=== PATIENT | male | born 1930 | race Caucasian/White ===

== ENCOUNTER 2016-08-26 11:25 | Inpatient (IN) ==
[2016-08-26] MEDS ORDERED: methylPREDNISolone SOD SUC 125 MG/2 ML VIAL IV STA (11:45)
[2016-08-26] MEDS ORDERED: LEVOFLOXACIN INJ 500 MG in PREMIX 1 EACH IV STA (11:45)
[2016-08-26] MEDS ORDERED: ALBUTEROL/IPRATROPIUM 3 ML NEB RESP TX STA ×2 (11:45→13:36)
--- NOTE | 2016-08-26 11:50 | EKG Report ---
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
[2016-08-26 12:05] LABS: Basophils # 0.1 10*3/uL (0.0-0.2); Basophils % 0.3 % (0.0-0.8); Eosinophils # 0.2 10*3/uL (0.0-0.87); Hematocrit 45.9 VOL% (42.0-52.0); Hemoglobin 14.9 GM/DL (14.0-18.0); Immature Granulocytes % 1.1 %; Immature Granulocytes Absolute 0.17 #; Lymphocytes # 1.2 10*3/uL (1.4-4.0); Lymphocytes % 8.2 % (21.2-54.2); Mean Corpuscular HGB Conc 32.5 GM/DL (32-36); Mean Corpuscular Hemoglobin 31 PG (27-34); Mean Corpuscular Volume 94.6 FL (87-102); Mean Platelet Volume 10.2 FL (9.6-12.0); Monocytes # 1.1 10*3/uL (0.11-0.8); Monocytes % 7.3 % (1.7-12.7); Neutrophils # 12.3 10*3/uL (1.4-7.4); Neutrophils % 82.1 % (38.7-73.9); Platelet Count 186 T/CUMM (130-400); Red Blood Count 4.85 MC/CUMM (3.8-5.5); Red Cell Distribution Width 13.4 % (9.3-17.3)
[2016-08-26] MEDS ORDERED: methylPREDNISolone SOD SUC 125 MG/2 ML VIAL ONE (12:07)
[2016-08-26] MEDS ORDERED: LEVOFLOXACIN INJ 100 ML IV ONE (12:07)
--- NOTE | 2016-08-26 12:26 | XRay Report ---
Referring Physician: Jaskaran Holm Exam: XR chest 1V portable Date: August 26, 2016 at 11:50 AM Reason: Shortness of breath Comparison: Chest one view portable October 01, 2015 Findings: The cardiac silhouette is normal in size, but the thoracic aorta is slightly tortuous. The lungs are hyperexpanded, which can be seen in COPD, and emphysema is suspected. The interstitial markings are prominent bilaterally. This likely represents scarring and possible mild pulmonary edema. A subtle infectious process is not excluded. No pneumothorax or pleural fluid is identified. No acute osseous process is seen. Impression: The lungs are hyperexpanded, which can be seen in COPD, and there is likely emphysema. The interstitial markings are also prominent bilaterally. This likely represents scarring and possibly mild pulmonary edema. An infectious process is also not excluded. PROCEDURE INTERPRETED AT [facility] DEPARTMENT OF RADIOLOGY Final Report Signed by: Dr. Shadi Shaffer
[2016-08-26 12:28] LABS: Band Neutrophils 2 % (0-10); Hypochromasia 1+; Lymphocytes 10 % (20-55); Ovalocytes Slight; Platelet Estimate Normal; Segmented Neutrophils 85 % (50-85); Total Cells Counted 100
[2016-08-26 12:35] LABS: Albumin 3.8 G/DL (3.4-5.0); Bilirubin,Total 0.7 MG/DL (0.2-1.0); Calcium 8.5 MG/DL (8.5-10.1); Osmolality,Calculated 292.7 MOS/KG (273-304); Potassium 3.5 MMOL/L (3.5-5.1); Total Protein 6.7 G/DL (6.4-8.3)
[2016-08-26 12:36] LABS: Troponin I Only 0.366 NG/ML (0.00-0.045)
--- NOTE | 2016-08-26 13:13 | Emergency Department Note ---
Hiwot Burrell Brittany, am scribing for, and in the presence of, Jaskaran Holm MD 11:52. Alta Burrell Phillip K, MD, personally performed the services described in this documentation, ascribed by Alyssa Mi in my presence, and it is both accurate and complete [id number] . Arrival - Arrival Chief Complaint: Shortness of Breath Stated Complaint: shortness of breath; fever Mode of Arrival: Stretcher Limitations: No Limitations Source: Patient Time Seen by Provider: 08/26/16 11:38 - History of Present Illness HPI Narrative: This isn 86 y/o white male, who presents to the ED with c/o SOB which started to get worse this morning. His states he has COPD and is always SOB but this morning he started to get worse. His states pt using Breathing Tx and home Ox at home. He reports a cough which was productive of white sputum. He reports he has not felt like he has had a fever, but upon examination he has a fever of 105. He denies any CP. He reports the dyspnea is worse with exertion. He denies any vomiting or diarrhea. Pt states his PCP is Dr. Bishop and anesthesia attending is Dr. Prather. Pt states he was last hospilazed was in September of last year. Pt has no other complaints/pain in the ED at this time. Pt has a PMHx of CAD, MS, HTN, dyslipidemia, asthma, and GERD. PT has had a cardiac cath with stent, colonoscopy, and right hip replacement. PT has has a family medical Hx of diabetes, heart disease, and HTN. Pt is a former smoker. Allergies/Adverse Reactions: Allergies Allergy/AdvReac Type Severity Reaction Status Date / Time Penicillins AdvReac Difficulty Verified 01/08/16 06:19 Breathing Home Medications: Home Medications Medication Instructions Recorded Confirmed Type Albuterol Sulfate [Albuterol 2 puff INH Q4H PRN 02/13/15 01/08/16 History Inhaler] Aspirin [Ecotrin] 81 mg PO DAILY 02/13/15 01/08/16 History Atorvastatin [Lipitor] 20 mg PO DAILY 02/13/15 01/08/16 History Carvedilol [Coreg] 6.25 mg PO BID 02/13/15 01/08/16 History Clopidogrel [Plavix] 75 mg PO DAILY 02/13/15 01/08/16 History Ipratropium Neb [Atrovent Neb] 500 mcg RESP TX Q4HR PRN 02/13/15 01/07/16 History Losartan [Cozaar] 25 mg PO DAILY 02/13/15 01/08/16 History Nitroglycerin Sl Tab [Nitrostat] 0.4 mg SL Q5M PRN 02/13/15 01/07/16 History Ranitidine Tab [Zantac Tab] 150 mg PO BID 02/13/15 01/08/16 History Budesonide/Formoterol 160-4.5 2 puff INH BID #1 inhaler 05/16/15 01/07/16 Rx [Symbicort 160-4.5] Ipratropium/Albuterol Inhaler 1 puff INH QID #1 inhaler 05/16/15 01/07/16 Rx [Combivent Respimat Inhaler] predniSONE TAB [PredniSONE] 5 mg PO QOTHER DAY 09/18/15 01/07/16 History Dutasteride [Avodart] 0.5 mg PO DAILY capsule 09/27/15 01/08/16 Rx Tamsulosin [Flomax] 0.4 mg PO BID capsule 09/27/15 01/08/16 Rx Lactulose Liquid [Chronulac] 20 gm PO BID udcup 10/02/15 01/08/16 Rx diphenhydrAMINE CAP [Benadryl Cap] 25 mg PO Q6H PRN #0 capsule 10/02/15 Rx Theophylline ER Tab 200 mg PO TID 12/12/15 01/08/16 History diphenhydrAMINE 2% CREAM [Benadryl 1 applic TOP TID PRN 12/12/15 01/07/16 History Cream] Review of System - Review of System ROS unobtainable: due to dementia - Review of System Constitutional: Present: fever Respiratory: Present: cough Cardiovascular: Present: dyspnea on exertion. 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 Yogesh Bishop) No history of: Pneumonia (Due this year for Pneum Vac), Respiratory Problems (No Flu Vac [id number] Season) Genitourinary: History of: Prostate Problems (BPH) Gastrointestinal: History of: GERD No history of: Polyps Musculoskeletal: No history of: Amputation Other: No history of: Anesthesia Reactions, Cancer - Surgical History Cardiac Surgeries: Sugical HX of: Cardiac Catheterization (STENT) Thoracic Surgeries: Patient denies;: Organ Transplant HEENT Surgeries: Patient denies: Eye Surgery (12/13/15 Cataract Lt;01/08/[address] Gonzalez), Tonsilectomy & Adenoidectomy Abdominal Surgeries: Surgical HX of: Colonoscopy Orthopedic Surgeries: Surgical HX of;: Total Hip Replacement (Rt Hip Replacement (Hip Fx 2015)) Patient denies;: Implanted Devices, Orthopedic Surgery, Spinal Surgery, Total Knee Replacement - Family History Family History: Reports;: Family Diabetes, Family Heart Disease, Family Hypertension - Social History Smoking Status: Former smoker Exam Vital Signs: Vital Signs Temperature 100.5 F H 08/26/16 11:45 Pulse Rate 120 H 08/26/16 12:15 Respiratory Rate 20 08/26/16 12:15 Blood Pressure 146/69 08/26/16 12:15 O2 Sat by Pulse Oximetry 99 08/26/16 12:15 - General General appearance: alert, in no apparent distress - Head Head exam: Present: atraumatic, normocephalic, normal inspection - Eye Eye exam: Present: normal appearance, PERRL, EOMI. Absent: nystagmus, miosis, mydriasis - ENT ENT exam: Present: normal exam, normal oropharynx, mucous membranes moist - Neck Neck exam: Present: normal inspection, full ROM, trachea midline. Absent: tenderness, lymphadenopathy, thyromegaly - Chest Chest inspection: Present: normal inspection, symmetric chest wall rise. Absent : tenderness, rash, abscess - Respiratory Respiratory exam: Present: prolonged expiratory phase, wheezes. Absent: rales, respiratory distress, rhonchi, stridor - Cardiovascular Cardiovascular exam: Present: normal rhythm, tachycardia, normal heart sounds. Absent: murmur, rubs, gallop - Abdominal Exam Abdominal exam: Present: soft, normal bowel sounds. Absent: distention, tenderness, guarding, rebound, rigidity - Rectal Exam Rectal exam: Present: deferred - Extremities Exam Extremities exam: Present: normal inspection, full ROM, normal capillary refill. Absent: tenderness, pedal edema, joint swelling, calf tenderness - Back Exam Back exam: Present: normal inspection, full ROM. Absent: tenderness, muscle spasm, rashes - Neurological Exam Neurological exam: Present: alert, oriented X3, CN II-XII intact. Absent: motor sensory deficit - Psychiatric Psychiatric exam: Present: normal affect, normal mood. Absent: depressed, agitated, anxious, manic - Skin Skin exam: Present: warm, dry, intact, normal color. Absent: rash, cyanosis, diaphoresis, erythema, pallor, mottled Course Course Narrative: Admit to the hospitalist. Results - Labs CBC & BMP: 08/26/16 11:44 08/26/16 11:44 Lab Results: I have reviewed the patients labs - EKG EKG results: interpreted by CHRISS, sinus rhythm (sinus tachycardia with some ST depression) - Diagnostic Findings Procedure: Chest x-ray: report reviewed by me (The lungs are hyperexpanded, which can be seen in COPD and there is likely emphysema. The intersitital markings are also prominent bilaterally. This likely reprsents scarring and possibly mild pulmonary edema. An infectious process is also not excluded. ) Disposition Clinical Impression: COPD exacerbation, Acute exacerbation of chronic obstructive airways disease, probable pneumonia Case discussed with: patient, patient's family Disposition: Still a Patient Condition: Guarded Additional Instructions: Admitted to the hospitalist
[2016-08-26] MEDS ORDERED: ACETAMINOPHEN 325 MG TABLET PO PRN (14:47)
[2016-08-26] MEDS ORDERED: ZALEPLON 5 MG CAPSULE PO PRN (14:47)
[2016-08-26] MEDS ORDERED: ONDANSETRON 4 MG/2 ML VIAL IV PRN (14:47)
[2016-08-26] MEDS ORDERED: BISACODYL 5 MG TABLET PO PRN (14:47)
--- NOTE | 2016-08-26 15:12 | Hospitalist History & Physical ---
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 Current Visit: No Qualifiers: COPD type: emphysema (2) Coronary artery disease Status: Chronic Assessment and plan: History given of prior IA with PCI. Echocardiogram 11 months ago with normal global and segmental LV systolic performance. Random cTnI elevated at admission. Current Visit: No Qualifiers: Coronary Disease-Associated Artery/Lesion type: wrangell artery History of Present Illness History of present illness: Mr. 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 Yesterday went to [place] to see about hearing aids. Travels by wheelchair largely but noticed nothing new. He awoke this morning at 04:00 initially with transient non-productive cough, then increase in dyspnea from chronic baseline. He received cough preparation from his and returned to bed for approximately four hours. He called to his due to continuing shortness of breath and EMS was called. He states he nearly "when out" while being wheeled to the ambulance. He denies fever, chills, pain, or symptoms consistent with nocturnal aspiration. He has history of remote "IA" with coronary stents done he believes about 3 years ago. An echocardiogram performed September of 2015 demonstrated normal global LV systolic performance without segmental wall motion abnormalities. His initial cTnI done in the emergency room earlier today is reported at 0.366. His ECG shows sinus tachycardia with isolated VPC and J point depression with upsloping ST segments. Home Medications Medication Instructions Recorded Confirmed Type Clopidogrel [Plavix] 75 mg PO DAILY 02/13/15 08/26/16 History Losartan [Cozaar] 25 mg PO DAILY 02/13/15 08/26/16 History Nitroglycerin Sl Tab [Nitrostat] 0.4 mg SL Q5M PRN 02/13/15 08/26/16 History Ranitidine Tab [Zantac Tab] 150 mg PO BID 02/13/15 08/26/16 History Budesonide/Formoterol 160-4.5 2 puff INH BID #1 inhaler 05/16/15 08/26/16 Rx [Symbicort 160-4.5] Dutasteride [Avodart] 0.5 mg PO DAILY capsule 09/27/15 08/26/16 Rx Tamsulosin [Flomax] 0.4 mg PO BID capsule 09/27/15 08/26/16 Rx Theophylline ER Tab 200 mg PO TID 12/12/15 08/26/16 History Albuterol Inhaler [Proventil 2 puff INH Q6HR PRN 08/26/16 08/26/16 History Inhaler] Alendronate Sodium 35 mg PO MO 08/26/16 08/26/16 History Aspirin [Aspirin EC] 81 mg PO QAM 08/26/16 08/26/16 History Atorvastatin Calcium 20 mg PO 1700 08/26/16 08/26/16 History Carvedilol [Coreg] 6.25 mg PO BID 08/26/16 08/26/16 History Ipratropium/Albuterol Sulfate 3 ml IH Q4H 08/26/16 08/26/16 History [Iprat-Albut 0.5-3(2.5) mg/3 ml] Multivit-Min/FA/Lycopen/Lutein 1 each PO DAILY 08/26/16 08/26/16 History [Centrum Silver Tablet] predniSONE TAB [PredniSONE] 10 mg PO QOTHER DAY 08/26/16 08/26/16 History Allergies Allergy/AdvReac Type Severity Reaction Status Date / Time Penicillins AdvReac Difficulty Verified 01/08/16 06:19 Breathing Medical,Surgical,& Family Hx - Medical History Cardio: History of: CAD (PCI X 2 in the past), Hypertension, IA Neurology: No history of: Seizures HEENT: History of: Ear Problem (Rt Ear Hearing Aide; 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 Yogesh Bishop) No history of: Pneumonia (Due this year for Pneum Vac), Respiratory Problems (No Flu Vac [id number] Season) Genitourinary: History of: Prostate Problems (BPH) Gastrointestinal: History of: GERD No history of: Polyps Musculoskeletal: No history of: Amputation Other: No history of: Anesthesia Reactions, Cancer - Surgical History Cardiac Surgeries: Sugical HX of: Cardiac Catheterization (STENT) Thoracic Surgeries: Patient denies;: Organ Transplant HEENT Surgeries: Patient denies: Eye Surgery (12/13/15 Cataract Lt;01/08/[address] Gonzalez), Tonsilectomy & Adenoidectomy Abdominal Surgeries: Surgical HX of: Appendectomy, Colonoscopy Orthopedic Surgeries: Surgical HX of;: Total Hip Replacement (Rt Hip Replacement (Hip Fx 2016)) Patient denies;: Implanted Devices, Orthopedic Surgery, Spinal Surgery, Total Knee Replacement Additional Surgical History: Bilateral ear surgery - Family History Family History: Reports;: Family Diabetes, Family Heart Disease, Family Hypertension - Social History Smoking Status: Former smoker (1 ppd, abstinent for one year) Frequency of Alcohol Use: None Type of Drug Use: None - Constitutional Constitutional: Present: weakness. Absent: weight loss - EENT Ears: Present: decreased hearing - Cardiovascular Cardiovascular: Absent: chest pain at rest, chest pain with activity, edema, orthopnea, palpitations - Respiratory Respiratory: Present: cough, dyspnea on exertion - Gastrointestinal Gastrointestinal: Absent: abdominal pain, change in bowel habits, dysphagia, hematemesis, hematochezia, melena - Neurological Neurological: Absent: convulsions, focal weakness, syncope Exam - Constitutional Vitals: Period Temp Pulse Resp BP Sys/Carrion Pulse Ox Last 24 Hr 110-117 17-20 97-98 General appearance: normal weight, no acute distress - Eye Eye exam: Absent: scleral icterus - Neck Neck exam: Absent: lymphadenopathy, thyromegaly - Respiratory Respiratory exam: Present: accessory muscle use, other (pursed lip breathing with extremely distant breath sounds) - Cardiovascular Cardiovascular exam: Present: regular rate and rhythm - GI/Abdominal GI/Abdominal exam: Present: normal bowel sounds. Absent: distended, organomegaly, tenderness - Extremities Exam Extremities exam: Absent: edema - Neurological Exam Neurological exam: Present: alert, oriented X3 Results - Labs CBC & BMP: 08/26/16 11:44 08/26/16 11:44 Labs: cTnI 0.366 - Impressions Sinus rhythm with sinus tachycardia, J point depression with upsloping ST segments. - Diagnostic Findings Procedure: Chest x-ray: image reviewed by me (hyperexpansion with mildly coarse interstial markings and normal heart size)
--- NOTE | 2016-08-26 16:04 | Cardiology Consult Note ---
<Sonam Gilbert E - Last Filed: 08/26/16 17:26> Assessment and Plan - Time spent with patient Time spent with patient: Greater than 30 minutes (Due to assessment, plan, and documentation.) (1) Leukocytosis Status: Acute Assessment and plan: White blood cell count noted to be 15.0 on admission. Patient has been given 500 mg IV Levaquin in the emergency department. Nasal swabs for flu were negative. Blood cultures are pending. Urinalysis was unremarkable. Hospital medicine is following. Current Visit: Yes (2) Fever Status: Acute Assessment and plan: Received IV Levaquin in the emergency room. Tylenol as needed. Current Visit: Yes (3) Dyspnea Status: Acute Assessment and plan: O2 via NBP. Breathing treatments have been ordered. Current Visit: No (4) Elevated troponin I level Status: Acute Assessment and plan: Mildly elevated troponin on admission. We will continue to cycle cardiac isoenzymes and follow trend. Current elevation could be related to his tachycardia or shortness of breath. EKG showed sinus tachycardia with occasional PVC. He denies chest pain. His shortness of breath seems to be more related to his chronic lung issues. Current Visit: No (5) COPD (chronic obstructive pulmonary disease) Status: Chronic Assessment and plan: Hospital medicine is following. He is currently breathing comfortably on O2 via NBP. Breathing treatments, theophylline ordered. Current Visit: No Qualifiers: COPD type: emphysema (6) Dyslipidemia Status: Chronic Assessment and plan: Continue atorvastatin. Current Visit: Yes (7) Essential hypertension Status: Chronic Assessment and plan: Currently well controlled. Continue home medications and monitor and adjust as needed. He was started on Cardizem p.o. This may help with his tachycardic episodes. Current Visit: No (8) Coronary artery disease Status: Chronic Assessment and plan: Last heart catheterization performed was April 03, 2013 and the patient received overlapping drug-eluting stents to the first obtuse marginal branch along with aspiration thrombectomy. He currently shows no acute signs of ACS. We will continue to monitor. Current Visit: No Qualifiers: Coronary Disease-Associated Artery/Lesion type: [place] artery (9) Physical debility Status: Chronic Assessment and plan: Patient's tells me that he has refused multiple recommendations for physical therapy and is very sedentary at home. Patient tells me he has a stationary bike and hand weights that he uses occasionally but his tells me he does not use these. Current Visit: No (10) Advanced age Status: Chronic Current Visit: Yes History of Present Illness - Data of Consult Patient: known to practice within the last 3 years (followed by Dr. Rios) Consult date: 08/26/16 Requesting Physician: Uche Vanessa - Consult Narrative Reason for consult: SOB, elevated troponin History of present illness: MANAGER BOOK: DR. RIOS PCP: DR. RYAN CRUZ Mr. Contreras is a 86 year old male who is routinely followed by Dr. Rios. He has a history of coronary artery disease, chronic obstructive pulmonary disease, dyslipidemia, hypertension, benign prostatic hyperplasia, prior [place]. Last echocardiogram in September 2015 revealed normal LV systolic function with EF 60%, grade 1 4 diastolic dysfunction and mild tricuspid regurgitation. Last heart catheterization performed was April 03, 2013 and the patient received overlapping drug-eluting stents to the first obtuse marginal branch along with aspiration thrombectomy. He is hard of hearing and wears hearing aids. He previously underwent surgery to repair a right hip fracture in September 2015. His reports he has been very sedentary ever since then and has refused multiple attempts to rehab him with physical therapy. He presented to the emergency department via ambulance today with complaints of progressive shortness of breath. Mr. Contreras reports he has chronic dyspnea and wears home O2 continuously. This morning around 0400 AM, Mr. Contreras awoke in a coughing fit. He reports he checked his SpO2 which was 95% and he noted his heart rate was elevated at 140. He tells me his brought him some cough medication and he tried to rest. Around 0800, he noted he was not improving and had markedly increased SOB so he had his call the ambulance. He reports coughing up white phlegm on one occasion, but otherwise his cough has been non-productive. He had an episode of near syncope when being transported to the ambulance, but has felt better since being admitted. Prior to arrival, his reports he had a temperature of 100.5. He denies any chest pain, arm pain, jaw pain. He also denies any dizziness, palpitations, diaphoresis, nausea, vomiting. He denies any recent hematuria or dysuria. On admission he was noted to have an elevated white count of 15.0. A random troponin was checked and found to be 0.366. He is also noted to have a creatinine of 1.4. BNP 94. EKG shows sinus tachycardia with occasional PVC. Urinalysis was unremarkable. We will continue to follow him with serial isoenzymes and will repeat his echocardiogram. I suspect his troponin elevation may be related to his tachycardia or shortness of breath. Dr. Mccracken to follow with further plan and addendum. Assessment/plan: 1. Leukocytosis - White blood cell count noted to be 15.0 on admission. Patient has been given 500 mg IV Levaquin in the emergency department. Nasal swabs for flu were negative. Blood cultures are pending. Urinalysis was unremarkable. Hospital medicine is following. 2. Fever - Received IV Levaquin in the emergency room. Tylenol as needed. 3. Dyspnea - O2 via NBP. Breathing treatments have been ordered. 4. Elevated troponin I level - Mildly elevated troponin on admission. We will continue to cycle cardiac isoenzymes and follow trend. Current elevation could be related to his tachycardia or shortness of breath. EKG showed sinus tachycardia with occasional PVC. He denies chest pain. His shortness of breath seems to be more related to his chronic lung issues. 5. COPD - Hospital medicine is following. He is currently breathing comfortably on O2 via NBP. Breathing treatments, theophylline ordered. 6. Dyslipidemia -continue atorvastatin. 7. Essential hypertension - Currently well controlled. Continue home medications and monitor and adjust as needed. He was started on Cardizem p.o. This may help with his tachycardic episodes. 8. Coronary artery disease - Last heart catheterization performed was April 03, 2013 and the patient received overlapping drug-eluting stents to the first obtuse marginal branch along with aspiration thrombectomy. He currently shows no acute signs of ACS. We will continue to monitor. 9. Physical debility - Patient's tells me that he has refused multiple recommendations for physical therapy and is very sedentary at home. Patient tells me he has a stationary bike and hand weights that he uses occasionally but his tells me he does not use these. 10. Advanced age CC: Uche Vanessa MD - Home Medications and Allergies Home Medications: Home Medications Medication Instructions Recorded Confirmed Type Nitroglycerin Sl Tab [Nitrostat] 0.4 mg SL Q5M PRN 02/13/15 08/26/16 History Ranitidine Tab [Zantac Tab] 150 mg PO BID 02/13/15 08/26/16 History Budesonide/Formoterol 160-4.5 2 puff INH BID #1 inhaler 05/16/15 08/26/16 Rx [Symbicort 160-4.5] Theophylline ER Tab 200 mg PO TID 12/12/15 08/26/16 History Albuterol Inhaler [Proventil 2 puff INH Q6HR PRN 08/26/16 08/26/16 History Inhaler] Alendronate Sodium 35 mg PO Q7DAY 08/26/16 08/26/16 History Aspirin [Aspirin EC] 81 mg PO QAM 08/26/16 08/26/16 History Atorvastatin Calcium 20 mg PO 1700 08/26/16 08/26/16 History Carvedilol [Coreg] 6.25 mg PO BID 08/26/16 08/26/16 History Ipratropium/Albuterol Sulfate 3 ml IH Q4H 08/26/16 08/26/16 History [Iprat-Albut 0.5-3(2.5) mg/3 ml] Multivit-Min/FA/Lycopen/Lutein 1 each PO DAILY 08/26/16 08/26/16 History [Centrum Silver Tablet] Tamsulosin [Flomax] 0.4 mg PO DAILY PRN 08/26/16 08/26/16 History predniSONE TAB [PredniSONE] 10 mg PO QOTHER DAY 08/26/16 08/26/16 History Allergies/Adverse Reactions: Allergies Allergy/AdvReac Type Severity Reaction Status Date / Time Penicillins AdvReac Difficulty Verified 01/08/16 06:19 Breathing Review of systems: - Constitutional: Present: weakness, fatigue, low-grade fever(s), As per HPI. Absent: anorexia, chills, daytime sleepiness, excessive sweating, frequent falls , headache(s), increased appetite, lethargy, malaise, night sweats, stops breathing during sleep, weight gain, weight loss, - EENT Eyes: Present: As per HPI. Absent: blurry vision, diplopia, loss of vision Ears: Present: decreased hearing, As per HPI. Absent: ear discharge, ear pain Nose, mouth and throat: Present: As per HPI. Absent: dysphagia, epistaxis, headache(s), hoarseness, lip swelling, nasal congestion, neck mass, neck pain, sinus pressure, sore throat, throat swelling, tongue swelling, vertigo - Cardiovascular: Present: dyspnea, dyspnea on exertion, as per HPI. Absent: chest pain at rest, chest pain with activity, edema, claudication, diaphoresis, radiating jaw, neck or arm pain, lightheadedness, orthopnea, palpitations, PND - Respiratory: Present: dyspnea, dyspnea on exertion, cough, as per HPI. Absent: hemoptysis, wheezing, snoring, pain on inspiration - Gastrointestinal: Present: As per HPI. Absent: abdominal pain, bloating, change in bowel habits, constipation, diarrhea, heartburn, hematemesis, hematochezia, loose stools, melena, nausea, vomiting - Genitourinary: Present: As per HPI. Absent: difficulty urinating, dysuria, flank pain, hematuria, nocturia, urinary frequency, urinary incontinence - Musculoskeletal: Present: As per HPI. Absent: arthralgias, back pain, joint swelling, limited range of motion, muscle cramps, muscle weakness, myalgias - Neurological: Present: Near syncope, As per HPI. Absent: abnormal gait, abnormal speech, behavioral changes, confusion, convulsions, disequilibrium, dizziness, focal weakness, frequent falls, headache(s), memory loss, numbness, paresthesias, radicular pain, tremor(s) - Psychiatric: Present: As per HPI. Absent: anxiety, confusion, depression, panic attacks - Endocrine: Present: fatigue, As per HPI. Absent: cold intolerance, heat intolerance, polydipsia, polyphagia - Hematologic/Lymphatic: Present: As per HPI. 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 Yogesh Cruz) No history of: Pneumonia (Due this year for Pneum Vac), Respiratory Problems (No Flu Vac [id number] Season) Genitourinary: History of: Prostate Problems (BPH) Gastrointestinal: History of: GERD No history of: Polyps Musculoskeletal: No history of: Amputation Other: No history of: Anesthesia Reactions, Cancer - Surgical History Cardiac Surgeries: Sugical HX of: Cardiac Catheterization (STENT) Thoracic Surgeries: Patient denies;: Organ Transplant HEENT Surgeries: Patient denies: Eye Surgery (12/13/15 Cataract Lt;01/08/[address] Gonzalez), Tonsilectomy & Adenoidectomy Abdominal Surgeries: Surgical HX of: Appendectomy, Colonoscopy Orthopedic Surgeries: Surgical HX of;: Total Hip Replacement (Rt Hip Replacement (Hip Fx 2016)) Patient denies;: Implanted Devices, Orthopedic Surgery, Spinal Surgery, Total Knee Replacement - Family History Family History: Reports;: Family Diabetes, Family Heart Disease, Family Hypertension - Social History Smoking Status: Former smoker (1 ppd, abstinent for one year) Frequency of Alcohol Use: None Type of Drug Use: None Marital Status: Lives With:: Spouse Functional capacity: independent ambulation Physical Examination Vital Signs Temp Pulse Resp BP Pulse Ox 100.5 F H 142 H 26 H 171/83 98 08/26/16 11:38 08/26/16 11:38 08/26/16 11:38 08/26/16 11:38 08/26/16 11:38 Other: General appearance: Pleasant and cooperative. Normal weight, no acute distress. Hard of hearing - Head Head exam: Present: normal inspection, normocephalic, atraumatic. Absent: hematoma, laceration - Eye Eye exam: Present: EOMI. Absent: conjunctival injection, nystagmus, periorbital swelling, scleral icterus, laceration to eyelids Pupils: Present: PERRL. Absent: constricted, dilated, fixed, irregular, unequal - ENT ENT exam: Present: normal exam, normal external ear exam, right hearing aid present. - Neck Neck exam: Present: normal inspection. Absent: lymphadenopathy, meningismus, tenderness, thyromegaly - Respiratory Respiratory exam: Present: Scattered expiratory wheezes. Absent: chest wall tenderness, stridor. - Cardiovascular Cardiovascular exam: Present: regular rate and rhythm, tachycardia. Absent: carotid bruit, gallop, JVD, rubs, murmur - GI/Abdominal GI/Abdominal exam: Present: normal bowel sounds, soft. Absent: distended, firm , guarding, hernia, mass, tenderness, rebound. - Extremities Exam Extremities exam: Present: normal inspection, normal capillary refill. Upper extremity pulses 2+. Lower extremity pulses 2+, 2+ pitting edema to RLE, 1+ pitting edema to LLE. Absent: calf tenderness - Back Exam Back exam: Present: normal inspection. Absent: muscle spasm, vertebral tenderness - Neurological Exam Neurological exam: Present: alert, oriented X3, grossly intact without resting or essential tremor - Psychiatric Psychiatric exam: Present: normal affect, normal mood - Skin Skin exam: Present: normal color, warm, dry, intact. Absent: cyanosis, diaphoretic, rash, urticaria Result/EKG - Labs CBC & BMP: 08/26/16 11:44 08/26/16 11:44 Lab Results: I have reviewed the past 24 hour labs - EKG EKG results: interpreted by me, sinus rhythm EKG shows: tachycardia (With occasional PVC.) <Devon Mccracken - Last Filed: 08/26/16 23:06> Assessment and Plan (1) Elevated troponin I level Status: Acute Assessment and plan: This does not appear to be an acute coronary syndrome. The patient has no chest pain/angina or acute EKG changes. He had a coughing fit, with fever and leukocytosis. I suspect the primary etiology of his symptoms is related to pulmonary infection/COPD exacerbation. I think the trivial change in cardiac troponin is related to supply/demand mismatch, secondary to tachycardia/fever/ hypoxia. From a cardiac standpoint, I would be conservative in management at this time. I will check/review an echo. Of note, I reviewed his old labs and his troponin seems to be mildly elevated on every admission (and this is the lowest it's been). Current Visit: No History of Present Illness - Consult Narrative History of present illness: I saw, examined and reviewed the chart and discussed the case with Sonam Gilbert NP today and agree. CC: Uche Vanessa MD Physical Examination Vital Signs Temp Pulse Resp BP Pulse Ox 100.5 F H 142 H 26 H 171/83 98 08/26/16 11:38 08/26/16 11:38 08/26/16 11:38 08/26/16 11:38 08/26/16 11:38 Result/EKG - Labs CBC & BMP: 08/26/16 11:44 08/26/16 11:44 Labs: Laboratory Results - last 24 hr 08/26/16 08/26/16 18:52 Unknown Total Creatine Kinase 119 115 CK-MB (CK-2) 2.8 2.9 Troponin I 0.326 H 0.344 H
[2016-08-26] MEDS: ALBUTEROL/IPRATROPIUM 3 ML NEB RESP TX SCH ×3 (16:16→23:10)
[2016-08-26] MEDS: THEOPHYLLINE ER (24 HR) 300 MG CAPSULE PO SCH ×2 (17:12→20:27)
[2016-08-26] MEDS: DILTIAZEM CD 120 MG CAPSULE PO SCH (17:12)
[2016-08-26] MEDS: ENOXAPARIN 40 MG/0.4 ML SYRINGE SUBCUT SCH (17:12)
[2016-08-26] MEDS: ATORVASTATIN 40 MG TABLET PO SCH (17:12)
[2016-08-26 17:45] LABS: Troponin I Only 0.344 NG/ML (0.00-0.045)
[2016-08-26] MEDS: BUDESONIDE/FORMOTEROL 160-4.5 INHALER 6 GM INH SCH (20:27)
[2016-08-26] MEDS: ASCORBIC ACID 500 MG TABLET PO SCH (20:27)
[2016-08-26] MEDS: FAMOTIDINE 20 MG TABLET PO SCH (20:27)
[2016-08-26] MEDS: CARVEDILOL 6.25 MG TABLET PO SCH (20:27)
[2016-08-26] MEDS ORDERED: TAMSULOSIN 0.4 MG CAPSULE PO SCH (21:00)
[2016-08-26 21:23] LABS: Troponin I Only 0.326 NG/ML (0.00-0.045)
[2016-08-26 23:03] LABS: Troponin I Only 0.283 NG/ML (0.00-0.045)
[2016-08-27] MEDS: ALBUTEROL/IPRATROPIUM 3 ML NEB RESP TX SCH ×5 (03:10→19:04)
[2016-08-27 06:57] LABS: Calcium 8.6 MG/DL (8.5-10.1); Magnesium 2.3 MG/DL (1.8-2.4); Osmolality,Calculated 290.1 MOS/KG (273-304); Potassium 4.1 MMOL/L (3.5-5.1)
--- NOTE | 2016-08-27 07:12 | Hospitalist Progress Note ---
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 Transient worsening of symptoms with mildly elevated temperature. Will follow-up IV flouroquinolone orally Current Visit: No Qualifiers: COPD type: emphysema (2) Coronary artery disease Status: Chronic Assessment and plan: History given of prior [place] with PCI to obtuse marginal 2012. Echocardiogram 11 months ago with normal global and segmental LV systolic performance. Random cTnI elevated at admission, no evolution. Current Visit: No Qualifiers: Coronary Disease-Associated Artery/Lesion type: [place] artery Hospitalist: Subjective Interval history: 86 yo male with advanced pulmonary disease admitted for increased dyspnea. Radiographically stable with low grade fever in ER with single dose of IV Levaquin without subsequent temperature elevation. Has normal echocardiographic LV systolic performance with history of percutaneous intervention to OM1 2012. His troponin level was initially indeterminate without evolution overnight. He states he feels well this morning apparent baseline. Exam - Constitutional Vitals: Period Temp Pulse Resp BP Sys/Carrion Pulse Ox Last 24 Hr 97.6 F-99.6 F 73-117 16-22 97-140/61-75 91-99 General appearance: normal weight, no acute distress - Respiratory Respiratory exam: Present: clear to auscultation bilaterally, other (very remote breath sounds) - Cardiovascular Cardiovascular exam: Present: regular rate and rhythm - GI/Abdominal GI/Abdominal exam: Present: normal bowel sounds. Absent: tenderness - Extremities Exam Extremities exam: Absent: edema - Neurological Exam Neurological exam: Present: alert, oriented X3 Results - Labs CBC & BMP: 08/26/16 11:44 08/27/16 05:35 Labs: cTnI 0.283 Quality Measures - Stroke Symptom Onset Unknown: No
[2016-08-27] MEDS: DUTASTERIDE 0.5 MG CAPSULE PO SCH (10:14)
[2016-08-27] MEDS: CLOPIDOGREL 75 MG TABLET PO SCH (10:14)
[2016-08-27] MEDS: FAMOTIDINE 20 MG TABLET PO SCH ×2 (10:14→20:48)
[2016-08-27] MEDS: LOSARTAN 25 MG TABLET PO SCH (10:14)
[2016-08-27] MEDS: TAMSULOSIN 0.4 MG CAPSULE PO PRN (10:14)
[2016-08-27] MEDS: ASCORBIC ACID 500 MG TABLET PO SCH ×2 (10:14→20:48)
[2016-08-27] MEDS: THEOPHYLLINE ER (24 HR) 300 MG CAPSULE PO SCH ×2 (10:14→20:47)
[2016-08-27] MEDS: LEVOFLOXACIN 500 MG TABLET PO SCH (10:16)
[2016-08-27] MEDS: CARVEDILOL 6.25 MG TABLET PO SCH ×2 (10:17→20:48)
[2016-08-27] MEDS: POTASSIUM CHLORIDE 20 MEQ TABLET PO SCH (10:17)
[2016-08-27] MEDS: DILTIAZEM CD 120 MG CAPSULE PO SCH (10:18)
[2016-08-27] MEDS: BUDESONIDE/FORMOTEROL 160-4.5 INHALER 6 GM INH SCH ×2 (10:22→20:47)
[2016-08-27] MEDS: ASPIRIN EC 81 MG TABLET PO SCH (10:22)
--- NOTE | 2016-08-27 15:03 | ECHO Report ---
Jacky Contreras Exam Date: 08/27/2016 13:29 Referring Physician: Technologist: Natalie Fermin Age: 86 Ht (in): 67 Wt (lb): 150 Gender: M Exam Location: [facility] Echo Indications: dyslipidemia, CAD, leukocytosis, fever, dyspnea, elevated troponin, Copd, HTN BP: 119 / 70 HR: 70 Rhythm: Sinus Technical Quality: Very technically difficult study IMPRESSIONS Technically difficult study. EF 60 %, Grade I/IV diastolic dysfunction (abnormal relaxation filling pattern), normal to mildly elevated filling pressures. Normal right ventricular size. Moderately increased right atrial size. Moderately increased left atrial size. Thickened mitral valve. Trace mitral valve regurgitation. Aortic valve sclerosis. Trace aortic valve regurgitation. [id number] tricuspid valve regurgitation. [id number] mmHG. Pulmonic valve not well visualized. No pericardial effusion. Normal size aortic root and proximal ascending aorta. MEASUREMENTS (Male / Female) Normal Values 2D ECHO LV Diastolic Diameter PLAX 3.0 cm 4.2 - 5.9 / 3.9 - 5.3 cm LV Systolic Diameter PLAX 2.1 cm LV Fractional Shortening PLAX 30.1 % IVS Diastolic Thickness 1.6 cm 0.6 - 1.0 / 0.6 - 0.9 cm LVPW Diastolic Thickness 1.2 cm 0.6 - 1.0 / 0.6 - 0.9 cm Aortic Root Diameter 2.2 cm LA Systolic Diameter LX 2.7 cm 3.0 - 4.0 / 2.7 - 3.8 cm DOPPLER TR Peak Velocity 201.0 cm/s TR Peak Gradient 16.2 mmHg FINDINGS Left Ventricle EF 60 %, Grade I/IV diastolic dysfunction (abnormal relaxation filling pattern), normal to mildly elevated filling pressures. Right Ventricle Normal right ventricular size. Right Atrium Moderately increased right atrial size. Left Atrium Moderately increased left atrial size. Mitral Valve Thickened mitral valve. Trace mitral valve regurgitation. Aortic Valve Aortic valve sclerosis. Trace aortic valve regurgitation. Tricuspid Valve Morphologically normal tricuspid valve. [id number] tricuspid valve regurgitation. [id number] mmHG. Pulmonic Valve Pulmonic valve not well visualized. Pericardium No pericardial effusion. Aorta Normal size aortic root and proximal ascending aorta. Jean Pierre Morfin (Electronically Signed) Final Date: 27 August 2016 15:03
--- NOTE | 2016-08-27 16:02 | Cardiology Progress Note ---
Indra, Marily Marino RN, am scribing for, and in the presence of, Devon Mccracken MD 16:00. Assessment and Plan - Time spent with patient Time spent with patient: Greater than 30 minutes (1) Elevated troponin I level Status: Acute Assessment and plan: Serial cardiac biomarkers were trivially elevated. Mild elevation in troponins could be attributed to supply demand mismatch secondary to fixed coronary artery disease on top of hypoxia/COPD exacerbation, fever, leukocytosis, tachycardia. EKG has revealed no acute changes. Given his lack of cardiac symptoms at this time, extreme frailty, and other medical conditions, I would manage him conservatively. His heart rate is much better controlled with the addition of diltiazem. Current Visit: No (2) COPD exacerbation Status: Chronic Assessment and plan: Defer primary management of this to hospital medicine. He is routinely followed by Dr. Cruz for his COPD and other primary care. Current Visit: Yes (3) Leukocytosis Status: Acute Assessment and plan: Blood cultures are pending. Patient is afebrile this morning with temp max overnight 100.5F. Defer primary management of this to hospital medicine. Current Visit: Yes (4) Dyspnea Status: Chronic Assessment and plan: Patient has chronic dyspnea. He requires home O2. Since admission, oxygen has been continued and nebulizer treatments have been added. Current Visit: Yes (5) Dyslipidemia Status: Chronic Assessment and plan: Continue statin. Current Visit: Yes (6) Coronary artery disease Problem details: 04/03/13: 2.25 x 20 mm Promus BERRY with overlapping 2.5 x 16 mm Promus BERRY to 1st OM Status: Chronic Assessment and plan: Patient currently has no anginal complaint or clinical findings for ACS. I would manage him conservatively as noted above. Current Visit: No Qualifiers: Coronary Disease-Associated Artery/Lesion type: three affiliated artery (7) Essential hypertension Status: Chronic Assessment and plan: BP is well controlled at this time. Continue current medication regimen. Current Visit: No (8) Physical debility Status: Chronic Assessment and plan: Patient is generally very sedentary at home. He has refused multiple recommendations for physical therapy and further rehabilitation in the past. Current Visit: No (9) Advanced age Status: Chronic Current Visit: Yes (10) Tachycardia Status: Acute Assessment and plan: This has resolved with addition of diltiazem. Current Visit: Yes Cardiology - PN: Subj Interval history: PRIMARY DUCT LAYER: DR. SEDRICK RIOS PCP: DR. CRUZ Mr. Contreras is seen today in follow-up after consultation yesterday for mildly elevated troponin. He has rested well overnight, and is awake and alert this morning eating breakfast without acute distress or needs noted. Reports improvement in his severity of shortness of breath today. No chest pain, palpitation, dizziness, presyncope, or other anginal complaint. Tachycardia yesterday with pulse rate in the 140s is improved today, and pulse rate is in the 70s per telemetry monitoring without overt ectopy or arrhythmia seen. Systolic BP 110-100 30 mmHg. the patient's cardiac enzymes demonstrated a trivial elevation which today is 0.283. I think this is probably secondary to supply demand mismatch with fixed coronary artery disease on top of severe COPD and some tachycardia. The patient is not having any anginal type symptoms. Given his lack of symptoms, and frailty, and other medical problems, I certainly would manage this conservatively at this time. Normal CPK at 113. Electrolytes are within normal limits. Creatinine is 1.5 with a GFR of 44, but review of his old records shows a baseline creatinine around 1.3. Current Medications Acetaminophen (Tylenol Tab) 325 mg PO Q4H PRN PRN Reason: fever, headache/body aches Albuterol/Ipratropium (Duoneb) 3 ml RESP TX RT Q4H [facility] Last Admin: 08/27/16 07:10 Dose: 3 ml Ascorbic Acid (Vitamin C Tab) 1,000 mg PO BID [facility] Last Admin: 08/26/16 20:27 Dose: 1,000 mg Aspirin () 81 mg PO QAM [facility] Atorvastatin Calcium (Lipitor) 20 mg PO 1700 [facility] Last Admin: 08/26/16 17:12 Dose: 20 mg Bisacodyl (Dulcolax Tab) 10 mg PO DAILY PRN PRN Reason: Constipation Budesonide/Formoterol Fumarate (Symbicort 160-4.5) 2 puff INH BID [facility] Last Admin: 08/26/16 20:27 Dose: 2 puff Carvedilol (Coreg) 6.25 mg PO BID [facility] Last Admin: 08/26/16 20:27 Dose: 6.25 mg Clopidogrel Bisulfate (Plavix) 75 mg PO DAILY [facility] Diltiazem HCl (Cardizem Cd) 120 mg PO DAILY [facility] Last Admin: 08/26/16 17:12 Dose: 120 mg Dutasteride (Avodart) 0.5 mg PO DAILY [facility] Enoxaparin Sodium (Lovenox) 40 mg SUBCUT Q24H [facility] Last Admin: 08/26/16 17:12 Dose: 40 mg Famotidine (Pepcid Tab) 20 mg PO BID [facility] Last Admin: 08/26/16 20:27 Dose: 20 mg Levofloxacin (Levaquin Tab) 500 mg PO DAILY [facility] Losartan Potassium (Cozaar) 25 mg PO DAILY [facility] Ondansetron HCl (Zofran Inj) 4 mg IV Q4H PRN PRN Reason: Nausea Potassium Chloride (K Dur) 20 meq PO DAILY [facility] Prednisone () 10 mg PO QOTHER DAY [facility] Tamsulosin HCl (Flomax) 0.4 mg PO DAILY PRN PRN Reason: URINARY SYMPTOMS Theophylline (Darron 24) 300 mg PO BID [facility] Last Admin: 08/26/16 20:27 Dose: 300 mg Zaleplon (Sonata) 5 mg PO BEDTIME PRN PRN Reason: Insomnia Exam (Progress Note) - Constitutional Vitals: Period Temp Pulse Resp BP Sys/Carrion Pulse Ox Last 24 Hr 97.6 F-99.6 F 73-117 16-22 97-140/61-75 91-99 Exam: General appearance: Pleasant and cooperative. Normal weight, no acute distress. Hard of hearing - Head Head exam: Present: normal inspection, normocephalic, atraumatic. Absent: hematoma, laceration, contusion - Eye Eye exam: Present: EOMI. Absent: conjunctival injection, nystagmus, periorbital swelling, scleral icterus, laceration to eyelids Pupils: Present: PERRL. Absent: constricted, dilated, fixed, irregular, unequal - ENT ENT exam: Present: normal exam, normal external ear exam, right hearing aid present. - Neck Neck exam: Present: normal inspection. Absent: lymphadenopathy, meningismus, tenderness, thyromegaly - Respiratory Respiratory exam: Present: Scattered expiratory wheezes throughout. Absent: chest wall tenderness, stridor, rhonchi, rales - Cardiovascular Cardiovascular exam: Present: regular rate and rhythm. Absent: carotid bruit, gallop, JVD, rubs, murmur, bradycardia, tachycardia, irregular rhythm - GI/Abdominal GI/Abdominal exam: Present: normal bowel sounds, soft. Absent: distended, firm , guarding, hernia, mass, tenderness, rebound. - Extremities Exam Extremities exam: Present: normal inspection, normal capillary refill. Upper extremity pulses 2+. Lower extremity pulses 2+, Absent: calf tenderness, edema - Back Exam Back exam: Present: normal inspection. Absent: muscle spasm, vertebral tenderness - Neurological Exam Neurological exam: Present: alert, oriented X3, grossly intact without resting or essential tremor - Psychiatric Psychiatric exam: Present: normal affect, normal mood - Skin Skin exam: Present: normal color, warm, dry, intact. Absent: cyanosis, diaphoretic, rash, urticaria Result/EKG - Labs CBC & BMP: 08/26/16 11:44 08/27/16 05:35 Lab Results: I have reviewed the past 24 hour labs Labs: Laboratory Results - last 24 hr 08/26/16 08/26/16 08/26/16 18:52 22:28 Unknown Sodium Potassium Chloride Carbon Dioxide Anion Gap BUN Creatinine GFR Calculation BUN/Creatinine Ratio Glucose Calculated Osmolality Calcium Magnesium Total Creatine Kinase 119 113 115 CK-MB (CK-2) 2.8 2.6 2.9 Troponin I 0.326 H 0.283 H 0.344 H 08/27/16 05:35 Sodium 142 Potassium 4.1 Chloride 104 Carbon Dioxide 30 Anion Gap 12.1 BUN 28 H Creatinine 1.50 H GFR Calculation 44 BUN/Creatinine Ratio 18.00 Glucose 126 H Calculated Osmolality 290.1 Calcium 8.6 Magnesium 2.3 Total Creatine Kinase CK-MB (CK-2) Troponin I - Diagnostic Findings Procedure: Chest x-ray: image reviewed by me, report reviewed by me (08/26/16: hyperexpansion of lungs r/t COPD with probably emphysema. Possible mild pulmonary edema. Infiltrate not excluded.) - EKG EKG results: interpreted by me EKG shows: sinus rhythm (Pulse rate 70s; no overt ectopy or arrhythmia) Quality Measures - Stroke Symptom Onset Unknown: No I, Devon Mccracken MD, personally performed the services described in this documentation, ascribed by Marily Marino RN in my presence, and it is both accurate and complete 602 .
[2016-08-27] MEDS: ATORVASTATIN 40 MG TABLET PO SCH (16:45)
[2016-08-27] MEDS: ENOXAPARIN 40 MG/0.4 ML SYRINGE SUBCUT SCH (20:47)
[2016-08-28] MEDS: ALBUTEROL/IPRATROPIUM 3 ML NEB RESP TX SCH ×3 (00:50→07:23)
--- NOTE | 2016-08-28 07:25 | Discharge Summary ---
Hospital Course - Hospital Course Hospital Course: 86-year-old male with advanced pulmonary disease admitted with increased dyspnea following a period of coughing early in that morning. Radiographically his chest was stable. He had a low-grade fever without significant bronchospasm. Blood pressure and heart rate were both elevated at initial presentation however oxygen saturations were preserved on oxygen supplementation (patient is on chronic home oxygen therapy). The patient's cardiac troponin level was initially indeterminate and did not evolve during the hospital stay he had a previous history of coronary disease with a percutaneous intervention to the obtuse marginal branch of the circumflex coronary artery in 2012 with preserved left ventricular systolic performance on echocardiogram performed during this hospitalization. He has no evidence on echo of elevated pulmonary artery pressures. Subsequent to admission the patient was afebrile. Heart rate and blood pressure of resolved with us conservative management. 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 He is being discharged at this time to resume his prehospitalization medications with a short course of oral antibiotic therapy. Diagnosis - Discharge Diagnosis (1) COPD (chronic obstructive pulmonary disease) Status: Chronic (2) Coronary artery disease Status: Chronic Discharge Plan - Discharge Data Disposition: Disch To Home/Self Care Condition at Discharge: Stable Discharge Diet: advance to your usual diet Activity: resume usual activities as tolerated - Discharge Medications New Clopidogrel [Plavix] 75 mg PO DAILY tablet Dutasteride [Avodart] 0.5 mg PO DAILY capsule Levofloxacin Tab [Levaquin Tab] 500 mg PO DAILY #5 tablet Tamsulosin [Flomax] 0.4 mg PO DAILY PRN #0 capsule PRN Reason: URINARY SYMPTOMS Diltiazem Cd Cap [Cardizem CD] 120 mg PO DAILY capsule Losartan [Cozaar] 25 mg PO DAILY tablet Continue Nitroglycerin Sl Tab [Nitrostat] 0.4 mg SL Q5M PRN PRN Reason: Chest Pain Ranitidine Tab [Zantac Tab] 150 mg PO BID Budesonide/Formoterol 160-4.5 [Symbicort 160-4.5] 2 puff INH BID #1 inhaler Theophylline ER Tab 200 mg PO TID Atorvastatin Calcium 20 mg PO 1700 Aspirin [Aspirin EC] 81 mg PO QAM predniSONE TAB [PredniSONE] 10 mg PO QOTHER DAY Albuterol Inhaler [Proventil Inhaler] 2 puff INH Q6HR PRN PRN Reason: Shortness Of Breath Ipratropium/Albuterol Sulfate [Iprat-Albut 0.5-3(2.5) mg/3 ml] 3 ml IH Q4H Alendronate Sodium 35 mg PO Q7DAY Carvedilol [Coreg] 6.25 mg PO BID Multivit-Min/FA/Lycopen/Lutein [Centrum Silver Tablet] 1 each PO DAILY Tamsulosin [Flomax] 0.4 mg PO DAILY PRN PRN Reason: URINARY SYMPTOMS - Follow Up or Referral - Forms/Instructions Exam - Constitutional Vitals: Period Temp Pulse Resp BP Sys/Carrion Pulse Ox Last 24 Hr 97.6 F-99.1 F 69-97 17-20 107-151/64-86 94-99 DS: Provider Date of admission: 08/26/16 13:42 Primary care physician: . No PCP Attending physician on admission: Uche Vanessa MD Consults: 08/26/16 14:47 Consult to Physician [CONS] Routine Comment: Known to you elevated cTnI Consulting Provider: Karin Prather When should Consulting Provider be notified: Now Person Notified: terrence Date Notified: 08/26/16 Time Notified: 15:25 08/26/16 15:00 Consult to Pharmacy [CONS] Routine Reason for Pharmacy Consult: Adjust Meds Renal Funct Discharging clinician: Uche Vanessa MD Expected date of discharge: 08/28/16
[2016-08-28] MEDS: ASCORBIC ACID 500 MG TABLET PO SCH (08:53)
[2016-08-28] MEDS: THEOPHYLLINE ER (24 HR) 300 MG CAPSULE PO SCH (08:54)
[2016-08-28] MEDS: LEVOFLOXACIN 500 MG TABLET PO SCH (08:54)
[2016-08-28] MEDS: POTASSIUM CHLORIDE 20 MEQ TABLET PO SCH (08:54)
[2016-08-28] MEDS: CLOPIDOGREL 75 MG TABLET PO SCH (08:54)
[2016-08-28] MEDS: LOSARTAN 25 MG TABLET PO SCH (08:54)
[2016-08-28] MEDS: DUTASTERIDE 0.5 MG CAPSULE PO SCH (08:54)
[2016-08-28] MEDS: ASPIRIN EC 81 MG TABLET PO SCH (08:54)
[2016-08-28] MEDS: CARVEDILOL 6.25 MG TABLET PO SCH (08:55)
[2016-08-28] MEDS: DILTIAZEM CD 120 MG CAPSULE PO SCH (08:55)
[2016-08-28] MEDS: TAMSULOSIN 0.4 MG CAPSULE PO PRN (08:55)
[2016-08-28] MEDS: FAMOTIDINE 20 MG TABLET PO SCH (08:56)
[2016-08-28] MEDS ORDERED: predniSONE 10 MG TABLET PO SCH (09:00)
[2016-08-28] MEDS: BUDESONIDE/FORMOTEROL 160-4.5 INHALER 6 GM INH SCH (09:02)
[2016-08-28 10:56] VITALS: BP 132/87
--- NOTE | 2016-09-03 14:33 | Physician Query Form ---
CLICK EDIT DOCUMENT TO SELECT QUERY ANSWER --> OK --> SIGN Fartun Vale RN Clinical [employer] W) [phone] (f) [phone] [email or web address] PROVIDERS: Make your selection(s) from the choices in EACH section by typing an "x" and enter comments in the comment section. Please use your independent medical judgment in providing your response. This request does not imply that any particular answer is desired or expected. CLINICAL INDICATORS: (Providers should not edit this section) The below diagnosis was documented in the record, but is not consistently noted in subsequent documentation. Diagnosis: COPD exacerbation Based on documentation of "COPD exacerbation" in ER record. Pt. treated with IV Solumedrol. Please clarify the following: ( ) The above diagnosis was monitored, evaluated, and/or treated and is a confirmed diagnosis ( ) The above diagnosis was ruled out ( X) The above diagnosis is still a likely, suspected, probable diagnosis ( ) Other, please specify: ( ) Clinically unable to determine COMMENTS: Use of terms such as suspected, likely, or probable (associated with a specific diagnosis that is being evaluated, monitored, or treated as if it exists) are acceptable and can be restated in the discharge summary if not ruled out. MTDD
== END 2016-08-28 10:10 | disposition home or self-care (01) | DRG 191 ==
LOC: EDBD → EDUNIT# → N.ED 11:25 → N.EDINP 13:42 → N.2E 14:54
PROVIDERS: ADMIT Internal Medicine Cardiovascular Disease; ATTEND Internal Medicine Cardiovascular Disease

== ENCOUNTER 2016-10-05 15:07 | Inpatient (IN) ==
[2016-10-05] MEDS ORDERED: methylPREDNISolone SOD SUC 125 MG/2 ML VIAL IV STA (15:40)
[2016-10-05] MEDS ORDERED: ALBUTEROL/IPRATROPIUM 3 ML NEB RESP TX STA (15:40)
--- NOTE | 2016-10-05 15:40 | Emergency Department Note ---
Arrival - Arrival Chief Complaint: Shortness of Breath ED Nursing Triage Note: c/o sob and abd swelling. sob started about 0430 this am. pt has abd swelling onset 4 months ago Mode of Arrival: Stretcher Time Seen by Provider: 10/05/16 15:38 - History of Present Illness HPI Narrative: 86 yo M presents with 4 day hx of worsening SOB and BERMAN. denies chest pain Onset (ago): day(s) (few) Consistency: intermittent Severity: moderate Allergies/Adverse Reactions: Allergies Allergy/AdvReac Type Severity Reaction Status Date / Time ciprofloxacin Allergy Unknown/Unable Verified 10/05/16 16:19 to obtain ezetimibe [From Zetia] Allergy Unknown/Unable Verified 10/05/16 16:19 to obtain simvastatin [From Zocor] Allergy Unknown/Unable Verified 10/05/16 16:19 to obtain Penicillins AdvReac Difficulty Verified 01/08/16 06:19 Breathing Home Medications: Home Medications Medication Instructions Recorded Confirmed Type Nitroglycerin Sl Tab [Nitrostat] 0.4 mg SL Q5M PRN 02/13/15 10/05/16 History Ranitidine Tab [Zantac Tab] 150 mg PO BID 02/13/15 10/05/16 History Budesonide/Formoterol 160-4.5 2 puff INH BID #1 inhaler 05/16/15 10/05/16 Rx [Symbicort 160-4.5] Albuterol Inhaler [Proventil 2 puff INH Q6HR PRN 08/26/16 10/05/16 History Inhaler] Alendronate Sodium 35 mg PO MO 08/26/16 10/05/16 History Aspirin [Aspirin EC] 81 mg PO QAM 08/26/16 10/05/16 History Atorvastatin Calcium 20 mg PO 1700 08/26/16 10/05/16 History Carvedilol [Coreg] 6.25 mg PO BID 08/26/16 10/05/16 History Ipratropium/Albuterol Sulfate 3 ml IH Q4H 08/26/16 10/05/16 History [Iprat-Albut 0.5-3(2.5) mg/3 ml] Multivit-Min/FA/Lycopen/Lutein 1 each PO DAILY 08/26/16 10/05/16 History [Centrum Silver Tablet] Tamsulosin [Flomax] 0.8 mg PO DAILY PRN 08/26/16 10/05/16 History predniSONE TAB [PredniSONE] 10 mg PO QOTHER DAY 08/26/16 10/05/16 History Diltiazem Cd Cap [Cardizem CD] 120 mg PO DAILY capsule 08/28/16 10/05/16 Rx Potassium Chloride 10 meq PO DAILY PRN 10/05/16 10/05/16 History Sulfameth/Trimeth 800-160 Tab 1 tablet PO BID 10/05/16 10/05/16 History [Bactrim DS Tab] acetaZOLAMIDE TAB [Diamox Tab] 250 mg PO QAM PRN 10/05/16 10/05/16 History Review of System - Review of System 12 point system: reviewed and no additional remarkable complaints except as stated Medical,Surgical,& Family Hx - Medical History Cardio: History of: CAD (PCI X 2 in the past), Hypertension, NM, Cardiovascular Problems (Cardiomyopathy; Sustainability Consultant Dr. 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 Yogesh Bishop) No history of: Pneumonia (Due this year for Pneum Vac), Respiratory Problems (No Flu Vac [id number] Season) Genitourinary: History of: Prostate Problems (BPH) Gastrointestinal: History of: GERD No history of: Polyps Musculoskeletal: No history of: Amputation Other: No history of: Anesthesia Reactions, Cancer - Surgical History Cardiac Surgeries: Sugical HX of: Cardiac Catheterization (STENT) Thoracic Surgeries: Patient denies;: Organ Transplant HEENT Surgeries: Patient denies: Eye Surgery (12/13/15 Cataract Lt;01/08/[address] Gonzalez), Tonsilectomy & Adenoidectomy Abdominal Surgeries: Surgical HX of: Appendectomy, Colonoscopy Orthopedic Surgeries: Surgical HX of;: Total Hip Replacement (Rt Hip Replacement (Hip Fx 2015)) Patient denies;: Implanted Devices, Orthopedic Surgery, Spinal Surgery, Total Knee Replacement - Family History Family History: Reports;: Family Diabetes, Family Heart Disease, Family Hypertension - Social History Smoking Status: Former smoker Frequency of Alcohol Use: None Type of Drug Use: None Exam Vital Signs: Vital Signs Temperature 97.8 F 10/05/16 15:15 Pulse Rate 79 10/05/16 16:34 Respiratory Rate 20 10/05/16 16:34 Blood Pressure 166/97 10/05/16 15:15 O2 Sat by Pulse Oximetry 100 10/05/16 16:34 - General General appearance: alert, in no apparent distress - Head Head exam: Present: atraumatic - Eye Eye exam: Present: normal appearance, PERRL - ENT ENT exam: Present: normal exam - Neck Neck exam: Present: normal inspection - Chest Chest inspection: Present: normal inspection - Respiratory Respiratory exam: Present: normal lung sounds bilaterally - Cardiovascular Cardiovascular exam: Present: regular rate - Abdominal Exam Abdominal exam: Present: soft. Absent: tenderness - Extremities Exam Extremities exam: Present: normal inspection. Absent: pedal edema - Neurological Exam Neurological exam: Present: alert, oriented X3. Absent: motor sensory deficit - Psychiatric Psychiatric exam: Present: normal affect - Skin Skin exam: Present: warm, dry Results - Labs CBC & BMP: 10/05/16 16:09 10/05/16 16:09 - Diagnostic Findings Procedure: Chest x-ray: image reviewed by me (no acute), CT Abdomen and Pelvis: image reviewed by me (no acute) Disposition Clinical Impression: BERMAN (dyspnea on exertion), COPD exacerbation Case discussed with: patient Disposition: Still a Patient Condition: Stable
[2016-10-05] MEDS ORDERED: methylPREDNISolone SOD SUC 125 MG/2 ML VIAL ONE (15:48)
[2016-10-05] MEDS: ALBUTEROL 2.5 MG/3 ML NEB RESP TX SCH (16:10)
--- NOTE | 2016-10-05 16:16 | EKG Report ---
Stationary ECG Study 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
[2016-10-05 16:40] LABS: Basophils # 0.1 10*3/uL (0.0-0.2); Basophils % 0.7 % (0.0-0.8); Hematocrit 43.5 VOL% (42.0-52.0); Hemoglobin 14.3 GM/DL (14.0-18.0); Immature Granulocytes % 4.9 %; Immature Granulocytes Absolute 0.49 #; Lymphocytes # 1.1 10*3/uL (1.4-4.0); Lymphocytes % 11.4 % (21.2-54.2); Mean Corpuscular HGB Conc 32.9 GM/DL (32-36); Mean Corpuscular Hemoglobin 30 PG (27-34); Mean Corpuscular Volume 92.4 FL (87-102); Mean Platelet Volume 10.7 FL (9.6-12.0); Monocytes # 0.5 10*3/uL (0.11-0.8); Monocytes % 5.1 % (1.7-12.7); Neutrophils # 7.7 10*3/uL (1.4-7.4); Neutrophils % 77.9 % (38.7-73.9); Platelet Count 171 T/CUMM (130-400); Red Blood Count 4.71 MC/CUMM (3.8-5.5); Red Cell Distribution Width 13.3 % (9.3-17.3); White Blood Count 9.9 T/CUMM (4-12)
--- NOTE | 2016-10-05 17:06 | XRay Report ---
XR chest 1V portable Indication: Shortness of breath Comparison: Chest x-ray 08/26/2016 Technique: Portable AP chest was performed. Findings: The appearance of the chest suggests little interval change. Coarsened interstitial markings are noted bilaterally. Emphysematous changes are not excluded. The cardiomediastinal silhouette demonstrates no significant abnormality. Bones and soft tissues appear stable. Impression: 1. Emphysematous changes are suggested. No superimposed acute process is demonstrated. 10/05/2016 5:02 PM PROCEDURE INTERPRETED AT [facility] DEPARTMENT OF RADIOLOGY Final Report Signed by: Dr. Bright Gonzalez
[2016-10-05 17:08] LABS: Albumin 3.4 G/DL (3.4-5.0); Bilirubin,Total 0.5 MG/DL (0.2-1.0); Calcium 8.4 MG/DL (8.5-10.1); Magnesium 2.3 MG/DL (1.8-2.4); Osmolality,Calculated 291.8 MOS/KG (273-304); Potassium 4.5 MMOL/L (3.5-5.1); Total Protein 6.4 G/DL (6.4-8.3)
[2016-10-05 17:09] LABS: Troponin I Only 0.114 NG/ML (0.00-0.045)
--- NOTE | 2016-10-05 17:58 | CT Report ---
CT abdomen pelvis w con Indication: Abdominal distention Comparison: None. Technique: CT of the abdomen and pelvis was performed following administration of intravenous contrast. The CT examination was performed using one or more of the following dose reduction techniques: Automatic exposure control, adjustment of the mA and kV according to patient size, or iterative reconstruction techniques. Findings: Lower chest: No acute findings are noted within the lower chest. Liver: No mass lesions or acute findings are demonstrated. Gallbladder: The gallbladder demonstrates no significant abnormality. Spleen: Spleen is normal in size and appearance. Pancreas: Pancreas demonstrates no significant abnormality. Adrenal glands: The adrenal glands demonstrate no significant abnormalities. Kidneys: The kidneys demonstrate no significant abnormalities. Aorta: Diffuse intimal calcification and areas of mural thrombus are present within the aorta. 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 This measures approximately 7 mm in transverse dimension. Inferior vena cava: The inferior vena cava demonstrates no significant abnormality. Lymph nodes: No adenopathy is noted within the abdomen or pelvis. Stomach and bowel: A small hiatal hernia is present. Otherwise the stomach, duodenum, and small bowel demonstrate no significant abnormalities. Appendix is not identified and may be surgically absent. Calcification or possibly pill fragment is present at the level of the ileocecal valve. Ileocecal valve is otherwise unremarkable. Multiple diverticula are demonstrated involving the lower descending and sigmoid colon. No inflammatory changes are present to suggest acute diverticulitis. Intrapelvic contents: Prostatic calcifications are present. Prostate is upper limits of normal in size. Skeletal structures: Prior right hip arthroplasty is demonstrated. No acute osseous pathology is suggested. Compression deformity is present involving L1 vertebral body. Soft tissues and muscular structure of the body wall: Demonstrate no significant abnormalities. Impression: 1. No findings are present to suggest etiology of abdominal distention. Nonacute findings are present as detailed. 10/05/2016 5:52 PM PROCEDURE INTERPRETED AT [facility] DEPARTMENT OF RADIOLOGY Final Report Signed by: Dr. Bright Gonzalez
[2016-10-05] MEDS ORDERED: ONDANSETRON 4 MG/2 ML VIAL IV PRN (18:59)
[2016-10-05] MEDS ORDERED: ALBUTEROL 2.5 MG/3 ML NEB RESP TX PRN (18:59)
[2016-10-05] MEDS ORDERED: ACETAMINOPHEN 325 MG TABLET PO PRN (18:59)
[2016-10-05] MEDS ORDERED: TAMSULOSIN 0.4 MG CAPSULE PO PRN (19:09)
--- NOTE | 2016-10-05 19:16 | Hospitalist History & Physical ---
Assessment and Plan (1) Dyspnea Status: Chronic Current Visit: No (2) COPD (chronic obstructive pulmonary disease) Status: Chronic Current Visit: No Qualifiers: COPD type: emphysema (3) Essential hypertension Status: Chronic Current Visit: No (4) Coronary artery disease Problem details: 04/03/13: 2.25 x 20 mm Promus BERRY with overlapping 2.5 x 16 mm Promus BERRY to 1st OM Status: Chronic Current Visit: No Qualifiers: Coronary Disease-Associated Artery/Lesion type: tribe artery (5) Physical debility Status: Chronic Current Visit: No (6) Acute exacerbation of chronic obstructive airways disease Status: Acute Assessment and plan: Patient's seems quite distressed with the patient. She says that he gets short winded with the least bit of exertion. I want to have his lactation specialist which is Dr. 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 I will schedule him on some breathing treatments. Will use low- dose steroids on him. Hopefully we can symptomatically improve some of his symptoms. I suspect he is generally getting debilitated from chronic illnesses. There is been no fever no chest pain. I will recheck cardiac enzymes since he did have a mild bump in them. And patient will be reevaluated in the morning. Current Visit: No History of Present Illness Chief complaint: Dyspnea on exertion History of present illness: Mr. Contreras is a 86 year old male past medical history significant for coronary artery disease COPD who was in his normal state of health to his previous week. Patient reports that he went to go see Dr. Eddy Thursday he was given a steroid shot. He did not get any better. Patient's reports that he wheezes all the time but denies any fever. He has had a cough but nonproductive. He tried schedule breathing treatments at home today. He did not have good results. He came up to our hospital for further evaluation. I was consulted to admit him through the ER. Home Medications Medication Instructions Recorded Confirmed Type Nitroglycerin Sl Tab [Nitrostat] 0.4 mg SL Q5M PRN 02/13/15 10/05/16 History Ranitidine Tab [Zantac Tab] 150 mg PO BID 02/13/15 10/05/16 History Budesonide/Formoterol 160-4.5 2 puff INH BID #1 inhaler 05/16/15 10/05/16 Rx [Symbicort 160-4.5] Albuterol Inhaler [Proventil 2 puff INH Q6HR PRN 08/26/16 10/05/16 History Inhaler] Alendronate Sodium 35 mg PO MO 08/26/16 10/05/16 History Aspirin [Aspirin EC] 81 mg PO QAM 08/26/16 10/05/16 History Atorvastatin Calcium 20 mg PO 1700 08/26/16 10/05/16 History Carvedilol [Coreg] 6.25 mg PO BID 08/26/16 10/05/16 History Ipratropium/Albuterol Sulfate 3 ml IH Q4H 08/26/16 10/05/16 History [Iprat-Albut 0.5-3(2.5) mg/3 ml] Multivit-Min/FA/Lycopen/Lutein 1 each PO DAILY 08/26/16 10/05/16 History [Centrum Silver Tablet] Tamsulosin [Flomax] 0.8 mg PO DAILY PRN 08/26/16 10/05/16 History predniSONE TAB [PredniSONE] 10 mg PO QOTHER DAY 08/26/16 10/05/16 History Diltiazem Cd Cap [Cardizem CD] 120 mg PO DAILY capsule 08/28/16 10/05/16 Rx Potassium Chloride 10 meq PO DAILY PRN 10/05/16 10/05/16 History Sulfameth/Trimeth 800-160 Tab 1 tablet PO BID 10/05/16 10/05/16 History [Bactrim DS Tab] acetaZOLAMIDE TAB [Diamox Tab] 250 mg PO QAM PRN 10/05/16 10/05/16 History Allergies Allergy/AdvReac Type Severity Reaction Status Date / Time ciprofloxacin Allergy Unknown/Unable Verified 10/05/16 16:19 to obtain ezetimibe [From Zetia] Allergy Unknown/Unable Verified 10/05/16 16:19 to obtain simvastatin [From Zocor] Allergy Unknown/Unable Verified 10/05/16 16:19 to obtain Penicillins AdvReac Difficulty Verified 01/08/16 06:19 Breathing Medical,Surgical,& Family Hx - Medical History Cardio: History of: CAD (PCI X 2 in the past), Hypertension, [place], Cardiovascular Problems (Cardiomyopathy; 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 Yogesh Bishop) No history of: Pneumonia (Due this year for Pneum Vac), Respiratory Problems (No Flu Vac 2005-7150 Season) Genitourinary: History of: Prostate Problems (BPH) Gastrointestinal: History of: GERD No history of: Polyps Musculoskeletal: No history of: Amputation Other: No history of: Anesthesia Reactions, Cancer - Surgical History Cardiac Surgeries: Sugical HX of: Cardiac Catheterization (STENT) Thoracic Surgeries: Patient denies;: Organ Transplant HEENT Surgeries: Patient denies: Eye Surgery (12/13/15 Cataract Lt;01/08/[address] Gonzalez), Tonsilectomy & Adenoidectomy Abdominal Surgeries: Surgical HX of: Appendectomy, Colonoscopy Orthopedic Surgeries: Surgical HX of;: Total Hip Replacement (Rt Hip Replacement (Hip Fx 2015)) Patient denies;: Implanted Devices, Orthopedic Surgery, Spinal Surgery, Total Knee Replacement - Family History Family History: Reports;: Family Diabetes, Family Heart Disease, Family Hypertension - Social History Smoking Status: Former smoker Frequency of Alcohol Use: None Type of Drug Use: None 12 point system: reviewed and no additional remarkable complaints except as stated Exam - Constitutional Vitals: Period Temp Pulse Resp BP Sys/Carrion Pulse Ox Last 24 Hr 62 17 114/69 100 General appearance: normal weight - Head Head exam: Present: normal inspection - Eye Eye exam: Present: EOMI Pupils: Present: ALICE - ENT ENT exam: Present: normal exam - Neck Neck exam: Present: normal inspection - Respiratory Respiratory exam: Present: clear to auscultation bilaterally - Cardiovascular Cardiovascular exam: Present: regular rate and rhythm - GI/Abdominal GI/Abdominal exam: Present: normal bowel sounds, distended - Extremities Exam Extremities exam: Present: normal inspection - Back Exam Back exam: Present: normal inspection - Neurological Exam Neurological exam: Present: alert - Psychiatric Psychiatric exam: Present: normal affect, normal mood - Skin Skin exam: Present: normal color, warm Results - Labs CBC & BMP: 10/05/16 16:09 10/05/16 16:09
[2016-10-05] MEDS: ALBUTEROL/IPRATROPIUM 3 ML NEB RESP TX SCH (20:40)
[2016-10-05 21:44] LABS: Troponin I Only 0.104 NG/ML (0.00-0.045)
[2016-10-05] MEDS: SULFAMETHOX/TRIMETHOPRIM 800-160 MG TABLET PO SCH (22:36)
[2016-10-05] MEDS: LACTULOSE 20 GM/30 ML UDCUP PO PRN (22:37)
[2016-10-05] MEDS: BUDESONIDE/FORMOTEROL 160-4.5 INHALER 6 GM INH SCH (22:37)
[2016-10-05] MEDS: CARVEDILOL 6.25 MG TABLET PO SCH (22:37)
[2016-10-05] MEDS: ENOXAPARIN 40 MG/0.4 ML SYRINGE SUBCUT SCH ×2 (22:37→22:41)
[2016-10-06] MEDS: ALBUTEROL/IPRATROPIUM 3 ML NEB RESP TX SCH ×4 (00:44→19:33)
[2016-10-06] MEDS: methylPREDNISolone SOD SUC 40 MG/1 ML VIAL IV SCH ×2 (01:45→16:13)
[2016-10-06 03:26] LABS: Basophils # 0.1 10*3/uL (0.0-0.2); Basophils % 0.8 % (0.0-0.8); Hematocrit 40.7 VOL% (42.0-52.0); Hemoglobin 13.2 GM/DL (14.0-18.0); Immature Granulocytes Absolute 0.44 #; Lymphocytes # 0.4 10*3/uL (1.4-4.0); Mean Corpuscular HGB Conc 32.4 GM/DL (32-36); Mean Corpuscular Hemoglobin 30 PG (27-34); Mean Corpuscular Volume 93.1 FL (87-102); Mean Platelet Volume 11.2 FL (9.6-12.0); Monocytes # 0.1 10*3/uL (0.11-0.8); Monocytes % 1.2 % (1.7-12.7); NRBC # 0.02 10*3/uL; Neutrophils # 6.3 10*3/uL (1.4-7.4); Platelet Count 171 T/CUMM (130-400); Red Blood Count 4.37 MC/CUMM (3.8-5.5); Red Cell Distribution Width 13.2 % (9.3-17.3); White Blood Count 7.3 T/CUMM (4-12)
[2016-10-06 03:55] LABS: Calcium 8.1 MG/DL (8.5-10.1); Osmolality,Calculated 300.8 MOS/KG (273-304); Potassium 4.1 MMOL/L (3.5-5.1)
[2016-10-06 04:10] LABS: Troponin I Only 0.106 NG/ML (0.00-0.045)
[2016-10-06 04:39] LABS: Eosinophils 1 % (0-10); Lymphocytes 15 % (20-55); Metamyelocytes 1 %; Myelocytes 2 %; Platelet Estimate Normal; Segmented Neutrophils 80 % (50-85); Total Cells Counted 100
[2016-10-06] MEDS: MULTIVITAMIN (CENTRUM) TABLET PO SCH (09:20)
[2016-10-06] MEDS: ASPIRIN EC 81 MG TABLET PO SCH (09:20)
[2016-10-06] MEDS: SULFAMETHOX/TRIMETHOPRIM 800-160 MG TABLET PO SCH ×2 (09:20→20:30)
[2016-10-06] MEDS: CARVEDILOL 6.25 MG TABLET PO SCH ×2 (09:21→20:30)
[2016-10-06] MEDS: DILTIAZEM CD 120 MG CAPSULE PO SCH (09:21)
[2016-10-06] MEDS: BUDESONIDE/FORMOTEROL 160-4.5 INHALER 6 GM INH SCH ×2 (09:21→20:31)
--- NOTE | 2016-10-06 09:58 | Pulmonology Consult Note ---
History of Present Illness Chief complaint: Acute exacerbation of COPD. Refractory O P treatment History of present illness: Mr. Contreras is a 86 year old white male whom I been asked to see in pulmonary consultation for evaluation and treatment. I saw this patient in my office within the past week or so. He had an acute exacerbation of COPD. He had already been seen in the emergency room. He was given IM and p.o. steroids and antibiotics. He was treated with Bactrim DS which was his request. His condition became worse with increased wheezing increased coughing. Says his sputum was discolored. He says he is improved and he says "my breathing is just fine as long as I am still". He says if he moves any he becomes short of breath he has dyspnea on exertion. He denies any cardiac angina. He denies solid dysphasia. He said reflux in the past he says this is under good control. The patient also complains of abdominal distention. He says he has increased gas. He does not have any abdominal pain but the abdominal distention interferes with his breathing. The remainder the review of systems is negative. Allergies. Penicillin. Zocor made his muscles hurt. Cipro caused him to have short of breath. Lisinopril caused him to have a cough. Zetia. Past history. Hospitalization 2014 with acute renal failure and acute severe bronchitis and bronchospasm. 04/03/[address] Karin Cordoba for non-ST elevation acute CT. Patient had stents placed at that time. COPD with a very long history of tobacco abuse. Bronchospastic disease. Hyperlipidemia. Allergic sinusitis. Colon polyps. History of BPH with elevated PSA. Followed by Dr. Gaetano Castro. History of partial salivary gland duct obstruction. Angiodysplasia of the colon. 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 [facility] offered a cochlear [facility] with a 50% chance it would work in a 50% chance he would lose all of his hearing according to the patient. Patient wears a hearing aid. Social history. Patient has been a smoker for a number of years. He may have quit along about 2014. Up until that time he continued to smoke 2 packs of cigarettes per day while telling me he was not smoking. In the very distant past he was an alcoholic. He quit drinking in October 2084. Family history. Positive for high blood pressure, heart disease, asthma. Echocardiogram. 08/26/2016. Technically difficult. Ejection fraction 60%. Grade 1/4 diastolic dysfunction. Moderately increased left atrial and right atrial sizes. Trace of aortic valve regurgitation. Trace of mitral regurgitation. Pulmonary artery pressures are 40-45 mmHg. Normal right ventricular size Chest x-ray. 10/05/2016. Hyperinflation. Pulmonary arteries are top normal in size. No hilar adenopathy. Mediastinum normal. Lung blackwell are hyperinflated. No masses, no infiltrates and no congestive heart Admit white count was 9900 with 77.9 segs 11.4 lymphocytes and 5.1 monocytes. H &H is 13.2/40.7. Electrolytes normal. Creatinine and admission was 1.6. Now 1.8. On 08/27/2016 patient's creatinine was 1.5 and the day before that it was 1.4. Cardiac enzymes are negative. EKG. Sinus rhythm. Possible inferior ischemia. CT of the abdomen and pelvis done 10/05/2016 shows no acute findings. Physical exam. Vital signs. See below Psychiatric oriented 3 Neurologic exam. Cranial nerves are intact with no hearing in the left ear and decreased hearing in the right ear long track motor function is intact. Sensory exam and gait were not tested. Face. Symmetrical. Eyes are normal. No rash. Lips and tongue appear to be normal Neck. Symmetrical. No mass. No meningismus. Lymphatics. No submandibular cervical supraclavicular or epitrochlear adenopathy. Arterial. Carotids are decreased without bruits. Upper extremity pulses are palpable. Lower extremity pulses are nonpalpable. Venous. Upper lower extremities and neck are normal. Jugular venous pressure is top normal. Negative hepatojugular reflux. Chest. Hyperinflated with prolonged expiration. Mild large airway congestion. Expiration is incomplete but I do not hear any wheezes. Patient may not be moving enough air to produce wheezing. No chest wall tenderness. Heart. Heart sounds are distant. I do not hear a gallop Abdomen. No organomegaly. Bowel sounds are present. Extremities. Nothing to suggest deep venous thrombophlebitis Skin of the face and hands show no infectious or cancerous repeat lesions. Appropriate are present on the dorsum of both upper extremities. No other areas of skin were examined. The remainder the exam was noncontributory Impression. 1. Acute exacerbation of COPD and asthma refractory to outpatient treatment 2. History of heart disease. Note that today's EKG shows possible inferior ischemia 3. Azotemia. Watch for exacerbation by Bactrim. 4. Long history of tobacco abuse 5. See past history Plan. 1. Agree with your choice of medicines. 2. Sputum for Gram stain culture and sensitivity 3. Repeat EKG Home Medications Medication Instructions Recorded Confirmed Type Nitroglycerin Sl Tab [Nitrostat] 0.4 mg SL Q5M PRN 02/13/15 10/05/16 History Ranitidine Tab [Zantac Tab] 150 mg PO BID 02/13/15 10/05/16 History Budesonide/Formoterol 160-4.5 2 puff INH BID #1 inhaler 05/16/15 10/05/16 Rx [Symbicort 160-4.5] Albuterol Inhaler [Proventil 2 puff INH Q6HR PRN 08/26/16 10/05/16 History Inhaler] Alendronate Sodium 35 mg PO MO 08/26/16 10/05/16 History Aspirin [Aspirin EC] 81 mg PO QAM 08/26/16 10/05/16 History Atorvastatin Calcium 20 mg PO BEDTIME 08/26/16 10/05/16 History Carvedilol [Coreg] 6.25 mg PO BID 08/26/16 10/05/16 History Ipratropium/Albuterol Sulfate 3 ml IH Q4H 08/26/16 10/05/16 History [Iprat-Albut 0.5-3(2.5) mg/3 ml] Multivit-Min/FA/Lycopen/Lutein 1 each PO DAILY 08/26/16 10/05/16 History [Centrum Silver Tablet] Tamsulosin [Flomax] 0.8 mg PO DAILY PRN 08/26/16 10/05/16 History predniSONE TAB [PredniSONE] 10 mg PO QOTHER DAY 08/26/16 10/05/16 History Diltiazem Cd Cap [Cardizem CD] 120 mg PO DAILY capsule 08/28/16 10/05/16 Rx Lactulose 10 gm PO DAILY PRN 10/05/16 10/05/16 History Potassium Chloride 10 meq PO DAILY PRN 10/05/16 10/05/16 History Sulfameth/Trimeth 800-160 Tab 1 tablet PO BID 10/05/16 10/05/16 History [Bactrim DS Tab] acetaZOLAMIDE TAB [Diamox Tab] 250 mg PO QAM PRN 10/05/16 10/05/16 History Allergies Allergy/AdvReac Type Severity Reaction Status Date / Time ciprofloxacin Allergy Unknown/Unable Verified 10/05/16 20:36 to obtain ezetimibe [From Zetia] Allergy Unknown/Unable Verified 10/05/16 20:36 to obtain simvastatin [From Zocor] Allergy Unknown/Unable Verified 10/05/16 20:36 to obtain Penicillins AdvReac Difficulty Verified 10/05/16 20:36 Breathing Exam (Pulmonay) H&P - Constitutional Vitals: Period Temp Pulse Resp BP Sys/Carrion Pulse Ox Last 24 Hr 97.9 F-97.9 F 62-79 16-20 107-114/54-69 96-100 Medical,Surgical,& Family Hx - Medical History Cardio: History of: CAD (PCI X 2 in the past), Hypertension, CT, Cardiovascular Problems (Cardiomyopathy; 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 Yogesh Bishop) No history of: Pneumonia (Due this year for Pneum Vac), Respiratory Problems (No Flu Vac 5645-9289 Season) Genitourinary: History of: Prostate Problems (BPH sees Dr. 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 Johnson) No history of: Anesthesia Reactions, Cancer - Surgical History Cardiac Surgeries: Sugical HX of: Cardiac Catheterization (STENT) Thoracic Surgeries: Patient denies;: Organ Transplant HEENT Surgeries: Patient denies: Eye Surgery (12/13/15 Cataract Lt;01/08/[address] Gonzalez), Tonsilectomy & Adenoidectomy Abdominal Surgeries: Surgical HX of: Appendectomy, Colonoscopy Orthopedic Surgeries: Surgical HX of;: Total Hip Replacement (Rt Hip Replacement (Hip Fx 2016)) Patient denies;: Implanted Devices, Orthopedic Surgery, Spinal Surgery, Total Knee Replacement - Family History Family History: Reports;: Family Diabetes, Family Heart Disease, Family Hypertension - Social History Smoking Status: Former smoker Frequency of Alcohol Use: None Type of Drug Use: None Results - Labs CBC & BMP: 10/06/16 01:40 10/06/16 01:40
--- NOTE | 2016-10-06 10:24 | EKG Report ---
Stationary ECG Study [facility] Test Date: 10/06/2016 10:22:43 AM Pat Name: XI BROWN Department: Room: 241 Gender: M Director Sports: NOHEMY : 1930 Requested by: Levon Bishop Order Number: [id number] Reading MD: BLANK HERNÁNDEZ Intervals [place] Rate: 63 P: 79 AK: 148 QRS: 55 QRSD: 90 T: 73 QT: 382 QTc: 389 Interpretive Statements SINUS RHYTHM POSSIBLE RIGHT VENTRICULAR CONDUCTION DELAY Electronically Signed On 10-06-16 11:55:02 CDT by BLANK HERNÁNDEZ [email or web address]
[2016-10-06 10:27] LABS: Allen Test Positive
[2016-10-06 10:29] LABS: ABG HCO3 18.8 MMOL/L (20-26); ABG Oxygen Saturation 98.6 % (95-100); ABG PCO2 33.7 MM HG (35-48); ABG PH 7.336 (7.35-7.45); ABG TCO2 15.8 MMOL/L (23-27)
--- NOTE | 2016-10-06 11:52 | Cardiology Consult Note ---
Ned Burrell Vanessa, RN, am scribing for, and in the presence of, Avani Oropeza MD 11:49. Assessment and Plan - Time spent with patient Time spent with patient: Greater than 30 minutes (Due to assessment, planning, documentation, medication review) (1) Coronary artery disease Problem details: 04/03/13: 2.25 x 20 mm Promus BERRY with overlapping 2.5 x 16 mm Promus BERRY to 1st OM Status: Chronic Current Visit: No Qualifiers: Coronary Disease-Associated Artery/Lesion type: [place] artery (2) BERMAN (dyspnea on exertion) Status: Chronic Current Visit: Yes (3) COPD exacerbation Status: Chronic Current Visit: Yes (4) Anemia Status: Chronic Current Visit: No (5) Advanced age Status: Chronic Current Visit: No (6) Dyslipidemia Status: Chronic Current Visit: No (7) Essential hypertension Status: Chronic Current Visit: No (8) Physical debility Status: Chronic Current Visit: No History of Present Illness - Data of Consult Patient: known to practice within the last 3 years Consult date: 10/06/16 Requesting Physician: Estevan Reilly - Consult Narrative Reason for consult: shortness of breath, COPD exacerbation History of present illness: 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 SEDRICK RIOS PCP: DR. CRUZ CARDIOLOGY CONSULT NOTE: DYSPNEA, COPD EXACERBATION Mr. Contreras is a 86 year old white male routinely followed by cardiology. Risk factors significant for: advanced age, hypertension, dyslipidemia, former tobacco abuse, known CAD, sedentary lifestyle. He has had previous PCI, March 2013, of first obtuse marginal branch with overlapping, drug eluting stents x 2. Patient also has severe COPD and most recent hospitalization for COPD exacerbation was August 2016. Echocardiogram during admission in August showed LV ejection fraction of 60%, grade I/IV diastolic dysfunction, mild to moderate TR with PA pressure 40-45 mmHg. Patient presented to the emergency room on 10/05 with complaints of increasing shortness of breath x 4 days. He was evaluated in clinic by his PCP last Thursday, reportedly received a steroid shot, continued to feel poorly and presented to the ED for further evaluation. Patient also reported he had experienced abdominal distention for the past [address] abdomen and pelvis negative for acute process. EKG without acute ischemic finding. CXR with emphysematous findings but no acute infiltrate, pneumothorax, or other process. Patient was admitted to the [facility] per hospital medicine for further treatment of COPD exacerbation. Cardiology has been consulted for evaluation during hospital admission. Serial cardiac biomarkers have revealed trivial troponin elevation (0.114, 0.104 , 0.106) with normal CPK and MB. This is lower than his normal levels. Review of lab results from previous hospital admissions reviewed chronic abnormal troponin levels, and this admission they are noted to be lower than previously. Upon exam, he denies recent or current chest pain at rest or with exertion, orthopnea, PND, palpitations, presyncope, or other anginal complaint. This morning, he reports he feels better today than yesterday. Labs reviewed. Electrolytes within normal range. Creatinine slightly elevated and is 1.8 with GFR of 35. Afebrile, BP is 107/54. Oxygen saturation level is upper 90s with supplemental O2 2 L via nasal cannula. Nonproductive cough. No recent hematuria , melena, N/V. Impression and plan: 1. Coronary artery disease-overall this appears to be stable. Certainly can be difficult to tease out shortness of breath as an anginal symptom in the setting of both pulmonary disease and known coronary artery disease. There is a question raised about ischemia on his ECG, however there is baseline artifact with this and repeat ECG does not show any clear evidence of ischemia. Cardiac biomarkers are lower than his usual chronically elevated troponin. He is not having any chest discomfort. His shortness of breath seems to be associated with wheezing, increasing cough and congestion suggesting that this is likely secondary to his pulmonary condition. 2. COPD-Dr. Eddy is managing this. 3. Hypertension-chronic, controlled. 4. Hyperlipidemia-chronic. From a cardiac standpoint, There is nothing further to add. CC: Cha Patel MD - Home Medications and Allergies Home Medications: Home Medications Medication Instructions Recorded Confirmed Type Nitroglycerin Sl Tab [Nitrostat] 0.4 mg SL Q5M PRN 02/13/15 10/05/16 History Ranitidine Tab [Zantac Tab] 150 mg PO BID 02/13/15 10/05/16 History Budesonide/Formoterol 160-4.5 2 puff INH BID #1 inhaler 05/16/15 10/05/16 Rx [Symbicort 160-4.5] Albuterol Inhaler [Proventil 2 puff INH Q6HR PRN 04/11/17 05/21/17 History Inhaler] Alendronate Sodium 35 mg PO MO 08/26/16 10/05/16 History Aspirin [Aspirin EC] 81 mg PO QAM 08/26/16 10/05/16 History Atorvastatin Calcium 20 mg PO BEDTIME 08/26/16 10/05/16 History Carvedilol [Coreg] 6.25 mg PO BID 08/26/16 10/05/16 History Ipratropium/Albuterol Sulfate 3 ml IH Q4H 08/26/16 10/05/16 History [Iprat-Albut 0.5-3(2.5) mg/3 ml] Multivit-Min/FA/Lycopen/Lutein 1 each PO DAILY 08/26/16 10/05/16 History [Centrum Silver Tablet] Tamsulosin [Flomax] 0.8 mg PO DAILY PRN 08/26/16 10/05/16 History predniSONE TAB [PredniSONE] 10 mg PO QOTHER DAY 08/26/16 10/05/16 History Diltiazem Cd Cap [Cardizem CD] 120 mg PO DAILY capsule 08/28/16 10/05/16 Rx Lactulose 10 gm PO DAILY PRN 10/05/16 10/05/16 History Potassium Chloride 10 meq PO DAILY PRN 10/05/16 10/05/16 History Sulfameth/Trimeth 800-160 Tab 1 tablet PO BID 10/05/16 10/05/16 History [Bactrim DS Tab] acetaZOLAMIDE TAB [Diamox Tab] 250 mg PO QAM PRN 10/05/16 10/05/16 History Allergies/Adverse Reactions: Allergies Allergy/AdvReac Type Severity Reaction Status Date / Time ciprofloxacin Allergy Unknown/Unable Verified 10/05/16 20:36 to obtain ezetimibe [From Zetia] Allergy Unknown/Unable Verified 10/05/16 20:36 to obtain simvastatin [From Zocor] Allergy Unknown/Unable Verified 10/05/16 20:36 to obtain Penicillins AdvReac Difficulty Verified 10/05/16 20:36 Breathing - Constitutional Constitutional: Present: as per HPI - EENT Eyes: Present: as per HPI Ears: Present: as per HPI Nose, mouth and throat: Present: as per HPI - Cardiovascular Cardiovascular: Present: as per HPI - Respiratory Respiratory: Present: as per HPI - Gastrointestinal Gastrointestinal: Present: as per HPI - Genitourinary Genitourinary: Present: as per HPI - Musculoskeletal Musculoskeletal: Present: as per HPI - Neurological Neurological: Present: as per HPI - Psychiatric Psychiatric: Present: as per HPI - Endocrine Endocrine: Present: as per HPI - Hematologic/Lymphatic Hematologic/Lymphatic: Present: as per HPI Medical,Surgical,& Family Hx - Medical History Cardio: History of: CAD (PCI X 2 in the past), Hypertension, [place], Cardiovascular Problems (Cardiomyopathy; [employer] Dr. 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 Yogesh Cruz) No history of: Pneumonia (Due this year for Pneum Vac), Respiratory Problems (No Flu Vac [id number] Season) Genitourinary: History of: Prostate Problems (BPH sees Dr. 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 Johnson) No history of: Anesthesia Reactions, Cancer - Surgical History Cardiac Surgeries: Sugical HX of: Cardiac Catheterization (STENT) Thoracic Surgeries: Patient denies;: Organ Transplant HEENT Surgeries: Patient denies: Eye Surgery (12/13/15 Cataract Lt;01/08/[address] Gonzalez), Tonsilectomy & Adenoidectomy Abdominal Surgeries: Surgical HX of: Appendectomy, Colonoscopy Orthopedic Surgeries: Surgical HX of;: Total Hip Replacement (Rt Hip Replacement (Hip Fx 2015)) Patient denies;: Implanted Devices, Orthopedic Surgery, Spinal Surgery, Total Knee Replacement - Family History Family History: Reports;: Family Diabetes, Family Heart Disease, Family Hypertension - Social History Smoking Status: Former smoker Frequency of Alcohol Use: None Type of Drug Use: None Physical Examination Vital Signs Temp Pulse Resp BP Pulse Ox 97.8 F 72 20 166/97 99 10/05/16 15:15 10/05/16 15:15 10/05/16 15:15 10/05/16 15:15 10/05/16 15:15 Other: General appearance: normal weight, mild tachypnea but overall no acute distress - Head Head exam: Present: normal inspection, normocephalic, atraumatic. Absent: hematoma, laceration - Eye Eye exam: Present: EOMI. Absent: conjunctival injection, nystagmus, periorbital swelling, scleral icterus, laceration to eyelids Pupils: Present: PERRL. Absent: constricted, dilated, fixed, irregular, unequal - ENT ENT exam: Present: normal exam, normal external ear exam - Neck Neck exam: Present: normal inspection. Absent: lymphadenopathy, meningismus, tenderness, thyromegaly - Respiratory Respiratory exam: Present: clear to auscultation bilaterally with prolonged expiration. Absent: accessory muscle use, chest wall tenderness - Cardiovascular Cardiovascular exam: Present: regular rate and rhythm. Absent: carotid bruit, gallop, JVD, rubs - GI/Abdominal GI/Abdominal exam: Present: normal bowel sounds, soft. Absent: distended, firm , guarding, hernia, mass, tenderness, rebound. - Extremities Exam Extremities exam: Present: normal inspection, normal capillary refill. Absent: calf tenderness, edema - Back Exam Back exam: Present: normal inspection. Absent: muscle spasm, vertebral tenderness - Neurological Exam Neurological exam: Present: alert, oriented X3, grossly intact without resting or intention tremor - Psychiatric Psychiatric exam: Present: normal affect, normal mood - Skin Skin exam: Present: normal color, warm, dry, intact. Absent: cyanosis, diaphoretic, rash, urticaria Result/EKG - Labs CBC & BMP: 10/06/16 01:40 10/06/16 01:40 Lab Results: I have reviewed the past 24 hour labs Labs: Laboratory Results - last 24 hr 10/05/16 10/06/16 10/06/16 20:47 01:40 01:40 WBC 7.3 RBC 4.37 Hgb 13.2 L Hct 40.7 L MCV 93.1 MCH 30 MCHC 32.4 RDW 13.2 Plt Count 171 MPV 11.2 Neut % (Auto) 86.0 H Lymph % (Auto) 6.0 L [place] % (Auto) 1.2 L Eos % (Auto) 0.0 Baso % (Auto) 0.8 Neut # (Auto) 6.3 Lymph # (Auto) 0.4 L [place] # (Auto) 0.1 L Eos # (Auto) 0.0 Baso # (Auto) 0.1 Total Counted 100 Immature Gran % 6.0 Nucleated RBC % 0.3 Immature Gran # 0.44 Segmented Neutrophils 80 Lymphocytes 15 L Monocytes 1 L Eosinophils 1 Metamyelocytes 1 Myelocytes 2 Nucleated RBCs # 0.02 Platelet Estimate Normal Pappenheimer Bodies Quality Control Head Sodium Potassium Chloride Carbon Dioxide Anion Gap BUN Creatinine GFR Calculation BUN/Creatinine Ratio Glucose Calculated Osmolality Calcium Total Creatine Kinase 34 L 31 L CK-MB (CK-2) 2.3 2.3 Troponin I 0.104 H 0.106 H 10/06/16 01:40 WBC RBC Hgb Hct MCV MCH MCHC RDW Plt Count MPV Neut % (Auto) Lymph % (Auto) [place] % (Auto) Eos % (Auto) Baso % (Auto) Neut # (Auto) Lymph # (Auto) [place] # (Auto) Eos # (Auto) Baso # (Auto) Total Counted Immature Gran % Nucleated RBC % Immature Gran # Segmented Neutrophils Lymphocytes Monocytes Eosinophils Metamyelocytes Myelocytes Nucleated RBCs # Platelet Estimate Pappenheimer Bodies Sodium 144 Potassium 4.1 Chloride 113 H Carbon Dioxide 20 L Anion Gap 15.1 H BUN 40 H D Creatinine 1.80 H GFR Calculation 35 BUN/Creatinine Ratio 22.00 H Glucose 192 H Calculated Osmolality 300.8 Calcium 8.1 L Total Creatine Kinase CK-MB (CK-2) Troponin I - Diagnostic Findings Procedure: Chest x-ray: image reviewed by me, report reviewed by me - EKG EKG results: interpreted by me, no acute changes EKG shows: sinus rhythm I, Avani Oropeza MD, personally performed the services described in this documentation, ascribed by Marily Marino RN in my presence, and it is both accurate and complete 152 .
--- NOTE | 2016-10-06 12:01 | Hospitalist Progress Note ---
Assessment and Plan - Time spent with patient Time spent with patient: Greater than 30 minutes (1) COPD exacerbation Status: Chronic Assessment and plan: Severe shortness of breath. Pulmonary consulted and appreciate their recommendations. Continue current management. Current Visit: Yes (2) Elevated troponin I level Status: Acute Assessment and plan: Chronically elevated. No ACS suspected. Cardiology involved. Current Visit: No (3) Weakness Status: Acute Assessment and plan: PT/OT/SW Current Visit: Yes (4) CHF (congestive heart failure) Status: Acute Assessment and plan: Grade 1/4 diastolic. No exacerbation. Current Visit: Yes (5) Coronary artery disease Problem details: 04/03/13: 2.25 x 20 mm Promus BERRY with overlapping 2.5 x 16 mm Promus BERRY to 1st OM Status: Chronic Assessment and plan: No complaints of chest pain. Current Visit: No Qualifiers: Coronary Disease-Associated Artery/Lesion type: [place] artery (6) Essential hypertension Status: Chronic Assessment and plan: Continue home medications. Current Visit: No Hospitalist: Subjective Interval history: No complaints or overnight events. Exam - Constitutional Vitals: Period Temp Pulse Resp BP Sys/Carrion Pulse Ox Last 24 Hr 97.9 F-98.4 F 62-79 16-20 107-140/54-71 95-100 General appearance: no acute distress - Head Head exam: Present: normocephalic, atraumatic - Eye Eye exam: Present: EOMI Pupils: Present: ALICE - ENT ENT exam: Present: normal exam - Neck Neck exam: Present: normal inspection - Respiratory Respiratory exam: Present: clear to auscultation bilaterally, wheezes. Absent: rhonchi - Cardiovascular Cardiovascular exam: Present: regular rate and rhythm. Absent: gallop, rubs, systolic murmur - GI/Abdominal GI/Abdominal exam: Present: normal bowel sounds, soft. Absent: distended, firm , guarding, tenderness, rebound - Extremities Exam Extremities exam: Present: normal inspection. Absent: calf tenderness, edema Results - Labs CBC & BMP: 10/06/16 01:40 10/06/16 01:40 Lab Results: I have reviewed the past 24 hour labs
[2016-10-06] MEDS: SIMETHICONE CHEW 125 MG TABLET PO SCH ×3 (13:40→20:31)
[2016-10-06] MEDS: ATORVASTATIN 20 MG TABLET PO SCH (16:13)
[2016-10-06] MEDS ORDERED: NON-FORMULARY MEDICATION (Alendronate Sodium [Alendronate Sodium] 35 MG) PO SCH (19:09)
[2016-10-06] MEDS: ENOXAPARIN 40 MG/0.4 ML SYRINGE SUBCUT SCH (20:30)
[2016-10-07] MEDS: ALBUTEROL/IPRATROPIUM 3 ML NEB RESP TX SCH ×4 (01:40→20:16)
[2016-10-07 06:12] LABS: Basophils % 0.3 % (0.0-0.8); Hematocrit 42.2 VOL% (42.0-52.0); Hemoglobin 13.7 GM/DL (14.0-18.0); Immature Granulocytes % 2.4 %; Immature Granulocytes Absolute 0.31 #; Lymphocytes # 0.7 10*3/uL (1.4-4.0); Lymphocytes % 5.2 % (21.2-54.2); Mean Corpuscular HGB Conc 32.5 GM/DL (32-36); Mean Corpuscular Hemoglobin 31 PG (27-34); Monocytes # 0.5 10*3/uL (0.11-0.8); Monocytes % 3.6 % (1.7-12.7); NRBC # 0.02 10*3/uL; Neutrophils # 11.2 10*3/uL (1.4-7.4); Neutrophils % 88.5 % (38.7-73.9); Platelet Count 184 T/CUMM (130-400); Red Blood Count 4.49 MC/CUMM (3.8-5.5); Red Cell Distribution Width 13.3 % (9.3-17.3); White Blood Count 12.7 T/CUMM (4-12)
[2016-10-07 06:33] LABS: Platelet Estimate Adequate
[2016-10-07 06:54] LABS: Calcium 8.7 MG/DL (8.5-10.1); Calcium 8.8 MG/DL (8.5-10.1); Magnesium 2.5 MG/DL (1.8-2.4); Osmolality,Calculated 304.7 MOS/KG (273-304); Osmolality,Calculated 305.7 MOS/KG (273-304); Potassium 3.9 MMOL/L (3.5-5.1); Risk Ratio 3.08; VLDL CHOLESTEROL 37.2 MG/DL
[2016-10-07] MEDS: SULFAMETHOX/TRIMETHOPRIM 800-160 MG TABLET PO SCH ×2 (09:09→20:37)
[2016-10-07] MEDS: MULTIVITAMIN (CENTRUM) TABLET PO SCH (09:09)
[2016-10-07] MEDS: methylPREDNISolone SOD SUC 40 MG/1 ML VIAL IV SCH ×2 (09:09→20:38)
[2016-10-07] MEDS: DILTIAZEM CD 120 MG CAPSULE PO SCH (09:09)
[2016-10-07] MEDS: SIMETHICONE CHEW 125 MG TABLET PO SCH ×4 (09:09→20:38)
[2016-10-07] MEDS: BUDESONIDE/FORMOTEROL 160-4.5 INHALER 6 GM INH SCH ×2 (09:10→20:42)
[2016-10-07] MEDS: CARVEDILOL 6.25 MG TABLET PO SCH ×2 (09:10→20:37)
[2016-10-07] MEDS: ASPIRIN EC 81 MG TABLET PO SCH (09:10)
--- NOTE | 2016-10-07 10:23 | Pulmonology Progress Note ---
Pulmonary - PN: Subj Interval history: This is a 86-year-old white male. He is a longtime patient of mine. I saw him in pulmonary consultation on 10/06/2016. My impressions were. 1. Acute exacerbation of COPD and asthma refractory to outpatient treatment 2. History of heart disease. Note that today's EKG shows possible inferior ischemia 3. Azotemia. Watch for exacerbation by Bactrim. 4. Long history of tobacco abuse 5. See past history 10/07/2016. I appreciate Dr. Avani Oropeza's cardiology consultation. Patient continues to have significant shortness of breath. He says he is comfortable in bed but any activity brings on the shortness of breath. All his chest exam he is moving air better. I am going to add IV Aminophyllin and will follow daily levels and will see if this helps. I will also add Singulair 10 mg daily. Patient is on steroids and inhaled bronchodilators. Creatinine is elevated but stable at 1.8. BUNs 48. Electrolytes are normal. White count is 12,700. H&H is 13.7/42.2. ABGs on FiO2 28% showed a pH of 7.336, PCO2 33.7, PO2 of 123 and a bicarb of 18.8. I have asked physical therapy to help this patient began to move around a little bit. Calcium is initially low. I have ordered a vitamin D. Also I will check a TSH and a free T4. Physical exam. Vital signs. See below Neurologic exam. Cranial nerves are intact with poor vision out of both eyes. 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 Face is symmetrical. Lips and tongue are normal. Neck. Symmetrical. No mass. No meningismus. Thyroid was not palpated Lymphatics. No submandibular cervical supraclavicular or epitrochlear adenopathy Chest is hyperinflated with prolonged incomplete expiration expiration is more complete on 10/07/2016 than noted on 10/06/2016 Heart. Regular sinus rhythm. No gallop Abdomen. Slightly distended and rare bowel sounds. Lower extremities. No edema. Both calves are tender at the posterior pressure. The remainder the exam is noncontributory. Plan. 1. Agree with your choice of medicines. 2. Sputum for Gram stain culture and sensitivity 3. 10/07/2016. See my note above. Doppler venograms. Add Singulair. Add IV Aminophyllin. Daily theophylline level. Check vitamin D level. Check TSH and free T4. Watch abdomen. Consult physical Exam (Progress Note) - Constitutional Vitals: Period Temp Pulse Resp BP Sys/Carrion Pulse Ox Last 24 Hr 97.1 F-98.7 F 62-99 16-20 123-154/63-74 94-100 Results - Labs CBC & BMP: 10/07/16 05:23 10/07/16 05:22
--- NOTE | 2016-10-07 10:47 | Hospitalist Progress Note ---
Assessment and Plan - Time spent with patient Time spent with patient: Greater than 30 minutes (1) COPD exacerbation Status: Chronic Assessment and plan: Severe shortness of breath. Pulmonary consulted and appreciate their recommendations. Continue current management. Current Visit: Yes (2) Elevated troponin I level Status: Acute Assessment and plan: Chronically elevated. No ACS suspected. Cardiology involved. Likely due to severe pulmonary disease. Current Visit: No (3) Weakness Status: Acute Assessment and plan: PT/OT/SW Current Visit: Yes (4) CHF (congestive heart failure) Status: Acute Assessment and plan: Grade 1/4 diastolic. No exacerbation. Current Visit: Yes (5) Coronary artery disease Problem details: 04/03/13: 2.25 x 20 mm Promus BERRY with overlapping 2.5 x 16 mm Promus BERRY to 1st OM Status: Chronic Assessment and plan: No complaints of chest pain. Current Visit: No Qualifiers: Coronary Disease-Associated Artery/Lesion type: [place] artery (6) Essential hypertension Status: Chronic Assessment and plan: Continue home medications. Current Visit: No Hospitalist: Subjective Interval history: No complaints, no overnight events. Exam - Constitutional Vitals: Period Temp Pulse Resp BP Sys/Carrion Pulse Ox Last 24 Hr 97.1 F-98.7 F 62-99 16-20 123-154/63-74 94-100 General appearance: no acute distress - Head Head exam: Present: normocephalic, atraumatic - Eye Eye exam: Present: EOMI Pupils: Present: ALICE - ENT ENT exam: Present: normal exam - Neck Neck exam: Present: normal inspection - Respiratory Respiratory exam: Present: clear to auscultation bilaterally, prolonged expiratory phase. Absent: rhonchi, wheezes - Cardiovascular Cardiovascular exam: Present: regular rate and rhythm. Absent: gallop, rubs, systolic murmur - GI/Abdominal GI/Abdominal exam: Present: normal bowel sounds, soft. Absent: distended, firm , guarding, tenderness, rebound - Extremities Exam Extremities exam: Present: normal inspection. Absent: calf tenderness, edema Results - Labs CBC & BMP: 10/07/16 05:23 10/07/16 05:22 Lab Results: I have reviewed the past 24 hour labs
[2016-10-07 10:57] LABS: Free T4 (Free Thyroxine) 0.82 NG/DL (0.76-1.46); Thyroid Stimulating Hormone 0.159 uIU/ml (0.358-3.74)
[2016-10-07] MEDS ORDERED: AMINOPHYLLINE 250 MG in SODIUM CHLORIDE 0.9% 100 ML IV ONE (11:30)
[2016-10-07] MEDS: MONTELUKAST 10 MG TABLET PO SCH (12:17)
--- NOTE | 2016-10-07 14:10 | Ultrasound Report ---
US venous doppler LE BI Indication: Bilateral calf pain, rule out DVT. Comparison: No relevant comparison. Technique: Grayscale, spectral, and color Doppler interrogation of the bilateral lower extremity veins was performed. Augmentation and compression was performed. Findings: Grayscale, color Doppler, and pulsed Doppler evaluation of the veins of the bilateral lower extremity demonstrates no evidence of deep venous thrombosis. IMPRESSION: No evidence of deep venous thrombosis in either lower extremity. PROCEDURE INTERPRETED AT [facility] DEPARTMENT OF RADIOLOGY Final Report Signed by: Dr Elvis Zamudio
[2016-10-07] MEDS: ATORVASTATIN 20 MG TABLET PO SCH (17:13)
[2016-10-07] MEDS: AMINOPHYLLINE 250 MG in SODIUM CHLORIDE 0.9% 240 ML IV SCH (17:13)
[2016-10-07] MEDS: LACTULOSE 20 GM/30 ML UDCUP PO PRN (17:19)
--- NOTE | 2016-10-07 20:32 | Cardiology Progress Note ---
Ned Burrell Vanessa, RN, am scribing for, and in the presence of, Avani Oropeza MD 20:32. Assessment and Plan - Time spent with patient Time spent with patient: Greater than 30 minutes (1) BERMAN (dyspnea on exertion) Status: Chronic Assessment and plan: SEE PLAN OF CARE LISTED BELOW. Current Visit: Yes (2) COPD exacerbation Status: Chronic Assessment and plan: SEE PLAN OF CARE LISTED BELOW. Current Visit: Yes (3) Anemia Status: Chronic Assessment and plan: SEE PLAN OF CARE LISTED BELOW. Current Visit: No (4) Advanced age Status: Chronic Assessment and plan: SEE PLAN OF CARE LISTED BELOW. Current Visit: No (5) Coronary artery disease Problem details: 04/03/13: 2.25 x 20 mm Promus BERRY with overlapping 2.5 x 16 mm Promus BERRY to 1st OM Status: Chronic Assessment and plan: SEE PLAN OF CARE LISTED BELOW. Current Visit: No Qualifiers: Coronary Disease-Associated Artery/Lesion type: [place] artery (6) Dyslipidemia Status: Chronic Assessment and plan: SEE PLAN OF CARE LISTED BELOW. Current Visit: No (7) Essential hypertension Status: Chronic Assessment and plan: SEE PLAN OF CARE LISTED BELOW. Current Visit: No (8) Physical debility Status: Chronic Assessment and plan: SEE PLAN OF CARE LISTED BELOW. Current Visit: No Cardiology - PN: Subj Interval history: PRIMARY HUMAN RELATIONS TEACHER: DR. SEDRICK RIOS PCP: DR. CRUZ CARDIOLOGY CONSULT NOTE: DYSPNEA, COPD EXACERBATION Mr. Contreras is a 86 year old white male routinely followed by cardiology. Risk factors significant for: advanced age, hypertension, dyslipidemia, former tobacco abuse, known CAD, sedentary lifestyle. He has had previous PCI, March 2013, of first obtuse marginal branch with overlapping, drug eluting stents x 2. Patient also has severe COPD and most recent hospitalization for COPD exacerbation was August 2016. Echocardiogram during admission in August showed LV ejection fraction of 60%, grade I/IV diastolic dysfunction, mild to moderate TR with PA pressure 40-45 mmHg. Patient presented to the emergency room on 10/05 with complaints of increasing shortness of breath x 4 days. He was evaluated in clinic by his PCP last Thursday, reportedly received a steroid shot, continued to feel poorly and presented to the ED for further evaluation. Patient also reported he had experienced abdominal distention for the past [address] abdomen and pelvis negative for acute process. EKG without acute ischemic finding. CXR with emphysematous findings but no acute infiltrate, pneumothorax, or other process. Serial cardiac biomarkers have revealed trivial troponin elevation (0.114, 0.104, 0.106) with normal CPK and MB. This is lower than his normal levels. Patient was admitted to the [facility] per hospital medicine for further treatment of COPD exacerbation. Cardiology has been consulted for evaluation during hospital admission. OCTOBER 07, 2016: Mr. Contreras is awake and alert, resting quietly without distress noted this morning. He is pleasant. No chest pain. Reports he "feels about the same" when asked if he remained short of breath. Nonproductive cough noted. No dizziness, palpitation, presyncope, or other anginal equivalent. WBC is elevated today from 7,300 to 12,700. Potassium 3.9, magnesium 2.5. Systolic BP 140-150 with pulse rate 70s-80s. Reports he was able to eat eggs, toast, and baca yesterday evening which his brought from [facility], and states his appetite was great. ASSESSMENT/PLAN: 1. CORONARY ARTERY DISEASE - overall this appears to be stable. Certainly can be difficult to tease out shortness of breath as an anginal symptom in the setting of both pulmonary disease and known coronary artery disease. Cardiac biomarkers are lower than his usual chronically elevated troponin. He is not having any chest discomfort. His shortness of breath seems to be associated with wheezing, increasing cough and congestion suggesting that this is likely secondary to his pulmonary condition. 2. COPD-Dr. Cruz is managing this. 3. HYPERTENSION -chronic, controlled. 4. HYPERLIPIDEMIA -chronic. Exam (Progress Note) - Constitutional Vitals: Period Temp Pulse Resp BP Sys/Carrion Pulse Ox Last 24 Hr 97.1 F-98.7 F 62-99 16-20 123-154/63-74 94-100 Exam: General appearance: normal weight, mild tachypnea but overall no acute distress - Head Head exam: Present: normal inspection, normocephalic, atraumatic. Absent: hematoma, laceration - Eye Eye exam: Present: EOMI. Absent: conjunctival injection, nystagmus, periorbital swelling, scleral icterus, laceration to eyelids Pupils: Present: PERRL. Absent: constricted, dilated, fixed, irregular, unequal - ENT ENT exam: Present: normal exam, normal external ear exam - Neck Neck exam: Present: normal inspection. Absent: lymphadenopathy, meningismus, tenderness, thyromegaly - Respiratory Respiratory exam: Present: clear to auscultation bilaterally with prolonged expiration. Absent: accessory muscle use, chest wall tenderness - Cardiovascular Cardiovascular exam: Present: regular rate and rhythm. Absent: carotid bruit, gallop, JVD, rubs - GI/Abdominal GI/Abdominal exam: Present: normal bowel sounds, soft. Absent: distended, firm , guarding, hernia, mass, tenderness, rebound. - Extremities Exam Extremities exam: Present: normal inspection, normal capillary refill. Absent: calf tenderness, edema - Back Exam Back exam: Present: normal inspection. Absent: muscle spasm, vertebral tenderness - Neurological Exam Neurological exam: Present: alert, oriented X3, grossly intact without resting or intention tremor - Psychiatric Psychiatric exam: Present: normal affect, normal mood - Skin Skin exam: Present: normal color, warm, dry, intact. Absent: cyanosis, diaphoretic, rash, urticaria Result/EKG - Labs CBC & BMP: 10/07/16 05:23 10/07/16 05:22 Lab Results: I have reviewed the past 24 hour labs Labs: Laboratory Results - last 24 hr 10/06/16 10/07/16 10/07/16 10:18 05:22 05:22 WBC RBC Hgb Hct MCV MCH MCHC RDW Plt Count MPV Neut % (Auto) Lymph % (Auto) Gage % (Auto) Eos % (Auto) Baso % (Auto) Neut # (Auto) Lymph # (Auto) Gage # (Auto) Eos # (Auto) Baso # (Auto) Immature Gran % Nucleated RBC % Immature Gran # Nucleated RBCs # Platelet Estimate Morphology Comment ABG pH 7.336 L ABG pCO2 33.7 L ABG pO2 123.0 H ABG HCO3 18.8 L ABG Total CO2 15.8 L ABG O2 Saturation 98.6 ABG Base Excess -7.0 L FiO2 28.00 Sodium 145 145 Potassium 3.9 3.9 Chloride 112 H 112 H Carbon Dioxide 21 21 Anion Gap 15.9 H 15.9 H BUN 47 H 48 H Creatinine 1.80 H 1.80 H GFR Calculation 35 35 BUN/Creatinine Ratio 26.00 H 26.00 H Glucose 182 H 181 H Calculated Osmolality 304.7 H 305.7 H Calcium 8.8 8.7 Magnesium 2.5 H Triglycerides 186 H Cholesterol 163 LDL Cholesterol 94.0 VLDL Cholesterol 37.2 HDL Cholesterol 53 Heart Disease Risk Ratio 3.08 10/07/16 05:23 WBC 12.7 H D RBC 4.49 Hgb 13.7 L Hct 42.2 MCV 94.0 MCH 31 MCHC 32.5 RDW 13.3 Plt Count 184 MPV 11.0 Neut % (Auto) 88.5 H Lymph % (Auto) 5.2 L Gage % (Auto) 3.6 Eos % (Auto) 0.0 Baso % (Auto) 0.3 Neut # (Auto) 11.2 H Lymph # (Auto) 0.7 L Gage # (Auto) 0.5 Eos # (Auto) 0.0 Baso # (Auto) 0.0 Immature Gran % 2.4 Nucleated RBC % 0.2 Immature Gran # 0.31 Nucleated RBCs # 0.02 Platelet Estimate Adequate Morphology Comment ABG pH ABG pCO2 ABG pO2 ABG HCO3 ABG Total CO2 ABG O2 Saturation ABG Base Excess FiO2 Sodium Potassium Chloride Carbon Dioxide Anion Gap BUN Creatinine GFR Calculation BUN/Creatinine Ratio Glucose Calculated Osmolality Calcium Magnesium Triglycerides Cholesterol LDL Cholesterol VLDL Cholesterol HDL Cholesterol Heart Disease Risk Ratio - EKG EKG results: interpreted by me, no acute changes EKG shows: sinus rhythm Sandip Burrell Jennifer, MD, personally performed the services described in this documentation, ascribed by Marily Marino RN in my presence, and it is both accurate and complete .
[2016-10-07] MEDS: ENOXAPARIN 40 MG/0.4 ML SYRINGE SUBCUT SCH (20:38)
[2016-10-07] MEDS: guaiFENesin/DM ER 600-30 MG TABLET PO PRN (20:38)
[2016-10-08] MEDS: ALBUTEROL/IPRATROPIUM 3 ML NEB RESP TX SCH ×4 (00:54→19:37)
[2016-10-08 06:28] LABS: Basophils % 0.4 % (0.0-0.8); Hematocrit 40.6 VOL% (42.0-52.0); Hemoglobin 13.6 GM/DL (14.0-18.0); Immature Granulocytes % 2.9 %; Immature Granulocytes Absolute 0.33 #; Lymphocytes # 0.4 10*3/uL (1.4-4.0); Lymphocytes % 3.5 % (21.2-54.2); Mean Corpuscular HGB Conc 33.5 GM/DL (32-36); Mean Corpuscular Hemoglobin 31 PG (27-34); Mean Corpuscular Volume 91.2 FL (87-102); Mean Platelet Volume 10.7 FL (9.6-12.0); Monocytes # 0.3 10*3/uL (0.11-0.8); NRBC # 0.03 10*3/uL; Neutrophils # 10.2 10*3/uL (1.4-7.4); Neutrophils % 90.2 % (38.7-73.9); Platelet Count 180 T/CUMM (130-400); Red Blood Count 4.45 MC/CUMM (3.8-5.5); Red Cell Distribution Width 13.3 % (9.3-17.3); White Blood Count 11.4 T/CUMM (4-12)
[2016-10-08 06:56] LABS: Magnesium 2.6 MG/DL (1.8-2.4); Osmolality,Calculated 300.8 MOS/KG (273-304); Potassium 4.1 MMOL/L (3.5-5.1)
[2016-10-08 07:07] LABS: Lymphocytes 3 % (20-55); Platelet Estimate Normal; Segmented Neutrophils 95 % (50-85); Total Cells Counted 100
[2016-10-08 07:08] LABS: Hypochromasia 1+
--- NOTE | 2016-10-08 09:16 | Hospitalist Progress Note ---
Assessment and Plan - Time spent with patient Time spent with patient: Greater than 30 minutes (1) COPD exacerbation Status: Chronic Assessment and plan: Improving. Pulmonary consulted and appreciate their recommendations. Continue current management. Current Visit: Yes (2) Elevated troponin I level Status: Acute Assessment and plan: Chronically elevated. No ACS suspected. Cardiology involved. Likely due to severe pulmonary disease. Current Visit: No (3) Weakness Status: Acute Assessment and plan: PT/OT/SW Current Visit: Yes (4) CHF (congestive heart failure) Status: Acute Assessment and plan: Grade 1/4 diastolic. No exacerbation. Current Visit: Yes (5) Coronary artery disease Problem details: 04/03/13: 2.25 x 20 mm Promus BERRY with overlapping 2.5 x 16 mm Promus BERRY to 1st OM Status: Chronic Assessment and plan: No complaints of chest pain. Current Visit: No Qualifiers: Coronary Disease-Associated Artery/Lesion type: [place] artery (6) Essential hypertension Status: Chronic Assessment and plan: Continue home medications. Current Visit: No Hospitalist: Subjective Interval history: No complaints or overnight events. Exam - Constitutional Vitals: Period Temp Pulse Resp BP Sys/Carrion Pulse Ox Last 24 Hr 97.2 F-98.0 F 61-93 18-20 107-140/55-93 94-99 General appearance: no acute distress - Head Head exam: Present: normocephalic, atraumatic - Eye Eye exam: Present: EOMI Pupils: Present: ALICE - ENT ENT exam: Present: normal exam - Neck Neck exam: Present: normal inspection - Respiratory Respiratory exam: Present: clear to auscultation bilaterally, prolonged expiratory phase. Absent: rhonchi, wheezes - Cardiovascular Cardiovascular exam: Present: regular rate and rhythm. Absent: gallop, rubs, systolic murmur - GI/Abdominal GI/Abdominal exam: Present: normal bowel sounds, soft. Absent: distended, firm , guarding, tenderness, rebound - Extremities Exam Extremities exam: Present: normal inspection. Absent: calf tenderness, edema Results - Labs CBC & BMP: 10/08/16 05:57 10/08/16 05:57 Lab Results: I have reviewed the past 24 hour labs
[2016-10-08] MEDS: CARVEDILOL 6.25 MG TABLET PO SCH ×2 (10:01→20:51)
[2016-10-08] MEDS: ASPIRIN EC 81 MG TABLET PO SCH (10:01)
[2016-10-08] MEDS: methylPREDNISolone SOD SUC 40 MG/1 ML VIAL IV SCH ×2 (10:01→20:51)
[2016-10-08] MEDS: SIMETHICONE CHEW 125 MG TABLET PO SCH ×4 (10:01→20:51)
[2016-10-08] MEDS: MONTELUKAST 10 MG TABLET PO SCH (10:01)
[2016-10-08] MEDS: MULTIVITAMIN (CENTRUM) TABLET PO SCH (10:01)
[2016-10-08] MEDS: SULFAMETHOX/TRIMETHOPRIM 800-160 MG TABLET PO SCH ×2 (10:01→20:51)
[2016-10-08] MEDS: DILTIAZEM CD 120 MG CAPSULE PO SCH (10:01)
[2016-10-08] MEDS: BUDESONIDE/FORMOTEROL 160-4.5 INHALER 6 GM INH SCH ×2 (10:03→20:53)
[2016-10-08] MEDS: LACTULOSE 20 GM/30 ML UDCUP PO PRN (10:03)
--- NOTE | 2016-10-08 10:07 | Pulmonology Progress Note ---
Pulmonary - PN: Subj Interval history: This is a 86-year-old white male. He is a longtime patient of mine. I saw him in pulmonary consultation on 10/06/2016. My impressions were. 1. Acute exacerbation of COPD and asthma refractory to outpatient treatment 2. History of heart disease. Note that today's EKG shows possible inferior ischemia 3. Azotemia. Watch for exacerbation by Bactrim. 4. Long history of tobacco abuse 5. See past history 10/07/2016. I appreciate Dr. Avani Oropeza's cardiology consultation. Patient continues to have significant shortness of breath. He says he is comfortable in bed but any activity brings on the shortness of breath. All his chest exam he is moving air better. I am going to add IV Aminophyllin and will follow daily levels and will see if this helps. I will also add Singulair 10 mg daily. Patient is on steroids and inhaled bronchodilators. Creatinine is elevated but stable at 1.8. BUNs 48. Electrolytes are normal. White count is 12,700. H&H is 13.7/42.2. ABGs on FiO2 28% showed a pH of 7.336, PCO2 33.7, PO2 of 123 and a bicarb of 18.8. I have asked physical therapy to help this patient began to move around a little bit. Calcium is initially low. I have ordered a vitamin D. Also I will check a TSH and a free T4. 10/08/2016. Patient was started on IV theophylline yesterday. He had a loading dose and is been on 10 mg/h and today's theophylline level is 6. He says he is breathing much better. I will converting to theophylline 100 mg p.o. twice daily. Singulair was also added yesterday. The patient's on Solu-Medrol 40 mg IV piggyback every 12 hours. When he goes home he can be treated with prednisone 10 mg twice daily. Will continue his Bactrim DS for another 7 days. Singulair 10 mg daily and theophylline 100 mg twice daily should be added to his home regimen. He will need a follow-up with 1 of my nurse practitioners in 3 or 4 weeks. Thyroid function tests were normal. Physical exam. Vital signs. See below Neurologic exam. Cranial nerves are intact with poor vision out of both eyes. 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 Face is symmetrical. Lips and tongue are normal. Neck. Symmetrical. No mass. No meningismus. Thyroid was not palpated Lymphatics. No submandibular cervical supraclavicular or epitrochlear adenopathy Chest is hyperinflated with prolonged incomplete expiration expiration is more complete on 10/07/2016 than noted on 10/06/2016. 10/08/2016 exam shows much better expiration. Theophylline Singulair was added 10/08/2069 Heart. Regular sinus rhythm. No gallop Abdomen. Slightly distended and rare bowel sounds. Lower extremities. No edema. Both calves are tender at the posterior pressure. The remainder the exam is noncontributory. Plan. 1. Agree with your choice of medicines. 2. Sputum for Gram stain culture and sensitivity 3. 10/07/2016. See my note above. Doppler venograms. Add Singulair. Add IV Aminophyllin. Daily theophylline level. Check vitamin D level. Check TSH and free T4. Watch abdomen. Consult physical 4. 10/08/2016. See today's note above included suggestive medicines for when the patient is discharged home in suggestive follow-up. Exam (Progress Note) - Constitutional Vitals: Period Temp Pulse Resp BP Sys/Carrion Pulse Ox Last 24 Hr 97.2 F-98.0 F 61-93 18-20 107-149/55-93 94-99 Results - Labs CBC & BMP: 10/08/16 05:57 10/08/16 05:57 Specialty Discharge - Follow Up or Referrals Follow up with: Karin Prather DO [Physician] - 2 Weeks (Follow up appointment with Dr. Prather in 2-4 weeks after discharge with BMP, EKG.)
[2016-10-08] MEDS: AMINOPHYLLINE 250 MG in SODIUM CHLORIDE 0.9% 240 ML IV SCH (15:13)
[2016-10-08] MEDS ORDERED: THEOPHYLLINE ER 100 MG TABLET PO SCH (17:00)
[2016-10-08] MEDS: ATORVASTATIN 20 MG TABLET PO SCH (18:31)
[2016-10-08] MEDS: THEOPHYLLINE ER (24 HR) 200 MG CAPSULE PO SCH (18:32)
[2016-10-08] MEDS: guaiFENesin/DM ER 600-30 MG TABLET PO PRN (20:51)
[2016-10-08] MEDS: ENOXAPARIN 40 MG/0.4 ML SYRINGE SUBCUT SCH (20:53)
--- NOTE | 2016-10-08 21:32 | Cardiology Progress Note ---
Ned Burrell Vanessa, RN, am scribing for, and in the presence of, Avani Oropeza MD 21:32. Assessment and Plan - Time spent with patient Time spent with patient: Greater than 30 minutes (1) BERMAN (dyspnea on exertion) Status: Chronic Assessment and plan: SEE PLAN OF CARE LISTED BELOW. Current Visit: Yes (2) COPD exacerbation Status: Chronic Assessment and plan: SEE PLAN OF CARE LISTED BELOW. Current Visit: Yes (3) Anemia Status: Chronic Assessment and plan: SEE PLAN OF CARE LISTED BELOW. Current Visit: No (4) Advanced age Status: Chronic Assessment and plan: SEE PLAN OF CARE LISTED BELOW. Current Visit: No (5) Coronary artery disease Problem details: 04/03/13: 2.25 x 20 mm Promus BERRY with overlapping 2.5 x 16 mm Promus BERRY to 1st OM Status: Chronic Assessment and plan: SEE PLAN OF CARE LISTED BELOW. Current Visit: No Qualifiers: Coronary Disease-Associated Artery/Lesion type: [place] artery (6) Dyslipidemia Status: Chronic Assessment and plan: SEE PLAN OF CARE LISTED BELOW. Current Visit: No (7) Essential hypertension Status: Chronic Assessment and plan: SEE PLAN OF CARE LISTED BELOW. Current Visit: No (8) Physical debility Status: Chronic Assessment and plan: SEE PLAN OF CARE LISTED BELOW. Current Visit: No Cardiology - PN: Subj Interval history: PRIMARY LEAD APPLICATION ARCHITECT: DR. KARIN RIOS PCP: DR. CRUZ CARDIOLOGY CONSULT NOTE: DYSPNEA, COPD EXACERBATION Mr. Contreras is a 86 year old white male routinely followed by cardiology. Risk factors significant for: advanced age, hypertension, dyslipidemia, former tobacco abuse, known CAD, sedentary lifestyle. He has had previous PCI, March 2013, of first obtuse marginal branch with overlapping, drug eluting stents x 2. Patient also has severe COPD and most recent hospitalization for COPD exacerbation was August 2016. Echocardiogram during admission in August showed LV ejection fraction of 60%, grade I/IV diastolic dysfunction, mild to moderate TR with PA pressure 40-45 mmHg. Patient presented to the emergency room on 10/05 with complaints of increasing shortness of breath x 4 days. He was evaluated in clinic by his PCP last Thursday, reportedly received a steroid shot, continued to feel poorly and presented to the ED for further evaluation. Patient also reported he had experienced abdominal distention for the past [address] abdomen and pelvis negative for acute process. EKG without acute ischemic finding. CXR with emphysematous findings but no acute infiltrate, pneumothorax, or other process. Serial cardiac biomarkers have revealed trivial troponin elevation (0.114, 0.104, 0.106) with normal CPK and MB. This is lower than his normal levels. Patient was admitted to the [facility] per hospital medicine for further treatment of COPD exacerbation. Cardiology has been consulted for evaluation during hospital admission. OCTOBER 08, 2016: Mr. Contreras awake and alert, resting quietly this morning. No acute distress noted. Reports he rested well overnight, and he states that his breathing is continuing to improve. He reports that he has started to feel better since initiation of IV theophylline infusion. Nonproductive cough noted. There have been no new findings or acute changes in hemodynamic status overnight. Afebrile , SBP 110-140 mmHg. Creatinine improved from 1.8 yesterday to 1.4 today with current GFR 48. Potassium 4.1, and magnesium is 2.6. ASSESSMENT/PLAN: 1. CORONARY ARTERY DISEASE - Overall this continues to appear stable. Certainly can be difficult to rule out shortness of breath as an anginal symptom in the setting of both pulmonary disease and known coronary artery disease. Cardiac biomarkers are lower than his usual chronically elevated troponin. He is not having any chest discomfort. His shortness of breath seems to be associated with wheezing, increasing cough and congestion suggesting that this is likely secondary to his pulmonary condition. 2. COPD-Dr. Cruz is managing this. 3. HYPERTENSION -chronic, controlled. 4. HYPERLIPIDEMIA -chronic. At this time, we have nothing further to add. We will sign off. Please reconsult if needed during course of admission. He should follow up with Dr. Rios in 2-4 weeks after discharge and should have EKG, BMP at follow up visit. Exam (Progress Note) - Constitutional Vitals: Period Temp Pulse Resp BP Sys/Carrion Pulse Ox Last 24 Hr 97.2 F-98.0 F 61-93 18-20 107-140/55-93 94-99 Exam: General appearance: normal weight, no acute distress - Head Head exam: Present: normal inspection, normocephalic, atraumatic. Absent: hematoma, laceration - Eye Eye exam: Present: EOMI. Absent: conjunctival injection, nystagmus, periorbital swelling, scleral icterus, laceration to eyelids Pupils: Present: PERRL. Absent: constricted, dilated, fixed, irregular, unequal - ENT ENT exam: Present: normal exam, normal external ear exam - Neck Neck exam: Present: normal inspection. Absent: lymphadenopathy, meningismus, tenderness, thyromegaly - Respiratory Respiratory exam: Present: clear to auscultation bilaterally with prolonged expiration. Absent: accessory muscle use, chest wall tenderness - Cardiovascular Cardiovascular exam: Present: regular rate and rhythm. Absent: carotid bruit, gallop, JVD, rubs - GI/Abdominal GI/Abdominal exam: Present: normal bowel sounds, soft. Absent: distended, firm , guarding, hernia, mass, tenderness, rebound. - Extremities Exam Extremities exam: Present: normal inspection, normal capillary refill. Absent: calf tenderness, edema - Back Exam Back exam: Present: normal inspection. Absent: muscle spasm, vertebral tenderness - Neurological Exam Neurological exam: Present: alert, oriented X3, grossly intact without resting or intention tremor - Psychiatric Psychiatric exam: Present: normal affect, normal mood. Absent: anxiety, depression - Skin Skin exam: Present: normal color, warm, dry, intact. Ecchymotic bruising left upper extremity r/t venipuncture. Absent: cyanosis, diaphoretic, rash, urticaria Result/EKG - Labs CBC & BMP: 10/08/16 05:57 10/08/16 05:57 Lab Results: I have reviewed the past 24 hour labs Labs: Laboratory Results - last 24 hr 10/07/16 10/07/16 10/08/16 05:20 05:20 05:57 WBC RBC Hgb Hct MCV MCH MCHC RDW Plt Count MPV Neut % (Auto) Lymph % (Auto) Andrew % (Auto) Eos % (Auto) Baso % (Auto) Neut # (Auto) Lymph # (Auto) Andrew # (Auto) Eos # (Auto) Baso # (Auto) Total Counted Immature Gran % Nucleated RBC % Immature Gran # Segmented Neutrophils Lymphocytes Monocytes Nucleated RBCs # Platelet Estimate Hypochromasia Morphology Comment Sodium Potassium Chloride Carbon Dioxide Anion Gap BUN Creatinine GFR Calculation BUN/Creatinine Ratio Glucose Calculated Osmolality Calcium Magnesium 25-OH Vitamin D Total 32.8 Free T4 0.82 TSH 3rd Generation 0.159 L Theophylline 6.1 L 10/08/16 10/08/16 05:57 05:57 WBC 11.4 RBC 4.45 Hgb 13.6 L Hct 40.6 L MCV 91.2 MCH 31 MCHC 33.5 RDW 13.3 Plt Count 180 MPV 10.7 Neut % (Auto) 90.2 H Lymph % (Auto) 3.5 L Andrew % (Auto) 3.0 Eos % (Auto) 0.0 Baso % (Auto) 0.4 Neut # (Auto) 10.2 H Lymph # (Auto) 0.4 L Andrew # (Auto) 0.3 Eos # (Auto) 0.0 Baso # (Auto) 0.0 Total Counted 100 Immature Gran % 2.9 Nucleated RBC % 0.3 Immature Gran # 0.33 Segmented Neutrophils 95 H Lymphocytes 3 L Monocytes 2 Nucleated RBCs # 0.03 Platelet Estimate Normal Hypochromasia 1+ Morphology Comment Sodium 144 Potassium 4.1 Chloride 112 H Carbon Dioxide 22 Anion Gap 14.1 BUN 48 H Creatinine 1.40 H GFR Calculation 48 BUN/Creatinine Ratio 34.00 H Glucose 142 H Calculated Osmolality 300.8 Calcium 8.0 L Magnesium 2.6 H 25-OH Vitamin D Total Free T4 TSH 3rd Generation Theophylline - EKG EKG results: interpreted by me EKG shows: sinus rhythm (pulse 70s) Specialty Discharge - Follow Up or Referrals Follow up with: Karin Rios DO [Physician] - 2 Weeks (Follow up appointment with Dr. Rios in 2-4 weeks after discharge with BMP, EKG.) Sandip Burrell Jennifer, MD, personally performed the services described in this documentation, ascribed by Marily Marino RN in my presence, and it is both accurate and complete .
[2016-10-09] MEDS: ALBUTEROL/IPRATROPIUM 3 ML NEB RESP TX SCH ×4 (00:06→19:48)
[2016-10-09 06:35] LABS: Calcium 8.5 MG/DL (8.5-10.1); Magnesium 2.5 MG/DL (1.8-2.4); Osmolality,Calculated 297.1 MOS/KG (273-304); Potassium 4.8 MMOL/L (3.5-5.1)
[2016-10-09 06:48] LABS: Basophils % 0.4 % (0.0-0.8); Hematocrit 41.1 VOL% (42.0-52.0); Hemoglobin 13.9 GM/DL (14.0-18.0); Immature Granulocytes % 3.2 %; Immature Granulocytes Absolute 0.35 #; Lymphocytes # 0.4 10*3/uL (1.4-4.0); Lymphocytes % 3.7 % (21.2-54.2); Mean Corpuscular HGB Conc 33.8 GM/DL (32-36); Mean Corpuscular Hemoglobin 31 PG (27-34); Mean Corpuscular Volume 90.9 FL (87-102); Mean Platelet Volume 10.6 FL (9.6-12.0); Monocytes # 0.4 10*3/uL (0.11-0.8); Monocytes % 3.4 % (1.7-12.7); NRBC # 0.03 10*3/uL; Neutrophils # 9.8 10*3/uL (1.4-7.4); Neutrophils % 89.3 % (38.7-73.9); Platelet Count 182 T/CUMM (130-400); Red Blood Count 4.52 MC/CUMM (3.8-5.5); Red Cell Distribution Width 13.2 % (9.3-17.3)
[2016-10-09 07:16] LABS: Total Cells Counted 100
[2016-10-09 07:17] LABS: Band Neutrophils 1 % (0-10); Hypochromasia Slight; Lymphocytes 5 % (20-55); Platelet Estimate Adequate; Segmented Neutrophils 94 % (50-85)
[2016-10-09] MEDS: DILTIAZEM CD 120 MG CAPSULE PO SCH (09:59)
[2016-10-09] MEDS: CARVEDILOL 6.25 MG TABLET PO SCH ×2 (09:59→21:37)
[2016-10-09] MEDS: SIMETHICONE CHEW 125 MG TABLET PO SCH ×4 (09:59→21:37)
[2016-10-09] MEDS: MONTELUKAST 10 MG TABLET PO SCH (09:59)
[2016-10-09] MEDS: SULFAMETHOX/TRIMETHOPRIM 800-160 MG TABLET PO SCH ×2 (09:59→21:37)
[2016-10-09] MEDS: ASPIRIN EC 81 MG TABLET PO SCH (09:59)
[2016-10-09] MEDS: MULTIVITAMIN (CENTRUM) TABLET PO SCH (10:00)
[2016-10-09] MEDS: BUDESONIDE/FORMOTEROL 160-4.5 INHALER 6 GM INH SCH ×2 (10:00→21:37)
[2016-10-09] MEDS: methylPREDNISolone SOD SUC 40 MG/1 ML VIAL IV SCH ×2 (10:00→21:35)
--- NOTE | 2016-10-09 12:19 | Pulmonology Progress Note ---
Pulmonary - PN: Subj Interval history: This is a 86-year-old white male. He is a longtime patient of mine. I saw him in pulmonary consultation on 10/06/2016. My impressions were. 1. Acute exacerbation of COPD and asthma refractory to outpatient treatment 2. History of heart disease. Note that today's EKG shows possible inferior ischemia 3. Azotemia. Watch for exacerbation by Bactrim. 4. Long history of tobacco abuse 5. See past history 10/07/2016. I appreciate Dr. Avani Oropeza's cardiology consultation. Patient continues to have significant shortness of breath. He says he is comfortable in bed but any activity brings on the shortness of breath. All his chest exam he is moving air better. I am going to add IV Aminophyllin and will follow daily levels and will see if this helps. I will also add Singulair 10 mg daily. Patient is on steroids and inhaled bronchodilators. Creatinine is elevated but stable at 1.8. BUNs 48. Electrolytes are normal. White count is 12,700. H&H is 13.7/42.2. ABGs on FiO2 28% showed a pH of 7.336, PCO2 33.7, PO2 of 123 and a bicarb of 18.8. I have asked physical therapy to help this patient began to move around a little bit. Calcium is initially low. I have ordered a vitamin D. Also I will check a TSH and a free T4. 10/08/2016. Patient was started on IV theophylline yesterday. He had a loading dose and is been on 10 mg/h and today's theophylline level is 6. He says he is breathing much better. I will converting to theophylline 100 mg p.o. twice daily. Singulair was also added yesterday. The patient's on Solu-Medrol 40 mg IV piggyback every 12 hours. When he goes home he can be treated with prednisone 10 mg twice daily. Will continue his Bactrim DS for another 7 days. Singulair 10 mg daily and theophylline 100 mg twice daily should be added to his home regimen. He will need a follow-up with 1 of my nurse practitioners in 3 or 4 weeks. Thyroid function tests were normal. 10/09/2016. Patient has is a home O2 sat monitor which also measures a heart rate. He said that after pushing himself up in the bed yesterday he felt like he would pass out. He said his heart rate was about 140 and this lasted about 5 minutes. He said his O2 sats were 92%. 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 There are no recorded episodes of fast heartbeat. All recording shows sinus rhythm. He was able to get out of bed twice yesterday and go to the bathroom but otherwise continues to complain of exertional shortness of breath. He is been treated with Phazyme for abdominal gas and this is worked well he says. There are no positive cultures. Creatinine is 1.4 with a BUN of 46. Electrolytes are stable. CBC is stable. Theophylline level is dropped to 3.8 with conversion to p.o. theophylline. We will continue to follow theophylline level. Patient has underlying COPD and bronchospastic disease. I think he is moving air better. Continuous dyspnea on exertion is worrisome. I am going to order an echocardiogram cardiogram and will look at his cardiac output and also look at his some pulmonary artery pressures. He has known underlying heart disease. Doppler venograms. 10/07/2016. Negative for deep venous thrombophlebitis Physical exam. Vital signs. See below Neurologic exam. Cranial nerves are intact with poor vision out of both eyes. 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 Face is symmetrical. Lips and tongue are normal. Neck. Symmetrical. No mass. No meningismus. Thyroid was not palpated Lymphatics. No submandibular cervical supraclavicular or epitrochlear adenopathy Chest is hyperinflated with prolonged incomplete expiration expiration is more complete on 10/07/2016 than noted on 10/06/2016. 10/08/2016 exam shows much better expiration. Theophylline Singulair was added 10/08/2069 Heart. Regular sinus rhythm. No gallop Abdomen. Slightly distended and rare bowel sounds. Lower extremities. No edema. Both calves are tender at the posterior pressure. The remainder the exam is noncontributory. Plan. 1. Agree with your choice of medicines. 2. Sputum for Gram stain culture and sensitivity 3. 10/07/2016. See my note above. Doppler venograms. Add Singulair. Add IV Aminophyllin. Daily theophylline level. Check vitamin D level. Check TSH and free T4. Watch abdomen. Consult physical 4. 10/08/2016. See today's note above included suggestive medicines for when the patient is discharged home in suggestive follow-up. 5. 10/09/2016. See today's note above. Patient continues to have significant dyspnea on exertion. Echocardiogram has been ordered. Complained of tachycardia. 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 Prather in 2-4 weeks after discharge with BMP, EKG.)
--- NOTE | 2016-10-09 14:10 | Hospitalist Progress Note ---
Assessment and Plan - Time spent with patient Time spent with patient: Greater than 30 minutes (1) COPD exacerbation Status: Chronic Assessment and plan: Improving. Pulmonary consulted and appreciate their recommendations. Continue current management. Current Visit: Yes (2) Elevated troponin I level Status: Acute Assessment and plan: Chronically elevated. No ACS suspected. Cardiology involved. Likely due to severe pulmonary disease. Echo pending. Current Visit: No (3) Weakness Status: Acute Assessment and plan: PT/OT/SW Current Visit: Yes (4) CHF (congestive heart failure) Status: Acute Assessment and plan: Grade 1/4 diastolic. No exacerbation. Current Visit: Yes (5) Coronary artery disease Problem details: 04/03/13: 2.25 x 20 mm Promus BERRY with overlapping 2.5 x 16 mm Promus BERRY to 1st OM Status: Chronic Assessment and plan: No complaints of chest pain. Current Visit: No Qualifiers: Coronary Disease-Associated Artery/Lesion type: [place] artery (6) Essential hypertension Status: Chronic Assessment and plan: Continue home medications. Current Visit: No Hospitalist: Subjective Interval history: States he had elevated heart rate yesterday. No new complaints. Exam - Constitutional Vitals: Period Temp Pulse Resp BP Sys/Carrion Pulse Ox Last 24 Hr 96.7 F-98.2 F 60-81 16-21 104-155/58-82 92-100 General appearance: normal weight, no acute distress - Head Head exam: Present: normocephalic, atraumatic - Eye Eye exam: Present: EOMI Pupils: Present: ALICE - ENT ENT exam: Present: normal exam - Neck Neck exam: Present: normal inspection - Respiratory Respiratory exam: Present: clear to auscultation bilaterally, prolonged expiratory phase. Absent: rhonchi, wheezes - Cardiovascular Cardiovascular exam: Present: regular rate and rhythm. Absent: gallop, rubs, systolic murmur - GI/Abdominal GI/Abdominal exam: Present: normal bowel sounds, soft. Absent: distended, firm , guarding, tenderness, rebound - Extremities Exam Extremities exam: Present: normal inspection. Absent: calf tenderness, edema Results - Labs CBC & BMP: 10/09/16 04:00 10/09/16 04:00 Lab Results: I have reviewed the past 24 hour labs Specialty Discharge - Follow Up or Referrals Follow up with: Karin Prather DO [Physician] - 2 Weeks (Follow up appointment with Dr. Prather in 2-4 weeks after discharge with BMP, EKG.)
[2016-10-09] MEDS: THEOPHYLLINE ER (24 HR) 200 MG CAPSULE PO SCH (18:01)
[2016-10-09] MEDS: ATORVASTATIN 20 MG TABLET PO SCH (18:01)
[2016-10-09] MEDS: ENOXAPARIN 40 MG/0.4 ML SYRINGE SUBCUT SCH (21:36)
[2016-10-10] MEDS: ALBUTEROL/IPRATROPIUM 3 ML NEB RESP TX SCH ×4 (01:37→19:00)
[2016-10-10 06:56] LABS: Basophils % 0.4 % (0.0-0.8); Hematocrit 41.9 VOL% (42.0-52.0); Hemoglobin 14.3 GM/DL (14.0-18.0); Immature Granulocytes % 4.6 %; Immature Granulocytes Absolute 0.44 #; Lymphocytes # 0.4 10*3/uL (1.4-4.0); Lymphocytes % 3.6 % (21.2-54.2); Mean Corpuscular HGB Conc 34.1 GM/DL (32-36); Mean Corpuscular Hemoglobin 31 PG (27-34); Mean Corpuscular Volume 89.9 FL (87-102); Mean Platelet Volume 10.6 FL (9.6-12.0); Monocytes # 0.3 10*3/uL (0.11-0.8); Monocytes % 3.2 % (1.7-12.7); NRBC # 0.03 10*3/uL; Neutrophils # 8.5 10*3/uL (1.4-7.4); Neutrophils % 88.2 % (38.7-73.9); Platelet Count 170 T/CUMM (130-400); Red Blood Count 4.66 MC/CUMM (3.8-5.5); Red Cell Distribution Width 13.2 % (9.3-17.3); White Blood Count 9.6 T/CUMM (4-12)
[2016-10-10 07:32] LABS: Band Neutrophils 4 % (0-10); Hypochromasia 1+; Lymphocytes 5 % (20-55); Platelet Estimate Adequate; Segmented Neutrophils 88 % (50-85); Total Cells Counted 100
[2016-10-10 07:36] LABS: Calcium 8.4 MG/DL (8.5-10.1); Magnesium 2.6 MG/DL (1.8-2.4); Osmolality,Calculated 290.4 MOS/KG (273-304); Potassium 4.4 MMOL/L (3.5-5.1)
[2016-10-10] MEDS: guaiFENesin/DM ER 600-30 MG TABLET PO PRN (08:44)
[2016-10-10] MEDS: acetaZOLAMIDE 250 MG TABLET PO PRN (08:44)
[2016-10-10] MEDS: ASPIRIN EC 81 MG TABLET PO SCH (08:45)
[2016-10-10] MEDS: MONTELUKAST 10 MG TABLET PO SCH (08:45)
[2016-10-10] MEDS: CARVEDILOL 6.25 MG TABLET PO SCH ×2 (08:45→20:48)
[2016-10-10] MEDS: SULFAMETHOX/TRIMETHOPRIM 800-160 MG TABLET PO SCH ×2 (08:45→20:48)
[2016-10-10] MEDS: SIMETHICONE CHEW 125 MG TABLET PO SCH ×4 (08:45→20:48)
[2016-10-10] MEDS: DILTIAZEM CD 120 MG CAPSULE PO SCH (08:46)
[2016-10-10] MEDS: MULTIVITAMIN (CENTRUM) TABLET PO SCH (08:46)
[2016-10-10] MEDS: methylPREDNISolone SOD SUC 40 MG/1 ML VIAL IV SCH ×2 (08:52→20:51)
[2016-10-10] MEDS: BUDESONIDE/FORMOTEROL 160-4.5 INHALER 6 GM INH SCH ×2 (09:05→20:50)
--- NOTE | 2016-10-10 09:34 | Pulmonology Progress Note ---
Pulmonary - PN: Subj Interval history: This is a 86-year-old white male. He is a longtime patient of mine. I saw him in pulmonary consultation on 10/06/2016. My impressions were. 1. Acute exacerbation of COPD and asthma refractory to outpatient treatment 2. History of heart disease. Note that today's EKG shows possible inferior ischemia 3. Azotemia. Watch for exacerbation by Bactrim. 4. Long history of tobacco abuse 5. See past history 10/07/2016. I appreciate Dr. Avani Oropeza's cardiology consultation. Patient continues to have significant shortness of breath. He says he is comfortable in bed but any activity brings on the shortness of breath. All his chest exam he is moving air better. I am going to add IV Aminophyllin and will follow daily levels and will see if this helps. I will also add Singulair 10 mg daily. Patient is on steroids and inhaled bronchodilators. Creatinine is elevated but stable at 1.8. BUNs 48. Electrolytes are normal. White count is 12,700. H&H is 13.7/42.2. ABGs on FiO2 28% showed a pH of 7.336, PCO2 33.7, PO2 of 123 and a bicarb of 18.8. I have asked physical therapy to help this patient began to move around a little bit. Calcium is initially low. I have ordered a vitamin D. Also I will check a TSH and a free T4. 10/08/2016. Patient was started on IV theophylline yesterday. He had a loading dose and is been on 10 mg/h and today's theophylline level is 6. He says he is breathing much better. I will converting to theophylline 100 mg p.o. twice daily. Singulair was also added yesterday. The patient's on Solu-Medrol 40 mg IV piggyback every 12 hours. When he goes home he can be treated with prednisone 10 mg twice daily. Will continue his Bactrim DS for another 7 days. Singulair 10 mg daily and theophylline 100 mg twice daily should be added to his home regimen. He will need a follow-up with 1 of my nurse practitioners in 3 or 4 weeks. Thyroid function tests were normal. 10/09/2016. Patient has is a home O2 sat monitor which also measures a heart rate. He said that after pushing himself up in the bed yesterday he felt like he would pass out. He said his heart rate was about 140 and this lasted about 5 minutes. He said his O2 sats were 92%. 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 There are no recorded episodes of fast heartbeat. All recording shows sinus rhythm. He was able to get out of bed twice yesterday and go to the bathroom but otherwise continues to complain of exertional shortness of breath. He is been treated with Phazyme for abdominal gas and this is worked well he says. There are no positive cultures. Creatinine is 1.4 with a BUN of 46. Electrolytes are stable. CBC is stable. Theophylline level is dropped to 3.8 with conversion to p.o. theophylline. We will continue to follow theophylline level. Patient has underlying COPD and bronchospastic disease. I think he is moving air better. Continuous dyspnea on exertion is worrisome. I am going to order an echocardiogram cardiogram and will look at his cardiac output and also look at his some pulmonary artery pressures. He has known underlying heart disease. 10/10/2016. Patient says his breathing is better. He has severe underlying obstructive and bronchospastic disease as well as emphysematous disease. He has chronic hypoxemia. He was in outpatient treatment failure. He is moving more air on my exam. He is not been up walking any but he says is been up in a chair. He said no more palpitations overnight. All posted rhythm strips on the last 24 hours show a regular sinus rhythm with a normal rate. Creatinine is dropped from 1.80-1.10. Electrolytes normal. Theophylline level is 6.5. He tolerates this level well and it is help with his peripheral wheezing. There is no need to go to a higher dose. CBC is stable. From my standpoint this patient could be ready for discharge in the next day or 2. Please see my note 10/08/2016 concerning medicine suggestions. Doppler venograms. 10/07/2016. Negative for deep venous thrombophlebitis Physical exam. Vital signs. See below Neurologic exam. Cranial nerves are intact with poor vision out of both eyes. 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 Face is symmetrical. Lips and tongue are normal. Neck. Symmetrical. No mass. No meningismus. Thyroid was not palpated Lymphatics. No submandibular cervical supraclavicular or epitrochlear adenopathy Chest is hyperinflated with prolonged incomplete expiration expiration is more complete on 10/07/2016 than noted on 10/06/2016. 10/08/2016 exam shows much better expiration. Theophylline Singulair was added 10/08/2069. 10/10/2016. Prolonged incomplete expiration. Very little congestion. No wheezes. Heart. Regular sinus rhythm. No gallop Abdomen. Slightly distended and rare bowel sounds. Lower extremities. No edema. Both calves are tender at the posterior pressure. The remainder the exam is noncontributory. Plan. 1. Agree with your choice of medicines. 2. Sputum for Gram stain culture and sensitivity 3. 10/07/2016. See my note above. Doppler venograms. Add Singulair. Add IV Aminophyllin. Daily theophylline level. Check vitamin D level. Check TSH and free T4. Watch abdomen. Consult physical 4. 10/08/2016. See today's note above included suggestive medicines for when the patient is discharged home in suggestive follow-up. 5. 10/09/2016. See today's note above. Patient continues to have significant dyspnea on exertion. Echocardiogram has been ordered. Complained of tachycardia. 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 10/10/2016. I will be back on 10/14/2016. Dr. Janine Carolina will be on-call this weekend if needed. My suggested discharge medicines and follow- up plan were listed in my note 10/08/2016. Exam (Progress Note) - Constitutional Vitals: Period Temp Pulse Resp BP Sys/Carrion Pulse Ox Last 24 Hr 97.2 F-98.2 F 64-87 14-20 115-148/54-99 92-99 Results - Labs CBC & BMP: 10/10/16 06:12 10/10/16 06:12 Specialty Discharge - Follow Up or Referrals Follow up with: Karin Prather DO [Physician] - 2 Weeks (Follow up appointment with Dr. Prather in 2-4 weeks after discharge with BMP, EKG.)
--- NOTE | 2016-10-10 10:36 | Hospitalist Progress Note ---
Assessment and Plan - Time spent with patient Time spent with patient: Greater than 30 minutes (1) COPD exacerbation Status: Chronic Assessment and plan: Improving. Pulmonary consulted and appreciate their recommendations. Continue current management. Discharge likely in the next 24 hours. Current Visit: Yes (2) Elevated troponin I level Status: Acute Assessment and plan: Chronically elevated. No ACS suspected. Cardiology involved. Likely due to severe pulmonary disease. Echo pending. Current Visit: No (3) Weakness Status: Acute Assessment and plan: PT/OT/SW Current Visit: Yes (4) CHF (congestive heart failure) Status: Acute Assessment and plan: Grade 1/4 diastolic. No exacerbation. Current Visit: Yes (5) Coronary artery disease Problem details: 04/03/13: 2.25 x 20 mm Promus BERRY with overlapping 2.5 x 16 mm Promus BERRY to 1st OM Status: Chronic Assessment and plan: No complaints of chest pain. Current Visit: No Qualifiers: Coronary Disease-Associated Artery/Lesion type: [place] artery (6) Essential hypertension Status: Chronic Assessment and plan: Continue home medications. Current Visit: No Hospitalist: Subjective Interval history: No complaints. He states he is feeling much better. No overnight events. Exam - Constitutional Vitals: Period Temp Pulse Resp BP Sys/Carrion Pulse Ox Last 24 Hr 97.2 F-98.2 F 64-87 14-20 115-148/54-99 92-99 General appearance: no acute distress - Head Head exam: Present: normocephalic, atraumatic - Eye Eye exam: Present: EOMI Pupils: Present: ALICE - ENT ENT exam: Present: normal exam - Neck Neck exam: Present: normal inspection - Respiratory Respiratory exam: Present: clear to auscultation bilaterally, prolonged expiratory phase. Absent: rhonchi, wheezes - Cardiovascular Cardiovascular exam: Present: regular rate and rhythm. Absent: gallop, rubs, systolic murmur - GI/Abdominal GI/Abdominal exam: Present: normal bowel sounds, soft. Absent: distended, firm , guarding, tenderness, rebound - Extremities Exam Extremities exam: Present: normal inspection. Absent: calf tenderness, edema Results - Labs CBC & BMP: 10/10/16 06:12 10/10/16 06:12 Lab Results: I have reviewed the past 24 hour labs Specialty Discharge - Follow Up or Referrals Follow up with: Karin Prather DO [Physician] - 2 Weeks (Follow up appointment with Dr. Prather in 2-4 weeks after discharge with BMP, EKG.)
[2016-10-10] MEDS: ATORVASTATIN 20 MG TABLET PO SCH (17:09)
[2016-10-10] MEDS: THEOPHYLLINE ER (24 HR) 200 MG CAPSULE PO SCH (18:29)
[2016-10-10] MEDS: ENOXAPARIN 40 MG/0.4 ML SYRINGE SUBCUT SCH (20:48)
[2016-10-11] MEDS: ALBUTEROL/IPRATROPIUM 3 ML NEB RESP TX SCH ×4 (00:58→19:30)
[2016-10-11] MEDS: SIMETHICONE CHEW 125 MG TABLET PO SCH ×4 (11:55→20:21)
[2016-10-11] MEDS: acetaZOLAMIDE 250 MG TABLET PO PRN (11:55)
[2016-10-11] MEDS: MULTIVITAMIN (CENTRUM) TABLET PO SCH (11:55)
[2016-10-11] MEDS: ASPIRIN EC 81 MG TABLET PO SCH (11:55)
[2016-10-11] MEDS: guaiFENesin/DM ER 600-30 MG TABLET PO PRN (11:55)
[2016-10-11] MEDS: DILTIAZEM CD 120 MG CAPSULE PO SCH (11:56)
[2016-10-11] MEDS: SULFAMETHOX/TRIMETHOPRIM 800-160 MG TABLET PO SCH ×2 (11:59→20:21)
[2016-10-11] MEDS: MONTELUKAST 10 MG TABLET PO SCH (12:00)
[2016-10-11] MEDS: CARVEDILOL 6.25 MG TABLET PO SCH ×2 (12:00→20:21)
[2016-10-11] MEDS: BUDESONIDE/FORMOTEROL 160-4.5 INHALER 6 GM INH SCH ×2 (12:00→20:22)
[2016-10-11] MEDS: methylPREDNISolone SOD SUC 40 MG/1 ML VIAL IV SCH ×2 (12:08→20:21)
--- NOTE | 2016-10-11 16:45 | Hospitalist Progress Note ---
Assessment and Plan - Time spent with patient Time spent with patient: Greater than 30 minutes (1) COPD exacerbation Status: Chronic Assessment and plan: Improving. Pulmonary consulted and appreciate their recommendations. Continue current management. Discharge likely in the next 24 hours. Current Visit: Yes (2) Elevated troponin I level Status: Acute Assessment and plan: Chronically elevated. No ACS suspected. Cardiology involved. Likely due to severe pulmonary disease. Echo pending. Current Visit: No (3) Weakness Status: Acute Assessment and plan: PT/OT/SW Current Visit: Yes (4) CHF (congestive heart failure) Status: Acute Assessment and plan: Grade 1/4 diastolic. No exacerbation. Current Visit: Yes (5) Coronary artery disease Problem details: 04/03/13: 2.25 x 20 mm Promus BERRY with overlapping 2.5 x 16 mm Promus BERRY to 1st OM Status: Chronic Assessment and plan: No complaints of chest pain. Current Visit: No Qualifiers: Coronary Disease-Associated Artery/Lesion type: [place] artery (6) Essential hypertension Status: Chronic Assessment and plan: Continue home medications. Current Visit: No Hospitalist: Subjective Interval history: Patient states last night he had the shakes. He would like to stay 1 more day. Exam - Constitutional Vitals: Period Temp Pulse Resp BP Sys/Carrion Pulse Ox Last 24 Hr 97.5 F-98.3 F 64-111 15-20 110-139/60-76 92-99 General appearance: no acute distress - Head Head exam: Present: normocephalic, atraumatic - Eye Eye exam: Present: EOMI Pupils: Present: ALICE - ENT ENT exam: Present: normal exam - Neck Neck exam: Present: normal inspection - Respiratory Respiratory exam: Present: clear to auscultation bilaterally, prolonged expiratory phase. Absent: rhonchi, wheezes - Cardiovascular Cardiovascular exam: Present: regular rate and rhythm. Absent: gallop, rubs, systolic murmur - GI/Abdominal GI/Abdominal exam: Present: normal bowel sounds, soft. Absent: distended, firm , guarding, tenderness, rebound - Extremities Exam Extremities exam: Present: normal inspection. Absent: calf tenderness, edema Results - Labs CBC & BMP: 10/10/16 06:12 10/10/16 06:12 Lab Results: I have reviewed the past 24 hour labs Specialty Discharge - Follow Up or Referrals Follow up with: Karin Prather DO [Physician] - 2 Weeks (Follow up appointment with Dr. Prather in 2-4 weeks after discharge with BMP, EKG.)
[2016-10-11] MEDS: ATORVASTATIN 20 MG TABLET PO SCH (17:23)
[2016-10-11] MEDS: THEOPHYLLINE ER (24 HR) 200 MG CAPSULE PO SCH (19:30)
[2016-10-11] MEDS: ENOXAPARIN 40 MG/0.4 ML SYRINGE SUBCUT SCH (20:21)
[2016-10-12] MEDS: ALBUTEROL/IPRATROPIUM 3 ML NEB RESP TX SCH ×4 (00:49→19:09)
[2016-10-12] MEDS: acetaZOLAMIDE 250 MG TABLET PO PRN (08:35)
[2016-10-12] MEDS: ASPIRIN EC 81 MG TABLET PO SCH (08:35)
[2016-10-12] MEDS: MULTIVITAMIN (CENTRUM) TABLET PO SCH (08:35)
[2016-10-12] MEDS: guaiFENesin/DM ER 600-30 MG TABLET PO PRN (08:36)
[2016-10-12] MEDS: DILTIAZEM CD 120 MG CAPSULE PO SCH (08:36)
[2016-10-12] MEDS: SULFAMETHOX/TRIMETHOPRIM 800-160 MG TABLET PO SCH (09:26)
[2016-10-12] MEDS: BUDESONIDE/FORMOTEROL 160-4.5 INHALER 6 GM INH SCH (09:27)
[2016-10-12] MEDS: SIMETHICONE CHEW 125 MG TABLET PO SCH ×2 (09:27→17:33)
[2016-10-12] MEDS: MONTELUKAST 10 MG TABLET PO SCH (09:27)
[2016-10-12] MEDS: CARVEDILOL 6.25 MG TABLET PO SCH (09:28)
[2016-10-12] MEDS: methylPREDNISolone SOD SUC 40 MG/1 ML VIAL IV SCH (09:28)
--- NOTE | 2016-10-12 15:25 | Discharge Summary ---
Hospital Course - Time spent with patient Time with patient DS: Greater than 30 minutes Diagnosis - Discharge Diagnosis (1) COPD exacerbation Status: Chronic (2) Elevated troponin I level Status: Acute (3) Weakness Status: Acute (4) CHF (congestive heart failure) Status: Acute (5) Coronary artery disease Status: Chronic (6) Essential hypertension Status: Chronic Specialty Discharge - Follow Up or Referrals Follow up with: Karin Prather DO [Physician] - 2 Weeks (Follow up appointment with Dr. Prather in 2-4 weeks after discharge with BMP, EKG.) Discharge Plan - Discharge Data Disposition: Disch To Home/Self Care Condition at Discharge: Stable Discharge Diet: advance to your usual diet Activity: resume usual activities as tolerated - Discharge Medications New Montelukast Tab [Singulair Tab] 10 mg PO DAILY #30 tablet Theophylline ER Cap (24 Hr) [Darron-24] 200 mg PO Q24H #30 capsule Clindamycin HCl [Clindamycin Cap] 600 mg PO Q8HR #24 capsule Continue Nitroglycerin Sl Tab [Nitrostat] 0.4 mg SL Q5M PRN PRN Reason: Chest Pain Ranitidine Tab [Zantac Tab] 150 mg PO BID Budesonide/Formoterol 160-4.5 [Symbicort 160-4.5] 2 puff INH BID #1 inhaler Atorvastatin Calcium 20 mg PO BEDTIME Aspirin [Aspirin EC] 81 mg PO QAM Albuterol Inhaler [Proventil Inhaler] 2 puff INH Q6HR PRN PRN Reason: Shortness Of Breath Ipratropium/Albuterol Sulfate [Iprat-Albut 0.5-3(2.5) mg/3 ml] 3 ml IH Q4H Alendronate Sodium 35 mg PO MO acetaZOLAMIDE TAB [Diamox Tab] 250 mg PO QAM PRN PRN Reason: EDEMA IN FEET Potassium Chloride 10 meq PO DAILY PRN PRN Reason: REPLACES K FROM ACETAZOLAMIDE Lactulose 10 gm PO DAILY PRN PRN Reason: Constipation Carvedilol [Coreg] 6.25 mg PO BID Multivit-Min/FA/Lycopen/Lutein [Centrum Silver Tablet] 1 each PO DAILY Tamsulosin [Flomax] 0.8 mg PO DAILY PRN PRN Reason: URINARY SYMPTOMS Diltiazem Cd Cap [Cardizem CD] 120 mg PO DAILY capsule Discontinued predniSONE TAB [PredniSONE] 10 mg PO QOTHER DAY Sulfameth/Trimeth 800-160 Tab [Bactrim DS Tab] 1 tablet PO BID - Follow Up or Referral Follow Up: Karin Prather DO [Physician] - 2 Weeks (Follow up appointment with Dr. Prather in 2-4 weeks after discharge with BMP, EKG.) Levon Bishop MD [Physician] - 2 Weeks - Forms/Instructions Exam - Constitutional Vitals: Period Temp Pulse Resp BP Sys/Carrion Pulse Ox Last 24 Hr 97.1 F-99.5 F 63-89 18-20 117-160/65-83 93-99 Discharge Results Procedures and tests throughout hospitalization: Pending Orders 10/07/16 09:44 Sputum Culture and Gram Stain Routine DS: Provider Date of admission: 10/05/16 18:29 Primary care physician: . No PCP Attending physician on admission: Estevan Reilly MD Consults: 10/05/16 18:59 Consult to Physician [CONS] Routine Comment: Consulting Provider: Levon Bishop When should Consulting Provider be notified: In am Person Notified: DEV Date Notified: 10/06/16 Time Notified: 07:52 Consult to Physician [CONS] Routine Comment: Patient of Dr. Cordoba'benedicto Consulting Provider: Cardiology - [facility] When should Consulting Provider be notified: In am Person Notified: SAIRA Date Notified: 10/06/16 Time Notified: 08:10 10/06/16 10:31 Consult to Case Mgmt/Social Srvs [CONS] Routine Reason for Case Mgmt/Social Srvs: Swingbed/SNF/Retirement Consult to Occupational Therapy [CONS] Routine Reason for Occupational Therapy: Evaluate and Treat Consult to Physical Therapy [CONS] Routine Reason for Physical Therapy: Evaluate and Treat 10/07/16 10:03 Consult to Physical Therapy [CONS] Routine Reason for Physical Therapy: Evaluate and Treat Discharging clinician: Cha Patel MD Expected date of discharge: 10/12/16
[2016-10-12] MEDS: ATORVASTATIN 20 MG TABLET PO SCH (17:33)
[2016-10-12] MEDS: THEOPHYLLINE ER (24 HR) 200 MG CAPSULE PO SCH (17:33)
[2016-10-12 22:12] VITALS: BP 149/79
== END 2016-10-12 17:45 | disposition home health service (06) | DRG 190 ==
LOC: N.ED 15:07 → SUATTDRO 18:29 → N.EDINP 18:29 → N.2E 18:46
PROVIDERS: ADMIT Internal Medicine; ATTEND Internal Medicine

== ENCOUNTER 2016-11-18 11:42 | Inpatient (IN) ==
[2016-11-18] MEDS ORDERED: SODIUM CHLORIDE 0.9% 500 ML IV STA (12:27)
[2016-11-18 12:38] LABS: Basophils % 0.3 % (0.0-0.8); Eosinophils % 0.1 % (0.00-10.9); Hematocrit 42.4 VOL% (42.0-52.0); Hemoglobin 14.2 GM/DL (14.0-18.0); Immature Granulocytes % 5.5 %; Immature Granulocytes Absolute 0.38 #; Lymphocytes # 0.8 10*3/uL (1.4-4.0); Mean Corpuscular HGB Conc 33.5 GM/DL (32-36); Mean Corpuscular Hemoglobin 32 PG (27-34); Mean Corpuscular Volume 94.2 FL (87-102); Mean Platelet Volume 10.6 FL (9.6-12.0); Monocytes # 0.7 10*3/uL (0.11-0.8); Monocytes % 9.9 % (1.7-12.7); NRBC # 0.07 10*3/uL; Neutrophils # 5.1 10*3/uL (1.4-7.4); Neutrophils % 73.2 % (38.7-73.9); Red Cell Distribution Width 15.6 % (9.3-17.3); White Blood Count 6.9 T/CUMM (4-12)
[2016-11-18 12:43] LABS: Platelet Count 102 T/CUMM (130-400)
[2016-11-18 12:46] LABS: PT Patient Result 10.4 SECS
--- NOTE | 2016-11-18 12:47 | Emergency Department Note ---
Danny Burrell Brittany, am scribing for, and in the presence of, Santiago Armenta MD 12:22. Kathi Burrell Charles R, MD, personally performed the services described in this documentation, ascribed by Alyssa Delgado in my presence, and it is both accurate and complete . Arrival - Arrival Chief Complaint: Altered Mental Status Stated Complaint: Altered Mental Status ED Nursing Triage Note: Family states that she was not able to get him to wake up this am and that he is having some confusion -family states that the pt is bedbound at home Mode of Arrival: Stretcher Limitations: Altered Mental Status Source: Significant other, RN Notes Reviewed Time Seen by Provider: 11/18/16 11:56 - History of Present Illness HPI Narrative: Patient is a 86 y/o white male presenting to the ED by EMS for further evaluation of AMS which onset this morning. History is limited due to patient's current mental status, his at the bedside will be providing the history. She reports that she was having difficulties arousing patient this morning to take his daily medications. She also has not been able to get him to eat or drink anything, noting that he only drank about 8 oz. of fluids yesterday. Patient has also been sleeping more than his usual. She reports that patient was hospitalized here at [facility] about two weeks ago for further evaluation of weakness with which he was on steroid therapy. Upon his DC he was taken off these steroids and began to have weakness. He was then placed on Prednisone per Dr. Bishop for this with which he began to progressively return to his baseline. notes that today he has been displayed more weakness than his baseline along with difficulty arousing patient. She states that for the past 3 days he has been hallucinating, worse in the night. She discussed this with his physician and was instructed to utilize bright lights, which she has and these alleviate the hallucinations somewhat, but patient still has them. She goes on to state that patient has become more belligerent, combative, and this is not like him. No other complaint/pain. Onset (ago): hour(s) Consistency: constant Allergies/Adverse Reactions: Allergies Allergy/AdvReac Type Severity Reaction Status Date / Time ciprofloxacin Allergy Unknown/Unable Verified 10/05/16 20:36 to obtain ezetimibe [From Zetia] Allergy Unknown/Unable Verified 10/05/16 20:36 to obtain simvastatin [From Zocor] Allergy Unknown/Unable Verified 10/05/16 20:36 to obtain Penicillins AdvReac Difficulty Verified 10/05/16 20:36 Breathing Home Medications: Home Medications Medication Instructions Recorded Confirmed Type Nitroglycerin Sl Tab [Nitrostat] 0.4 mg SL Q5M PRN 02/13/15 11/18/16 History Ranitidine Tab [Zantac Tab] 150 mg PO BID 02/13/15 11/18/16 History Budesonide/Formoterol 160-4.5 2 puff INH BID #1 inhaler 05/16/15 11/18/16 Rx [Symbicort 160-4.5] Albuterol Inhaler [Proventil 2 puff INH Q6HR PRN 08/26/16 11/18/16 History Inhaler] Aspirin [Aspirin EC] 81 mg PO QAM 08/26/16 11/18/16 History Atorvastatin Calcium 20 mg PO BEDTIME 08/26/16 11/18/16 History Carvedilol [Coreg] 6.25 mg PO BID 08/26/16 11/18/16 History Multivit-Min/FA/Lycopen/Lutein 1 each PO DAILY 08/26/16 11/18/16 History [Centrum Silver Tablet] Tamsulosin [Flomax] 0.8 mg PO BEDTIME 08/26/16 11/18/16 History Diltiazem Cd Cap [Cardizem CD] 120 mg PO DAILY capsule 08/28/16 11/18/16 Rx Lactulose 10 gm PO DAILY PRN 10/05/16 11/18/16 History Potassium Chloride 10 meq PO DAILY 10/05/16 11/18/16 History acetaZOLAMIDE TAB [Diamox Tab] 250 mg PO QAM PRN 10/05/16 11/18/16 History Theophylline ER Cap (24 Hr) 200 mg PO Q24H #30 capsule 10/12/16 11/18/16 Rx [Darron-24] Albuterol/Ipratropium Neb [Duoneb] 3 ml RESP TX Q4-6H PRN 11/18/16 11/18/16 History Montelukast Tab [Singulair Tab] 10 mg PO QPM 11/18/16 11/18/16 History Sertraline HCl 25 mg PO DAILY 11/18/16 11/18/16 History predniSONE TAB [PredniSONE] 20 mg PO DAILY 11/18/16 11/18/16 History Review of System - Review of System ROS unobtainable: due to mental status - Review of System Neurological: Present: confusion Psychiatric: Present: visual hallucinations Medical,Surgical,& Family Hx - Medical History Cardio: History of: CAD (PCI X 2 in the past), Hypertension, [place], Cardiovascular Problems (Cardiomyopathy; [employer]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 Yogesh Bishpo) No history of: Pneumonia (Due this year for Pneum Vac), Respiratory Problems (No Flu Vac 4138-2707 Season) Genitourinary: History of: Prostate Problems (BPH sees Dr. 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 Johnson) No history of: Anesthesia Reactions, Cancer - Surgical History Cardiac Surgeries: Sugical HX of: Cardiac Catheterization (STENT) Thoracic Surgeries: Patient denies;: Organ Transplant HEENT Surgeries: Patient denies: Eye Surgery (12/13/15 Cataract Lt;01/08/[address] Gonzalez), Tonsilectomy & Adenoidectomy Abdominal Surgeries: Surgical HX of: Appendectomy, Colonoscopy Orthopedic Surgeries: Surgical HX of;: Total Hip Replacement (Rt Hip Replacement (Hip Fx 2015)) Patient denies;: Implanted Devices, Orthopedic Surgery, Spinal Surgery, Total Knee Replacement - Family History Family History: Reports;: Family Diabetes, Family Heart Disease, Family Hypertension - Social History Smoking Status: Former smoker Frequency of Alcohol Use: None Type of Drug Use: None Exam Vital Signs: Vital Signs Temperature 97.5 F L 11/18/16 11:53 Pulse Rate 85 11/18/16 11:53 Respiratory Rate 18 11/18/16 12:00 Blood Pressure 131/94 11/18/16 11:53 O2 Sat by Pulse Oximetry 99 11/18/16 11:49 - General General appearance: alert, in no apparent distress, other (patient is altered, belligerent) - Head Head exam: Present: atraumatic, normocephalic. Absent: normal inspection ( temporal wasting) - Eye Eye exam: Present: PERRL, EOMI. Absent: normal appearance (sunken orbits bilaterally) - ENT ENT exam: Present: normal exam, normal oropharynx - Neck Neck exam: Present: normal inspection, full ROM, trachea midline - Chest Chest inspection: Present: symmetric chest wall rise. Absent: normal inspection (barrel chest) - Respiratory Respiratory exam: Present: rhonchi (bilateral rhonchi). Absent: normal lung sounds bilaterally - Cardiovascular Cardiovascular exam: Present: regular rate, normal rhythm, normal heart sounds - Abdominal Exam Abdominal exam: Present: soft, hypoactive bowel sounds, other (scaphoid abdomen) . Absent: normal bowel sounds - Extremities Exam Extremities exam: Present: pedal edema (+1 edema to the lower extremities) - Back Exam Back exam: Present: normal inspection - Neurological Exam Neurological exam: Present: alert, CN II-XII intact. Absent: oriented X3 (due to AMS), motor sensory deficit - Psychiatric Psychiatric exam: Present: normal affect - Skin Skin exam: Present: warm, dry Course - Consultations Consultation #1: Hospitalist will admit patient Time: 13:34 Results - Labs CBC & BMP: 11/18/16 12:17 11/18/16 12:17 Lab Results: I have reviewed the patients labs Labs: Laboratory Tests 11/18/16 11/18/16 11/18/16 12:17 12:17 12:17 WBC 6.9 RBC 4.50 Hgb 14.2 Hct 42.4 MCV 94.2 MCH 32 MCHC 33.5 RDW 15.6 Plt Count 102 L MPV 10.6 Neut % (Auto) 73.2 Lymph % (Auto) 11.0 L [place] % (Auto) 9.9 Eos % (Auto) 0.1 Baso % (Auto) 0.3 Neut # (Auto) 5.1 Lymph # (Auto) 0.8 L [place] # (Auto) 0.7 Eos # (Auto) 0.0 Baso # (Auto) 0.0 Total Counted 100 Immature Gran % 5.5 Nucleated RBC % 1.0 Immature Gran # 0.38 Segmented Neutrophils 77 Band Neutrophils 3 Lymphocytes 11 L Monocytes 9 Nucleated RBCs # 0.07 Platelet Estimate Decreased Hypochromasia 1+ INR 1.0 PT Patient/Control Mix 10.4 Lactic Acid Ammonia Urine Color Yellow Urine Appearance Clear Urine pH 6.0 Ur Specific [place] 1.019 Urine Protein Negative Urine Glucose (UA) Negative Urine Ketones Negative Urine Blood Negative Urine Nitrate Negative Urine Bilirubin Negative Urine Urobilinogen < 2.0 H Urine Leukocytes Trace Urine RBC 1 Urine WBC 2 Hyaline Casts 1 Urine Mucus Occasional 11/18/16 11/18/16 12:17 12:17 WBC RBC Hgb Hct MCV MCH MCHC RDW Plt Count MPV Neut % (Auto) Lymph % (Auto) [place] % (Auto) Eos % (Auto) Baso % (Auto) Neut # (Auto) Lymph # (Auto) [place] # (Auto) Eos # (Auto) Baso # (Auto) Total Counted Immature Gran % Nucleated RBC % Immature Gran # Segmented Neutrophils Band Neutrophils Lymphocytes Monocytes Nucleated RBCs # Platelet Estimate Hypochromasia INR PT Patient/Control Mix Lactic Acid 1.1 Ammonia 19 Urine Color Urine Appearance Urine pH Ur Specific [place] Urine Protein Urine Glucose (UA) Urine Ketones Urine Blood Urine Nitrate Urine Bilirubin Urine Urobilinogen Urine Leukocytes Urine RBC Urine WBC Hyaline Casts Urine Mucus Laboratory Tests 11/18/16 12:17 Sodium 145 Potassium 3.7 Chloride 110 H Carbon Dioxide 29 Anion Gap 9.7 BUN 32 H Creatinine 1.10 GFR Calculation 62 BUN/Creatinine Ratio 29.00 H Glucose 97 Calculated Osmolality 294.7 Calcium 8.8 Magnesium 2.1 Total Bilirubin 0.70 AST 24 ALT 37 Alkaline Phosphatase 75 Troponin I 0.119 H Total Protein 5.4 L Albumin 3.1 L Globulin 2.3 Albumin/Globulin Ratio 1.3 Laboratory Tests 11/18/16 12:17 Prolactin 6.6 - Diagnostic Findings Procedure: Chest x-ray: report reviewed by me (Stable portable chest.), CT: report reviewed by me (CT Head: Diffuse atrophy.) Disposition Clinical Impression: Altered mental status, Anorexia, Elevated troponin, Confusion, Debility, unspecified, Sundowning, Elevated troponin I level Case discussed with: patient, patient's family Disposition: Still a Patient Condition: Stable Time of Disposition: 13:36
--- NOTE | 2016-11-18 12:52 | CT Report ---
History mental status changes Comparison 09/27/2015 There is mild diffuse atrophy. No acute intracranial hemorrhage, mass effect, or evidence of acute cortical stroke is seen Impression: Diffuse atrophy The CT exam was performed using one or more of the following dose reduction techniques: Automated exposure control, adjustment of the mA and/or kV according to patient size, or use of iterative reconstruction technique. PROCEDURE INTERPRETED AT [facility] DEPARTMENT OF RADIOLOGY Final Report Signed by: Dr. Cielo Mayo
--- NOTE | 2016-11-18 12:53 | XRay Report ---
History is altered mental status Comparison 10/05/2016 The heart is normal in size. Mediastinal and hilar contours are unchanged No congestive failure or confluent infiltrate is seen Impression: Stable portable chest PROCEDURE INTERPRETED AT [facility] DEPARTMENT OF RADIOLOGY Final Report Signed by: Dr. Cielo Mayo
[2016-11-18 13:01] LABS: Band Neutrophils 3 % (0-10); Hypochromasia 1+; Lymphocytes 11 % (20-55); Platelet Estimate Decreased; Segmented Neutrophils 77 % (50-85); Total Cells Counted 100
[2016-11-18 13:15] LABS: Apearance,Urine CLEAR (Clear); Bilirubin,Urine Negative (Negative); Blood, Urine Negative (Negative); Glucose,Urine (UA) Negative (Negative); Hyaline Casts,Urine 1 /LPF (0-3); Ketones,Urine Negative (Negative); Mucus,Urine Occasional /LPF (Occasional); Nitrite,Urine Negative (Negative); Protein,Urine Negative; RBC,Urine 1 /HPF (0-4); Urine Color Yellow (Yellow); Urine Specific Gravity 1.019 (1.001-1.035); Urine Urobilinogen < 2.0 EU/DL (0.2-1.0); WBC,Urine 2 /HPF (0-6)
[2016-11-18 13:16] LABS: Albumin 3.1 G/DL (3.4-5.0); Bilirubin,Total 0.7 MG/DL (0.2-1.0); Calcium 8.8 MG/DL (8.5-10.1); Magnesium 2.1 MG/DL (1.8-2.4); Osmolality,Calculated 294.7 MOS/KG (273-304); Potassium 3.7 MMOL/L (3.5-5.1); Total Protein 5.4 G/DL (6.4-8.3)
[2016-11-18 13:17] LABS: Troponin I Only 0.119 NG/ML (0.00-0.045)
[2016-11-18] MEDS ORDERED: LACTULOSE 20 GM/30 ML UDCUP PO PRN (14:17)
[2016-11-18] MEDS ORDERED: ACETAMINOPHEN 325 MG TABLET PO PRN (14:17)
[2016-11-18] MEDS ORDERED: ONDANSETRON 4 MG/2 ML VIAL IV PRN (14:17)
[2016-11-18] MEDS ORDERED: ALBUTEROL/IPRATROPIUM 3 ML NEB RESP TX PRN (14:22)
--- NOTE | 2016-11-18 14:33 | Hospitalist History & Physical ---
Assessment and Plan (1) COPD (chronic obstructive pulmonary disease) Status: Chronic Assessment and plan: Predominant emphysematous pattern, no prior episodes of CO2 retention document. Chronic long-term use of corticosteroids. Current Visit: No Qualifiers: COPD type: emphysema (2) Coronary artery disease Problem details: 04/03/13: 2.25 x 20 mm Promus BERRY with overlapping 2.5 x 16 mm Promus BERRY to 1st OM Status: Chronic Assessment and plan: History of previous percutaneous intervention to the circumflex obtuse marginal vessel (2012) with preserved left ventricular ejection fraction by echocardiography. Several years of consistent but nonevolving elevation of cardiac troponin I levels. Current Visit: No Qualifiers: Coronary Disease-Associated Artery/Lesion type: [place] artery (3) Altered mental status Status: Acute Assessment and plan: The patient appears to show a pattern of mixed delirium. He has had previous episodes of delirium associated with hospitalization. He has recently developed hallucinosis following introduction of Zoloft for empiric treatment of possible depression. Current Visit: Yes Qualifiers: Altered mental status type: delirium Qualified Code(s): R41.0 - Disorientation, unspecified History of Present Illness History of present illness: Mr. Contreras is a 86 year old male with history of chronic pulmonary disease manifest predominantly as emphysema on chronic corticosteroid therapy who over the last 3 months has been admitted with increasing frequency due to respiratory complaints. He has had over the last year several blood gas determinations. He has had no significant CO2 retention other than on one occasion where this was in response to a metabolic alkalosis. Over this series of hospitalizations he has become weaker and over the last several weeks has had a progressive deterioration beyond his level of impairment present and this May discharge. About 3 days ago due to increase in degree of apathy home health contacted his physician and the patient was placed on Zoloft. He has begun to experience visual hallucinations. He has become uncooperative with care refusing medications and oral intake. He has been combative with his attendant at times but at other times returning to a relatively withdrawn and apathetic state. He has been continent of urine but incontinent of bowel movements during this interval and the has noticed intermittent lower extremity jerking and a prominent startle response. Patient slightly more than a year ago had fallen and broken his hip during that hospitalization he required Haldol due to delirium. He was brought to the emergency room today by his . On arrival his vital signs were stable oxygen saturation was 100% and he was afebrile. The patient up until several years ago was a heavy consumer of alcoholic beverages. The patient's family is unaware of any history of hepatic cirrhosis. He quit smoking approximately 1 year ago while the patient had a [facility]. He has no history of seizure or stroke. Other than Zoloft the patient has been receiving no new medications. Home Medications Medication Instructions Recorded Confirmed Type Nitroglycerin Sl Tab [Nitrostat] 0.4 mg SL Q5M PRN 02/13/15 11/18/16 History Ranitidine Tab [Zantac Tab] 150 mg PO BID 02/13/15 11/18/16 History Budesonide/Formoterol 160-4.5 2 puff INH BID #1 inhaler 05/16/15 11/18/16 Rx [Symbicort 160-4.5] Albuterol Inhaler [Proventil 2 puff INH Q6HR PRN 08/26/16 11/18/16 History Inhaler] Aspirin [Aspirin EC] 81 mg PO QAM 08/26/16 11/18/16 History Atorvastatin Calcium 20 mg PO BEDTIME 08/26/16 11/18/16 History Carvedilol [Coreg] 6.25 mg PO BID 08/26/16 11/18/16 History Multivit-Min/FA/Lycopen/Lutein 1 each PO DAILY 08/26/16 11/18/16 History [Centrum Silver Tablet] Tamsulosin [Flomax] 0.8 mg PO BEDTIME 08/26/16 11/18/16 History Diltiazem Cd Cap [Cardizem CD] 120 mg PO DAILY capsule 08/28/16 11/18/16 Rx Lactulose 10 gm PO DAILY PRN 10/05/16 11/18/16 History Potassium Chloride 10 meq PO DAILY 10/05/16 11/18/16 History acetaZOLAMIDE TAB [Diamox Tab] 250 mg PO QAM PRN 10/05/16 11/18/16 History Theophylline ER Cap (24 Hr) 200 mg PO Q24H #30 capsule 10/12/16 11/18/16 Rx [Darron-24] Albuterol/Ipratropium Neb [Duoneb] 3 ml RESP TX Q4-6H PRN 11/18/16 11/18/16 History Montelukast Tab [Singulair Tab] 10 mg PO QPM 11/18/16 11/18/16 History Sertraline HCl 25 mg PO DAILY 11/18/16 11/18/16 History predniSONE TAB [PredniSONE] 20 mg PO DAILY 11/18/16 11/18/16 History Allergies Allergy/AdvReac Type Severity Reaction Status Date / Time ciprofloxacin Allergy Unknown/Unable Verified 10/05/16 20:36 to obtain ezetimibe [From Zetia] Allergy Unknown/Unable Verified 10/05/16 20:36 to obtain simvastatin [From Zocor] Allergy Unknown/Unable Verified 10/05/16 20:36 to obtain Penicillins AdvReac Difficulty Verified 10/05/16 20:36 Breathing Medical,Surgical,& Family Hx - Medical History Cardio: History of: CAD (Percutaneous intervention to the circumflex obtuse marginal branch 2012), Hypertension, [place] (Echocardiogram 2014 showed preserved global left ventricular systolic perfo) Neurology: No history of: Seizures HEENT: History of: Ear Problem (Rt Ear Hearing Aide; 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 Johnson) No history of: Anesthesia Reactions, Cancer - Surgical History Cardiac Surgeries: Sugical HX of: Cardiac Catheterization HEENT Surgeries: Surgical HX of: Eye Surgery (12/13/15 Cataract Lt;01/08/[address] Gonzalez) Abdominal Surgeries: Surgical HX of: Appendectomy, Colonoscopy Orthopedic Surgeries: Surgical HX of;: Total Hip Replacement (Rt Hip Replacement (Hip Fx 2015)) - Family History Family History: Reports;: Family Diabetes, Family Heart Disease, Family Hypertension - Social History Smoking Status: Former smoker (Non-smoker for approximately 1 year) Frequency of Alcohol Use: None (Formerly heavy alcohol consumption) Type of Drug Use: None ROS unobtainable: due to mental status Review of systems: Review of systems is performed with spouse - Constitutional Constitutional: Present: daytime sleepiness, lethargy, weakness. Absent: frequent falls - Cardiovascular Cardiovascular: Absent: chest pain at rest, edema, PND - Respiratory Respiratory: Absent: cough, hemoptysis, change in phlegm color - Gastrointestinal Gastrointestinal: Present: fecal incontinence. Absent: abdominal pain, coffee ground emesis, hematemesis, hematochezia, vomiting - Genitourinary Genitourinary: Absent: difficulty urinating - Neurological Neurological: Present: behavioral changes, confusion, memory loss - Psychiatric Psychiatric: Present: visual hallucinations Exam - Constitutional Vitals: Period Temp Pulse Resp BP Sys/Carrion Pulse Ox Last 24 Hr 97.5 F-97.5 F 85-85 18-20 131-131/94-94 98-99 General appearance: no acute distress, under weight - Head Head exam: Present: normal inspection - Eye Eye exam: Absent: scleral icterus - Neck Neck exam: Absent: lymphadenopathy, thyromegaly - Respiratory Respiratory exam: Present: decreased breath sounds (Hyperexpanded chest with distant breath sounds). Absent: rales, rhonchi, wheezes - Cardiovascular Cardiovascular exam: Present: regular rate and rhythm, other (Diminished lower extremity pulses bilaterally) - GI/Abdominal GI/Abdominal exam: Present: normal bowel sounds, other (Prominent superficial venous channels not true capit medusa). Absent: distended, organomegaly, tenderness - Extremities Exam Extremities exam: Present: other (Significant sarcopenia, bilateral Duptyene's contracture). Absent: edema - Neurological Exam Neurological exam: Present: other (Prominent startle response no asterixis). Absent: alert, oriented X3, motor sensory deficit Results - Labs CBC & BMP: 11/18/16 12:17 11/18/16 12:17 Labs: Cardiac troponin I 0.119 (consistent elevation of cardiac troponin I dating back to at least 2014) Urinalysis specific gravity 1.019, 2 white blood cells - Impressions Sinus rhythm junctional premature depolarizations movement artifact without acute change. - Diagnostic Findings Procedure: Chest x-ray: image reviewed by me (Aortic ectasia with hyperexpansion no infiltrates), CT: report reviewed by me (CT of head diffuse atrophy)
[2016-11-18 14:58] LABS: ABG Base Excess 0.3 MMOL/L (-2.5-2.5); ABG HCO3 26.1 MMOL/L (20-26); ABG Oxygen Saturation 98.1 % (95-100); ABG PCO2 46.8 MM HG (35-48); ABG PH 7.365 (7.35-7.45); ABG PO2 118.3 MM HG (80-95); ABG TCO2 27.6 MMOL/L (23-27)
[2016-11-18] MEDS: OLANZapine 2.5 MG TABLET PO SCH ×2 (17:09→20:49)
[2016-11-18] MEDS: CARVEDILOL 6.25 MG TABLET PO SCH (17:09)
[2016-11-18] MEDS: TAMSULOSIN 0.4 MG CAPSULE PO SCH (20:49)
[2016-11-18] MEDS: FAMOTIDINE 20 MG TABLET PO SCH (20:49)
[2016-11-18] MEDS: MONTELUKAST 10 MG TABLET PO SCH (20:49)
[2016-11-18] MEDS: ATORVASTATIN 20 MG TABLET PO SCH (20:50)
[2016-11-18] MEDS: ENOXAPARIN 40 MG/0.4 ML SYRINGE SUBCUT SCH (20:51)
[2016-11-18] MEDS: BUDESONIDE/FORMOTEROL 160-4.5 INHALER 6 GM INH SCH (20:54)
[2016-11-18] MEDS: ALBUTEROL/IPRATROPIUM 3 ML NEB RESP TX SCH (23:02)
[2016-11-19] MEDS: ALBUTEROL/IPRATROPIUM 3 ML NEB RESP TX SCH ×6 (02:28→23:46)
--- NOTE | 2016-11-19 02:56 | EKG Report ---
Stationary ECG Study [facility] ER Test Date: 11/18/2016 12:48:23 PM Pat Name: XI BROWN Department: Room: 425 Gender: M Medical Asst: : 1930 Requested by: Santiago House Order Number: [id number] Reading MD: YISSEL AGUILAR Intervals [place] Rate: 73 P: 91 MD: 126 QRS: 32 QRSD: 90 T: 73 QT: 346 QTc: 372 Interpretive Statements SINUS RHYTHM WITH OCCASIONAL ECTOPIC PREMATURE COMPLEXES, aberrancy LOW QRS VOLTAGE IN PRECORDIAL LEADS POSSIBLE RIGHT VENTRICULAR CONDUCTION DELAY Electronically Signed On 11-19-16 06:46:32 CDT by YISSEL AGUILAR [email or web address]
--- NOTE | 2016-11-19 07:04 | Hospitalist Progress Note ---
Assessment and Plan (1) COPD (chronic obstructive pulmonary disease) Status: Chronic Assessment and plan: Predominant emphysematous pattern, no prior episodes of CO2 retention document. Chronic long-term use of corticosteroids. Current Visit: No Qualifiers: COPD type: emphysema (2) Coronary artery disease Problem details: 04/03/13: 2.25 x 20 mm Promus BERRY with overlapping 2.5 x 16 mm Promus BERRY to 1st OM Status: Chronic Assessment and plan: History of previous percutaneous intervention to the circumflex obtuse marginal vessel (2012) with preserved left ventricular ejection fraction by echocardiography. Several years of consistent but nonevolving elevation of cardiac troponin I levels. Current Visit: No Qualifiers: Coronary Disease-Associated Artery/Lesion type: [place] artery (3) Altered mental status Status: Acute Assessment and plan: The patient appears to show a pattern of mixed delirium. He has had previous episodes of delirium associated with hospitalization. He has recently developed hallucinosis following introduction of Zoloft for empiric treatment of possible depression. A request for geriatric psych evaluation has been placed. Current Visit: Yes Qualifiers: Altered mental status type: delirium Qualified Code(s): R41.0 - Disorientation, unspecified Hospitalist: Subjective Interval history: 86-year-old male with emphysema on chronic corticosteroid treatment had been sustaining a downward course in his mental status. He was placed on Zoloft 3 days ago and had become combative and uncooperative at home replacing his previous state of withdrawal and apathy. He has begun over the last 2 days to have visual hallucinosis His metabolic screen yesterday showed acceptable arterial blood gases, normal ammonia level, normal theophylline level and a CT scan of the head showing atrophy. He apparently was more cooperative overnight did take his medication however continues to be extremely confused. His vital signs were stable overnight. Exam - Constitutional Vitals: Period Temp Pulse Resp BP Sys/Carrion Pulse Ox Last 24 Hr 97.2 F-97.7 F 67-85 15-22 103-145/63-94 96-100 General appearance: under weight - Respiratory Respiratory exam: Present: other (Distant breath sounds with hyperexpansion). Absent: rales, rhonchi, wheezes - Cardiovascular Cardiovascular exam: Present: regular rate and rhythm - GI/Abdominal GI/Abdominal exam: Present: normal bowel sounds. Absent: distended, tenderness - Extremities Exam Extremities exam: Absent: edema - Neurological Exam Neurological exam: Absent: alert, oriented X3 Results - Labs CBC & BMP: 11/18/16 12:17 11/18/16 12:17
[2016-11-19] MEDS: CARVEDILOL 6.25 MG TABLET PO SCH ×2 (09:48→17:11)
[2016-11-19] MEDS: predniSONE 20 MG TABLET PO SCH (09:49)
[2016-11-19] MEDS: FAMOTIDINE 20 MG TABLET PO SCH ×2 (09:49→20:36)
[2016-11-19] MEDS: ASPIRIN EC 81 MG TABLET PO SCH (09:49)
[2016-11-19] MEDS: DILTIAZEM CD 120 MG CAPSULE PO SCH (09:49)
[2016-11-19] MEDS: THEOPHYLLINE ER (24 HR) 200 MG CAPSULE PO SCH (09:50)
--- NOTE | 2016-11-19 10:39 | Event Note ---
Vu Kauffman, [facility], acting as scribe for Dr. Levon Bishop Courtesy Visit The patient's called our office asking for us to stop by and see him. The patient's chart has been reviewed. We agree with stopping the Zoloft. Zyprexa has been ordered and we certainly agree with this. Hopefully the patient will respond well.
[2016-11-19] MEDS: BUDESONIDE/FORMOTEROL 160-4.5 INHALER 6 GM INH SCH ×2 (11:25→20:40)
[2016-11-19] MEDS: OLANZapine 2.5 MG TABLET PO SCH ×2 (17:13→20:37)
[2016-11-19] MEDS: ATORVASTATIN 20 MG TABLET PO SCH (20:37)
[2016-11-19] MEDS: TAMSULOSIN 0.4 MG CAPSULE PO SCH (20:37)
[2016-11-19] MEDS: MONTELUKAST 10 MG TABLET PO SCH (20:37)
[2016-11-19] MEDS: ENOXAPARIN 40 MG/0.4 ML SYRINGE SUBCUT SCH (20:37)
[2016-11-20 03:43] LABS: Calcium 8.9 MG/DL (8.5-10.1); Osmolality,Calculated 307.6 MOS/KG (273-304); Potassium 3.8 MMOL/L (3.5-5.1)
[2016-11-20] MEDS: ALBUTEROL/IPRATROPIUM 3 ML NEB RESP TX SCH ×6 (03:51→23:43)
--- NOTE | 2016-11-20 07:05 | Hospitalist Progress Note ---
Assessment and Plan (1) COPD (chronic obstructive pulmonary disease) Status: Chronic Assessment and plan: Predominant emphysematous pattern, no prior episodes of CO2 retention documented. Chronic long-term use of corticosteroids. Current Visit: No Qualifiers: COPD type: emphysema (2) Coronary artery disease Problem details: 04/03/13: 2.25 x 20 mm Promus BERRY with overlapping 2.5 x 16 mm Promus BERRY to 1st OM Status: Chronic Assessment and plan: History of previous percutaneous intervention to the circumflex obtuse marginal vessel (2012) with preserved left ventricular ejection fraction by echocardiography. Several years of consistent but nonevolving elevation of cardiac troponin I levels. Current Visit: No Qualifiers: Coronary Disease-Associated Artery/Lesion type: pokagon artery (3) Altered mental status Status: Acute Assessment and plan: The patient appears to show a pattern of mixed delirium. He has had previous episodes of delirium associated with hospitalization. He has recently developed hallucinosis following introduction of Zoloft for empiric treatment of possible depression. A request for geriatric psych evaluation has been placed however the is reconsidered this approach to management. He appears to be showing some improvement to low-dose Zyprexa. Current Visit: Yes Qualifiers: Altered mental status type: delirium Qualified Code(s): R41.0 - Disorientation, unspecified Hospitalist: Subjective Interval history: 86-year-old male emphysema with chronic corticosteroid use who appears to have a mixed delirium. He had been placed on Zoloft for withdrawal and apathy and developed a visual hallucinations associated with uncooperative and combative behavior. His metabolic evaluation was unremarkable CT scan of the head showed only atrophy on this admission. Initially it was thought that he would require a geriatric psych admission however the spouse is resistant at this time to this approach. Zoloft was held on admission and he was placed on Zyprexa. Behavior is moderated although he is not at baseline. reports that his oral intake is increased he has been more cooperative with medication but continues to show a presumptive hypoactive delirium. Overnight his vital signs were stable. Although he has been consuming with his feels is adequate amount of food and insure his BUN has risen since admission. Exam - Constitutional Vitals: Period Temp Pulse Resp BP Sys/Carrion Pulse Ox Last 24 Hr 98.1 F-99.5 F 66-111 15-22 80-125/45-66 94-100 General appearance: under weight - Respiratory Respiratory exam: Present: clear to auscultation bilaterally, other (Distant breath sounds) - Cardiovascular Cardiovascular exam: Present: regular rate and rhythm - GI/Abdominal GI/Abdominal exam: Present: normal bowel sounds. Absent: distended, tenderness - Extremities Exam Extremities exam: Present: other (Marked Sarco juan). Absent: edema - Neurological Exam Neurological exam: Absent: alert Results - Labs CBC & BMP: 11/18/16 12:17 11/20/16 03:02
[2016-11-20] MEDS: DILTIAZEM CD 120 MG CAPSULE PO SCH (09:15)
[2016-11-20] MEDS: CARVEDILOL 6.25 MG TABLET PO SCH ×2 (09:15→17:04)
[2016-11-20] MEDS: BUDESONIDE/FORMOTEROL 160-4.5 INHALER 6 GM INH SCH ×2 (09:15→21:17)
[2016-11-20] MEDS: ASPIRIN EC 81 MG TABLET PO SCH (09:17)
[2016-11-20] MEDS: THEOPHYLLINE ER (24 HR) 200 MG CAPSULE PO SCH (09:17)
[2016-11-20] MEDS: FAMOTIDINE 20 MG TABLET PO SCH ×2 (09:17→21:19)
[2016-11-20] MEDS: predniSONE 20 MG TABLET PO SCH (09:17)
--- NOTE | 2016-11-20 09:33 | Pulmonology Consult Note ---
History of Present Illness Chief complaint: COPD. Known to us. Altered mental status. History of present illness: Vu Kauffman, [facility], acting as scribe for Dr. Levon Bishop Mr. 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 [facility]18/2016 by EMS for evaluation of altered mental status which started that morning. Patient's reported that she was having difficulty getting the patient take his daily medications. She was unable to get him to eat or drink. Patient was more lethargic and somnolent than usual. Patient also began hallucinating this is worsening at night. Symptoms are progressively worsening and because of these results he was brought to the emergency room for further evaluation and care. Upon workup , it was noted that the patient's could not take care of him in this state. He was admitted to the hospitalist service for further evaluation and care. We have been asked to see the patient because of his long history with Dr. Bishop. The request for consultation was made by Dr. Vanessa. The patient's called our office yesterday to have us come by and we saw him as a courtesy yesterday. His chart was reviewed. The patient recently been started on Zoloft, and although his symptoms started after only taking one Zoloft, we did agree to stopping this medication. He was started on Zyprexa yesterday and the patient's reports that he slept very well last night. He had no hallucinations night and this morning he is awake and seems back to his baseline. Yesterday the patient was unable to provide any history, and therefore, his history was obtained from his and chart. Today, he is better able to answer our questions. He denies any increased shortness of breath. He denies any significant sputum production at this time. There has been no cardiac angina or palpitations. No change in bowel habits. No TIA symptoms or syncope. No bleeding from any site. All other systems were reviewed and were negative. Allergies: N Medications: See list Immunizations: Flu and Pneumovax was given in 2014. Past medical history: [facility] [place] [facility] 10/05/2016 through 10/12/2016 care of the hospitalist for COPD exacerbation. [facility] [place] [facility] 08/26/2016 through 08/28/2016 under the care of hospitalist for COPD exacerbation. [facility] 09/18/15 through 09/24/15 under the care of Dr. Pereira. See above. Hospitalization April 2015 with acute renal failure and acute severe bronchitis with bronchospasm. April 03, [address] Cordoba for non-ST elevation acute WA. The patient had stents placed at that time. COPD. Bronchospastic disease. Hyperlipidemia. Allergic sinusitis. Colon polyps. History of elevated PSA and BPH. Negative prostate biopsies by Dr. Gaetano Castro. PSA later returned to normal. 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 Bilateral decreased hearing acuity. Patient wears hearing aids. Long history of recurrent left sacroiliac pain exacerbated by exercise. Usually relieved with one dose of Toradol. The patient has also been followed by Dr. Hay Baeza in the pulmonary department at [facility]. Social history: The patient has been a smoker for number of years. He may have quit in the last half a year but I'm not sure. He has quit a number times in the past continue to smoke up to 2 packs of cigarettes per per week while denying any smoke. In the distant past the patient was an alcoholic. He quit drinking in October 1984 and as far as I know he has not drunk since then. Past procedures: CT of the head done 11/18/2016 showed diffuse atrophy. Doppler venograms done 10/07/2016 showed no evidence of DVT in either lower extremity. CT the abdomen and pelvis with contrast on 10/05/2016 showed nothing to suggest etiology of abdominal distention. No acute findings. There is diffuse intimal calcification and areas of mural thrombus present within the aorta. 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 There is a small hiatal hernia. Multiple diverticula are demonstrated involving the lower descending and sigmoid colon. Prostatic calcifications were present. The prostate was upper limits of normal in size. Compression deformity was present involving the L1 vertebral body. CT the head done 09/27/2015 showed no evidence of acute intracranial pathology. Bone density done 07/18/2015 showed that T scores fell in the range of osteoporosis. The T score of L1 through L4 was -1.7. The T score of the left femoral neck was -2.8. The T score of the right femoral neck was -3.2. CT of the sinuses without contrast on 05/15/2015 showed no air-fluid levels with only very minimal mucosal thickening in the paranasal sinuses. There is a 4.85 mm polyp or retention cyst in the right sphenoid sinus. Bilateral airfield curtis bullosa deviation of nasal septum to the left anteriorly. There is also prior left mastoidectomy. Echocardiogram done 2011 showed ejection fraction of 60%. Pulmonary function test done 04/14/2012 showed severe obstructive disease with a positive bronchodilator effect. Laboratory: White count 11/18/2016 was 6900 with 73.2% segs, 11.0% lymphs, 9.9% monos; H&H 14.2/42.4 with normal indices and top normal red blood cell distribution with; platelet count 102,000; INR 1.0; creatinine 1.20, BUN 50, sodium 146, potassium 3.8, magnesium 2.1, calcium 8.9, albumin 3.1, total protein 5.4, troponin 0.119, ammonia 19, liver function tests within normal limits, total bilirubin 0.70, prolactin 6.6; lactic acid 1.1; theophylline level 9.3; urinalysis done at admission showed trace leukocytes but only 2 WBCs and no bacteria ABGs at admission on an unlisted FiO2 showed a pH of 7.365, PCO2 46.8, PO2 118.3 , bicarb 26.1, oxygen saturation 98.1% Microbiology: Blood cultures are negative at day 1 Home Medications Medication Instructions Recorded Confirmed Type Nitroglycerin Sl Tab [Nitrostat] 0.4 mg SL Q5M PRN 02/13/15 11/18/16 History Ranitidine Tab [Zantac Tab] 150 mg PO BID 02/13/15 11/18/16 History Budesonide/Formoterol 160-4.5 2 puff INH BID #1 inhaler 05/16/15 11/18/16 Rx [Symbicort 160-4.5] Albuterol Inhaler [Proventil 2 puff INH Q6HR PRN 08/26/16 11/18/16 History Inhaler] Aspirin [Aspirin EC] 81 mg PO QAM 08/26/16 11/18/16 History Atorvastatin Calcium 20 mg PO BEDTIME 08/26/16 11/18/16 History Carvedilol [Coreg] 6.25 mg PO BID 08/26/16 11/18/16 History Multivit-Min/FA/Lycopen/Lutein 1 each PO DAILY 08/26/16 11/18/16 History [Centrum Silver Tablet] Tamsulosin [Flomax] 0.8 mg PO BEDTIME 08/26/16 11/18/16 History Diltiazem Cd Cap [Cardizem CD] 120 mg PO DAILY capsule 08/28/16 11/18/16 Rx Lactulose 10 gm PO DAILY PRN 10/05/16 11/18/16 History Potassium Chloride 10 meq PO DAILY 10/05/16 11/18/16 History acetaZOLAMIDE TAB [Diamox Tab] 250 mg PO QAM PRN 10/05/16 11/18/16 History Theophylline ER Cap (24 Hr) 200 mg PO Q24H #30 capsule 10/12/16 11/18/16 Rx [Darron-24] Albuterol/Ipratropium Neb [Duoneb] 3 ml RESP TX Q4-6H PRN 11/18/16 11/18/16 History Montelukast Tab [Singulair Tab] 10 mg PO QPM 11/18/16 11/18/16 History Sertraline HCl 25 mg PO DAILY 11/18/16 11/18/16 History predniSONE TAB [PredniSONE] 20 mg PO DAILY 11/18/16 11/18/16 History Allergies Allergy/AdvReac Type Severity Reaction Status Date / Time ciprofloxacin Allergy Unknown/Unable Verified 10/05/16 20:36 to obtain ezetimibe [From Zetia] Allergy Unknown/Unable Verified 10/05/16 20:36 to obtain simvastatin [From Zocor] Allergy Unknown/Unable Verified 10/05/16 20:36 to obtain Penicillins AdvReac Difficulty Verified 10/05/16 20:36 Breathing Exam (Pulmonay) H&P - Constitutional Vitals: Period Temp Pulse Resp BP Sys/Carrion Pulse Ox Last 24 Hr 97.2 F-99.5 F 72-111 16-22 80-125/45-66 92-100 Exam: Psych: Presently alert and awake; appears back to his baseline; denies any hallucinations HEENT: Pupils, irises, sclera, conjunctiva, and eyelids are normal. The face is symmetrical without rash or masses. Lips, tongue, buccal mucosa, soft and hard palates, and pharynx are WNL Neck: Symmetrical. Thyroid was not palpated. Lymphatics: No submandibular, cervical, or supraclavicular adenopathy Chest: Symmetrical without appreciable wheeze, rhonchi or rales; chest is hyperinflated with prolonged and incomplete expiration CV: Regular with a short grade 1/6 systolic ejection murmur at the left sternal border that does not radiate Arterial: Carotids are slightly decreased. There is no bruit. Upper extremity pulses are palpable. Lower extremity pulses are non-palpable, but I see no evidence of ischemia Venous: Exam of the neck, upper, and lower extremities is normal Abd: No appreciable organomegaly, masses, tenderness, or bruit; Bowel sounds are positive x 4; The aorta was not palpated /Rectal: Deferred Extremities: No clubbing or cyanosis; no evidence of acute DVT Skin: No cancerous or infectious lesions of the exposed, examined skin; the perineal area was not examined M/S: Age appropriate loss of the normal curvature of the cervical, thoracic, and lumbar spine Neurological: Cranial nerves are intact with decreased hearing acuity bilaterally, Long tract motor function is intact; Sensory exam was not done; gait was not tested. The remainder of the exam was noncontributory. Impression: #1: Acute altered mental status with confusion and hallucinations; etiology presently unknown but possibly secondary to, or exacerbated by, Zoloft--- now apparently resolved with the addition of Zyprexa #2: Remote acute right hip fracture requiring a right hip hemiarthroplasty by Dr. Pereira #3: History of bronchitis secondary to Proteus mirabilis #4: History of acute hematuria; followed by Dr. Delgado; previously started on Flomax and Avodart #5: COPD with bronchospastic disease #6: Arteriosclerotic heart disease with a history of an WA and a history of stents. Followed by Dr. Prather. #7: Colon polyps #8: Hyperlipidemia #9: Allergic sinusitis #10: History of significant tobacco abuse. #11: History of angiodysplasia of the cecum. #12: History of alcohol abuse. Stopped drinking October 1984. #13: Allergy to penicillin. See allergy list. #14: History of recurrent left sacroiliac pain exacerbated by exercise #15: See past history Plan: #1: Agree with Zyprexa #2: We will consult physical therapy to evaluate and treat #3: Continue present therapy #4: Geriatric psych evaluation noted, with the patient's declined at this time. #5: See orders We appreciate this consult and will follow along with you. Medical,Surgical,& Family Hx - Medical History Cardio: History of: CAD (Percutaneous intervention to the circumflex obtuse marginal branch 2012), Hypertension, WA (Echocardiogram 2014 showed preserved global left ventricular systolic perfo), Cardiovascular Problems (Cardiomyopathy ; [employer] Dr. 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 Johnson) No history of: Anesthesia Reactions, Cancer - Surgical History Cardiac Surgeries: Sugical HX of: Cardiac Catheterization Thoracic Surgeries: Patient denies;: Organ Transplant HEENT Surgeries: Surgical HX of: Eye Surgery (12/13/15 Cataract Lt;01/08/[address] Gonzalez) Patient denies: Tonsilectomy & Adenoidectomy Abdominal Surgeries: Surgical HX of: Appendectomy, Colonoscopy Orthopedic Surgeries: Surgical HX of;: Total Hip Replacement (Rt Hip Replacement (Hip Fx 2015)) Patient denies;: Implanted Devices, Orthopedic Surgery, Spinal Surgery, Total Knee Replacement - Family History Family History: Reports;: Family Diabetes, Family Heart Disease, Family Hypertension - Social History Smoking Status: Former smoker Frequency of Alcohol Use: None Type of Drug Use: None Results - Labs CBC & BMP: 11/18/16 12:17 11/20/16 03:02
[2016-11-20] MEDS: OLANZapine 2.5 MG TABLET PO SCH ×2 (17:04→21:13)
[2016-11-20] MEDS: ATORVASTATIN 20 MG TABLET PO SCH (21:12)
[2016-11-20] MEDS: MONTELUKAST 10 MG TABLET PO SCH (21:12)
[2016-11-20] MEDS: TAMSULOSIN 0.4 MG CAPSULE PO SCH (21:13)
[2016-11-20] MEDS: ENOXAPARIN 40 MG/0.4 ML SYRINGE SUBCUT SCH (21:15)
[2016-11-21] MEDS: ALBUTEROL/IPRATROPIUM 3 ML NEB RESP TX SCH ×6 (04:00→23:07)
[2016-11-21 05:19] LABS: Basophils % 0.5 % (0.0-0.8); Hematocrit 39.7 VOL% (42.0-52.0); Hemoglobin 13.2 GM/DL (14.0-18.0); Immature Granulocytes % 6.4 %; Immature Granulocytes Absolute 0.47 #; Lymphocytes # 0.7 10*3/uL (1.4-4.0); Mean Corpuscular HGB Conc 33.2 GM/DL (32-36); Mean Corpuscular Hemoglobin 31 PG (27-34); Mean Corpuscular Volume 94.1 FL (87-102); Monocytes # 0.3 10*3/uL (0.11-0.8); Monocytes % 4.1 % (1.7-12.7); NRBC # 0.03 10*3/uL; Neutrophils # 5.8 10*3/uL (1.4-7.4); Platelet Count 110 T/CUMM (130-400); Red Blood Count 4.22 MC/CUMM (3.8-5.5); Red Cell Distribution Width 15.8 % (9.3-17.3); White Blood Count 7.3 T/CUMM (4-12)
--- NOTE | 2016-11-21 05:45 | Pulmonology Progress Note ---
Pulmonary - PN: Subj Interval history: Vu Kauffman, AGNP-, acting as scribe for Dr. Levon Bishop Mr. Contreras is an 86-year-old white male who we saw in initial pulmonary consultation on 11/20/2016. At that time, our impressions were: #1: Acute altered mental status with confusion and hallucinations; etiology presently unknown but possibly secondary to, or exacerbated by, Zoloft--- now apparently resolved with the addition of Zyprexa #2: Remote acute right hip fracture requiring a right hip hemiarthroplasty by Dr. Pereira #3: History of bronchitis secondary to Proteus mirabilis #4: History of acute hematuria; followed by Dr. Delgado; previously started on Flomax and Avodart #5: COPD with bronchospastic disease #6: Arteriosclerotic heart disease with a history of an PA and a history of stents. Followed by Dr. Prather. #7: Colon polyps #8: Hyperlipidemia #9: Allergic sinusitis #10: History of significant tobacco abuse. #11: History of angiodysplasia of the cecum. #12: History of alcohol abuse. Stopped drinking October 1984. #13: Allergy to penicillin. See allergy list. #14: History of recurrent left sacroiliac pain exacerbated by exercise #15: See past history 11/21/2016. The patient's blood pressure has been low for the past couple of days. On review of his medications, he is on diltiazem 120 mg p.o. daily and Coreg 6.25 mg twice daily. His evening doses of Coreg have been held secondary to hypotension. This hypotension can be exacerbated by the Zyprexa which has been added. In light of all things, we will decrease his Coreg to 3.125 mg p.o. twice daily and follow his response. The patient continues to sleep well. Patient's nurse reports that he has done well through the night. There has been no more reported hallucinations. He has been evaluated by physical therapy. Their note has been reviewed. Medications have been reviewed. Coreg has been decreased as above. Labs been reviewed. White count is 7380.0% segs; H&H 13.2/39.7; platelet count 110,000. Chemistry is pending. Exam (Progress Note) - Constitutional Vitals: Period Temp Pulse Resp BP Sys/Carrion Pulse Ox Last 24 Hr 97.2 F-98.1 F 72-90 16-24 94-134/53-63 90-100 Exam: Chest is wheeze free Heart no gallop Abdomen is nontender nondistended; bowel sounds positive 4 Extremities with nothing to suggest acute deep venous thrombophlebitis Psychiatric... See above Neurologic unchanged Plan: Decrease Coreg to 3.125 mg p.o. twice daily. Continue other present treatment. Continue physical therapy. See orders. Results - Labs CBC & BMP: 11/21/16 04:25 11/20/16 03:02
[2016-11-21 06:00] LABS: Calcium 8.9 MG/DL (8.5-10.1); Osmolality,Calculated 297.8 MOS/KG (273-304)
[2016-11-21 06:01] LABS: Band Neutrophils 2 % (0-10); Lymphocytes 10 % (20-55); Myelocytes 2 %; Segmented Neutrophils 85 % (50-85); Total Cells Counted 100
[2016-11-21 06:02] LABS: Platelet Estimate Adequate
[2016-11-21] MEDS: DILTIAZEM CD 120 MG CAPSULE PO SCH (08:22)
[2016-11-21] MEDS: predniSONE 20 MG TABLET PO SCH (08:22)
[2016-11-21] MEDS: ASPIRIN EC 81 MG TABLET PO SCH (08:22)
[2016-11-21] MEDS: FAMOTIDINE 20 MG TABLET PO SCH ×2 (08:22→20:40)
[2016-11-21] MEDS: THEOPHYLLINE ER (24 HR) 200 MG CAPSULE PO SCH (08:22)
[2016-11-21] MEDS: CARVEDILOL 3.125 MG TABLET PO SCH ×2 (08:22→16:21)
[2016-11-21] MEDS: BUDESONIDE/FORMOTEROL 160-4.5 INHALER 6 GM INH SCH ×2 (08:23→20:40)
--- NOTE | 2016-11-21 11:54 | Hospitalist Progress Note ---
Assessment and Plan (1) Hallucinations Status: Acute Assessment and plan: 1)psych- depression and hallucinations- no more hallucinations on Zyprexa and off Zoloft. I will decrease zyprexa to 2.5 mg at bedtime tonight. She will discuss adding an antidepressant back with Dr Bishop. Does not want geripsych or swing bed. 2)hypotension- better on less coreg. 3)dispo- to arrange help getting him in the house for tomorrow. 30 minutes spent discussing plans and medicines with Mrs Contreras. Current Visit: Yes (2) Depression Status: Acute Current Visit: Yes (3) Hypotension Status: Acute Current Visit: Yes (4) Weakness Status: Acute Current Visit: No (5) Debility, unspecified Status: Acute Current Visit: Yes Hospitalist: Subjective Interval history: Mr Contreras is doing much better than he was on arrival. His hallucinations have stopped. He is on Zyprexa at 4p and 9p. His wants a pill to make him awake and interested in PT in the daytime. She also does not want him to go to geripsych or to swing bed but does not want to take him home now. We told her that she should make arrangements for return home tomorrow and we will make a decision in the morning. He was started on Zoloft for mood, but had hallucinations. That was stopped and Zyprexa started on admission and the hallucinations have stopped. He has been sleeping in the day (23 of 24 hours) at home since discharge a couple of months ago (he has been bedfast and uninterested in PT since then). Dr Bishop is his PCP. Exam - Constitutional Vitals: Period Temp Pulse Resp BP Sys/Carrion Pulse Ox Last 24 Hr 97.8 F-98.6 F 71-97 16-24 94-134/53-63 90-100 General appearance: normal weight, no acute distress (dozing but wakes to voice. ) - Head Head exam: Present: normocephalic, atraumatic - Eye Eye exam: Present: EOMI. Absent: scleral icterus - Respiratory Respiratory exam: Present: clear to auscultation bilaterally - Cardiovascular Cardiovascular exam: Present: regular rate and rhythm - GI/Abdominal GI/Abdominal exam: Present: normal bowel sounds, soft. Absent: tenderness - Extremities Exam Extremities exam: Absent: edema Results - Labs CBC & BMP: 11/21/16 04:25 11/21/16 04:25 Lab Results: I have reviewed the past 24 hour labs
[2016-11-21] MEDS: ATORVASTATIN 20 MG TABLET PO SCH (20:40)
[2016-11-21] MEDS: ENOXAPARIN 40 MG/0.4 ML SYRINGE SUBCUT SCH (20:40)
[2016-11-21] MEDS: TAMSULOSIN 0.4 MG CAPSULE PO SCH (20:40)
[2016-11-21] MEDS: MONTELUKAST 10 MG TABLET PO SCH (20:40)
[2016-11-21] MEDS ORDERED: OLANZapine 2.5 MG TABLET PO SCH (21:00)
[2016-11-22] MEDS: ALBUTEROL/IPRATROPIUM 3 ML NEB RESP TX SCH ×3 (03:05→11:20)
[2016-11-22] MEDS: CARVEDILOL 3.125 MG TABLET PO SCH (09:21)
[2016-11-22] MEDS: predniSONE 20 MG TABLET PO SCH (09:21)
[2016-11-22] MEDS: THEOPHYLLINE ER (24 HR) 200 MG CAPSULE PO SCH (09:21)
[2016-11-22] MEDS: FAMOTIDINE 20 MG TABLET PO SCH (09:21)
[2016-11-22] MEDS: ASPIRIN EC 81 MG TABLET PO SCH (09:21)
[2016-11-22] MEDS: BUDESONIDE/FORMOTEROL 160-4.5 INHALER 6 GM INH SCH (09:22)
[2016-11-22] MEDS: DILTIAZEM CD 120 MG CAPSULE PO SCH (09:22)
--- NOTE | 2016-11-22 09:22 | Discharge Summary ---
Hospital Course - Hospital Course Hospital Course: 86-year-old white male with a history of COPD have become weaker and over several weeks of progressive deterioration. Patient was placed on Zoloft and he began to experience visual hallucinations and become uncooperative with care refusing medications and oral intake. He had been combative with attendance and at other times was worked relatively withdrawn. He was admitted for altered mental status which is felt to be delirium likely secondary to medication. He had neurochecks as well as his routine home medications with the exception of Zoloft. He did improve with taking his medications however had some extreme confusion. Family refused further placement or options such as [facility]. Dr. Eddy was called by the patient's and he reviewed the chart and agreed with stopping the Zoloft. Patient was stable and hallucinations resolved. He was placed on Zyprexa and did fairly well without any other problems. It was felt that he had reached maximal benefit from hospital stay and could be discharged home with continued close outpatient care. - Time spent with patient Time with patient DS: Less than 30 minutes Diagnosis - Discharge Diagnosis (1) COPD (chronic obstructive pulmonary disease) Status: Chronic (2) Essential hypertension Status: Chronic (3) Coronary artery disease Status: Chronic (4) Altered mental status Status: Acute Discharge Plan - Discharge Data Disposition: Disch To Home/Self Care Condition at Discharge: Stable Discharge Diet: advance to your usual diet Activity: resume usual activities as tolerated Contact your physician if you experience:: fever over 101, Nausea/Vomiting, Shortness of breath - Discharge Medications New OLANZapine TAB [ZyPREXA Tab] 5 mg PO BEDTIME #60 tablet Continue Nitroglycerin Sl Tab [Nitrostat] 0.4 mg SL Q5M PRN PRN Reason: Chest Pain Ranitidine Tab [Zantac Tab] 150 mg PO BID Budesonide/Formoterol 160-4.5 [Symbicort 160-4.5] 2 puff INH BID #1 inhaler Atorvastatin Calcium 20 mg PO BEDTIME Aspirin [Aspirin EC] 81 mg PO QAM Albuterol Inhaler [Proventil Inhaler] 2 puff INH Q6HR PRN PRN Reason: Shortness Of Breath acetaZOLAMIDE TAB [Diamox Tab] 250 mg PO QAM PRN PRN Reason: edema in feet Potassium Chloride 10 meq PO DAILY Lactulose 10 gm PO DAILY PRN PRN Reason: Constipation Theophylline ER Cap (24 Hr) [Darron-24] 200 mg PO Q24H #30 capsule Albuterol/Ipratropium Neb [Duoneb] 3 ml RESP TX Q4-6H PRN PRN Reason: Shortness Of Breath predniSONE TAB [PredniSONE] 20 mg PO DAILY Montelukast Tab [Singulair Tab] 10 mg PO QPM Carvedilol [Coreg] 6.25 mg PO BID Multivit-Min/FA/Lycopen/Lutein [Centrum Silver Tablet] 1 each PO DAILY Tamsulosin [Flomax] 0.8 mg PO BEDTIME Diltiazem Cd Cap [Cardizem CD] 120 mg PO DAILY capsule Discontinued Sertraline HCl 25 mg PO DAILY - Follow Up or Referral Follow Up: Levon Preston MD [Physician] - 5 Days - Forms/Instructions Exam - Constitutional Vitals: Period Temp Pulse Resp BP Sys/Carrion Pulse Ox Last 24 Hr 97.9 F-99.2 F 70-98 16-22 110-142/55-89 92-99 General appearance: no acute distress - Head Head exam: Present: normocephalic, atraumatic - Eye Eye exam: Present: EOMI Pupils: Present: ALICE - ENT ENT exam: Present: normal exam - Respiratory Respiratory exam: Present: clear to auscultation bilaterally. Absent: rales, rhonchi, wheezes - Cardiovascular Cardiovascular exam: Present: regular rate and rhythm. Absent: tachycardia - GI/Abdominal GI/Abdominal exam: Present: normal bowel sounds, soft. Absent: mass, tenderness , rebound - Extremities Exam Extremities exam: Absent: calf tenderness, edema - Back Exam Back exam: Present: normal inspection - Neurological Exam Neurological exam: Present: alert - Psychiatric Psychiatric exam: Present: normal affect, normal mood. Absent: agitated, anxious - Skin Skin exam: Present: warm, dry. Absent: erythema Discharge Results Procedures and tests throughout hospitalization: Pending Orders 11/18/16 12:17 Blood Culture Stat Labs on day of discharge: Preliminary micro results at discharge 11/18/16 12:17 Blood Culture - Preliminary Blood No growth at 3 days 11/18/16 12:17 Blood Culture - Preliminary Blood No growth at 3 days DS: Provider Date of admission: 11/18/16 14:17 Primary care physician: . No PCP Attending physician on admission: Uche Vanessa MD Consults: 11/18/16 14:17 Consult to Physician [CONS] Routine Comment: Hallucinations with delirium Consulting Provider: Consult to Specialist Group: Psychiatry When should Consulting Provider be notified: In am 11/18/16 16:34 Consult to Dietitian [CONS] Routine Reason for Dietitian: Other Consult Comment: admission assessment 11/19/16 09:02 Consult to Case Mgmt/Social Srvs [CONS] Routine Reason for Case Mgmt/Social Srvs: Other Consult Comment: NEEDS PSYCH EVAL 11/19/16 16:36 Consult to Physician [CONS] Routine Comment: pt known to you Consulting Provider: Levon Preston When should Consulting Provider be notified: In am Person Notified: lei Date Notified: 11/19/16 Time Notified: 16:41 Consult Notification Comment: has seen today. this is official consult for dr preston 11/20/16 09:57 Consult to Physical Therapy [CONS] Routine Reason for Physical Therapy: Evaluate and Treat Weakness Discharging clinician: Cynthia Porter Expected date of discharge: 11/22/16
[2016-11-22 12:24] VITALS: BP 146/70
== END 2016-11-22 13:59 | disposition home health service (06) | DRG 125 ==
LOC: EDUNIT# → EDBD → N.ED 11:42 → SUATTDRO 14:17 → N.EDINP 14:17 → N.4E 15:44
PROVIDERS: ADMIT Internal Medicine Cardiovascular Disease; ATTEND Hospitalist

== ENCOUNTER 2016-11-24 14:25 | Inpatient (IN) ==
[2016-11-24 18:32] LABS: Basophils # 0.1 10*3/uL (0.0-0.2); Basophils % 0.7 % (0.0-0.8); Eosinophils % 0.2 % (0.00-10.9); Hematocrit 44.9 VOL% (42.0-52.0); Hemoglobin 14.5 GM/DL (14.0-18.0); Immature Granulocytes % 7.3 %; Immature Granulocytes Absolute 0.65 #; Lymphocytes # 0.6 10*3/uL (1.4-4.0); Lymphocytes % 6.6 % (21.2-54.2); Mean Corpuscular HGB Conc 32.3 GM/DL (32-36); Mean Corpuscular Hemoglobin 32 PG (27-34); Mean Corpuscular Volume 97.4 FL (87-102); Monocytes # 0.6 10*3/uL (0.11-0.8); Monocytes % 6.2 % (1.7-12.7); NRBC # 0.05 10*3/uL; Neutrophils # 7.1 10*3/uL (1.4-7.4); Platelet Count 136 T/CUMM (130-400); Red Blood Count 4.61 MC/CUMM (3.8-5.5); Red Cell Distribution Width 15.8 % (9.3-17.3); White Blood Count 8.9 T/CUMM (4-12)
--- NOTE | 2016-11-24 19:03 | XRay Report ---
Portable chest. Indication: Shortness of breath. Confusion. The heart is normal in size. The lung blackwell are hyperexpanded. There is mild atelectasis present within the left midlung field. Nipple shadow projects over the right midlung field. Healed rib fracture on the right. No consolidation, pneumothorax, or pleural effusion. Impression: No acute abnormality. PROCEDURE INTERPRETED AT [facility] DEPARTMENT OF RADIOLOGY Final Report Signed by: Dr. Diane Mayo
[2016-11-24 19:11] LABS: Albumin 3.2 G/DL (3.4-5.0); Bilirubin,Total 0.5 MG/DL (0.2-1.0); Calcium 9.1 MG/DL (8.5-10.1); Osmolality,Calculated 302.4 MOS/KG (273-304); Total Protein 5.4 G/DL (6.4-8.3)
[2016-11-24] MEDS: IPRATROPIUM 500 MCG/2.5 ML NEB RESP TX SCH (20:08)
[2016-11-24] MEDS ORDERED: QUEtiapine 25 MG TABLET PO ONE (20:10)
[2016-11-24] MEDS: methylPREDNISolone SOD SUC 40 MG/1 ML VIAL IV SCH (20:36)
[2016-11-24] MEDS: LORazepam 1 MG TABLET PO PRN (20:37)
[2016-11-24] MEDS: CARVEDILOL 6.25 MG TABLET PO SCH (20:37)
[2016-11-24] MEDS: BUDESONIDE/FORMOTEROL 160-4.5 INHALER 6 GM INH SCH (20:37)
[2016-11-24] MEDS: FAMOTIDINE 20 MG TABLET PO SCH (20:37)
--- NOTE | 2016-11-24 21:12 | Pulmonology History & Physical ---
History of Present Illness Chief complaint: Altered mental status History of present illness: Mr. Contreras is a 86 year old white male longtime patient of mine. Patient was recently in the hospital under the care of hospitalist and I saw him in consultation. At that time he had an altered mental status which improved significantly with Zyprexa. Patient was sent home in good condition. Patient some called and said her "is just lost it". She said he was confused and talked all night. He would not keep his oxygen entire problem. He was combated. He did not go to sleep until 2 AM on Thursday. She said she could not keep him home any longer. She wanted and noted we need [facility]. Referred the patient to [facility]. He was seen by Koko rodríguez. He felt the patient was not medically stable was not eating drinking and looked sick he would not noted he felt warm. He would respond but would not well and was confused. He said they would be happy to admit the patient as soon as he was medically stable and I will see him any time we wanted to. Earlier this morning the patient was given an extra 5 mg of Zyprexa. This did not help him any. Tonight I will try the patient on Seroquel and Ativan. The remainder review of systems is negative. Allergies. See below Medicines see below Immunizations: Flu and Pneumovax was given in 2014. Past medical history: [facility] hospitalization 10/05/2016 through 10/12/2016 care of the hospitalist for COPD exacerbation. [facility] hospitalization 08/26/2016 through 08/28/2016 under the care of hospitalist for COPD exacerbation. [facility] 09/18/15 through 09/24/15 under the care of Dr. Pereira. See above. Hospitalization April 2015 with acute renal failure and acute severe bronchitis with bronchospasm. April 03, [address] Cordoba for non-ST elevation acute GA. The patient had stents placed at that time. COPD. Bronchospastic disease. Hyperlipidemia. Allergic sinusitis. Colon polyps. History of elevated PSA and BPH. Negative prostate biopsies by Dr. Gaetano Castro. PSA later returned to normal. 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 Bilateral decreased hearing acuity. Patient wears hearing aids. Long history of recurrent left sacroiliac pain exacerbated by exercise. Usually relieved with one dose of Toradol. The patient has also been followed by Dr. Hay Baeza in the pulmonary department at [facility]. 11/20/[address] Faustino Haines for acute altered mental status with confusion and hallucinations. Was thought at that time the etiology might possibly be related to Zoloft. Social history: The patient has been a smoker for number of years. He may have quit in the last half a year but I'm not sure. He has quit a number times in the past continue to smoke up to 2 packs of cigarettes per per week while denying any smoke. In the distant past the patient was an alcoholic. He quit drinking in October 1984 and as far as I know he has not drunk since then. Past procedures: CT of the head done 11/18/2016 showed diffuse atrophy. Doppler venograms done 10/07/2016 showed no evidence of DVT in either lower extremity. CT the abdomen and pelvis with contrast on 10/05/2016 showed nothing to suggest etiology of abdominal distention. No acute findings. There is diffuse intimal calcification and areas of mural thrombus present within the aorta. 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 There is a small hiatal hernia. Multiple diverticula are demonstrated involving the lower descending and sigmoid colon. Prostatic calcifications were present. The prostate was upper limits of normal in size. Compression deformity was present involving the L1 vertebral body. CT the head done 09/27/2015 showed no evidence of acute intracranial pathology. Bone density done 07/18/2015 showed that T scores fell in the range of osteoporosis. The T score of L1 through L4 was -1.7. The T score of the left femoral neck was -2.8. The T score of the right femoral neck was -3.2. CT of the sinuses without contrast on 05/15/2015 showed no air-fluid levels with only very minimal mucosal thickening in the paranasal sinuses. There is a 4.85 mm polyp or retention cyst in the right sphenoid sinus. Bilateral airfield curtis bullosa deviation of nasal septum to the left anteriorly. There is also prior left mastoidectomy. Echocardiogram done 2011 showed ejection fraction of 60%. Pulmonary function test done 04/14/2012 showed severe obstructive disease with a positive bronchodilator effect. Lab. Electrolytes are normal. Creatinine is 1.00 BUN is 36. Protein albumin and globulin are low at 5.4, 3.2 and 2.2 respectively. White count is 8900 with 79 segs 7 lymphs and 6 monos. Platelets are 136,000 with me in platelet volume normal H&H is 14.5/44.9 with normal indices and normal red blood cell distribution with Microbiology. Not reported Chest x-ray. Severe COPD CT of the head. 11/18/2016. Diffuse atrophy Physical exam. Vital signs see below Psychiatric. Confused. Cranial nerves. Intact with marked decreased hearing acuity bilaterally. At present time the patient is refusing to wear his hearing aids long track motor functions intact. Sensory exam was not done. Gait was not tested. Face. Eyes are normal. Face is symmetrical. Salivary glands are normal. Nares lips and tongue are normal Neck. Symmetrical. No masses. No meningismus. Thyroid was not palpated. Lymphatics. No submandibular cervical supraclavicular or epitrochlear adenopathy Chest. Symmetrical hyperinflated with prolonged incomplete expiration. No wheezes. No chest wall tenderness. Heart. Heart sounds are distant. No gallop Abdomen. Nontender. No organomegaly. Hypoactive bowel sounds. and rectal deferred Extremities. No clubbing. No edema. Nothing to suggest deep venous thrombophlebitis. Musculoskeletal. Age-appropriate loss normal curvature cervical thoracic and lumbar spine degenerative changes in the hands and knees. Skin of the face and hands show no cancerous infectious lesions they are appropriate on the dorsum of both upper extremities. I saw no skin lesions on the lower legs and feet. No other areas of skin were examined. Arterial. Carotids are decreased. Upper extremity pulses are palpable lower extremity pulses are nonpalpable. No evidence of lower extremity ischemia. Venous exam of the neck upper and lower extremities are normal. The remainder the physical exam is negative. Impression. 1. Altered mental status with confusion and possible hallucinations and with agitation. 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 Note hospitalization earlier this month under the care of Dr. Faustino Haines with altered mental status, confusion and hallucinations which was thought to possibly be related to Zoloft. 2. September 2016 acute right hip fracture requiring a right hip hemiarthroplasty by Dr. Pereira 3. History of hematuria. Followed by Dr. Delgado. Previously started on Flomax and Avodart 4. COPD with bronchospastic disease 5. Arteriosclerotic heart disease. History of GA and history of stents. Followed by Dr. Karin Cordoba. 6. Colon polyps 7. Hyperlipidemia 8. Allergic sinusitis 9. History of significant tobacco abuse. 10. History of angiodysplasia of the cecum 11. History of alcohol abuse. Patient said that in the past on multiple occasions she stopped drinking alcohol in October 1984 12. History of recurrent left sacroiliac pain exacerbated by exercise 13. See past history Plan. 1. Continue home medicines except I will hold Zyprexa. 2. Trial of Seroquel and Ativan 3. IV Solu-Medrol 4. Urinalysis ammonia level TSH theophylline level and additional lab 5. See Home Medications Medication Instructions Recorded Confirmed Type Ranitidine Tab [Zantac Tab] 150 mg PO BID 02/13/15 11/24/16 History Budesonide/Formoterol 160-4.5 2 puff INH BID #1 inhaler 05/16/15 11/24/16 Rx [Symbicort 160-4.5] Albuterol Inhaler [Proventil 2 puff INH Q6HR PRN 08/26/16 11/24/16 History Inhaler] Aspirin [Aspirin EC] 81 mg PO QAM 08/26/16 11/24/16 History Atorvastatin Calcium 20 mg PO BEDTIME 08/26/16 11/24/16 History Carvedilol [Coreg] 6.25 mg PO BID 08/26/16 11/24/16 History Multivit-Min/FA/Lycopen/Lutein 1 each PO DAILY 08/26/16 11/24/16 History [Centrum Silver Tablet] Tamsulosin [Flomax] 0.8 mg PO BEDTIME 08/26/16 11/24/16 History Diltiazem Cd Cap [Cardizem CD] 120 mg PO DAILY capsule 08/28/16 11/24/16 Rx acetaZOLAMIDE TAB [Diamox Tab] 250 mg PO QAM PRN 10/05/16 11/24/16 History Theophylline ER Cap (24 Hr) 200 mg PO Q24H #30 capsule 10/12/16 11/24/16 Rx [Darron-24] Albuterol/Ipratropium Neb [Duoneb] 3 ml RESP TX Q4-6H PRN 11/18/16 11/24/16 History Montelukast Tab [Singulair Tab] 10 mg PO QPM 11/18/16 11/24/16 History predniSONE TAB [PredniSONE] 20 mg PO DAILY 11/18/16 11/24/16 History OLANZapine TAB [ZyPREXA Tab] 5 mg PO BEDTIME #60 tablet 11/22/16 11/24/16 Rx Allergies Allergy/AdvReac Type Severity Reaction Status Date / Time ciprofloxacin Allergy Unknown/Unable Verified 10/05/16 20:36 to obtain ezetimibe [From Zetia] Allergy Unknown/Unable Verified 10/05/16 20:36 to obtain simvastatin [From Zocor] Allergy Unknown/Unable Verified 10/05/16 20:36 to obtain Penicillins AdvReac Difficulty Verified 10/05/16 20:36 Breathing Medical,Surgical,& Family Hx - Medical History Cardio: History of: CAD (Percutaneous intervention to the circumflex obtuse marginal branch 2012), Hypertension, GA (Echocardiogram 2014 showed preserved global left ventricular systolic perfo), Cardiovascular Problems (Cardiomyopathy ; Manager Access Dr. Prather) Neurology: History of: Dementia No history of: Seizures HEENT: History of: Ear Problem (Rt Ear Hearing Aide; No hearing in Lt Ear), Eye Problem (Glasses/Cataracts), Dental Problems (All Caps) Endocrine: History of: Dyslipidemia Respiratory: History of: Asthma, COPD (Predominantly emphysematous without prior CO2 retention) No history of: Pneumonia (Due this year for Pneum Vac), Respiratory Problems (No Flu Vac [id number] Season) Genitourinary: History of: Prostate Problems (History of prostatism) Gastrointestinal: History of: GERD No history of: Polyps Musculoskeletal: History of: Musculoskeletal Problems (weakness, pt does not walk) No history of: Amputation Other: History of: Skin Problems (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 Johnson) No history of: Anesthesia Reactions, Cancer - Surgical History Cardiac Surgeries: Sugical HX of: Cardiac Catheterization Thoracic Surgeries: Patient denies;: Organ Transplant HEENT Surgeries: Surgical HX of: Eye Surgery (12/13/15 Cataract Lt;01/08/[address] Gonzalez) Patient denies: Tonsilectomy & Adenoidectomy Abdominal Surgeries: Surgical HX of: Appendectomy, Colonoscopy Orthopedic Surgeries: Surgical HX of;: Total Hip Replacement (Rt Hip Replacement (Hip Fx 2015)) Patient denies;: Implanted Devices, Orthopedic Surgery, Spinal Surgery, Total Knee Replacement - Family History Family History: Reports;: Family Diabetes, Family Heart Disease, Family Hypertension - Social History Smoking Status: Former smoker Frequency of Alcohol Use: None Type of Drug Use: None Results - Labs CBC & BMP: 11/24/16 18:00 11/24/16 18:00 Quality Measures - Stroke Symptom Onset Unknown: [facility] H&P - Constitutional Vitals: Period Temp Pulse Resp BP Sys/Carrion Pulse Ox Last 24 Hr 96.9 F-98.2 F 92-97 17-23 144-180/76-100 91-97
[2016-11-24] MEDS: ATORVASTATIN 20 MG TABLET PO SCH (23:22)
[2016-11-25] MEDS: IPRATROPIUM 500 MCG/2.5 ML NEB RESP TX SCH ×4 (00:33→19:22)
[2016-11-25 01:25] LABS: Free T4 (Free Thyroxine) 1.11 NG/DL (0.76-1.46)
[2016-11-25] MEDS: ALBUTEROL/IPRATROPIUM 3 ML NEB RESP TX SCH ×5 (02:15→18:47)
[2016-11-25] MEDS: MULTIVITAMIN (CENTRUM) TABLET PO SCH ×2 (08:29→14:08)
[2016-11-25] MEDS: MONTELUKAST 10 MG TABLET PO SCH ×2 (08:29→14:07)
[2016-11-25] MEDS: DILTIAZEM 60 MG TABLET PO SCH ×2 (08:29→14:07)
[2016-11-25] MEDS: methylPREDNISolone SOD SUC 40 MG/1 ML VIAL IV SCH ×2 (08:29→23:00)
[2016-11-25] MEDS: ASPIRIN EC 81 MG TABLET PO SCH ×2 (08:29→14:08)
[2016-11-25] MEDS: BUDESONIDE/FORMOTEROL 160-4.5 INHALER 6 GM INH SCH (08:29)
[2016-11-25] MEDS: CARVEDILOL 6.25 MG TABLET PO SCH ×2 (08:29→14:08)
[2016-11-25] MEDS: acetaZOLAMIDE 250 MG TABLET PO SCH ×2 (08:29→14:05)
[2016-11-25] MEDS: FAMOTIDINE 20 MG TABLET PO SCH (08:29)
[2016-11-25] MEDS: THEOPHYLLINE ER (24 HR) 200 MG CAPSULE PO SCH ×2 (08:30→14:05)
[2016-11-25] MEDS ORDERED: QUEtiapine 25 MG TABLET PO PRN (09:28)
[2016-11-25] MEDS: DEXTROSE 5% NACL 0.9% 1,000 ML IV SCH ×2 (09:34→23:30)
--- NOTE | 2016-11-25 11:00 | Pulmonology Progress Note ---
Pulmonary - PN: Subj Interval history: This 86-year-old white male longtime patient of mine whom I admitted on 2016 with an altered mental status. He had had a recent hospitalization. He was under the care of Dr. Faustino Haines and I saw him during that hospital admission. He had done well in the hospital with subtraction I think he was sent home in good condition. His gave him the medicine the proper way and I think he was also seen by home health. I had asked geriatric psych to see him on the day of admission and they did. They said they would be happy to admit him but felt like that he might be medically unstable at that time. My admit impressions were 1. Altered mental status with confusion and possible hallucinations and with agitation. 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 Note hospitalization earlier this month under the care of Dr. Faustino Haines with altered mental status, confusion and hallucinations which was thought to possibly be related to Zoloft. 2. September 2016 acute right hip fracture requiring a right hip hemiarthroplasty by Dr. Pereira 3. History of hematuria. Followed by Dr. Delgado. Previously started on Flomax and Avodart 4. COPD with bronchospastic disease 5. Arteriosclerotic heart disease. History of NV and history of stents. Followed by Dr. Karin Cordoba. 6. Colon polyps 7. Hyperlipidemia 8. Allergic sinusitis 9. History of significant tobacco abuse. 10. History of angiodysplasia of the cecum 11. History of alcohol abuse. Patient said that in the past on multiple occasions she stopped drinking alcohol in October 1984 12. History of recurrent left sacroiliac pain exacerbated by exercise 13. See past history 11/25/2016. This patient took a while to calm down last night. He is presently sound asleep and he is began to sleep either at 1:00 this morning or at 4:00 this morning depending upon version of various participants. I used Ativan as needed and I started him with Seroquel 50 mg. This afternoon I will decrease the Seroquel to 25 mg and hope to give it around 5:00. We can have the option of an extra 25 is needed. I have asked geriatric psych to follow-up with this patient. I told the that his son likely will be able to adjust his medicines exactly here and he may need more time such as a geriatric psych unit. CBC is normal. There is no evidence of infection. Electrolytes are within the normal range. Renal study showed a mild amount of dehydration which is being corrected. Glucoses were normal. Protein albumin and globulins were low secondary to poor oral intake. Thyroid function tests are normal and theophylline level was safely at 6.6 Physical exam. Vital signs. See below. No fever. Face. Symmetrical. No edema of the lips or tongue. Neck. Symmetrical kyphotic with no masses. No meningismus. Neurologic. Cranial nerves are intact with marked decreased hearing acuity bilaterally. Patient moves all 4 extremities. Gait has not been tested secondary to agitation. Lymphatics. No submandibular cervical supraclavicular or epitrochlear adenopathy. Chest symmetrical kyphotic and hyperinflated with prolonged incomplete expiration. Heart no gallop Abdomen nondistended bowel sounds are present Lower extremities. No edema nothing to suggest deep venous thrombophlebitis. For additional physical findings see my admit note dated 11/24/2016. The remainder the physical exam was negative. Plan. 11/24/2016 1. Continue home medicines except I will hold Zyprexa. 2. Trial of Seroquel and Ativan 3. IV Solu-Medrol 4. Urinalysis ammonia level TSH theophylline level and additional lab 11/25/2016 1. See today's note above 2. Consult geriatric psych. 3. I plan to let the patient sleep as much as possible Exam (Progress Note) - Constitutional Vitals: Period Temp Pulse Resp BP Sys/Carrion Pulse Ox Last 24 Hr 96.9 F-98.2 F 92-104 17-24 144-180/76-100 91-97 Results - Labs CBC & BMP: 11/24/16 18:00 11/24/16 18:00
--- NOTE | 2016-11-25 15:24 | XRay Report ---
Exam: XR chest 1V portable Date: 11/25/2016 4:00 AM Indication: Post extubation Comparison: 11/24/2016 Technical: AP portable Findings: Oxygen tubing superimposes the neck and upper right chest. Mild scarring is present. ASVD is present. Heart is normal in size. No obvious infiltrate or effusion otherwise noted. Mediastinum is intact. No pneumothorax. Multiple old right rib fractures Impression: 1. Mild scarring in the perihilar regions 2. ASVD 3. No obvious infiltrate or effusion. 4. Old right rib fractures PROCEDURE INTERPRETED AT [facility] DEPARTMENT OF RADIOLOGY Final Report Signed by: Dr. Levon Garcia
[2016-11-25] MEDS: TAMSULOSIN 0.4 MG CAPSULE PO SCH (15:46)
[2016-11-26] MEDS: IPRATROPIUM 500 MCG/2.5 ML NEB RESP TX SCH ×3 (00:06→15:08)
[2016-11-26] MEDS: ALBUTEROL/IPRATROPIUM 3 ML NEB RESP TX SCH ×6 (00:11→19:12)
[2016-11-26] MEDS: ATORVASTATIN 20 MG TABLET PO SCH ×2 (02:07→21:25)
[2016-11-26] MEDS: CARVEDILOL 6.25 MG TABLET PO SCH ×3 (02:07→21:25)
[2016-11-26] MEDS: FAMOTIDINE 20 MG TABLET PO SCH ×3 (02:07→21:25)
[2016-11-26] MEDS: BUDESONIDE/FORMOTEROL 160-4.5 INHALER 6 GM INH SCH ×2 (02:08→09:45)
--- NOTE | 2016-11-26 07:40 | XRay Report ---
Exam: XR chest 1V portable Date: 11/26/2016 4:00 AM Indication: Post extubation follow-up Comparison: 11/25/2016 Technical:AP Findings: Cardiomegaly is present. Old right rib fractures are present. Elevation left hemidiaphragm is present. Patchy interstitial density in the left infrahilar region. Mild scarring is noted. No pneumothorax. Oxygen tubing is present. Small nodule present in the right chest measures approximately 7 mm. This superimposes the ribs on the previous study Impression: 1. Cardiomegaly 2. Left basilar retrocardiac infiltrate question. 3. Old right rib fractures with a small nodule in the right base measuring approximately 7 mm PROCEDURE INTERPRETED AT [facility] DEPARTMENT OF RADIOLOGY Final Report Signed by: Dr. Levon Garcia
[2016-11-26] MEDS ORDERED: TUBERCULIN SKIN TEST 0.1 ML SYRINGE INTRADERM ONE (09:12)
[2016-11-26] MEDS: methylPREDNISolone SOD SUC 40 MG/1 ML VIAL IV SCH ×2 (09:42→21:24)
[2016-11-26] MEDS: DILTIAZEM 60 MG TABLET PO SCH (09:45)
[2016-11-26] MEDS: THEOPHYLLINE ER (24 HR) 200 MG CAPSULE PO SCH (09:45)
[2016-11-26] MEDS: MULTIVITAMIN (CENTRUM) TABLET PO SCH (09:45)
[2016-11-26] MEDS: MONTELUKAST 10 MG TABLET PO SCH (09:45)
[2016-11-26] MEDS: ASPIRIN EC 81 MG TABLET PO SCH (09:45)
[2016-11-26] MEDS: TAMSULOSIN 0.4 MG CAPSULE PO SCH (09:45)
[2016-11-26] MEDS: acetaZOLAMIDE 250 MG TABLET PO SCH (09:45)
--- NOTE | 2016-11-26 10:56 | Pulmonology Progress Note ---
Pulmonary - PN: Subj Interval history: Vu Kauffman, AGNP-, acting as scribe for Dr. Levon Bishop This 86-year-old white male longtime patient of Dr. Bishop who he admitted on 11/24 with an altered mental status. The patient had had a recent hospitalization. He was under the care of Dr. Faustino Haines and we saw him during that hospital admission. He had done well in the hospital with the subtraction of Zoloft and addition of Zyprexa. We think he was sent home in good condition. His reported she gave him the medicine the proper way and we think he was also seen by home health. We had asked geriatric psych to see him on the day of admission and they did. They said they would be happy to admit him but felt like that he might be medically unstable at that time. Our admit impressions were: 1. Altered mental status with confusion and possible hallucinations and with agitation. 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 Note hospitalization earlier this month under the care of Dr. Faustino Haines with altered mental status, confusion and hallucinations which was thought to possibly be related to Zoloft. 2. September 2016 acute right hip fracture requiring a right hip hemiarthroplasty by Dr. Pereira 3. History of hematuria. Followed by Dr. Delgado. Previously started on Flomax and Avodart 4. COPD with bronchospastic disease 5. Arteriosclerotic heart disease. History of CT and history of stents. Followed by Dr. Karin Cordoba. 6. Colon polyps 7. Hyperlipidemia 8. Allergic sinusitis 9. History of significant tobacco abuse. 10. History of angiodysplasia of the cecum 11. History of alcohol abuse. Patient said that in the past on multiple occasions she stopped drinking alcohol in October 1984 12. History of recurrent left sacroiliac pain exacerbated by exercise 13. See past history 11/25/2016. This patient took a while to calm down last night. He is presently sound asleep and he is began to sleep either at 1:00 this morning or at 4:00 this morning depending upon version of various participants. I used Ativan as needed and I started him with Seroquel 50 mg. This afternoon I will decrease the Seroquel to 25 mg and hope to give it around 5:00. We can have the option of an extra 25 is needed. I have asked geriatric psych to follow-up with this patient. I told the that his son likely will be able to adjust his medicines exactly here and he may need more time such as a geriatric psych unit. CBC is normal. There is no evidence of infection. Electrolytes are within the normal range. Renal study showed a mild amount of dehydration which is being corrected. Glucoses were normal. Protein albumin and globulins were low secondary to poor oral intake. Thyroid function tests are normal and theophylline level was safely at 6.6 11/26/2016. The patient was seen today along with his . The patient was again sleeping this morning when we walked in the room. Patient's reports that she feels he slept well through the night. We have asked her to wake him up some throughout the day today to see if his improved mental status will hold. Yesterday his Seroquel was decreased and we will continue the current dose of 25 mg to be given at 1700 nightly. This dose can be repeated 2 hours after the 5 PM dose if needed. [facility] [place] [facility]. Nursing staff report to the patient's does not want [facility] at this time as they only have group therapy. She reportedly prefers individual therapy. Medications have been reviewed. We made no changes. Labs been reviewed. No new labs were drawn today. Microbiology has been reviewed. Blood cultures are negative at day 1. Exam (Progress Note) - Constitutional Vitals: Period Temp Pulse Resp BP Sys/Carrion Pulse Ox Last 24 Hr 97.9 F 68-94 18-24 114/66 93-99 Exam: Chest with prolonged and incomplete expiration Heart no gallop Abdomen is nontender nondistended; bowel sounds positive 4 Lower extremities with nothing to suggest acute deep venous femoral phlebitis Psychiatric... See above Neurologic unchanged Plan: Continue present treatment. Again, we have asked the patient's and nursing staff to wake the patient several times through the day today. We did tell the patient's that if he wanted to go back to sleep after being awakened, that would be okay. We have asked nursing staff to let us know later on today whether not they feel this patient needs the 5 PM dose of Seroquel. He would need to wake up significantly from what he is now for been able to swallow this. When he awakens, he should certainly be medically stable enough to transfer to either [facility] or [facility]. We will reevaluate this tomorrow. Results - Labs CBC & BMP: 11/24/16 18:00 11/24/16 18:00
[2016-11-26] MEDS: DEXTROSE 5% NACL 0.9% 1,000 ML IV SCH (14:35)
[2016-11-26] MEDS: QUEtiapine 25 MG TABLET PO SCH (17:27)
[2016-11-27] MEDS: ALBUTEROL/IPRATROPIUM 3 ML NEB RESP TX SCH ×4 (01:00→18:51)
[2016-11-27] MEDS: BUDESONIDE/FORMOTEROL 160-4.5 INHALER 6 GM INH SCH ×3 (01:18→21:22)
[2016-11-27] MEDS: DEXTROSE 5% NACL 0.9% 1,000 ML IV SCH ×4 (04:54→19:46)
[2016-11-27] MEDS: ASPIRIN EC 81 MG TABLET PO SCH (09:52)
[2016-11-27] MEDS: MONTELUKAST 10 MG TABLET PO SCH (09:52)
[2016-11-27] MEDS: TAMSULOSIN 0.4 MG CAPSULE PO SCH (09:52)
[2016-11-27] MEDS: MULTIVITAMIN (CENTRUM) TABLET PO SCH (09:53)
[2016-11-27] MEDS: CARVEDILOL 6.25 MG TABLET PO SCH ×2 (09:53→21:18)
[2016-11-27] MEDS: DILTIAZEM 60 MG TABLET PO SCH (09:53)
[2016-11-27] MEDS: THEOPHYLLINE ER (24 HR) 200 MG CAPSULE PO SCH (09:54)
[2016-11-27] MEDS: methylPREDNISolone SOD SUC 40 MG/1 ML VIAL IV SCH ×2 (09:55→21:17)
[2016-11-27] MEDS: acetaZOLAMIDE 250 MG TABLET PO SCH (09:59)
--- NOTE | 2016-11-27 11:19 | Pulmonology Progress Note ---
Pulmonary - PN: Subj Interval history: Vu Kauffman, AGNP-, acting as scribe for Dr. Levon Bishop This 86-year-old white male longtime patient of Dr. Bishop who he admitted on 11/24 with an altered mental status. The patient had had a recent hospitalization. He was under the care of Dr. Faustino Haines and we saw him during that hospital admission. He had done well in the hospital with the subtraction of Zoloft and addition of Zyprexa. We think he was sent home in good condition. His reported she gave him the medicine the proper way and we think he was also seen by home health. We had asked geriatric psych to see him on the day of admission and they did. They said they would be happy to admit him but felt like that he might be medically unstable at that time. Our admit impressions were: 1. Altered mental status with confusion and possible hallucinations and with agitation. 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 Note hospitalization earlier this month under the care of Dr. Faustino Haines with altered mental status, confusion and hallucinations which was thought to possibly be related to Zoloft. 2. September 2016 acute right hip fracture requiring a right hip hemiarthroplasty by Dr. Pereira 3. History of hematuria. Followed by Dr. Delgado. Previously started on Flomax and Avodart 4. COPD with bronchospastic disease 5. Arteriosclerotic heart disease. History of [place] and history of stents. Followed by Dr. Karin Cordoba. 6. Colon polyps 7. Hyperlipidemia 8. Allergic sinusitis 9. History of significant tobacco abuse. 10. History of angiodysplasia of the cecum 11. History of alcohol abuse. Patient said that in the past on multiple occasions she stopped drinking alcohol in October 1984 12. History of recurrent left sacroiliac pain exacerbated by exercise 13. See past history 11/25/2016. This patient took a while to calm down last night. He is presently sound asleep and he is began to sleep either at 1:00 this morning or at 4:00 this morning depending upon version of various participants. I used Ativan as needed and I started him with Seroquel 50 mg. This afternoon I will decrease the Seroquel to 25 mg and hope to give it around 5:00. We can have the option of an extra 25 is needed. I have asked geriatric psych to follow-up with this patient. I told the that his son likely will be able to adjust his medicines exactly here and he may need more time such as a geriatric psych unit. CBC is normal. There is no evidence of infection. Electrolytes are within the normal range. Renal study showed a mild amount of dehydration which is being corrected. Glucoses were normal. Protein albumin and globulins were low secondary to poor oral intake. Thyroid function tests are normal and theophylline level was safely at 6.6 11/26/2016. The patient was seen today along with his . The patient was again sleeping this morning when we walked in the room. Patient's reports that she feels he slept well through the night. We have asked her to wake him up some throughout the day today to see if his improved mental status will hold. Yesterday his Seroquel was decreased and we will continue the current dose of 25 mg to be given at 1700 nightly. This dose can be repeated 2 hours after the 5 PM dose if needed. [facility] and [place] [facility]. Nursing staff report to the patient's does not want [facility] at this time as they only have group therapy. She reportedly prefers individual therapy. 11/27/2016. The patient was seen today along with his and Bravo Meyer RN. Patient was given Seroquel 25 mg at 1700 last night. He slept through the night reportedly. His states that he has been more like his baseline today. He was sleeping when I entered the room, but when we woke him he was alert and oriented. He was pleased that he was able to eat last night and this morning. He states the first time he has been hungry throughout this hospitalization. imaging services director is working on placement for him at discharge. TB skin test was placed. We have asked physical therapy and occupational therapy to evaluate and treat this patient. Mrs. Contreras reports that he has a routine follow-up appointment with Dr. Gaetano Castro next week. She states it is very difficult for her to get him to outpatient appointments. She asked if we could consult Dr. Castro to see him while he was here. This is been done. Medications have been reviewed. We made no changes today. Labs been reviewed. No new labs were drawn today. Microbiology has been reviewed. Blood cultures are negative at day 1. Exam (Progress Note) - Constitutional Vitals: Period Temp Pulse Resp BP Sys/Carrion Pulse Ox Last 24 Hr 96.8 F 70-91 18-20 109-130/61-66 96-98 Exam: Chest with prolonged and incomplete expiration Heart no gallop Abdomen is nontender nondistended; bowel sounds positive 4 Lower extremities with nothing to suggest acute deep venous femoral phlebitis Psychiatric... See above Neurologic unchanged Plan: Continue present treatment. Continue present medications. Physical therapy and Occupational Therapy to evaluate and treat. Follow-up with social media marketing analyst regarding placement at discharge. See orders. Results - Labs CBC & BMP: 11/24/16 18:00 11/24/16 18:00
[2016-11-27] MEDS: FAMOTIDINE 20 MG TABLET PO SCH ×2 (11:49→21:17)
[2016-11-27] MEDS: QUEtiapine 25 MG TABLET PO SCH (11:53)
[2016-11-27] MEDS ORDERED: QUEtiapine 25 MG TABLET PO SCH (17:00)
--- NOTE | 2016-11-27 19:05 | Urology Consultation ---
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 Contreras is a 86 year old male patient who see and see once a year. He is recently had some mental problems and apparently had a psychotic breakdown after not sleeping and. He has BPH [facility] In the [facility] multiple problems apparently is recently started on Seroquel which is helped his mental state. His voiding habits are about the same. I related the to Seroquel can cause urinary retention. He is on a small dose so I recommend we just see how he does. She wants a prescription for his Flomax I will write and [facility] will [facility]. Flomax 0.4 mg, #180, 1 p.o. twice daily, 3 refills. I will make him appointment see me in 1 year and they will see me sooner as needed. CC: Levon Bishop MD - Home Medications and Allergies Home Medications: Home Medications Medication Instructions Recorded Confirmed Type Ranitidine Tab [Zantac Tab] 150 mg PO BID 02/13/15 11/24/16 History Budesonide/Formoterol 160-4.5 2 puff INH BID #1 inhaler 05/16/15 11/24/16 Rx [Symbicort 160-4.5] Albuterol Inhaler [Proventil 2 puff INH Q6HR PRN 08/26/16 11/24/16 History Inhaler] Aspirin [Aspirin EC] 81 mg PO QAM 08/26/16 11/24/16 History Atorvastatin Calcium 20 mg PO BEDTIME 08/26/16 11/24/16 History Carvedilol [Coreg] 6.25 mg PO BID 08/26/16 11/24/16 History Multivit-Min/FA/Lycopen/Lutein 1 each PO DAILY 08/26/16 11/24/16 History [Centrum Silver Tablet] Tamsulosin [Flomax] 0.8 mg PO BEDTIME 08/26/16 11/24/16 History Diltiazem Cd Cap [Cardizem CD] 120 mg PO DAILY capsule 08/28/16 11/24/16 Rx acetaZOLAMIDE TAB [Diamox Tab] 250 mg PO QAM PRN 10/05/16 11/24/16 History Theophylline ER Cap (24 Hr) 200 mg PO Q24H #30 capsule 10/12/16 11/24/16 Rx [Darron-24] Albuterol/Ipratropium Neb [Duoneb] 3 ml RESP TX Q4-6H PRN 11/18/16 11/24/16 History Montelukast Tab [Singulair Tab] 10 mg PO QPM 11/18/16 11/24/16 History predniSONE TAB [PredniSONE] 20 mg PO DAILY 11/18/16 11/24/16 History OLANZapine TAB [ZyPREXA Tab] 5 mg PO BEDTIME #60 tablet 11/22/16 11/24/16 Rx Allergies/Adverse Reactions: Allergies Allergy/AdvReac Type Severity Reaction Status Date / Time ciprofloxacin Allergy Unknown/Unable Verified 10/05/16 20:36 to obtain ezetimibe [From Zetia] Allergy Unknown/Unable Verified 10/05/16 20:36 to obtain simvastatin [From Zocor] Allergy Unknown/Unable Verified 10/05/16 20:36 to obtain Penicillins AdvReac Difficulty Verified 10/05/16 20:36 Breathing Exam - Constitutional Vitals: Period Temp Pulse Resp BP Sys/Carrion Pulse Ox Last 24 Hr 97.8 F-97.9 F 74-90 18-20 98-130/54-70 92-98 Results - Labs CBC & BMP: 11/24/16 18:00 11/24/16 18:00
[2016-11-27] MEDS: ATORVASTATIN 20 MG TABLET PO SCH (21:21)
[2016-11-28] MEDS: ALBUTEROL/IPRATROPIUM 3 ML NEB RESP TX SCH ×5 (00:27→20:43)
[2016-11-28] MEDS: DEXTROSE 5% NACL 0.9% 1,000 ML IV SCH (04:32)
[2016-11-28] MEDS: ALBUTEROL/IPRATROPIUM 3 ML NEB RESP TX PRN ×2 (04:39→22:20)
--- NOTE | 2016-11-28 08:32 | Case Mgmt Physician Query Form ---
TB Signs and Symptoms Screening ([place]) INSTRUCTIONS: To be completed annually on residents/staff with a significant Tuberculin Skin Test (TST) upon admission/hire or a prior significant TST. To be completed on all staff at hire. Please respond to each listed symptom with an (X) in either the "YES" or "NO" box. Do you currently have any of the following symptoms: YES NO ( ) ( ) A cough If yes, is it: ( ) Productive ( ) Non- productive ( ) ( ) Hemoptysis (spitting up blood) ( ) ( ) Chest pains ( ) ( ) Weight Loss ( ) ( ) Fever ( ) ( ) Night Sweats ( ) ( ) Weakness ( ) ( ) Loss of Appetite ( ) ( ) Difficulty Breathing If you answered YES" to any of the above questions, how long have symptoms been present? Comments: TAMIKO
[2016-11-28] MEDS: methylPREDNISolone SOD SUC 40 MG/1 ML VIAL IV SCH ×2 (08:47→22:40)
[2016-11-28] MEDS: MULTIVITAMIN (CENTRUM) TABLET PO SCH (08:49)
[2016-11-28] MEDS: MONTELUKAST 10 MG TABLET PO SCH (08:49)
[2016-11-28] MEDS: TAMSULOSIN 0.4 MG CAPSULE PO SCH (08:50)
[2016-11-28] MEDS: acetaZOLAMIDE 250 MG TABLET PO SCH (08:51)
[2016-11-28] MEDS: DILTIAZEM 60 MG TABLET PO SCH (08:51)
[2016-11-28] MEDS: ASPIRIN EC 81 MG TABLET PO SCH (08:51)
[2016-11-28] MEDS: FAMOTIDINE 20 MG TABLET PO SCH ×2 (08:51→22:42)
[2016-11-28] MEDS: THEOPHYLLINE ER (24 HR) 200 MG CAPSULE PO SCH (08:51)
[2016-11-28] MEDS: BUDESONIDE/FORMOTEROL 160-4.5 INHALER 6 GM INH SCH ×2 (08:52→22:42)
[2016-11-28] MEDS: CARVEDILOL 6.25 MG TABLET PO SCH ×2 (08:52→22:41)
--- NOTE | 2016-11-28 10:12 | XRay Report ---
Exam: XR chest 1V portable Date: 11/28/2016 8:54 AM Indication: COPD Comparison: 11/26/2016 Technical: AP portable Findings: Patchy interstitial infiltrate in the left upper lateral chest and left perihilar region. Heart is normal in size. Oxygen tubing superimposes exam. ASVD is present. No obvious effusions or pneumothorax present. Mediastinum is otherwise intact. Impression: 1. Interval development of interstitial pneumonic infiltrate in the left lateral chest and perihilar region. Superimposed on component of mild COPD with hyperinflation. This could represent possibly represent asymmetric pulmonary edema 2. Old right rib fractures present PROCEDURE INTERPRETED AT [facility] DEPARTMENT OF RADIOLOGY Final Report Signed by: Dr. Levon Garcia
--- NOTE | 2016-11-28 11:04 | Pulmonology Progress Note ---
Pulmonary - PN: Subj Interval history: Vu Kauffman, AGNP-, acting as scribe for Dr. Levon Bishop This 86-year-old white male longtime patient of Dr. Bishop who he admitted on 11/24 with an altered mental status. The patient had had a recent hospitalization. He was under the care of Dr. Faustino Haines and we saw him during that hospital admission. He had done well in the hospital with the subtraction of Zoloft and addition of Zyprexa. We think he was sent home in good condition. His reported she gave him the medicine the proper way and we think he was also seen by home health. We had asked geriatric psych to see him on the day of admission and they did. They said they would be happy to admit him but felt like that he might be medically unstable at that time. Our admit impressions were: 1. Altered mental status with confusion and possible hallucinations and with agitation. 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 Note hospitalization earlier this month under the care of Dr. Faustino Haines with altered mental status, confusion and hallucinations which was thought to possibly be related to Zoloft. 2. September 2016 acute right hip fracture requiring a right hip hemiarthroplasty by Dr. Pereira 3. History of hematuria. Followed by Dr. Delgado. Previously started on Flomax and Avodart 4. COPD with bronchospastic disease 5. Arteriosclerotic heart disease. History of [place] and history of stents. Followed by Dr. Karin Cordoba. 6. Colon polyps 7. Hyperlipidemia 8. Allergic sinusitis 9. History of significant tobacco abuse. 10. History of angiodysplasia of the cecum 11. History of alcohol abuse. Patient said that in the past on multiple occasions she stopped drinking alcohol in October 1984 12. History of recurrent left sacroiliac pain exacerbated by exercise 13. See past history 11/25/2016. This patient took a while to calm down last night. He is presently sound asleep and he is began to sleep either at 1:00 this morning or at 4:00 this morning depending upon version of various participants. I used Ativan as needed and I started him with Seroquel 50 mg. This afternoon I will decrease the Seroquel to 25 mg and hope to give it around 5:00. We can have the option of an extra 25 is needed. I have asked geriatric psych to follow-up with this patient. I told the that his son likely will be able to adjust his medicines exactly here and he may need more time such as a geriatric psych unit. CBC is normal. There is no evidence of infection. Electrolytes are within the normal range. Renal study showed a mild amount of dehydration which is being corrected. Glucoses were normal. Protein albumin and globulins were low secondary to poor oral intake. Thyroid function tests are normal and theophylline level was safely at 6.6 11/26/2016. The patient was seen today along with his . The patient was again sleeping this morning when we walked in the room. Patient's reports that she feels he slept well through the night. We have asked her to wake him up some throughout the day today to see if his improved mental status will hold. Yesterday his Seroquel was decreased and we will continue the current dose of 25 mg to be given at 1700 nightly. This dose can be repeated 2 hours after the 5 PM dose if needed. He has been evaluated by [facility] and [place] mobile unit. Nursing staff report to the [facility] as they only have group therapy. She reportedly prefers individual therapy. 11/27/2016. The patient was seen today along with his and Bravo Meyer RN. Patient was given Seroquel 25 mg at 1700 last night. He slept through the night reportedly. His states that he has been more like his baseline today. He was sleeping when I entered the room, but when we woke him he was alert and oriented. He was pleased that he was able to eat last night and this morning. He states the first time he has been hungry throughout this hospitalization. member services coordinator is working on placement for him at discharge. TB skin test was placed. We have asked physical therapy and occupational therapy to evaluate and treat this patient. Mrs. Contreras reports that he has a routine follow-up appointment with Dr. Gaetano Castro next week. She states it is very difficult for her to get him to outpatient appointments. She asked if we could consult Dr. Castro to see him while he was here. This is been done. 11/28/2016. The patient was seen today along with his , Bravo Meyer RN, and Klaudia Cheng RN. [place] and [facility] have both declined the patient for acceptance to swing bed. Initially, the patient's stated that someone from [place] came yesterday and told her that it would be no problem to accept the patient. We told her that we would call and check on this because that was not with the social services manager have been told. She initially agreed, but later found Ms. Meyer in the roger and asked for us not to call [place] at all. She would not allow the patient to go to geriatric psych because she wanted him to have individual therapy and not group therapy. She will not allow the social services manager to inquire about any other swing meds because she wanted the patient have a private room. We went back in the room a second time and talked with her. She states the patient rehab stay home home health in the patient and she wished to take him home with continued home health. We have explained to the patient and his that it is imperative that he take his medications exactly as prescribed. They both verbalized understanding. From medical standpoint, the patient is doing reasonably well. Mrs. Contreras had the nursing staff call Dr. Bishop at approximately 4 AM this morning regarding wheezing. Note, she refused to allow respiratory therapy to give him his scheduled breathing treatment at 0037. He was given a breathing treatment and the wheezing subsided. Nonetheless, he is back to his baseline. He is breathing very well. He is eating well. He is awake, alert, and oriented. Medications have been reviewed. We made no changes today. Labs been reviewed. No new labs were drawn today. Microbiology has been reviewed. Blood cultures are negative at day 3. Exam (Progress Note) - Constitutional Vitals: Period Temp Pulse Resp BP Sys/Carrion Pulse Ox Last 24 Hr 97.2 F-97.9 F 55-89 18-20 96-113/42-70 84-98 Exam: Chest with prolonged and incomplete expiration; no wheeze Heart no gallop Abdomen is nontender and nondistended; bowel sounds positive 4 Lower extremities with nothing to suggest acute deep venous femoral phlebitis Psychiatric presently oriented 3 Neurologic unchanged Plan: The patient is now medically stable for discharge. He has met maximum hospital benefit. He has been declined from at least to swing beds. His will not allow him to get a geriatric psych. They prefer to go home with continued home health. This has been arranged. He will be discharged home today. Please see the discharge summary dated 11/28/2016 for more information. Results - Labs CBC & BMP: 11/24/16 18:00 11/24/16 18:00 Specialty Discharge - Follow Up or Referrals Follow up with: Gaetano Castro MD [Physician] - 11/30/17 12:45 pm (1 year )
--- NOTE | 2016-11-28 11:14 | Discharge Summary ---
Hospital Course - Hospital Course Hospital Course: Vu Kauffman, [facility], acting as scribe for Dr. Levon Bishop Mr. Contreras is an 86-year-old white male long-term patient of Dr. Bishop. He was recently in the hospital under the care of the hospitalist secondary to an acute altered mental status. It was felt this might be secondary to Zoloft. The Zoloft was discontinued and he was started on Zyprexa. The day of this admission, the patient's called and said her "has just lost it". He was confused. He was not sleeping. He was up talking all night long. He would not keep his oxygen on. He was combative. She stated she could not keep him at home any longer. She inquired about possibly sending [facility] to [facility]. He was evaluated by Koko Berumen from geriatric psych. Mr. Berumen noted that the patient was a good candidate for geriatric psych, but he was unsure if the patient was medically stable since Mr. Contreras was not eating or drinking at the time of his evaluation. It was felt in the patient's best interest to hospitalize him for further evaluation care and continued medical improvement. At admission, the patient was started on Seroquel and Ativan. Ativan was used as needed only. He only required this 1 night. He eventually slept well, when he would wake he was more back to his baseline mentation. He has tolerated the Seroquel well and this will be continued on discharge. Note, at discharge the patient's stated that he was having a few more hallucinations early this morning. This information, we will increase his Seroquel to 50 mg to be given daily at 1700. Social work was consulted at admission. They were diligently to try to get the patient placed at discharge. Mrs. Contreras, however, refused transfer to geriatric psych. She stated that she wanted the patient have individual therapy and not group therapy. She refused [facility]. The patient was declined for acceptance to swing bed at [facility]. The patient's did not want the director social service to inquire about any other swing beds. Ultimately, the patient's requested to take him back home with home health. He was already being followed by [facility] home health and this will be continued. The patient's asked for consult with Dr. Gaetano Castro while he was inpatient. The patient has been followed by Dr. Castro on a long-term basis for BPH. She stated the patient was scheduled for an outpatient point with Dr. Castro next week, but it was difficult for her to get Mr. Contreras to outpatient appointments. Dr. Castro came and saw Mr. Contreras, but no changes were made in his medications. He will continue Flomax 0.4 mg twice a day[address] Dr. Castro has written the patient prescription to take that the MI. Blood cultures are negative at day 3. At discharge, white count is 8900 with 79.0% segs, 6.6% lymphs, and 6.2% monos; H&H 14.5/44.9 with normal indices and top normal red blood cell distribution with; platelet count 136,000; creatinine 1.00, BUN 36, sodium 147, potassium 4.0 ; liver function tests within normal limits; calcium 9.1, albumin 3.2, total protein 5.4; TSH and free T4 were normal at 1.110 and 1.11 respectively; theophylline level 6.6 For more information regarding Mr. Contreras's past medical history, social history, past procedures, admit labs, admit x-ray and admit exam, please see the admission note dated 11/24/2016. Impression: 1. Altered mental status with confusion, hallucinations and agitation. 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 Note hospitalization earlier this month under the care of Dr. Faustino Haines with altered mental status, confusion and hallucinations which was thought to possibly be related to Zoloft. Better with the addition of Seroquel. 2. September 2016 acute right hip fracture requiring a right hip hemiarthroplasty by Dr. Pereira 3. History of hematuria and BPH. Followed by Dr. Castro. 4. COPD with bronchospastic disease 5. Arteriosclerotic heart disease. History of PA and history of stents. Followed by Dr. Karin Prather. 6. Colon polyps 7. Hyperlipidemia 8. Allergic sinusitis 9. History of significant tobacco abuse. 10. History of angiodysplasia of the cecum 11. History of alcohol abuse. Patient said that in the past on multiple occasions she stopped drinking alcohol in October 1984 12. History of recurrent left sacroiliac pain exacerbated by exercise 13. See past history Plan: Diamox 250 mg daily, duo nebs every 4-6 hours as needed, enteric-coated baby aspirin 81 mg daily, Lipitor 20 mg at bedtime, Symbicort 160/4.52 puffs twice daily, Coreg 6.25 mg twice daily, Cardizem 120 mg daily, Zantac 150 mg twice daily, multivitamin daily, Singulair 10 mg daily, Seroquel 50 mg to be given at 1700 daily, Flomax 0.4 mg twice daily, theophylline 200 mg daily, albuterol inhaler 2 puffs every 6 hours as needed, and prednisone 20 mg daily. He can keep his previously scheduled follow-up appointment with Dr. Bishop. He can be seen sooner if needed. He will continue home care with [facility] home health. Specialty Discharge - Follow Up or Referrals Follow up with: Gaetano Castro MD [Physician] - 11/30/17 12:45 pm (1 year ) Levon Bishop MD [Physician] - (Keep already scheduled appointment) Discharge Plan - Discharge Data Disposition: Home Health Service - Discharge Medications New Quetiapine Fumarate [Quetiapine Fumarate ER] 50 mg PO DAILY@1700 #30 tab.er.24h Continue Ranitidine Tab [Zantac Tab] 150 mg PO BID Budesonide/Formoterol 160-4.5 [Symbicort 160-4.5] 2 puff INH BID #1 inhaler Atorvastatin Calcium 20 mg PO BEDTIME Aspirin [Aspirin EC] 81 mg PO QAM Albuterol Inhaler [Proventil Inhaler] 2 puff INH Q6HR PRN PRN Reason: Shortness Of Breath acetaZOLAMIDE TAB [Diamox Tab] 250 mg PO QAM PRN PRN Reason: edema in feet Theophylline ER Cap (24 Hr) [Darron-24] 200 mg PO Q24H #30 capsule Albuterol/Ipratropium Neb [Duoneb] 3 ml RESP TX Q4-6H PRN PRN Reason: Shortness Of Breath predniSONE TAB [PredniSONE] 20 mg PO DAILY Montelukast Tab [Singulair Tab] 10 mg PO QPM Carvedilol [Coreg] 6.25 mg PO BID Multivit-Min/FA/Lycopen/Lutein [Centrum Silver Tablet] 1 each PO DAILY Tamsulosin [Flomax] 0.8 mg PO BEDTIME Diltiazem Cd Cap [Cardizem CD] 120 mg PO DAILY capsule Discontinued OLANZapine TAB [ZyPREXA Tab] 5 mg PO BEDTIME #60 tablet - Follow Up or Referral Follow Up: Gaetano Castro MD [Physician] - 11/30/17 12:45 pm (1 year ) - Forms/Instructions Instructions: Chronic Kidney Disease (DC), Renal Failure Diet (DC) Exam - Constitutional Vitals: Period Temp Pulse Resp BP Sys/Carrion Pulse Ox Last 24 Hr 97.2 F-97.9 F 55-89 18-20 96-113/42-70 84-98 Discharge Results Procedures and tests throughout hospitalization: Pending Orders 11/24/16 18:00 Blood Culture Routine Labs on day of discharge: Preliminary micro results at discharge 11/24/16 18:00 Blood Culture - Preliminary Blood No growth at 3 days 11/24/16 18:00 Blood Culture - Preliminary Blood No growth at 3 days DS: Provider Date of admission: 11/24/16 17:22 Primary care physician: . No PCP Attending physician on admission: Levon Bishop MD Consults: 11/25/16 09:31 Consult to Case Mgmt/Social Srvs [CONS] Routine Reason for Case Mgmt/Social Srvs: Psychiatric Management Consult Comment: OBEY CHANG CONSULT 11/27/16 11:13 Consult to Occupational Therapy [CONS] Routine Reason for Occupational Therapy: Evaluate and Treat Consult to Physical Therapy [CONS] Routine Reason for Physical Therapy: Evaluate and Treat 11/27/16 11:15 Consult to Physician [CONS] Routine Comment: 's req; has appt with you next week Consulting Provider: Gaetano Castro Person Notified: ori Date Notified: 11/27/16 Time Notified: 12:36 Discharging clinician: REVA Sorenson
--- NOTE | 2016-11-28 11:45 | Event Note ---
Vu Kauffman, [facility], acting as scribe for Dr. Levon Bishop The patient has had more wheezing. Chest x-ray was obtained and shows an acute left upper lung/perihilar infiltrate compatible with pneumonia. Discharge has been discontinued. He has been started on IV antibiotics. Will check sputum for Gram stain, culture and sensitivity. Daily labs. Repeat chest x-ray in the morning and on Thursday. See orders.
[2016-11-28] MEDS: CLINDAMYCIN INJ 300 MG in PREMIX 1 EACH IV SCH ×2 (12:12→22:40)
[2016-11-28 13:15] LABS: Basophils % 0.2 % (0.0-0.8); Hematocrit 47.9 VOL% (42.0-52.0); Hemoglobin 15.6 GM/DL (14.0-18.0); Immature Granulocytes % 1.8 %; Immature Granulocytes Absolute 0.18 #; Lymphocytes # 0.4 10*3/uL (1.4-4.0); Lymphocytes % 4.3 % (21.2-54.2); Mean Corpuscular HGB Conc 32.6 GM/DL (32-36); Mean Corpuscular Hemoglobin 32 PG (27-34); Mean Platelet Volume 10.8 FL (9.6-12.0); Monocytes # 0.8 10*3/uL (0.11-0.8); Monocytes % 7.6 % (1.7-12.7); NRBC # 0.03 10*3/uL; Neutrophils # 8.5 10*3/uL (1.4-7.4); Neutrophils % 86.1 % (38.7-73.9); Platelet Count 132 T/CUMM (130-400); Red Blood Count 4.94 MC/CUMM (3.8-5.5); Red Cell Distribution Width 15.4 % (9.3-17.3); White Blood Count 9.8 T/CUMM (4-12)
[2016-11-28 13:49] LABS: Calcium 8.9 MG/DL (8.5-10.1); Magnesium 2.1 MG/DL (1.8-2.4); Osmolality,Calculated 301.4 MOS/KG (273-304); Potassium 4.9 MMOL/L (3.5-5.1)
[2016-11-28 14:10] LABS: Lymphocytes 9 % (20-55); Nucleated Red Blood Cells 1 (0-5); Segmented Neutrophils 90 % (50-85); Total Cells Counted 100
[2016-11-28 14:11] LABS: Platelet Estimate Adequate
[2016-11-28] MEDS: MEROPENEM 500 MG in SODIUM CHLORIDE 0.9% 100 ML IV SCH ×2 (14:35→22:50)
[2016-11-28 14:45] LABS: ABG Base Excess -1.1 MMOL/L (-2.5-2.5); ABG HCO3 23.4 MMOL/L (20-26); ABG Oxygen Saturation 94.2 % (95-100); ABG PCO2 40.5 MM HG (35-48); ABG PH 7.379 (7.35-7.45); ABG PO2 66.7 MM HG (80-95); ABG TCO2 20.3 MMOL/L (23-27); Allen Test Positive
--- NOTE | 2016-11-28 15:01 | Ultrasound Report ---
Exam: US venous doppler LE BI Indication: Shortness of breath Date: 11/28/2016 1:44 PM Comparison 10/07/2016. Findings: Grayscale color flow duplex/Doppler imaging and spectral analysis waveform imaging was performed with real-time ultrasound with image stored and captured. The right common femoral, superficial femoral, popliteal saphenous veins are patent with normal augmentation and compression. There is no evidence of popliteal or Luo's cyst. Normal wave form analysis present. Normal color flow The left common femoral, superficial femoral, popliteal saphenous veins are patent with normal augmentation and compression. There is no evidence of popliteal or Luo's cyst. Normal wave form analysis present. Normal color flow Impression: 1. No DVT PROCEDURE INTERPRETED AT [facility] DEPARTMENT OF RADIOLOGY Final Report Signed by: Dr. Levon Garcia
--- NOTE | 2016-11-28 15:10 | XRay Report ---
Exam: XR chest 1V portable Date: 11/28/2016 2:37 PM Indication: Shortness of breath Comparison: 11/28/2016 Technical: AP portable Findings: Worsening consolidating infiltrate in the left chest. There is a suggestion of a component of cavitary component or pneumatocele bleb present measuring approximately 4.6 cm in the left chest. Underlying COPD with hyperinflation is present. Heart is normal in size. ASVD is present. External cardiac leads are present. No pneumothorax. Impression: 1. Worsening pneumonic infiltrate in the left upper lateral chest with suggestion of possible cavitary component or pneumatocele or bleb present. 2. Underlying component of COPD. PROCEDURE INTERPRETED AT [facility] DEPARTMENT OF RADIOLOGY Final Report Signed by: Dr. Levon Garcia
[2016-11-28] MEDS ORDERED: BENZOCAINE/BUTAMBEN/TETRACAINE SPRAY 20 GM CAN TOP ONE (15:40)
--- NOTE | 2016-11-28 16:01 | Event Note ---
End in hospital diagnostic and therapeutic fiberoptic bronchoscopy. Bilateral lavages from all 5 segments were sent for bacterial cultures, Gram stain, fungal stains and cultures. This is a 86-year-old white male who developed acute left upper lung pneumonia. Aspiration was suspected as she had an altered mental status. He experienced increased shortness of breath. He was unable to mobilize his sputum. He has severe underlying COPD and chronic hypoxemia and a tendency towards hypercarbia. For these reasons he was evaluated with fiberoptic bronchoscopy. Patient had practically no gag reflexes vocal cords were normal trachea was partially collapsible secondary to COPD. Tanya was sharp. The left mainstem bronchus contained a moderate amount of thick tenacious clear secretions that extended into the left upper lung and the left lower lung. Both of these areas were lavaged. I saw no gastric contents. There were no areas of erosive friable bronchitis. The large and small airways had a moderate to severe amount of collapsibility compatible with the patient's known COPD. I saw no endobronchial lesions to suggest cancer. The left mainstem bronchus contained thick tenacious secretions that were mainly white with attentive yellow. These extended into the right upper lung right middle lung and right lower lung. These areas were lavaged until clear. There were no endobronchial lesions to suggest cancer. I saw no gastric contents and I saw none of the usual erosive friable bronchitis that is seen with that condition. Follow-up chest x-rays pending The patient tolerated procedure well there were no complications. I plan to discuss the findings with his family in a few minutes. Impression. 1. Acute left upper lung pneumonia. 2. Ineffective cough 3. Retained secretions 4. Severe underlying COPD with collapsible airways 5. Suspected acute aspiration not for. Plan. 1. Follow-up chest x-ray 2. Check bronchoscopy result
--- NOTE | 2016-11-28 16:06 | Pulmonology Progress Note ---
Pulmonary - PN: Subj Interval history: This patient was seen earlier today his chest x-ray came back showing acute left upper lung pneumonia. He experienced some increased difficulty breathing and he was subsequently moved to intensive care unit. His evaluation included fiberoptic bronchoscopy. I suspected aspiration but this was not found he has underlying COPD with collapsible large and small airways. He had a good bit of retained secretions these were removed and sent to the lab for bacterial and fungal studies. Patient tolerated procedure well he was better afterwards. Exam (Progress Note) - Constitutional Vitals: Period Temp Pulse Resp BP Sys/Carrion Pulse Ox Last 24 Hr 97.2 F-100.1 F 55-132 18-30 96-158/42-96 84-98 Results - Labs CBC & BMP: 11/28/16 12:39 11/28/16 12:39 Specialty Discharge - Follow Up or Referrals Follow up with: Gaetano Castro MD [Physician] - 11/30/17 12:45 pm (1 year ) Levon Bishop MD [Physician] - (Keep already scheduled appointment)
[2016-11-28] MEDS: QUEtiapine 25 MG TABLET PO SCH (17:50)
[2016-11-28] MEDS: ATORVASTATIN 20 MG TABLET PO SCH (22:41)
[2016-11-29] MEDS: ALBUTEROL/IPRATROPIUM 3 ML NEB RESP TX SCH ×4 (00:32→20:01)
[2016-11-29] MEDS: CLINDAMYCIN INJ 300 MG in PREMIX 1 EACH IV SCH ×4 (02:41→18:15)
[2016-11-29 04:47] LABS: Basophils # 0.1 10*3/uL (0.0-0.2); Basophils % 0.5 % (0.0-0.8); Hematocrit 45.7 VOL% (42.0-52.0); Hemoglobin 14.7 GM/DL (14.0-18.0); Immature Granulocytes % 1.6 %; Lymphocytes # 0.6 10*3/uL (1.4-4.0); Lymphocytes % 4.4 % (21.2-54.2); Mean Corpuscular HGB Conc 32.2 GM/DL (32-36); Mean Corpuscular Hemoglobin 31 PG (27-34); Mean Corpuscular Volume 97.2 FL (87-102); Mean Platelet Volume 11.4 FL (9.6-12.0); Monocytes # 0.5 10*3/uL (0.11-0.8); NRBC # 0.07 10*3/uL; Neutrophils # 11.3 10*3/uL (1.4-7.4); Neutrophils % 89.5 % (38.7-73.9); Platelet Count 128 T/CUMM (130-400); White Blood Count 12.6 T/CUMM (4-12)
[2016-11-29 05:29] LABS: Magnesium 2.3 MG/DL (1.8-2.4); Osmolality,Calculated 307.1 MOS/KG (273-304); Potassium 4.3 MMOL/L (3.5-5.1)
[2016-11-29 05:56] LABS: Band Neutrophils 13 % (0-10); Lymphocytes 9 % (20-55); Metamyelocytes 3 %; Nucleated Red Blood Cells 2 (0-5); Segmented Neutrophils 71 % (50-85); Total Cells Counted 100
[2016-11-29 05:57] LABS: Microcytosis 1+
[2016-11-29 06:10] LABS: Allen Test Positive; Pt O2 Delivery Device Venturi Mask
[2016-11-29 06:11] LABS: ABG Base Excess -0.8 MMOL/L (-2.5-2.5); ABG HCO3 24.3 MMOL/L (20-26); ABG Oxygen Saturation 95.2 % (95-100); ABG PCO2 42.2 MM HG (35-48); ABG PH 7.379 (7.35-7.45); ABG PO2 72.5 MM HG (80-95); ABG TCO2 25.6 MMOL/L (23-27)
--- NOTE | 2016-11-29 06:13 | Pulmonology Progress Note ---
Pulmonary - PN: Subj Interval history: This 86-year-old white male has severe COPD. He has dementia. He has pneumonia in his left midlung field. Started on antibiotics yesterday. He was bronchoscoped by Dr. Eddy yesterday. Cultures are pending. On broad-spectrum antibiotics. O2 sats are around 88-89% on 50% Ventimask. Patient not retaining. Has a poor cough. Exam (Progress Note) - Constitutional Vitals: Period Temp Pulse Resp BP Sys/Carrion Pulse Ox Last 24 Hr 97.5 F-100.1 F 60-132 15-37 83-158/40-96 84-95 Exam: He is responsive but confused. Vital signs normal. Pupils react to light. Throat clear. Neck supple no bruits. Chest reveals some rales in the left lung. Few scattered rhonchi. Heart normal rate rhythm no murmurs. Abdomen soft nontender no masses. Extremities no clubbing cyanosis or edema. Calves nontender Results - Labs CBC & BMP: 11/29/16 03:37 11/29/16 03:37 Lab Results: I have reviewed the past 24 hour labs - Diagnostic Findings Procedure: Chest x-ray: image reviewed by me (Peripheral lobar infiltrate left upper lobe. No change from yesterday's film.) Assessment and Plan (1) Left upper lobe pneumonia Status: Acute Assessment and plan: Continuing empiric antibiotic. Chest x-ray stable. Getting Cleocin and Merrem. Also on Solu-Medrol Current Visit: Yes (2) COPD (chronic obstructive pulmonary disease) Status: Chronic Assessment and plan: Continuing bronchodilators. Patient has poor cough. Consider BiPAP. Current Visit: No Qualifiers: COPD type: emphysema (3) Altered mental status Status: Acute Assessment and plan: Patient apparently has dementia. He is talking but not making a lot of sense. This is about his baseline as I understand it. Current Visit: No Qualifiers: Altered mental status type: delirium Qualified Code(s): R41.0 - Disorientation, unspecified Specialty Discharge - Follow Up or Referrals Follow up with: Gaetano Castro MD [Physician] - 11/30/17 12:45 pm (1 year ) Levon Bishop MD [Physician] - (Keep already scheduled appointment)
[2016-11-29] MEDS: MEROPENEM 500 MG in SODIUM CHLORIDE 0.9% 100 ML IV SCH ×3 (06:21→20:32)
[2016-11-29] MEDS: DILTIAZEM 60 MG TABLET PO SCH (08:27)
[2016-11-29] MEDS: methylPREDNISolone SOD SUC 40 MG/1 ML VIAL IV SCH ×2 (08:27→20:32)
[2016-11-29] MEDS: ASPIRIN EC 81 MG TABLET PO SCH (08:27)
[2016-11-29] MEDS: CARVEDILOL 6.25 MG TABLET PO SCH ×2 (08:28→21:18)
[2016-11-29] MEDS: MULTIVITAMIN (CENTRUM) TABLET PO SCH (08:28)
[2016-11-29] MEDS: THEOPHYLLINE ER (24 HR) 200 MG CAPSULE PO SCH (08:28)
[2016-11-29] MEDS: MONTELUKAST 10 MG TABLET PO SCH (08:28)
[2016-11-29] MEDS: acetaZOLAMIDE 250 MG TABLET PO SCH (08:28)
[2016-11-29] MEDS: TAMSULOSIN 0.4 MG CAPSULE PO SCH (08:28)
[2016-11-29] MEDS: FAMOTIDINE 20 MG TABLET PO SCH ×2 (08:29→21:44)
[2016-11-29] MEDS: BUDESONIDE/FORMOTEROL 160-4.5 INHALER 6 GM INH SCH ×2 (08:30→21:44)
--- NOTE | 2016-11-29 08:52 | XRay Report ---
XR chest 1V portable Indication: COPD. Pneumonia. Chest one view: Since yesterday, infiltrate left lateral midlung has increased in size. Right lung remains generally clear. Heart size remains normal. Impression: Worsening left lateral midlung pneumonia. PROCEDURE INTERPRETED AT [facility] DEPARTMENT OF RADIOLOGY Final Report Signed by: Estevan Fang M.D.
[2016-11-29] MEDS: QUEtiapine 25 MG TABLET PO SCH ×2 (18:57→21:47)
[2016-11-29] MEDS: ATORVASTATIN 20 MG TABLET PO SCH (21:44)
[2016-11-30] MEDS: CLINDAMYCIN INJ 300 MG in PREMIX 1 EACH IV SCH ×5 (00:12→23:15)
[2016-11-30] MEDS: ALBUTEROL/IPRATROPIUM 3 ML NEB RESP TX SCH ×5 (01:10→23:13)
[2016-11-30] MEDS: BUDESONIDE/FORMOTEROL 160-4.5 INHALER 6 GM INH SCH ×3 (02:17→20:50)
[2016-11-30] MEDS: MEROPENEM 500 MG in SODIUM CHLORIDE 0.9% 100 ML IV SCH ×3 (04:17→20:50)
[2016-11-30 05:22] LABS: Basophils # 0.1 10*3/uL (0.0-0.2); Basophils % 0.9 % (0.0-0.8); Immature Granulocytes % 6.6 %; Immature Granulocytes Absolute 0.77 #; Lymphocytes # 0.3 10*3/uL (1.4-4.0); Lymphocytes % 2.7 % (21.2-54.2); Mean Corpuscular HGB Conc 32.3 GM/DL (32-36); Mean Corpuscular Hemoglobin 31 PG (27-34); Mean Corpuscular Volume 96.3 FL (87-102); Mean Platelet Volume 11.6 FL (9.6-12.0); Monocytes # 0.5 10*3/uL (0.11-0.8); Monocytes % 4.4 % (1.7-12.7); NRBC # 0.06 10*3/uL; Neutrophils % 85.4 % (38.7-73.9); Platelet Count 116 T/CUMM (130-400); Red Blood Count 4.05 MC/CUMM (3.8-5.5); White Blood Count 11.7 T/CUMM (4-12)
[2016-11-30 05:24] LABS: Hemoglobin 12.6 GM/DL (14.0-18.0)
[2016-11-30 05:30] LABS: Calcium 8.5 MG/DL (8.5-10.1); Magnesium 2.3 MG/DL (1.8-2.4); Osmolality,Calculated 309.1 MOS/KG (273-304); Potassium 3.4 MMOL/L (3.5-5.1)
[2016-11-30 05:48] LABS: Anisocytosis Slight; Band Neutrophils 3 % (0-10); Lymphocytes 3 % (20-55); Macrocytosis Slight; Platelet Estimate Decreased; Segmented Neutrophils 91 % (50-85); Total Cells Counted 100
--- NOTE | 2016-11-30 06:53 | Pulmonology Progress Note ---
Pulmonary - PN: Subj Interval history: This 86-year-old white male has severe COPD. He has dementia. He has pneumonia in his left midlung field. Started on antibiotics yesterday. He was bronchoscoped by Dr. Bishop yesterday. Cultures are pending. On broad-spectrum antibiotics. O2 sats are around 88-89% on 50% Ventimask. Patient not retaining. Has a poor cough. 11/30/2016 patient with dementia and severe COPD. Left pneumonia. Hard to keep his facemask oxygen on. Will try him on 4 L nasal biprong's so hopefully that will stay in place. Really just looking for an O2 sat of around 88%. Exam (Progress Note) - Constitutional Vitals: Period Temp Pulse Resp BP Sys/Carrion Pulse Ox Last 24 Hr 97.6 F-98 F 70-92 14-27 83-135/40-75 87-97 Exam: He is responsive but confused. Vital signs normal. Pupils react to light. Throat clear. Neck supple no bruits. Chest reveals some rales in the left lung. Few scattered rhonchi. Heart normal rate rhythm no murmurs. Abdomen soft nontender no masses. Extremities no clubbing cyanosis or edema. Calves nontender. Little change from yesterday. Results - Labs CBC & BMP: 11/30/16 04:04 11/30/16 04:04 Lab Results: I have reviewed the past 24 hour labs - Diagnostic Findings Procedure: Chest x-ray: image reviewed by me (Left mid lung pneumonia unchanged from yesterday.) Assessment and Plan (1) Left upper lobe pneumonia Status: Acute Assessment and plan: Continuing empiric antibiotic. Chest x-ray stable. Getting Cleocin and Merrem. Also on Solu-Medrol 11/30/2016 continuing broad-spectrum antibiotics. Current Visit: Yes (2) COPD (chronic obstructive pulmonary disease) Status: Chronic Assessment and plan: Continuing bronchodilators. Patient has poor cough. Consider BiPAP. 11/30/2016 continuing bronchodilators. Current Visit: No Qualifiers: COPD type: emphysema (3) Altered mental status Status: Acute Assessment and plan: Patient apparently has dementia. He is talking but not making a lot of sense. This is about his baseline as I understand it. 11/30/16 patient remains confused but arousable. Current Visit: No Qualifiers: Altered mental status type: delirium Qualified Code(s): R41.0 - Disorientation, unspecified Specialty Discharge - Follow Up or Referrals Follow up with: Gaetano Castro MD [Physician] - 11/30/17 12:45 pm (1 year ) Levon Bishop MD [Physician] - (Keep already scheduled appointment)
[2016-11-30] MEDS: DILTIAZEM 60 MG TABLET PO SCH (09:08)
[2016-11-30] MEDS: methylPREDNISolone SOD SUC 40 MG/1 ML VIAL IV SCH ×2 (09:08→20:49)
[2016-11-30] MEDS: ASPIRIN EC 81 MG TABLET PO SCH (09:08)
[2016-11-30] MEDS: FAMOTIDINE 20 MG TABLET PO SCH ×2 (09:09→20:49)
[2016-11-30] MEDS: CARVEDILOL 6.25 MG TABLET PO SCH ×2 (09:09→20:50)
[2016-11-30] MEDS: MULTIVITAMIN (CENTRUM) TABLET PO SCH (09:09)
[2016-11-30] MEDS: acetaZOLAMIDE 250 MG TABLET PO SCH (09:09)
[2016-11-30] MEDS: TAMSULOSIN 0.4 MG CAPSULE PO SCH (09:09)
[2016-11-30] MEDS: THEOPHYLLINE ER (24 HR) 200 MG CAPSULE PO SCH (09:10)
[2016-11-30] MEDS: MONTELUKAST 10 MG TABLET PO SCH (09:10)
--- NOTE | 2016-11-30 10:22 | XRay Report ---
Portable chest Date: 11/30/2016 Clinical history: Pneumonia, COPD Comparison: 11/29/2016 Technique: Portable AP sitting chest Findings: The heart is normal in size. Minimally progressive diffuse infiltration in the left midlung zone with associated atelectasis. Stable mediastinum and osseous structures. Impression: Minimally progressive pneumonia in the left midlung zone with associated atelectasis. Underlying COPD. Follow-up chest x-ray recommended. PROCEDURE INTERPRETED AT [facility] DEPARTMENT OF RADIOLOGY Final Report Signed by: Dr. Aimee Huggins
[2016-11-30] MEDS: QUEtiapine 25 MG TABLET PO SCH (16:44)
[2016-11-30] MEDS: ATORVASTATIN 20 MG TABLET PO SCH (20:49)
[2016-11-30] MEDS: LORazepam 1 MG TABLET PO PRN (20:49)
[2016-12-01] MEDS: MEROPENEM 500 MG in SODIUM CHLORIDE 0.9% 100 ML IV SCH ×3 (05:10→20:42)
[2016-12-01 05:20] LABS: Basophils # 0.1 10*3/uL (0.0-0.2); Basophils % 0.5 % (0.0-0.8); Hematocrit 39.6 VOL% (42.0-52.0); Hemoglobin 12.8 GM/DL (14.0-18.0); Immature Granulocytes % 7.3 %; Immature Granulocytes Absolute 0.75 #; Lymphocytes # 0.2 10*3/uL (1.4-4.0); Lymphocytes % 1.9 % (21.2-54.2); Mean Corpuscular HGB Conc 32.3 GM/DL (32-36); Mean Corpuscular Hemoglobin 31 PG (27-34); Mean Corpuscular Volume 95.7 FL (87-102); Mean Platelet Volume 11.5 FL (9.6-12.0); Monocytes # 0.4 10*3/uL (0.11-0.8); Monocytes % 4.2 % (1.7-12.7); NRBC # 0.16 10*3/uL; Neutrophils # 8.9 10*3/uL (1.4-7.4); Neutrophils % 86.1 % (38.7-73.9); Platelet Count 141 T/CUMM (130-400); Red Blood Count 4.14 MC/CUMM (3.8-5.5); Red Cell Distribution Width 15.9 % (9.3-17.3); White Blood Count 10.3 T/CUMM (4-12)
[2016-12-01 05:56] LABS: Calcium 8.7 MG/DL (8.5-10.1); Magnesium 2.2 MG/DL (1.8-2.4); Osmolality,Calculated 309.1 MOS/KG (273-304); Potassium 3.6 MMOL/L (3.5-5.1)
[2016-12-01 06:14] LABS: Band Neutrophils 21 % (0-10); Lymphocytes 3 % (20-55); Platelet Estimate Decreased; Polychromasia Slight; Segmented Neutrophils 72 % (50-85); Target Cells Slight; Total Cells Counted 100
[2016-12-01] MEDS: CLINDAMYCIN INJ 300 MG in PREMIX 1 EACH IV SCH ×4 (06:15→23:23)
[2016-12-01] MEDS: ALBUTEROL/IPRATROPIUM 3 ML NEB RESP TX SCH ×3 (07:07→19:32)
--- NOTE | 2016-12-01 08:10 | XRay Report ---
History: COPD, pneumonia Date: 12/01/2016 Study: Chest x-ray AP portable Comparison exam: 11/30/2016. The cardiac silhouette is not enlarged. The mediastinal contours are stable. The pulmonary vasculature is not grossly engorged. There is continued patchy and hazy pneumonia in the left midlung, grossly similar. The right lung is clear aside from some minimal subsegmental atelectasis in the right lung base. There is no pneumothorax. Osseous structures are unchanged. Impression: Continued left lung pneumonia without gross overall change PROCEDURE INTERPRETED AT [facility] DEPARTMENT OF RADIOLOGY Final Report Signed by: Dr. Vicki Sánchez
[2016-12-01 09:40] LABS: Allen Test Positive
[2016-12-01 09:41] LABS: ABG Base Excess 2.2 MMOL/L (-2.5-2.5); ABG HCO3 26.2 MMOL/L (20-26); ABG Oxygen Saturation 91.8 % (95-100); ABG PCO2 48.8 MM HG (35-48); ABG PH 7.371 (7.35-7.45); ABG PO2 59.5 MM HG (80-95)
[2016-12-01] MEDS: BUDESONIDE/FORMOTEROL 160-4.5 INHALER 6 GM INH SCH ×2 (09:48→21:15)
[2016-12-01] MEDS: DILTIAZEM 60 MG TABLET PO SCH (09:48)
[2016-12-01] MEDS: methylPREDNISolone SOD SUC 40 MG/1 ML VIAL IV SCH ×2 (09:48→20:41)
[2016-12-01] MEDS: TAMSULOSIN 0.4 MG CAPSULE PO SCH (09:49)
[2016-12-01] MEDS: MONTELUKAST 10 MG TABLET PO SCH (09:49)
[2016-12-01] MEDS: THEOPHYLLINE ER (24 HR) 200 MG CAPSULE PO SCH (09:49)
[2016-12-01] MEDS: CARVEDILOL 6.25 MG TABLET PO SCH ×2 (09:49→20:42)
[2016-12-01] MEDS: acetaZOLAMIDE 250 MG TABLET PO SCH (09:49)
[2016-12-01] MEDS: FAMOTIDINE 20 MG TABLET PO SCH ×2 (09:49→20:42)
[2016-12-01] MEDS: ASPIRIN EC 81 MG TABLET PO SCH (09:49)
[2016-12-01] MEDS: MULTIVITAMIN (CENTRUM) TABLET PO SCH (09:49)
[2016-12-01] MEDS ORDERED: QUEtiapine 25 MG TABLET PO SCH (10:18)
--- NOTE | 2016-12-01 10:31 | Pulmonology Progress Note ---
Pulmonary - PN: Subj Interval history: This 86-year-old white male who is admitted with altered mental status. He improved with Seroquel. There were several problems during his hospitalization which all improved. Patient was seen by multiple halfway swing bed but every by a decline to take him. His is very difficult to deal with is impossible to satisfy. Patient's son has apologize for this process there is nothing that he can do about it. On 11/28/2016 we were preparing to discharge the patient. Had a little bit of a cough and a follow-up chest x-ray was done he had a dense left upper lung infiltrate. He is chronic hypoxemia worsened. I moved him to intensive care unit for safety. While he was there on 11/28/2016 evaluated with fiberoptic bronchoscopy. I was suspicious that he may have aspirated. This did not glove turner and former automatic to be the case. His bronchioloalveolar lavage is growing Serratia Fauzia hands. Patient's on the correct antibiotic for this and I am going to leave him on Cleocin in case we are dealing with gram -positive cocci such as staph and strep. This morning the patient's a little oversedated. I am cutting back his Seroquel to 25 mg at 5 PM with the option to give another 25 if needed. ABGs on FiO2 44% shows a pH 7.37. PCO2 of 48.8. PO2 59.5 and a bicarb of 26.4. Lab. Electrolytes are normal. Creatinine is 0.80 with a BUN 41. White count is 10,386 segs. H&H is 12.8 or 39.6 and platelets are 141,000. Lab reviewed. Medicines. Reviewed Physical exam. Vital signs. See below Psychiatric. Arousable can talk. A little groggy. Neurologic. Cranial nerves are intact with marked bilateral decreased hearing acuity. Patient moves all 4 extremities. Face. Symmetrical. Lips and tongue are not swollen. Neck. Symmetrical kyphotic with no meningismus and no masses. Chest. Hyperinflated. Prolonged incomplete expiration. Mild large airway congestion Heart. No gallop Abdomen. Nondistended. Positive bowel sounds Extremities. Nothing to suggest deep venous thrombophlebitis. Lymphatics. No submandibular cervical supraclavicular or epitrochlear adenopathy. The remainder of the physical exam is noncontributory Plan. 1. Continue present antibiotics. 2. Adjust Seroquel 3. Supplemental oxygen 4. Continue present regimen. 5. Follow-up chest x-ray ABGs. 6. May be an another day or so patient can be moved from ICU. He is in a good bit of danger from a pulmonary standpoint. Exam (Progress Note) - Constitutional Vitals: Period Temp Pulse Resp BP Sys/Carrion Pulse Ox Last 24 Hr 98.2 F-99.1 F 70-91 16-28 106-146/40-73 89-97 Results - Labs CBC & BMP: 12/01/16 04:43 12/01/16 04:43 Specialty Discharge - Follow Up or Referrals Follow up with: Gaetano Castro MD [Physician] - 11/30/17 12:45 pm (1 year ) Levon Bishop MD [Physician] - (Keep already scheduled appointment)
[2016-12-01] MEDS: DESITIN 4OZ/NYSTATIN 15 GRAM MIXTURE PASTE TOP SCH ×2 (13:00→21:16)
[2016-12-01] MEDS: ATORVASTATIN 20 MG TABLET PO SCH (20:42)
[2016-12-02] MEDS: ALBUTEROL/IPRATROPIUM 3 ML NEB RESP TX SCH ×4 (01:54→19:27)
[2016-12-02] MEDS: MEROPENEM 500 MG in SODIUM CHLORIDE 0.9% 100 ML IV SCH ×3 (05:02→20:04)
[2016-12-02] MEDS: CLINDAMYCIN INJ 300 MG in PREMIX 1 EACH IV SCH ×4 (05:38→23:55)
[2016-12-02] MEDS: methylPREDNISolone SOD SUC 40 MG/1 ML VIAL IV SCH ×2 (09:18→19:58)
[2016-12-02] MEDS: CARVEDILOL 6.25 MG TABLET PO SCH ×3 (09:18→20:04)
[2016-12-02] MEDS: BUDESONIDE/FORMOTEROL 160-4.5 INHALER 6 GM INH SCH ×2 (09:18→19:59)
[2016-12-02] MEDS: DILTIAZEM 60 MG TABLET PO SCH (09:18)
[2016-12-02] MEDS: MULTIVITAMIN (CENTRUM) TABLET PO SCH (09:20)
[2016-12-02] MEDS: acetaZOLAMIDE 250 MG TABLET PO SCH (09:20)
[2016-12-02] MEDS: ASPIRIN EC 81 MG TABLET PO SCH (09:20)
[2016-12-02] MEDS: TAMSULOSIN 0.4 MG CAPSULE PO SCH (09:20)
[2016-12-02] MEDS: MONTELUKAST 10 MG TABLET PO SCH (09:20)
[2016-12-02] MEDS: FAMOTIDINE 20 MG TABLET PO SCH ×2 (09:20→19:59)
[2016-12-02] MEDS: DESITIN 4OZ/NYSTATIN 15 GRAM MIXTURE PASTE TOP SCH ×2 (09:21→19:59)
[2016-12-02] MEDS: THEOPHYLLINE ER (24 HR) 200 MG CAPSULE PO SCH (09:33)
--- NOTE | 2016-12-02 11:03 | Pulmonology Progress Note ---
Pulmonary - PN: Subj Interval history: This 86-year-old white male who is admitted with altered mental status. He improved with Seroquel. There were several problems during his hospitalization which all improved. Patient was [facility] but every by a decline to take him. His is very difficult to deal with is impossible to satisfy. Patient's son has apologize for this process there is nothing that he can do about it. On 11/28/2016 we were preparing to discharge the patient. Had a little bit of a cough and a follow-up chest x-ray was done he had a dense left upper lung infiltrate. He is chronic hypoxemia worsened. I moved him to intensive care unit for safety. While he was there on 11/28/2016 evaluated with fiberoptic bronchoscopy. I was suspicious that he may have aspirated. This did not returns clerk to be the case. His bronchioloalveolar lavage is growing Serratia Fauzia hands. Patient's on the correct antibiotic for this and I am going to leave him on Cleocin in case we are dealing with gram -positive cocci such as staph and strep. This morning the patient's a little oversedated. I am cutting back his Seroquel to 25 mg at 5 PM with the option to give another 25 if needed. ABGs on FiO2 44% shows a pH 7.37. PCO2 of 48.8. PO2 59.5 and a bicarb of 26.4. Lab. Electrolytes are normal. Creatinine is 0.80 with a BUN 41. White count is 10,386 segs. H&H is 12.8 or 39.6 and platelets are 141,000. Lab reviewed. 12/02/2016. Today's chest x-ray shows patient continues to have a dense left upper lung infiltrate. This is alveolar near a few air bronchograms. He remains hypoxic. He has severe underlying COPD. There is a tendency toward CO2 retention. Bronchoscopy specimens from 08/29/2016 have grown Serratia Fauzia hands. Patient is being treated based on the sensitivities and based on the probability there is some other organisms present. ABGs today on an FiO2 of 44 % show a pH 7.37 PCO2 48.8 PO2 59.5 and a bicarb 26.1. Last night we held the patient's Seroquel dose as he was already sleepy and slept throughout the night seems a little sleepy this morning. If he wakes up does well today we will give him 25 mg of Seroquel at 5 PM. We have the option of given a second 1 if needed. Electrolytes normal. Creatinine is 0.80 with a BUN of 41. White count is 10,386 segs H&H is 12.8 or 39.6 and platelets are 141,000. Hopefully once this patient mental status improves and he is able to protect his airways and participate will be able to move into the floor. Medicines. Reviewed Physical exam. Vital signs. See below Psychiatric. Arousable can talk. A little groggy. Neurologic. Cranial nerves are intact with marked bilateral decreased hearing acuity. Patient moves all 4 extremities. Face. Symmetrical. Lips and tongue are not swollen. Neck. Symmetrical kyphotic with no meningismus and no masses. Chest. Hyperinflated. Prolonged incomplete expiration. Mild large airway congestion Heart. No gallop Abdomen. Nondistended. Positive bowel sounds Extremities. Nothing to suggest deep venous thrombophlebitis. Lymphatics. No submandibular cervical supraclavicular or epitrochlear adenopathy. The remainder of the physical exam is noncontributory Plan. 12/01/2016. 1. Continue present antibiotics. 2. Adjust Seroquel 3. Supplemental oxygen 4. Continue present regimen. 5. Follow-up chest x-ray ABGs. 6. May be an another day or so patient can be moved from ICU. He is in a good bit of danger from a pulmonary standpoint. 12/02/2016. 1. See my note for today above. #2 follow-up chest x-ray and lab and ABGs have been Exam (Progress Note) - Constitutional Vitals: Period Temp Pulse Resp BP Sys/Carrion Pulse Ox Last 24 Hr 97.3 F-98.9 F 53-74 15-31 101-154/44-83 88-98 Results - Labs CBC & BMP: 12/01/16 04:43 12/01/16 04:43 Specialty Discharge - Follow Up or Referrals Follow up with: Gaetano Castro MD [Physician] - 11/30/17 12:45 pm (1 year ) Levon Bishop MD [Physician] - (Keep already scheduled appointment)
--- NOTE | 2016-12-02 12:20 | Physician Query Form ---
CLICK EDIT DOCUMENT TO SELECT QUERY ANSWER --> OK --> SIGN Xiomara Gonzalez RN, CCDS Certified Clinical Cutting Tool Sharpener W) [phone] (f) [phone] [email or web address]: Make your selection(s) from the choices in EACH section by typing an "x" and enter comments in the comment section. Please use your independent medical judgment in providing your response. This request does not imply that any particular answer is desired or expected. CLINICAL INDICATORS: (Providers should not edit this section) The medical record indicates that the patient was admitted with AMS, on the "acute left upper lung/perihilar compatible with pneumonia", bronch washings are showing "Serratia Marcescens" and the patient is on antibiotics. Community Acquired and Healthcare Acquired are both unspecified terms and require further specificity. Based on the above, could you please clarify further specificity regarding the type of pneumonia you are treating (even if specific organism may not be known) ? ( ) Aspiration pneumonia ( ) Gram negative pneumonia ( ) Gram positive pneumonia (X ) Bacterial pneumonia due to, please specify organism (if known): "Serratia Marcescens" ( ) Pneumonia with Influenza ( ) Viral pneumonia ( ) Post procedural ( ) HIV associated pneumonia ( ) Radiation Pneumonitis ( ) Pneumonia due to, please specify: ( ) Clinically unable to determine ( ) Other, please specify: COMMENTS: PLEASE ALSO DOCUMENT RESPONSE IN PROGRESS NOTES AND/OR DISCHARGE SUMMARY Use of terms such as suspected, likely, or probable (associated with a specific diagnosis that is being evaluated, monitored, or treated as if it exists) are acceptable and can be restated in the discharge summary if not ruled out. MTDD
[2016-12-02] MEDS: ATORVASTATIN 20 MG TABLET PO SCH ×2 (19:58→20:05)
[2016-12-03] MEDS: ALBUTEROL/IPRATROPIUM 3 ML NEB RESP TX SCH ×4 (00:15→19:08)
[2016-12-03 03:46] LABS: Allen Test Positive
[2016-12-03 03:47] LABS: ABG HCO3 26.1 MMOL/L (20-26); ABG Oxygen Saturation 94.2 % (95-100); ABG PCO2 46.7 MM HG (35-48); ABG PH 7.382 (7.35-7.45); ABG PO2 67.7 MM HG (80-95); ABG TCO2 24.1 MMOL/L (23-27)
[2016-12-03] MEDS: MEROPENEM 500 MG in SODIUM CHLORIDE 0.9% 100 ML IV SCH ×3 (05:06→22:10)
[2016-12-03] MEDS: CLINDAMYCIN INJ 300 MG in PREMIX 1 EACH IV SCH ×3 (05:51→19:15)
--- NOTE | 2016-12-03 08:03 | XRay Report ---
History is pneumonia follow-up Comparison 12/01/2016 Mediastinal contours unchanged. Heart is normal in size There remains a diffuse reticulonodular and hazy left lung infiltrates with slight improvement in the interval. No new infiltrates seen on the right Impression: Mild improvement with continued left lung infiltrates PROCEDURE INTERPRETED AT [facility] DEPARTMENT OF RADIOLOGY Final Report Signed by: Dr. Cielo Mayo
[2016-12-03] MEDS: DILTIAZEM 60 MG TABLET PO SCH (08:43)
[2016-12-03] MEDS: ASPIRIN EC 81 MG TABLET PO SCH (08:43)
[2016-12-03] MEDS: TAMSULOSIN 0.4 MG CAPSULE PO SCH (08:43)
[2016-12-03] MEDS: acetaZOLAMIDE 250 MG TABLET PO SCH (08:44)
[2016-12-03] MEDS: FAMOTIDINE 20 MG TABLET PO SCH ×2 (08:44→22:09)
[2016-12-03] MEDS: MULTIVITAMIN (CENTRUM) TABLET PO SCH (08:44)
[2016-12-03] MEDS: MONTELUKAST 10 MG TABLET PO SCH (08:44)
[2016-12-03] MEDS: CARVEDILOL 6.25 MG TABLET PO SCH ×2 (08:44→22:10)
[2016-12-03] MEDS: DESITIN 4OZ/NYSTATIN 15 GRAM MIXTURE PASTE TOP SCH ×2 (08:45→22:12)
[2016-12-03] MEDS: methylPREDNISolone SOD SUC 40 MG/1 ML VIAL IV SCH ×2 (08:45→22:09)
[2016-12-03] MEDS: BUDESONIDE/FORMOTEROL 160-4.5 INHALER 6 GM INH SCH ×2 (08:46→22:11)
[2016-12-03] MEDS: THEOPHYLLINE ER (24 HR) 200 MG CAPSULE PO SCH (08:48)
--- NOTE | 2016-12-03 11:31 | Pulmonology Progress Note ---
Pulmonary - PN: Subj Interval history: Vu Kauffman, AGNP-, acting as scribe for Dr. Levon Bishop This 86-year-old white male longtime patient of Dr. Bishop who he admitted on 11/24 with an altered mental status. The patient had had a recent hospitalization. He was under the care of Dr. Faustino Haines and we saw him during that hospital admission. He had done well in the hospital with the subtraction of Zoloft and addition of Zyprexa. We think he was sent home in good condition. His reported she gave him the medicine the proper way and we think he was also seen by home health. We had asked geriatric psych to see him on the day of admission and they did. They said they would be happy to admit him but felt like that he might be medically unstable at that time. Our admit impressions were: 1. Altered mental status with confusion and possible hallucinations and with agitation. 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 Note hospitalization earlier this month under the care of Dr. Faustino Haines with altered mental status, confusion and hallucinations which was thought to possibly be related to Zoloft. 2. September 2016 acute right hip fracture requiring a right hip hemiarthroplasty by Dr. Pereira 3. History of hematuria. Followed by Dr. Delgado. Previously started on Flomax and Avodart 4. COPD with bronchospastic disease 5. Arteriosclerotic heart disease. History of [place] and history of stents. Followed by Dr. Karin Cordoba. 6. Colon polyps 7. Hyperlipidemia 8. Allergic sinusitis 9. History of significant tobacco abuse. 10. History of angiodysplasia of the cecum 11. History of alcohol abuse. Patient said that in the past on multiple occasions she stopped drinking alcohol in October 1984 12. History of recurrent left sacroiliac pain exacerbated by exercise 13. See past history 11/25/2016. This patient took a while to calm down last night. He is presently sound asleep and he is began to sleep either at 1:00 this morning or at 4:00 this morning depending upon version of various participants. I used Ativan as needed and I started him with Seroquel 50 mg. This afternoon I will decrease the Seroquel to 25 mg and hope to give it around 5:00. We can have the option of an extra 25 is needed. I have asked geriatric psych to follow-up with this patient. I told the that his son likely will be able to adjust his medicines exactly here and he may need more time such as a geriatric psych unit. CBC is normal. There is no evidence of infection. Electrolytes are within the normal range. Renal study showed a mild amount of dehydration which is being corrected. Glucoses were normal. Protein albumin and globulins were low secondary to poor oral intake. Thyroid function tests are normal and theophylline level was safely at 6.6 11/26/2016. The patient was seen today along with his . The patient was again sleeping this morning when we walked in the room. Patient's reports that she feels he slept well through the night. We have asked her to wake him up some throughout the day today to see if his improved mental status will hold. Yesterday his Seroquel was decreased and we will continue the current dose of 25 mg to be given at 1700 nightly. This dose can be repeated 2 hours after the 5 PM dose if needed. He has been evaluated by [facility] and [place] mobile unit. Nursing staff report to the [facility] as they only have group therapy. She reportedly prefers individual therapy. 11/27/2016. The patient was seen today along with his and Bravo Meyer RN. Patient was given Seroquel 25 mg at 1700 last night. He slept through the night reportedly. His states that he has been more like his baseline today. He was sleeping when I entered the room, but when we woke him he was alert and oriented. He was pleased that he was able to eat last night and this morning. He states the first time he has been hungry throughout this hospitalization. nutrition services worker is working on placement for him at discharge. TB skin test was placed. We have asked physical therapy and occupational therapy to evaluate and treat this patient. Mrs. Contreras reports that he has a routine follow-up appointment with Dr. Gaetano Castro next week. She states it is very difficult for her to get him to outpatient appointments. She asked if we could consult Dr. Castro to see him while he was here. This is been done. 11/28/2016. The patient was seen today along with his , Bravo Meyer RN, and Klaudia Cheng RN. [facility] and [facility] have both declined the patient for acceptance to swing bed. Initially, the patient's stated that someone from [facility] came yesterday and told her that it would be no problem to accept the patient. We told her that we would call and check on this because that was not with the group social worker have been told. She initially agreed, but later found Ms. Meyer in the roger and asked for us not to call [facility] at all. She would not allow the patient to go to geriatric psych because she wanted him to have individual therapy and not group therapy. She will not allow the group social worker to inquire about any other swing meds because she wanted the patient have a private room. We went back in the room a second time and talked with her. She states the patient rehab stay home home health in the patient and she wished to take him home with continued home health. We have explained to the patient and his that it is imperative that he take his medications exactly as prescribed. They both verbalized understanding. From medical standpoint, the patient is doing reasonably well. Mrs. Contreras had the nursing staff call Dr. Bishop at approximately 4 AM this morning regarding wheezing. Note, she refused to allow respiratory therapy to give him his scheduled breathing treatment at 0037. He was given a breathing treatment and the wheezing subsided. Nonetheless, he is back to his baseline. He is breathing very well. He is eating well. He is awake, alert, and oriented. 11/28/2016. This patient was seen earlier today his chest x-ray came back showing acute left upper lung pneumonia. He experienced some increased difficulty breathing and he was subsequently moved to intensive care unit. His evaluation included fiberoptic bronchoscopy. I suspected aspiration but this was not found he has underlying COPD with collapsible large and small airways. He had a good bit of retained secretions these were removed and sent to the lab for bacterial and fungal studies. Patient tolerated procedure well he was better afterwards. 12/01/2016. This 86-year-old white male who was admitted with altered mental status. He improved with Seroquel. There were several problems during his hospitalization which all improved. Patient was seen by multiple [facility] swing beds but every one declined to take him. His is very difficult to deal with and is impossible to satisfy. Patient's son has apologized for this but said there is nothing that he can do about it. On 11/28/2016 we were preparing to discharge the patient. Had a little bit of a cough and a follow- up chest x-ray was done. He had a dense left upper lung infiltrate. His chronic hypoxemia worsened. We moved him to intensive care unit for safety. While he was there on 11/28/2016 he was evaluated with fiberoptic bronchoscopy. We were suspicious that he may have aspirated. This did not bottom turning lathe tender to be the case. His bronchioloalveolar lavage is growing Serratia marcescens. Patient's on the correct antibiotic for this and I am going to leave him on Cleocin in case we are dealing with gram-positive cocci such as staph and strep. 12/02/2016. Today's chest x-ray shows patient continues to have a dense left upper lung infiltrate. This is alveolar near a few air bronchograms. He remains hypoxic. He has severe underlying COPD. There is a tendency toward CO2 retention. Bronchoscopy specimens from 08/29/2016 have grown Serratia Fauzia hands. Patient is being treated based on the sensitivities and based on the probability there is some other organisms present. ABGs today on an FiO2 of 44 % show a pH 7.37 PCO2 48.8 PO2 59.5 and a bicarb 26.1. Last night we held the patient's Seroquel dose as he was already sleepy and slept throughout the night seems a little sleepy this morning. If he wakes up does well today we will give him 25 mg of Seroquel at 5 PM. We have the option of given a second 1 if needed. Electrolytes normal. Creatinine is 0.80 with a BUN of 41. White count is 10,386 segs H&H is 12.8 or 39.6 and platelets are 141,000. Hopefully once this patient mental status improves and he is able to protect his airways and participate will be able to move into the floor. 12/02/2016. The patient was seen today along with his nurse, Mickie. The patient' s Seroquel "fell off" last night. He did not receive this. We are unsure how he slept. This morning, however, he is easily arousable. He is slightly confused, but knows this. He is able to answer questions appropriately. We will reorder Seroquel 25 mg be given nightly at 1700 with an order that this can be repeated 1 nightly after 2 hours if needed. We feel he is now stable enough to be transferred back to the floor. Chest x-ray shows that his previously noted infiltrate is gradually going away. Medications have been reviewed. Labs been reviewed. Theophylline level is 6.8. Microbiology has been reviewed. Blood cultures are negative at day 5. MRSA screen of the nares is negative. Exam (Progress Note) - Constitutional Vitals: Period Temp Pulse Resp BP Sys/Carrion Pulse Ox Last 24 Hr 97.8 F-99.3 F 65-91 12-29 118-160/46-76 91-100 Exam: Chest with prolonged and incomplete expiration; no significant wheeze Heart no gallop Abdomen is nontender and nondistended; bowel sounds positive 4 Lower extremities with nothing to suggest acute deep venous thrombophlebitis Psychiatric presently oriented at least to person; answers questions appropriately; calm Neurologic unchanged Plan: The patient is now medically stable to be discharged to the floor. His Seroquel has been reordered. We will continue other present treatment. See orders. Results - Labs CBC & BMP: 12/01/16 04:43 12/01/16 04:43 Specialty Discharge - Follow Up or Referrals Follow up with: Gaetano Castro MD [Physician] - 11/30/17 12:45 pm (1 year ) Levon Bishop MD [Physician] - (Keep already scheduled appointment)
[2016-12-03] MEDS ORDERED: QUEtiapine 25 MG TABLET PO SCH (17:00)
[2016-12-03] MEDS ORDERED: ACETAMINOPHEN 325 MG TABLET ONE (17:01)
[2016-12-03] MEDS: ACETAMINOPHEN 325 MG TABLET PO PRN (17:04)
[2016-12-03] MEDS: QUEtiapine 25 MG TABLET PO PRN (22:09)
[2016-12-03] MEDS: ATORVASTATIN 20 MG TABLET PO SCH (22:09)
[2016-12-04] MEDS: CLINDAMYCIN INJ 300 MG in PREMIX 1 EACH IV SCH ×4 (00:30→17:55)
[2016-12-04] MEDS: ALBUTEROL/IPRATROPIUM 3 ML NEB RESP TX SCH ×4 (00:45→19:37)
[2016-12-04] MEDS: MEROPENEM 500 MG in SODIUM CHLORIDE 0.9% 100 ML IV SCH ×3 (06:33→22:00)
[2016-12-04] MEDS: methylPREDNISolone SOD SUC 40 MG/1 ML VIAL IV SCH ×3 (09:09→22:00)
[2016-12-04] MEDS: FAMOTIDINE 20 MG TABLET PO SCH ×3 (09:11→22:12)
[2016-12-04] MEDS: MULTIVITAMIN (CENTRUM) TABLET PO SCH ×2 (09:11→10:46)
[2016-12-04] MEDS: ASPIRIN EC 81 MG TABLET PO SCH ×2 (09:11→10:45)
[2016-12-04] MEDS: CARVEDILOL 6.25 MG TABLET PO SCH ×4 (09:11→22:12)
[2016-12-04] MEDS: DILTIAZEM 60 MG TABLET PO SCH ×2 (09:11→10:45)
[2016-12-04] MEDS: MONTELUKAST 10 MG TABLET PO SCH (09:11)
[2016-12-04] MEDS: TAMSULOSIN 0.4 MG CAPSULE PO SCH ×2 (09:11→10:46)
[2016-12-04] MEDS: DESITIN 4OZ/NYSTATIN 15 GRAM MIXTURE PASTE TOP SCH ×2 (09:12→22:10)
[2016-12-04] MEDS: BUDESONIDE/FORMOTEROL 160-4.5 INHALER 6 GM INH SCH ×3 (09:12→22:11)
[2016-12-04] MEDS: acetaZOLAMIDE 250 MG TABLET PO SCH ×2 (09:12→10:46)
[2016-12-04] MEDS: THEOPHYLLINE ER (24 HR) 200 MG CAPSULE PO SCH ×2 (09:16→10:46)
--- NOTE | 2016-12-04 11:19 | Pulmonology Progress Note ---
Pulmonary - PN: Subj Interval history: Vu Kauffman, AGNP-, acting as scribe for Dr. Levon Bishop This 86-year-old white male longtime patient of Dr. Bishop who he admitted on 11/24 with an altered mental status. The patient had had a recent hospitalization. He was under the care of Dr. Faustino Haines and we saw him during that hospital admission. He had done well in the hospital with the subtraction of Zoloft and addition of Zyprexa. We think he was sent home in good condition. His reported she gave him the medicine the proper way and we think he was also seen by home health. We had asked geriatric psych to see him on the day of admission and they did. They said they would be happy to admit him but felt like that he might be medically unstable at that time. Our admit impressions were: 1. Altered mental status with confusion and possible hallucinations and with agitation. 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 Note hospitalization earlier this month under the care of Dr. Faustino Haines with altered mental status, confusion and hallucinations which was thought to possibly be related to Zoloft. 2. September 2016 acute right hip fracture requiring a right hip hemiarthroplasty by Dr. Pereira 3. History of hematuria. Followed by Dr. Delgado. Previously started on Flomax and Avodart 4. COPD with bronchospastic disease 5. Arteriosclerotic heart disease. History of NV and history of stents. Followed by Dr. Karin Cordoba. 6. Colon polyps 7. Hyperlipidemia 8. Allergic sinusitis 9. History of significant tobacco abuse. 10. History of angiodysplasia of the cecum 11. History of alcohol abuse. Patient said that in the past on multiple occasions she stopped drinking alcohol in October 1984 12. History of recurrent left sacroiliac pain exacerbated by exercise 13. See past history 11/25/2016. This patient took a while to calm down last night. He is presently sound asleep and he is began to sleep either at 1:00 this morning or at 4:00 this morning depending upon version of various participants. I used Ativan as needed and I started him with Seroquel 50 mg. This afternoon I will decrease the Seroquel to 25 mg and hope to give it around 5:00. We can have the option of an extra 25 is needed. I have asked geriatric psych to follow-up with this patient. I told the that his son likely will be able to adjust his medicines exactly here and he may need more time such as a geriatric psych unit. CBC is normal. There is no evidence of infection. Electrolytes are within the normal range. Renal study showed a mild amount of dehydration which is being corrected. Glucoses were normal. Protein albumin and globulins were low secondary to poor oral intake. Thyroid function tests are normal and theophylline level was safely at 6.6 11/26/2016. The patient was seen today along with his . The patient was again sleeping this morning when we walked in the room. Patient's reports that she feels he slept well through the night. We have asked her to wake him up some throughout the day today to see if his improved mental status will hold. Yesterday his Seroquel was decreased and we will continue the current dose of 25 mg to be given at 1700 nightly. This dose can be repeated 2 hours after the 5 PM dose if needed. He has been evaluated by [facility] and [facility] mobile unit. Nursing staff report to the patient's does not want [facility] at this time as they only have group therapy. She reportedly prefers individual therapy. 11/27/2016. The patient was seen today along with his and Bravo Meyer RN. Patient was given Seroquel 25 mg at 1700 last night. He slept through the night reportedly. His states that he has been more like his baseline today. He was sleeping when I entered the room, but when we woke him he was alert and oriented. He was pleased that he was able to eat last night and this morning. He states the first time he has been hungry throughout this hospitalization. surgical services director is working on placement for him at discharge. TB skin test was placed. We have asked physical therapy and occupational therapy to evaluate and treat this patient. Mrs. Contreras reports that he has a routine follow-up appointment with Dr. Gaetano Castro next week. She states it is very difficult for her to get him to outpatient appointments. She asked if we could consult Dr. Castro to see him while he was here. This is been done. 11/28/2016. The patient was seen today along with his , Bravo Meyer RN, and Klaudia Cheng RN. [facility] have both declined the patient for acceptance to swing bed. Initially, the patient's stated that someone from [facility] came yesterday and told her that it would be no problem to accept the patient. We told her that we would call and check on this because that was not with the social media intern have been told. She initially agreed, but later found Ms. Meyer in the roger and asked for us not to call [facility] at all. She would not allow the patient to go to geriatric psych because she wanted him to have individual therapy and not group therapy. She will not allow the social media intern to inquire about any other swing meds because she wanted the patient have a private room. We went back in the room a second time and talked with her. She states the patient rehab stay home home health in the patient and she wished to take him home with continued home health. We have explained to the patient and his that it is imperative that he take his medications exactly as prescribed. They both verbalized understanding. From medical standpoint, the patient is doing reasonably well. Mrs. Contreras had the nursing staff call Dr. Bishop at approximately 4 AM this morning regarding wheezing. Note, she refused to allow respiratory therapy to give him his scheduled breathing treatment at 0037. He was given a breathing treatment and the wheezing subsided. Nonetheless, he is back to his baseline. He is breathing very well. He is eating well. He is awake, alert, and oriented. 11/28/2016. This patient was seen earlier today his chest x-ray came back showing acute left upper lung pneumonia. He experienced some increased difficulty breathing and he was subsequently moved to intensive care unit. His evaluation included fiberoptic bronchoscopy. I suspected aspiration but this was not found he has underlying COPD with collapsible large and small airways. He had a good bit of retained secretions these were removed and sent to the lab for bacterial and fungal studies. Patient tolerated procedure well he was better afterwards. 12/01/2016. This 86-year-old white male who was admitted with altered mental status. He improved with Seroquel. There were several problems during his hospitalization which all improved. Patient was seen by multiple long term swing beds but every one declined to take him. His is very difficult to deal with and is impossible to satisfy. Patient's son has apologized for this but said there is nothing that he can do about it. On 11/28/2016 we were preparing to discharge the patient. Had a little bit of a cough and a follow- up chest x-ray was done. He had a dense left upper lung infiltrate. His chronic hypoxemia worsened. We moved him to intensive care unit for safety. While he was there on 11/28/2016 he was evaluated with fiberoptic bronchoscopy. We were suspicious that he may have aspirated. This did not mill turner to be the case. His bronchioloalveolar lavage is growing Serratia marcescens. Patient's on the correct antibiotic for this and I am going to leave him on Cleocin in case we are dealing with gram-positive cocci such as staph and strep. 12/02/2016. Today's chest x-ray shows patient continues to have a dense left upper lung infiltrate. This is alveolar near a few air bronchograms. He remains hypoxic. He has severe underlying COPD. There is a tendency toward CO2 retention. Bronchoscopy specimens from 08/29/2016 have grown Serratia Fauzia hands. Patient is being treated based on the sensitivities and based on the probability there is some other organisms present. ABGs today on an FiO2 of 44 % show a pH 7.37 PCO2 48.8 PO2 59.5 and a bicarb 26.1. Last night we held the patient's Seroquel dose as he was already sleepy and slept throughout the night seems a little sleepy this morning. If he wakes up does well today we will give him 25 mg of Seroquel at 5 PM. We have the option of given a second 1 if needed. Electrolytes normal. Creatinine is 0.80 with a BUN of 41. White count is 10,386 segs H&H is 12.8 or 39.6 and platelets are 141,000. Hopefully once this patient mental status improves and he is able to protect his airways and participate will be able to move into the floor. 12/03/2016. The patient was seen today along with his nurse, Mickie. The patient' s Seroquel "fell off" last night. He did not receive this. We are unsure how he slept. This morning, however, he is easily arousable. He is slightly confused, but knows this. He is able to answer questions appropriately. We will reorder Seroquel 25 mg be given nightly at 1700 with an order that this can be repeated 1 nightly after 2 hours if needed. We feel he is now stable enough to be transferred back to the floor. Chest x-ray shows that his previously noted infiltrate is gradually going away. 12/04/2016. Patient was seen today along with his . Yesterday, we will move the patient from intensive care to medical surgical floor. His reports that he did not sleep well through the night, however, on our rounds this morning he would not awaken even on our exam. He was given Seroquel 25 mg at 1700 and another 25 mg approximately 2 hours later. Obviously, this medication takes a while to work on him, so we will change the timing of the first dose to 1400 with a as needed repeat that can be given 2 hours later. retail analytics manager yesterday spoke with Koko Berumen regarding reevaluation for geriatric psych. The mattress spring encaser noted that patient's was agreeable to this. That evaluation is pending. Medications have been reviewed. Labs been reviewed. No new labs were drawn today. Microbiology has been reviewed. Blood cultures are negative at day 5. MRSA screen of the nares was negative. As noted above, bronchoscopy lavages grew Serratia marcescens. There was no fungus seen on smear. Fungal cultures pending. Exam (Progress Note) - Constitutional Vitals: Period Temp Pulse Resp BP Sys/Carrion Pulse Ox Last 24 Hr 97.0 F-100.2 F 72-97 16-23 103-151/55-76 86-100 Exam: Chest with prolonged and incomplete expiration; no significant wheeze Heart no gallop Abdomen is nontender and nondistended; bowel sounds positive 4 Lower extremities with nothing to suggest acute deep venous thrombophlebitis Psychiatric and neurologic unable to be assessed secondary to the patient's somnolence Plan: Change the timing of Seroquel as above. Continue present treatment. Await reevaluation by geriatric psych. See orders. Results - Labs CBC & BMP: 12/01/16 04:43 12/01/16 04:43 Specialty Discharge - Follow Up or Referrals Follow up with: Gaetano Castro MD [Physician] - 11/30/17 12:45 pm (1 year ) Levon Bishop MD [Physician] - (Keep already scheduled appointment)
[2016-12-04] MEDS: QUEtiapine 25 MG TABLET PO SCH (13:46)
[2016-12-04] MEDS: ACETAMINOPHEN 325 MG TABLET PO PRN (13:49)
[2016-12-04] MEDS: ATORVASTATIN 20 MG TABLET PO SCH ×2 (22:00→22:11)
[2016-12-05] MEDS: CLINDAMYCIN INJ 300 MG in PREMIX 1 EACH IV SCH ×5 (00:13→23:58)
[2016-12-05] MEDS: ALBUTEROL/IPRATROPIUM 3 ML NEB RESP TX SCH ×4 (01:00→19:11)
[2016-12-05] MEDS: MEROPENEM 500 MG in SODIUM CHLORIDE 0.9% 100 ML IV SCH ×3 (05:28→20:58)
[2016-12-05] MEDS: CARVEDILOL 6.25 MG TABLET PO SCH ×2 (10:43→20:30)
[2016-12-05] MEDS: FAMOTIDINE 20 MG TABLET PO SCH ×2 (10:43→20:30)
[2016-12-05] MEDS: ASPIRIN EC 81 MG TABLET PO SCH (10:43)
[2016-12-05] MEDS: TAMSULOSIN 0.4 MG CAPSULE PO SCH (10:43)
[2016-12-05] MEDS: BUDESONIDE/FORMOTEROL 160-4.5 INHALER 6 GM INH SCH ×2 (10:43→20:31)
[2016-12-05] MEDS: methylPREDNISolone SOD SUC 40 MG/1 ML VIAL IV SCH ×2 (10:43→20:30)
[2016-12-05] MEDS: MONTELUKAST 10 MG TABLET PO SCH (10:43)
[2016-12-05] MEDS: DILTIAZEM 60 MG TABLET PO SCH (10:44)
[2016-12-05] MEDS: THEOPHYLLINE ER (24 HR) 200 MG CAPSULE PO SCH (10:44)
[2016-12-05] MEDS: MULTIVITAMIN (CENTRUM) TABLET PO SCH (10:44)
[2016-12-05] MEDS: acetaZOLAMIDE 250 MG TABLET PO SCH (10:44)
[2016-12-05] MEDS: DESITIN 4OZ/NYSTATIN 15 GRAM MIXTURE PASTE TOP SCH ×2 (10:44→20:31)
--- NOTE | 2016-12-05 10:47 | Pulmonology Progress Note ---
Pulmonary - PN: Subj Interval history: This 86-year-old white male who is admitted with altered mental status. He improved with Seroquel. There were several problems during his hospitalization which all improved. Patient was seen by multiple snf swing bed but every by a decline to take him. His is very difficult to deal with is impossible to satisfy. Patient's son has apologize for this process there is nothing that he can do about it. On 11/28/2016 we were preparing to discharge the patient. Had a little bit of a cough and a follow-up chest x-ray was done he had a dense left upper lung infiltrate. He is chronic hypoxemia worsened. I moved him to intensive care unit for safety. While he was there on 11/28/2016 evaluated with fiberoptic bronchoscopy. I was suspicious that he may have aspirated. This did not bowl turner to be the case. His bronchioloalveolar lavage is growing Serratia Fauzia hands. Patient's on the correct antibiotic for this and I am going to leave him on Cleocin in case we are dealing with gram -positive cocci such as staph and strep. This morning the patient's a little oversedated. I am cutting back his Seroquel to 25 mg at 5 PM with the option to give another 25 if needed. ABGs on FiO2 44% shows a pH 7.37. PCO2 of 48.8. PO2 59.5 and a bicarb of 26.4. Lab. Electrolytes are normal. Creatinine is 0.80 with a BUN 41. White count is 10,386 segs. H&H is 12.8 or 39.6 and platelets are 141,000. Lab reviewed. 12/02/2016. Today's chest x-ray shows patient continues to have a dense left upper lung infiltrate. This is alveolar near a few air bronchograms. He remains hypoxic. He has severe underlying COPD. There is a tendency toward CO2 retention. Bronchoscopy specimens from 08/29/2016 have grown Serratia Fauzia hands. Patient is being treated based on the sensitivities and based on the probability there is some other organisms present. ABGs today on an FiO2 of 44 % show a pH 7.37 PCO2 48.8 PO2 59.5 and a bicarb 26.1. Last night we held the patient's Seroquel dose as he was already sleepy and slept throughout the night seems a little sleepy this morning. If he wakes up does well today we will give him 25 mg of Seroquel at 5 PM. We have the option of given a second 1 if needed. Electrolytes normal. Creatinine is 0.80 with a BUN of 41. White count is 10,386 segs H&H is 12.8 or 39.6 and platelets are 141,000. Hopefully once this patient mental status improves and he is able to protect his airways and participate will be able to move into the floor. 12/05/2016. This is a 86-year-old white male is a longtime patient of mine. He has severe COPD and he has dementia. He was admitted to the hospital with altered mental status and we were ready for discharge 1 week ago. He had developed some cough the night before so we checked an x-ray and he had a dense extensive left upper lung alveolar infiltrate. Later on he developed some increased shortness of breath is possible chest pain and this required movement to ICU. He is back in room last night. He is on Seroquel 25 mg once a day and we have the option for an extra 25 later on if needed. He slept well for the first time last night and he is eating a little bit. For the first time in memory his was happy today. His pneumonia was investigated with fiberoptic bronchoscopy because I thought he had aspirated. He had not aspirated but the bronchoscopy specimens grew Serratia Fauzia hands and he is being treated based on these cultures and sensitivities and infiltrate is resolving. We have made several tries with help and patient get into [facility] which he accepted him twice. declined it after we got this arranged. All nursing homes in the area have turned him down. He has been on a few of them for short term before Medicines. Reviewed Physical exam. Vital signs. See below Psychiatric. Arousable can talk. A little groggy. Neurologic. Cranial nerves are intact with marked bilateral decreased hearing acuity. Patient moves all 4 extremities. Face. Symmetrical. Lips and tongue are not swollen. Neck. Symmetrical kyphotic with no meningismus and no masses. Chest. Hyperinflated. Prolonged incomplete expiration. Mild large airway congestion Heart. No gallop Abdomen. Nondistended. Positive bowel sounds Extremities. Nothing to suggest deep venous thrombophlebitis. Lymphatics. No submandibular cervical supraclavicular or epitrochlear adenopathy. The remainder of the physical exam is noncontributory Plan. 12/01/2016. 1. Continue present antibiotics. 2. Adjust Seroquel 3. Supplemental oxygen 4. Continue present regimen. 5. Follow-up chest x-ray ABGs. 6. May be an another day or so patient can be moved from ICU. He is in a good bit of danger from a pulmonary standpoint. 12/02/2016. 1. See my note for today above. #2 follow-up chest x-ray and lab and ABGs have been 12/05/2016. 1. See my note above 2. Resolving pneumonia 3. Altered mental status which is improving with Seroquel Exam (Progress Note) - Constitutional Vitals: Period Temp Pulse Resp BP Sys/Carrion Pulse Ox Last 24 Hr 97.9 F-98.4 F 83-92 16-20 118-144/65-83 90-98 Results - Labs CBC & BMP: 12/01/16 04:43 12/01/16 04:43 Specialty Discharge - Follow Up or Referrals Follow up with: Gaetano Castro MD [Physician] - 11/30/17 12:45 pm (1 year ) Levon Bishop MD [Physician] - (Keep already scheduled appointment)
[2016-12-05] MEDS: ACETAMINOPHEN 325 MG TABLET PO PRN (11:35)
[2016-12-05] MEDS: QUEtiapine 25 MG TABLET PO SCH (14:11)
[2016-12-05] MEDS ORDERED: FUROSEMIDE 40 MG/4 ML VIAL IV ONE (19:36)
--- NOTE | 2016-12-05 19:57 | XRay Report ---
XR KUB Indication: Abdominal distention Comparison: None available Findings: No free fluid or free air seen. There is moderate gastric gaseous distention. Otherwise the bowel gas pattern appears within normal limits. No abnormal calcifications are present. No other abnormality is identified. Impression: Moderate gastric distention, no other acute findings seen. PROCEDURE INTERPRETED AT [facility] DEPARTMENT OF RADIOLOGY Final Report Signed by: Dr. Frederick Goldman
[2016-12-05] MEDS: ATORVASTATIN 20 MG TABLET PO SCH (20:30)
[2016-12-05 21:08] LABS: Apearance,Urine CLOUDY (Clear); Bilirubin,Urine Negative (Negative); Blood, Urine Negative (Negative); Glucose,Urine (UA) 50 mg/dL (Negative); Ketones,Urine Negative (Negative); Nitrite,Urine Negative (Negative); Protein,Urine Negative; RBC,Urine 1 /HPF (0-4); Squamous Epithelial Cell,Urine Occasional /HPF (0-10); Urine Color Yellow (Yellow); Urine Specific Gravity 1.015 (1.001-1.035); WBC,Urine 2 /HPF (0-6)
[2016-12-06] MEDS: ALBUTEROL/IPRATROPIUM 3 ML NEB RESP TX SCH ×4 (00:17→19:05)
[2016-12-06] MEDS: ACETAMINOPHEN 325 MG TABLET PO PRN (01:55)
[2016-12-06] MEDS: MEROPENEM 500 MG in SODIUM CHLORIDE 0.9% 100 ML IV SCH ×3 (05:30→20:16)
[2016-12-06] MEDS: CLINDAMYCIN INJ 300 MG in PREMIX 1 EACH IV SCH ×3 (05:54→18:03)
[2016-12-06] MEDS: TAMSULOSIN 0.4 MG CAPSULE PO SCH (09:29)
[2016-12-06] MEDS: DILTIAZEM 60 MG TABLET PO SCH (09:29)
[2016-12-06] MEDS: acetaZOLAMIDE 250 MG TABLET PO SCH (09:29)
[2016-12-06] MEDS: MULTIVITAMIN (CENTRUM) TABLET PO SCH (09:29)
[2016-12-06] MEDS: FAMOTIDINE 20 MG TABLET PO SCH ×2 (09:30→20:03)
[2016-12-06] MEDS: methylPREDNISolone SOD SUC 40 MG/1 ML VIAL IV SCH ×2 (09:30→19:32)
[2016-12-06] MEDS: MONTELUKAST 10 MG TABLET PO SCH (09:30)
[2016-12-06] MEDS: THEOPHYLLINE ER (24 HR) 200 MG CAPSULE PO SCH (09:30)
[2016-12-06] MEDS: ASPIRIN EC 81 MG TABLET PO SCH (09:30)
[2016-12-06] MEDS: BUDESONIDE/FORMOTEROL 160-4.5 INHALER 6 GM INH SCH ×2 (09:32→20:16)
[2016-12-06] MEDS: DESITIN 4OZ/NYSTATIN 15 GRAM MIXTURE PASTE TOP SCH ×2 (09:33→20:16)
[2016-12-06] MEDS: CARVEDILOL 6.25 MG TABLET PO SCH ×2 (09:36→20:16)
--- NOTE | 2016-12-06 10:08 | Pulmonology Progress Note ---
Pulmonary - PN: Subj Interval history: Patient is an 86-year-old white man that is very debilitated with COPD and dementia. He has been treated for pneumonia. He has had some confusion that is getting better. Yesterday he had some abdominal bloating and peripheral edema. He apparently diuresed fairly well with some Lasix. He is not complaining of abdominal pain today. His breathing seems to be stable. He says he wants to go home soon. Exam (Progress Note) - Constitutional Vitals: Period Temp Pulse Resp BP Sys/Carrion Pulse Ox Last 24 Hr 96.6 F-98.7 F 67-96 16-20 91-148/40-74 92-99 General appearance: normal weight, no acute distress - Head Head exam: Present: normal inspection, normocephalic - Eye Eye exam: Present: EOMI. Absent: scleral icterus Pupils: Present: ALICE - ENT ENT exam: Present: other (He is very hard of hearing.) - Neck Neck exam: Absent: lymphadenopathy, thyromegaly - Respiratory Respiratory exam: Present: decreased breath sounds, prolonged expiratory phase, rhonchi - Cardiovascular Cardiovascular exam: Present: regular rate and rhythm. Absent: gallop, systolic murmur - GI/Abdominal GI/Abdominal exam: Present: normal bowel sounds, distended, soft. Absent: organomegaly, tenderness - Extremities Exam Extremities exam: Present: edema (He does has mild ankle edema.). Absent: calf tenderness - Neurological Exam Neurological exam: Present: alert, other (He cannot hear but he is talking a little.). Absent: motor sensory deficit - Psychiatric Psychiatric exam: Absent: anxious - Skin Skin exam: Present: warm, dry Results - Labs CBC & BMP: 12/01/16 04:43 12/01/16 04:43 - Diagnostic Findings Procedure: KUB x-ray: image reviewed by me, report reviewed by me (Nonspecific with some gaseous distention of the stomach.) Assessment and Plan (1) COPD exacerbation Status: Chronic Assessment and plan: Patient has been having trouble breathing but is doing better now. He will continue with bronchodilator therapy. Current Visit: No (2) Advanced age Status: Chronic Assessment and plan: The patient is an elderly man that is quite debilitated. Current Visit: No (3) Confusion Status: Acute Assessment and plan: He has tried Seroquel for rest. His confusion is a little better lately. Current Visit: No (4) Debility, unspecified Status: Acute Assessment and plan: The patient is significantly debilitated. He looks reasonably comfortable at present. Current Visit: No (5) BPH with obstruction/lower urinary tract symptoms Status: Acute Assessment and plan: He apparently is voiding fairly well now. Current Visit: Yes (6) Left upper lobe pneumonia Status: Acute Assessment and plan: He is getting antibiotics for pneumonia. Current Visit: Yes Specialty Discharge - Follow Up or Referrals Follow up with: Gaetano Castro MD [Physician] - 11/30/17 12:45 pm (1 year ) Levon Bishop MD [Physician] - (Keep already scheduled appointment)
[2016-12-06] MEDS: QUEtiapine 25 MG TABLET PO SCH (15:21)
[2016-12-06] MEDS: ATORVASTATIN 20 MG TABLET PO SCH (20:03)
[2016-12-07] MEDS: ALBUTEROL/IPRATROPIUM 3 ML NEB RESP TX SCH ×5 (00:28→23:34)
[2016-12-07] MEDS: CLINDAMYCIN INJ 300 MG in PREMIX 1 EACH IV SCH ×4 (00:31→18:33)
[2016-12-07] MEDS: QUEtiapine 25 MG TABLET PO PRN (02:05)
[2016-12-07] MEDS: MEROPENEM 500 MG in SODIUM CHLORIDE 0.9% 100 ML IV SCH ×3 (06:15→21:13)
[2016-12-07] MEDS: MONTELUKAST 10 MG TABLET PO SCH (08:16)
[2016-12-07] MEDS: ASPIRIN EC 81 MG TABLET PO SCH (08:16)
[2016-12-07] MEDS: acetaZOLAMIDE 250 MG TABLET PO SCH (08:16)
[2016-12-07] MEDS: DILTIAZEM 60 MG TABLET PO SCH (08:16)
[2016-12-07] MEDS: methylPREDNISolone SOD SUC 40 MG/1 ML VIAL IV SCH ×2 (08:16→21:00)
[2016-12-07] MEDS: FAMOTIDINE 20 MG TABLET PO SCH ×2 (08:16→21:14)
[2016-12-07] MEDS: THEOPHYLLINE ER (24 HR) 200 MG CAPSULE PO SCH (08:16)
[2016-12-07] MEDS: TAMSULOSIN 0.4 MG CAPSULE PO SCH (08:16)
[2016-12-07] MEDS: MULTIVITAMIN (CENTRUM) TABLET PO SCH (08:16)
[2016-12-07] MEDS: BUDESONIDE/FORMOTEROL 160-4.5 INHALER 6 GM INH SCH ×2 (08:17→21:20)
[2016-12-07] MEDS: DESITIN 4OZ/NYSTATIN 15 GRAM MIXTURE PASTE TOP SCH ×2 (08:17→22:33)
[2016-12-07] MEDS: CARVEDILOL 6.25 MG TABLET PO SCH ×2 (08:17→21:14)
--- NOTE | 2016-12-07 10:15 | Pulmonology Progress Note ---
Pulmonary - PN: Subj Interval history: Patient is an 86-year-old white man that is very debilitated with COPD and dementia. He has been treated for pneumonia. He has had some confusion that is getting better. Yesterday he had some abdominal bloating and peripheral edema. He apparently diuresed fairly well with some Lasix. He had a good night and is feeling better today. He says he wants to go home soon. He is drinking Ensure and eating a little bit. He has had some bowel movements now and is voiding okay. His leg swelling is better. Overall he feels like he is doing better. Exam (Progress Note) - Constitutional Vitals: Period Temp Pulse Resp BP Sys/Carrion Pulse Ox Last 24 Hr 97.8 F-98.5 F 58-90 16-22 113-138/57-76 90-96 Exam: General appearance: normal weight, no acute distress, he is sitting up and is alert and looks comfortable. - Head Head exam: Present: normal inspection, normocephalic - Eye Eye exam: Present: EOMI. Absent: scleral icterus Pupils: Present: ALICE - ENT ENT exam: Present: other (He is very hard of hearing.) - Neck Neck exam: Absent: lymphadenopathy, thyromegaly - Respiratory Respiratory exam: Present: He has decreased breath sounds bilaterally but no wheezing or rales present. - Cardiovascular Cardiovascular exam: Present: regular rate and rhythm. Absent: gallop, systolic murmur - GI/Abdominal GI/Abdominal exam: Present: His abdomen is soft and nontender and he has some bowel sounds present. - Extremities Exam Extremities exam: Present: His legs only have trace ankle edema now. - Neurological Exam Neurological exam: Present: alert, other (He cannot hear but he is talking a little.). Absent: motor sensory deficit - Psychiatric Psychiatric exam: Absent: anxious - Skin Skin exam: Present: warm, dry Results - Labs CBC & BMP: 12/01/16 04:43 12/01/16 04:43 Assessment and Plan (1) COPD exacerbation Status: Chronic Assessment and plan: Patient has been having trouble breathing but is doing better now. He will continue with bronchodilator therapy. He says he is breathing comfortably now Current Visit: No (2) Advanced age Status: Chronic Assessment and plan: The patient is an elderly man that is quite debilitated. Current Visit: No (3) Confusion Status: Acute Assessment and plan: He has tried Seroquel for rest. His confusion is a little better lately. He looks fairly alert now. Current Visit: No (4) Debility, unspecified Status: Acute Assessment and plan: The patient is significantly debilitated. He looks reasonably comfortable at present. Current Visit: No (5) BPH with obstruction/lower urinary tract symptoms Status: Acute Assessment and plan: He apparently is voiding fairly well now. Current Visit: Yes (6) Left upper lobe pneumonia Status: Acute Assessment and plan: He is getting antibiotics for pneumonia. Clinically he is doing much better. Current Visit: Yes Specialty Discharge - Follow Up or Referrals Follow up with: Gaetano Castro MD [Physician] - 11/30/17 12:45 pm (1 year ) Levon Bishop MD [Physician] - (Keep already scheduled appointment)
[2016-12-07] MEDS: ACETAMINOPHEN 325 MG TABLET PO PRN ×2 (11:23→21:22)
[2016-12-07] MEDS ORDERED: FUROSEMIDE 40 MG/4 ML VIAL IV ONE (14:10)
[2016-12-07] MEDS: QUEtiapine 25 MG TABLET PO SCH (14:55)
[2016-12-07] MEDS: ATORVASTATIN 20 MG TABLET PO SCH (21:14)
[2016-12-08] MEDS: MEROPENEM 500 MG in SODIUM CHLORIDE 0.9% 100 ML IV SCH ×3 (05:01→20:27)
[2016-12-08] MEDS: CLINDAMYCIN INJ 300 MG in PREMIX 1 EACH IV SCH ×5 (06:07→23:02)
[2016-12-08] MEDS: ALBUTEROL/IPRATROPIUM 3 ML NEB RESP TX SCH ×3 (07:02→19:57)
--- NOTE | 2016-12-08 09:20 | XRay Report ---
XR chest 1V portable Indication: Pneumonia Comparison: 01 December 2016 Findings: The heart and mediastinum are stable in size and configuration. The pulmonary vascularity is slightly increased with bilateral increased interstitial lung density. No other lung infiltrates, effusions, pneumothorax or other abnormality is demonstrated. Impression: Findings suggest mild cardiac decompensation. PROCEDURE INTERPRETED AT [facility] DEPARTMENT OF RADIOLOGY Final Report Signed by: Dr. Frederick Goldman
[2016-12-08] MEDS: TAMSULOSIN 0.4 MG CAPSULE PO SCH (09:29)
[2016-12-08] MEDS: THEOPHYLLINE ER (24 HR) 200 MG CAPSULE PO SCH (09:29)
[2016-12-08] MEDS: MULTIVITAMIN (CENTRUM) TABLET PO SCH (09:29)
[2016-12-08] MEDS: MONTELUKAST 10 MG TABLET PO SCH (09:29)
[2016-12-08] MEDS: acetaZOLAMIDE 250 MG TABLET PO SCH (09:30)
[2016-12-08] MEDS: DILTIAZEM 60 MG TABLET PO SCH (09:30)
[2016-12-08] MEDS: CARVEDILOL 6.25 MG TABLET PO SCH ×2 (09:30→20:26)
[2016-12-08] MEDS: ASPIRIN EC 81 MG TABLET PO SCH (09:30)
[2016-12-08] MEDS: methylPREDNISolone SOD SUC 40 MG/1 ML VIAL IV SCH ×2 (09:30→20:26)
[2016-12-08] MEDS: FAMOTIDINE 20 MG TABLET PO SCH ×2 (09:30→20:26)
[2016-12-08] MEDS: DESITIN 4OZ/NYSTATIN 15 GRAM MIXTURE PASTE TOP SCH ×2 (09:34→20:27)
[2016-12-08] MEDS: BUDESONIDE/FORMOTEROL 160-4.5 INHALER 6 GM INH SCH ×2 (09:34→20:28)
--- NOTE | 2016-12-08 10:21 | Pulmonology Progress Note ---
Pulmonary - PN: Subj Interval history: This 86-year-old white male who is admitted with altered mental status. He improved with Seroquel. There were several problems during his hospitalization which all improved. Patient was seen by multiple residential swing bed but every by a decline to take him. His is very difficult to deal with is impossible to satisfy. Patient's son has apologize for this process there is nothing that he can do about it. On 11/28/2016 we were preparing to discharge the patient. Had a little bit of a cough and a follow-up chest x-ray was done he had a dense left upper lung infiltrate. He is chronic hypoxemia worsened. I moved him to intensive care unit for safety. While he was there on 11/28/2016 evaluated with fiberoptic bronchoscopy. I was suspicious that he may have aspirated. This did not nocturnist physician to be the case. His bronchioloalveolar lavage is growing Serratia Fauzia hands. Patient's on the correct antibiotic for this and I am going to leave him on Cleocin in case we are dealing with gram -positive cocci such as staph and strep. This morning the patient's a little oversedated. I am cutting back his Seroquel to 25 mg at 5 PM with the option to give another 25 if needed. ABGs on FiO2 44% shows a pH 7.37. PCO2 of 48.8. PO2 59.5 and a bicarb of 26.4. Lab. Electrolytes are normal. Creatinine is 0.80 with a BUN 41. White count is 10,386 segs. H&H is 12.8 or 39.6 and platelets are 141,000. Lab reviewed. 12/02/2016. Today's chest x-ray shows patient continues to have a dense left upper lung infiltrate. This is alveolar near a few air bronchograms. He remains hypoxic. He has severe underlying COPD. There is a tendency toward CO2 retention. Bronchoscopy specimens from 08/29/2016 have grown Serratia Fauzia hands. Patient is being treated based on the sensitivities and based on the probability there is some other organisms present. ABGs today on an FiO2 of 44 % show a pH 7.37 PCO2 48.8 PO2 59.5 and a bicarb 26.1. Last night we held the patient's Seroquel dose as he was already sleepy and slept throughout the night seems a little sleepy this morning. If he wakes up does well today we will give him 25 mg of Seroquel at 5 PM. We have the option of given a second 1 if needed. Electrolytes normal. Creatinine is 0.80 with a BUN of 41. White count is 10,386 segs H&H is 12.8 or 39.6 and platelets are 141,000. Hopefully once this patient mental status improves and he is able to protect his airways and participate will be able to move into the floor. 12/05/2016. This is a 86-year-old white male is a longtime patient of mine. He has severe COPD and he has dementia. He was admitted to the hospital with altered mental status and we were ready for discharge 1 week ago. He had developed some cough the night before so we checked an x-ray and he had a dense extensive left upper lung alveolar infiltrate. Later on he developed some increased shortness of breath is possible chest pain and this required movement to ICU. He is back in room last night. He is on Seroquel 25 mg once a day and we have the option for an extra 25 later on if needed. He slept well for the first time last night and he is eating a little bit. For the first time in memory his was happy today. His pneumonia was investigated with fiberoptic bronchoscopy because I thought he had aspirated. He had not aspirated but the bronchoscopy specimens grew Serratia Fauzia hands and he is being treated based on these cultures and sensitivities and infiltrate is resolving. We have made several tries with help and patient get into [facility] which he accepted him twice. declined it after we got this arranged. All nursing homes in the area have turned him down. He has been on a few of them for short term before 12/08/2016. Patient looks better but his abdomen is distended and I do not hear any bowel sounds. Will check a KUB. I am concerned that he may have an ileus. This was discussed with his . Also electrolytes including magnesium have been ordered. These are pending. Patient appears to be more alert today. There were no complaints about his sleeping. Medicines. Reviewed Physical exam. Vital signs. See below Psychiatric. Arousable can talk. More alert than usual Neurologic. Cranial nerves are intact with marked bilateral decreased hearing acuity. Patient moves all 4 extremities. Face. Symmetrical. Lips and tongue are not swollen. Neck. Symmetrical kyphotic with no meningismus and no masses. Chest. Hyperinflated. Prolonged incomplete expiration. Mild large airway congestion Heart. No gallop Abdomen. Distended. I hear no bowel sounds. Extremities. Nothing to suggest deep venous thrombophlebitis. Lymphatics. No submandibular cervical supraclavicular or epitrochlear adenopathy. The remainder of the physical exam is noncontributory Plan. 12/01/2016. 1. Continue present antibiotics. 2. Adjust Seroquel 3. Supplemental oxygen 4. Continue present regimen. 5. Follow-up chest x-ray ABGs. 6. May be an another day or so patient can be moved from ICU. He is in a good bit of danger from a pulmonary standpoint. 12/02/2016. 1. See my note for today above. #2 follow-up chest x-ray and lab and ABGs have been 12/05/2016. 1. See my note above 2. Resolving pneumonia 3. Altered mental status which is improving with Seroquel 12/08/2016. 1. KUB 2. Lab including electrolytes and magnesium. 3. See today's note above. Concerned about possible ileus Exam (Progress Note) - Constitutional Vitals: Period Temp Pulse Resp BP Sys/Carrion Pulse Ox Last 24 Hr 97.5 F-98.3 F 67-87 14-20 113-133/52-70 90-98 Results - Labs CBC & BMP: 12/01/16 04:43 12/01/16 04:43 Specialty Discharge - Follow Up or Referrals Follow up with: Gaetano Castro MD [Physician] - 11/30/17 12:45 pm (1 year ) Levon Bishop MD [Physician] - (Keep already scheduled appointment)
--- NOTE | 2016-12-08 11:20 | XRay Report ---
XR KUB Clinical Information: Abdominal Pain abdominal distention Comparison: 12/05/2016 Findings: Stomach is distended and filled with gas, similar to prior. The small bowel is nondilated. There is no free air identified. Moderate stool is noted throughout colon suggesting fecal stasis/constipation. There are no abnormal focal soft tissue masses or calcific densities identified in the abdomen or pelvis. Lung bases appear predominantly clear. There is no acute osseous abnormality. No suspicious osseous lesions are identified. Right total hip arthroplasty hardware again noted. Impression: No acute radiographic abnormality in the abdomen. Similar moderate distention of the stomach and findings suggestive of mild/moderate fecal stasis/constipation. PROCEDURE INTERPRETED AT [facility] DEPARTMENT OF RADIOLOGY Final Report Signed by: Johnnie Thomas
[2016-12-08 11:43] LABS: Calcium 8.6 MG/DL (8.5-10.1); Magnesium 2.3 MG/DL (1.8-2.4); Osmolality,Calculated 308.6 MOS/KG (273-304); Potassium 4.1 MMOL/L (3.5-5.1)
[2016-12-08] MEDS ORDERED: SODIUM PHOSPHATE ENEMA 133 ML BOTTLE RECTAL ONE (13:45)
[2016-12-08 13:55] LABS: ABG Base Excess 5.6 MMOL/L (-2.5-2.5); ABG HCO3 29.5 MMOL/L (20-26); ABG Oxygen Saturation 97.1 % (95-100); ABG PCO2 55.3 MM HG (35-48); ABG PH 7.378 (7.35-7.45); ABG PO2 86.7 MM HG (80-95); ABG TCO2 28.5 MMOL/L (23-27)
[2016-12-08] MEDS: QUEtiapine 25 MG TABLET PO SCH (14:58)
[2016-12-08 16:30] LABS: Apearance,Urine CLOUDY (Clear); Bilirubin,Urine Negative (Negative); Blood, Urine Moderate mg/dL (Negative); Glucose,Urine (UA) 50 mg/dL (Negative); Ketones,Urine Negative (Negative); Mucus,Urine Occasional /LPF (Occasional); Nitrite,Urine Negative (Negative); Protein,Urine 30 MG/DL; RBC,Urine 120 /HPF (0-4); Squamous Epithelial Cell,Urine Occasional /HPF (0-10); Urine Color Yellow (Yellow); Urine Specific Gravity 1.014 (1.001-1.035); WBC,Urine 29 /HPF (0-6)
[2016-12-08] MEDS: ATORVASTATIN 20 MG TABLET PO SCH (20:26)
[2016-12-08] MEDS: ACETAMINOPHEN 325 MG TABLET PO PRN (22:49)
[2016-12-08] MEDS: QUEtiapine 25 MG TABLET PO PRN (23:00)
[2016-12-09] MEDS: ALBUTEROL/IPRATROPIUM 3 ML NEB RESP TX SCH ×4 (00:24→19:23)
[2016-12-09] MEDS: MEROPENEM 500 MG in SODIUM CHLORIDE 0.9% 100 ML IV SCH ×3 (05:24→20:18)
[2016-12-09] MEDS: CLINDAMYCIN INJ 300 MG in PREMIX 1 EACH IV SCH ×3 (06:25→19:38)
[2016-12-09] MEDS ORDERED: SODIUM PHOSPHATE ENEMA 133 ML BOTTLE RECTAL PRN (09:21)
[2016-12-09] MEDS ORDERED: SODIUM PHOSPHATE ENEMA 133 ML BOTTLE RECTAL ONE (09:21)
--- NOTE | 2016-12-09 09:27 | XRay Report ---
XR KUB Indication: Abdominal distention Comparison: 08 December 2016 Findings: No free fluid or free air seen. Increased stool volume is seen in the colon. The bowel gas pattern otherwise appears within normal limits. No abnormal calcifications are present. No other abnormality is identified. Impression: Increased stool volume in the colon, may indicate constipation. PROCEDURE INTERPRETED AT [facility] DEPARTMENT OF RADIOLOGY Final Report Signed by: Dr. Frederick Goldman
--- NOTE | 2016-12-09 09:32 | Pulmonology Progress Note ---
Pulmonary - PN: Subj Interval history: This 86-year-old white male who is admitted with altered mental status. He improved with Seroquel. There were several problems during his hospitalization which all improved. Patient was seen by multiple intermediate swing bed but every by a decline to take him. His is very difficult to deal with is impossible to satisfy. Patient's son has apologize for this process there is nothing that he can do about it. On 11/28/2016 we were preparing to discharge the patient. Had a little bit of a cough and a follow-up chest x-ray was done he had a dense left upper lung infiltrate. He is chronic hypoxemia worsened. I moved him to intensive care unit for safety. While he was there on 11/28/2016 evaluated with fiberoptic bronchoscopy. I was suspicious that he may have aspirated. This did not turn down man to be the case. His bronchioloalveolar lavage is growing Serratia Fauzia hands. Patient's on the correct antibiotic for this and I am going to leave him on Cleocin in case we are dealing with gram -positive cocci such as staph and strep. This morning the patient's a little oversedated. I am cutting back his Seroquel to 25 mg at 5 PM with the option to give another 25 if needed. ABGs on FiO2 44% shows a pH 7.37. PCO2 of 48.8. PO2 59.5 and a bicarb of 26.4. Lab. Electrolytes are normal. Creatinine is 0.80 with a BUN 41. White count is 10,386 segs. H&H is 12.8 or 39.6 and platelets are 141,000. Lab reviewed. 12/02/2016. Today's chest x-ray shows patient continues to have a dense left upper lung infiltrate. This is alveolar near a few air bronchograms. He remains hypoxic. He has severe underlying COPD. There is a tendency toward CO2 retention. Bronchoscopy specimens from 08/29/2016 have grown Serratia Fauzia hands. Patient is being treated based on the sensitivities and based on the probability there is some other organisms present. ABGs today on an FiO2 of 44 % show a pH 7.37 PCO2 48.8 PO2 59.5 and a bicarb 26.1. Last night we held the patient's Seroquel dose as he was already sleepy and slept throughout the night seems a little sleepy this morning. If he wakes up does well today we will give him 25 mg of Seroquel at 5 PM. We have the option of given a second 1 if needed. Electrolytes normal. Creatinine is 0.80 with a BUN of 41. White count is 10,386 segs H&H is 12.8 or 39.6 and platelets are 141,000. Hopefully once this patient mental status improves and he is able to protect his airways and participate will be able to move into the floor. 12/05/2016. This is a 86-year-old white male is a longtime patient of mine. He has severe COPD and he has dementia. He was admitted to the hospital with altered mental status and we were ready for discharge 1 week ago. He had developed some cough the night before so we checked an x-ray and he had a dense extensive left upper lung alveolar infiltrate. Later on he developed some increased shortness of breath is possible chest pain and this required movement to ICU. He is back in room last night. He is on Seroquel 25 mg once a day and we have the option for an extra 25 later on if needed. He slept well for the first time last night and he is eating a little bit. For the first time in memory his was happy today. His pneumonia was investigated with fiberoptic bronchoscopy because I thought he had aspirated. He had not aspirated but the bronchoscopy specimens grew Serratia Fauzia hands and he is being treated based on these cultures and sensitivities and infiltrate is resolving. We have made several tries with help and patient get into [facility] which he accepted him twice. declined it after we got this arranged. All nursing homes in the area have turned him down. He has been on a few of them for short term before 12/08/2016. Patient looks better but his abdomen is distended and I do not hear any bowel sounds. Will check a KUB. I am concerned that he may have an ileus. This was discussed with his . Also electrolytes including magnesium have been ordered. These are pending. Patient appears to be more alert today. There were no complaints about his sleeping. 12/09/2016. Yesterday's chest x-ray shows resolution of patient's infiltrate. KUB today shows a good bit of feces. There is no evidence of an ileus or gastroparesis. The patient had a huge bowel movement yesterday with a enema will repeat this today his abdomen feels much better and he was able to eat a breakfast this morning. Patient required Seroquel 252 yesterday he slept fairly well and did well overall from a psychiatric standpoint. He is awake and I think oriented this morning. We will going to change his Seroquel to 25 mg at 2 PM and 25 mg at 10 PM and that was probably what will work for him at home. Labs been reviewed and medicines have been reviewed. Her father told the patient's to anticipate a or Thursday discharge. Medicines. Reviewed Physical exam. Vital signs. See below Psychiatric. Arousable can talk. More alert than usual and much calmer and cooperative Neurologic. Cranial nerves are intact with marked bilateral decreased hearing acuity. Patient moves all 4 extremities. Face. Symmetrical. Lips and tongue are not swollen. Neck. Symmetrical kyphotic with no meningismus and no masses. Chest. Hyperinflated. Prolonged incomplete expiration. Mild large airway congestion Heart. No gallop Abdomen. Distended. Nontender. Bowel sounds are present Extremities. Nothing to suggest deep venous thrombophlebitis. Lymphatics. No submandibular cervical supraclavicular or epitrochlear adenopathy. The remainder of the physical exam is noncontributory Plan. 12/01/2016. 1. Continue present antibiotics. 2. Adjust Seroquel 3. Supplemental oxygen 4. Continue present regimen. 5. Follow-up chest x-ray ABGs. 6. May be an another day or so patient can be moved from ICU. He is in a good bit of danger from a pulmonary standpoint. 12/02/2016. 1. See my note for today above. #2 follow-up chest x-ray and lab and ABGs have been 12/05/2016. 1. See my note above 2. Resolving pneumonia 3. Altered mental status which is improving with Seroquel 12/08/2016. 1. KUB 2. Lab including electrolytes and magnesium. 3. See today's note above. Concerned about possible ileus 12/09/2016 1. See my note above 2. Enema 3. Seroquel twice daily 4. Possible or Thursday discharge. Exam (Progress Note) - Constitutional Vitals: Period Temp Pulse Resp BP Sys/Carrion Pulse Ox Last 24 Hr 96.2 F-98.5 F 65-139 16- 109-119/50-63 92-99 Results - Labs CBC & BMP: 12/01/16 04:43 12/08/16 10:49 Specialty Discharge - Follow Up or Referrals Follow up with: Gaetano Castro MD [Physician] - 11/30/17 12:45 pm (1 year ) Levon Bishop MD [Physician] - (Keep already scheduled appointment)
[2016-12-09] MEDS: acetaZOLAMIDE 250 MG TABLET PO SCH (09:38)
[2016-12-09] MEDS: THEOPHYLLINE ER (24 HR) 200 MG CAPSULE PO SCH (09:38)
[2016-12-09] MEDS: methylPREDNISolone SOD SUC 40 MG/1 ML VIAL IV SCH ×2 (09:38→20:19)
[2016-12-09] MEDS: DILTIAZEM 60 MG TABLET PO SCH (09:39)
[2016-12-09] MEDS: TAMSULOSIN 0.4 MG CAPSULE PO SCH (09:39)
[2016-12-09] MEDS: FAMOTIDINE 20 MG TABLET PO SCH ×2 (09:39→22:06)
[2016-12-09] MEDS: MONTELUKAST 10 MG TABLET PO SCH (09:40)
[2016-12-09] MEDS: MULTIVITAMIN (CENTRUM) TABLET PO SCH (09:40)
[2016-12-09] MEDS: CARVEDILOL 6.25 MG TABLET PO SCH ×2 (09:40→22:06)
[2016-12-09] MEDS: ASPIRIN EC 81 MG TABLET PO SCH (09:40)
[2016-12-09] MEDS: DESITIN 4OZ/NYSTATIN 15 GRAM MIXTURE PASTE TOP SCH ×2 (09:42→20:19)
[2016-12-09] MEDS: BUDESONIDE/FORMOTEROL 160-4.5 INHALER 6 GM INH SCH ×2 (09:43→22:07)
[2016-12-09] MEDS: FLUCONAZOLE 100 MG TABLET PO SCH (11:25)
[2016-12-09] MEDS: QUEtiapine 25 MG TABLET PO SCH ×2 (15:02→22:06)
[2016-12-09] MEDS: ATORVASTATIN 20 MG TABLET PO SCH (22:06)
[2016-12-10] MEDS: ALBUTEROL/IPRATROPIUM 3 ML NEB RESP TX SCH ×4 (00:27→20:10)
[2016-12-10] MEDS: CLINDAMYCIN INJ 300 MG in PREMIX 1 EACH IV SCH ×4 (00:49→17:59)
[2016-12-10] MEDS: ACETAMINOPHEN 325 MG TABLET PO PRN (05:06)
[2016-12-10] MEDS: MEROPENEM 500 MG in SODIUM CHLORIDE 0.9% 100 ML IV SCH ×3 (05:07→21:05)
[2016-12-10] MEDS: methylPREDNISolone SOD SUC 40 MG/1 ML VIAL IV SCH ×2 (08:54→21:01)
[2016-12-10] MEDS: ASPIRIN EC 81 MG TABLET PO SCH (08:55)
[2016-12-10] MEDS: TAMSULOSIN 0.4 MG CAPSULE PO SCH (08:59)
[2016-12-10] MEDS: MONTELUKAST 10 MG TABLET PO SCH (08:59)
[2016-12-10] MEDS: acetaZOLAMIDE 250 MG TABLET PO SCH (08:59)
[2016-12-10] MEDS: FAMOTIDINE 20 MG TABLET PO SCH ×2 (09:00→20:59)
[2016-12-10] MEDS: BUDESONIDE/FORMOTEROL 160-4.5 INHALER 6 GM INH SCH ×2 (09:00→21:02)
[2016-12-10] MEDS: DILTIAZEM 60 MG TABLET PO SCH (09:00)
[2016-12-10] MEDS: DESITIN 4OZ/NYSTATIN 15 GRAM MIXTURE PASTE TOP SCH ×2 (09:00→20:49)
[2016-12-10] MEDS: THEOPHYLLINE ER (24 HR) 200 MG CAPSULE PO SCH (09:00)
[2016-12-10] MEDS: MULTIVITAMIN (CENTRUM) TABLET PO SCH (09:00)
[2016-12-10] MEDS: CARVEDILOL 6.25 MG TABLET PO SCH ×2 (09:00→20:59)
[2016-12-10] MEDS: FLUCONAZOLE 100 MG TABLET PO SCH (09:16)
[2016-12-10] MEDS ORDERED: LACTULOSE 20 GM/30 ML UDCUP PO ONE (09:47)
[2016-12-10] MEDS ORDERED: LACTULOSE 20 GM/30 ML UDCUP PO PRN (09:47)
--- NOTE | 2016-12-10 10:34 | Pulmonology Progress Note ---
Pulmonary - PN: Subj Interval history: This 86-year-old white male who is admitted with altered mental status. He improved with Seroquel. There were several problems during his hospitalization which all improved. Patient was seen by multiple [facility] swing bed but every by a decline to take him. His is very difficult to deal with is impossible to satisfy. Patient's son has apologize for this process there is nothing that he can do about it. On 11/28/2016 we were preparing to discharge the patient. Had a little bit of a cough and a follow-up chest x-ray was done he had a dense left upper lung infiltrate. He is chronic hypoxemia worsened. I moved him to intensive care unit for safety. While he was there on 11/28/2016 evaluated with fiberoptic bronchoscopy. I was suspicious that he may have aspirated. This did not turntable operator to be the case. His bronchioloalveolar lavage is growing Serratia Fauzia hands. Patient's on the correct antibiotic for this and I am going to leave him on Cleocin in case we are dealing with gram -positive cocci such as staph and strep. This morning the patient's a little oversedated. I am cutting back his Seroquel to 25 mg at 5 PM with the option to give another 25 if needed. ABGs on FiO2 44% shows a pH 7.37. PCO2 of 48.8. PO2 59.5 and a bicarb of 26.4. Lab. Electrolytes are normal. Creatinine is 0.80 with a BUN 41. White count is 10,386 segs. H&H is 12.8 or 39.6 and platelets are 141,000. Lab reviewed. 12/02/2016. Today's chest x-ray shows patient continues to have a dense left upper lung infiltrate. This is alveolar near a few air bronchograms. He remains hypoxic. He has severe underlying COPD. There is a tendency toward CO2 retention. Bronchoscopy specimens from 08/29/2016 have grown Serratia Fauzia hands. Patient is being treated based on the sensitivities and based on the probability there is some other organisms present. ABGs today on an FiO2 of 44 % show a pH 7.37 PCO2 48.8 PO2 59.5 and a bicarb 26.1. Last night we held the patient's Seroquel dose as he was already sleepy and slept throughout the night seems a little sleepy this morning. If he wakes up does well today we will give him 25 mg of Seroquel at 5 PM. We have the option of given a second 1 if needed. Electrolytes normal. Creatinine is 0.80 with a BUN of 41. White count is 10,386 segs H&H is 12.8 or 39.6 and platelets are 141,000. Hopefully once this patient mental status improves and he is able to protect his airways and participate will be able to move into the floor. 12/05/2016. This is a 86-year-old white male is a longtime patient of mine. He has severe COPD and he has dementia. He was admitted to the hospital with altered mental status and we were ready for discharge 1 week ago. He had developed some cough the night before so we checked an x-ray and he had a dense extensive left upper lung alveolar infiltrate. Later on he developed some increased shortness of breath is possible chest pain and this required movement to ICU. He is back in room last night. He is on Seroquel 25 mg once a day and we have the option for an extra 25 later on if needed. He slept well for the first time last night and he is eating a little bit. For the first time in memory his was happy today. His pneumonia was investigated with fiberoptic bronchoscopy because I thought he had aspirated. He had not aspirated but the bronchoscopy specimens grew Serratia Fauzia hands and he is being treated based on these cultures and sensitivities and infiltrate is resolving. We have made several tries with help and patient get into [facility] which he accepted him twice. declined it after we got this arranged. All nursing homes in the area have turned him down. He has been on a few of them for short term before 12/08/2016. Patient looks better but his abdomen is distended and I do not hear any bowel sounds. Will check a KUB. I am concerned that he may have an ileus. This was discussed with his . Also electrolytes including magnesium have been ordered. These are pending. Patient appears to be more alert today. There were no complaints about his sleeping. 12/09/2016. Yesterday's chest x-ray shows resolution of patient's infiltrate. KUB today shows a good bit of feces. There is no evidence of an ileus or gastroparesis. The patient had a huge bowel movement yesterday with a enema will repeat this today his abdomen feels much better and he was able to eat a breakfast this morning. Patient required Seroquel 252 yesterday he slept fairly well and did well overall from a psychiatric standpoint. He is awake and I think oriented this morning. We will going to change his Seroquel to 25 mg at 2 PM and 25 mg at 10 PM and that was probably what will work for him at home. Labs been reviewed and medicines have been reviewed. Her father told the patient's to anticipate a or Thursday discharge. 12/10/2016. Patient seen along with his and Vu Kauffman nurse practitioner. Patient had a pretty good night and the medicine seems to be working fine for him he wakes up fine in the morning he is been able to eat. Patient and are anxious to go home my plan is to let him go home tomorrow if all goes well. Labs been reviewed. Medicines have been reviewed. Overall I think the patient is improved and it does look safe to go home. Medicines. Reviewed Physical exam. Vital signs. See below Psychiatric. Arousable can talk. More alert than usual and much calmer and cooperative Neurologic. Cranial nerves are intact with marked bilateral decreased hearing acuity. Patient moves all 4 extremities. Face. Symmetrical. Lips and tongue are not swollen. Neck. Symmetrical kyphotic with no meningismus and no masses. Chest. Hyperinflated. Prolonged incomplete expiration. Mild large airway congestion Heart. No gallop Abdomen. Distended. Nontender. Bowel sounds are present Extremities. Nothing to suggest deep venous thrombophlebitis. Lymphatics. No submandibular cervical supraclavicular or epitrochlear adenopathy. The remainder of the physical exam is noncontributory Plan. 12/01/2016. 1. Continue present antibiotics. 2. Adjust Seroquel 3. Supplemental oxygen 4. Continue present regimen. 5. Follow-up chest x-ray ABGs. 6. May be an another day or so patient can be moved from ICU. He is in a good bit of danger from a pulmonary standpoint. 12/02/2016. 1. See my note for today above. #2 follow-up chest x-ray and lab and ABGs have been 12/05/2016. 1. See my note above 2. Resolving pneumonia 3. Altered mental status which is improving with Seroquel 12/08/2016. 1. KUB 2. Lab including electrolytes and magnesium. 3. See today's note above. Concerned about possible ileus 12/09/2016 1. See my note above 2. Enema 3. Seroquel twice daily 4. Possible or Thursday discharge. 12/10/2016. 1. See my note above 2. Possible discharge tomorrow or the next day. 3. Lactulose for constipation. says his work in the past 4. Follow-up chest x-ray. Exam (Progress Note) - Constitutional Vitals: Period Temp Pulse Resp BP Sys/Carrion Pulse Ox Last 24 Hr 96.9 F-98.2 F 63-86 0-24 107-130/42-93 90-99 Results - Labs CBC & BMP: 12/01/16 04:43 12/08/16 10:49 Specialty Discharge - Follow Up or Referrals Follow up with: Gaetano Castro MD [Physician] - 11/30/17 12:45 pm (1 year ) Levon Bishop MD [Physician] - (Keep already scheduled appointment)
[2016-12-10] MEDS: QUEtiapine 25 MG TABLET PO SCH ×2 (15:14→23:19)
[2016-12-10] MEDS: ATORVASTATIN 20 MG TABLET PO SCH (20:59)
[2016-12-11] MEDS: ALBUTEROL/IPRATROPIUM 3 ML NEB RESP TX SCH ×4 (00:27→19:33)
[2016-12-11] MEDS: CLINDAMYCIN INJ 300 MG in PREMIX 1 EACH IV SCH ×4 (01:17→17:47)
[2016-12-11] MEDS: ACETAMINOPHEN 325 MG TABLET PO PRN (02:33)
[2016-12-11] MEDS: MEROPENEM 500 MG in SODIUM CHLORIDE 0.9% 100 ML IV SCH ×3 (05:45→21:41)
--- NOTE | 2016-12-11 07:40 | XRay Report ---
Exam: XR chest 1V portable Date: 12/11/2016 4:00 AM Indication: Pneumonia, COPD Comparison: 12/08/2016 Technical: AP Findings: Infiltrates and effusions are present in both bases. The heart is normal in size. No obvious pneumothorax. Mediastinum is unremarkable. The bony structures reveal no acute findings. Impression: 1. Persistent bibasilar atelectatic change infiltrates and effusions slightly worse in the left base with compared to previous exam PROCEDURE INTERPRETED AT [facility] DEPARTMENT OF RADIOLOGY Final Report Signed by: Dr. Levon Garcia
[2016-12-11] MEDS ORDERED: FUROSEMIDE 20 MG/2 ML VIAL IV ONE ×2 (09:02→22:46)
--- NOTE | 2016-12-11 09:38 | Pulmonology Progress Note ---
Pulmonary - PN: Subj Interval history: This 86-year-old white male who is admitted with altered mental status. He improved with Seroquel. There were several problems during his hospitalization which all improved. Patient was seen by multiple shelter swing bed but every by a decline to take him. His is very difficult to deal with is impossible to satisfy. Patient's son has apologize for this process there is nothing that he can do about it. On 11/28/2016 we were preparing to discharge the patient. Had a little bit of a cough and a follow-up chest x-ray was done he had a dense left upper lung infiltrate. He is chronic hypoxemia worsened. I moved him to intensive care unit for safety. While he was there on 11/28/2016 evaluated with fiberoptic bronchoscopy. I was suspicious that he may have aspirated. This did not basket turner to be the case. His bronchioloalveolar lavage is growing Serratia Fauzia hands. Patient's on the correct antibiotic for this and I am going to leave him on Cleocin in case we are dealing with gram -positive cocci such as staph and strep. This morning the patient's a little oversedated. I am cutting back his Seroquel to 25 mg at 5 PM with the option to give another 25 if needed. ABGs on FiO2 44% shows a pH 7.37. PCO2 of 48.8. PO2 59.5 and a bicarb of 26.4. Lab. Electrolytes are normal. Creatinine is 0.80 with a BUN 41. White count is 10,386 segs. H&H is 12.8 or 39.6 and platelets are 141,000. Lab reviewed. 12/02/2016. Today's chest x-ray shows patient continues to have a dense left upper lung infiltrate. This is alveolar near a few air bronchograms. He remains hypoxic. He has severe underlying COPD. There is a tendency toward CO2 retention. Bronchoscopy specimens from 08/29/2016 have grown Serratia Fauzia hands. Patient is being treated based on the sensitivities and based on the probability there is some other organisms present. ABGs today on an FiO2 of 44 % show a pH 7.37 PCO2 48.8 PO2 59.5 and a bicarb 26.1. Last night we held the patient's Seroquel dose as he was already sleepy and slept throughout the night seems a little sleepy this morning. If he wakes up does well today we will give him 25 mg of Seroquel at 5 PM. We have the option of given a second 1 if needed. Electrolytes normal. Creatinine is 0.80 with a BUN of 41. White count is 10,386 segs H&H is 12.8 or 39.6 and platelets are 141,000. Hopefully once this patient mental status improves and he is able to protect his airways and participate will be able to move into the floor. 12/05/2016. This is a 86-year-old white male is a longtime patient of mine. He has severe COPD and he has dementia. He was admitted to the hospital with altered mental status and we were ready for discharge 1 week ago. He had developed some cough the night before so we checked an x-ray and he had a dense extensive left upper lung alveolar infiltrate. Later on he developed some increased shortness of breath is possible chest pain and this required movement to ICU. He is back in room last night. He is on Seroquel 25 mg once a day and we have the option for an extra 25 later on if needed. He slept well for the first time last night and he is eating a little bit. For the first time in memory his was happy today. His pneumonia was investigated with fiberoptic bronchoscopy because I thought he had aspirated. He had not aspirated but the bronchoscopy specimens grew Serratia Fauzia hands and he is being treated based on these cultures and sensitivities and infiltrate is resolving. We have made several tries with help and patient get into [facility] which he accepted him twice. declined it after we got this arranged. All nursing homes in the area have turned him down. He has been on a few of them for short term before 12/08/2016. Patient looks better but his abdomen is distended and I do not hear any bowel sounds. Will check a KUB. I am concerned that he may have an ileus. This was discussed with his . Also electrolytes including magnesium have been ordered. These are pending. Patient appears to be more alert today. There were no complaints about his sleeping. 12/09/2016. Yesterday's chest x-ray shows resolution of patient's infiltrate. KUB today shows a good bit of feces. There is no evidence of an ileus or gastroparesis. The patient had a huge bowel movement yesterday with a enema will repeat this today his abdomen feels much better and he was able to eat a breakfast this morning. Patient required Seroquel 252 yesterday he slept fairly well and did well overall from a psychiatric standpoint. He is awake and I think oriented this morning. We will going to change his Seroquel to 25 mg at 2 PM and 25 mg at 10 PM and that was probably what will work for him at home. Labs been reviewed and medicines have been reviewed. Her father told the patient's to anticipate a or Thursday discharge. 12/10/2016. Patient seen along with his and Vu Kauffman nurse practitioner. Patient had a pretty good night and the medicine seems to be working fine for him he wakes up fine in the morning he is been able to eat. Patient and are anxious to go home my plan is to let him go home tomorrow if all goes well. Labs been reviewed. Medicines have been reviewed. Overall I think the patient is improved and it does look safe to go home. 12/11/2016. Patient's chest x-ray today shows slight volume overload. Going to give him 20 of Lasix IV push now and tomorrow morning I will repeat his chest x- ray, BNP, BMP. Discharge is planned for tomorrow. Home health will follow the patient. says she needs a hospital bed and I agree. Medicines. Reviewed Physical exam. Vital signs. See below Psychiatric. Arousable can talk. More alert than usual and much calmer and cooperative Neurologic. Cranial nerves are intact with marked bilateral decreased hearing acuity. Patient moves all 4 extremities. Face. Symmetrical. Lips and tongue are not swollen. Neck. Symmetrical kyphotic with no meningismus and no masses. Chest. Hyperinflated. Prolonged incomplete expiration. Mild large airway congestion Heart. No gallop Abdomen. Distended. Nontender. Bowel sounds are present Extremities. Nothing to suggest deep venous thrombophlebitis. Lymphatics. No submandibular cervical supraclavicular or epitrochlear adenopathy. The remainder of the physical exam is noncontributory Plan. 12/01/2016. 1. Continue present antibiotics. 2. Adjust Seroquel 3. Supplemental oxygen 4. Continue present regimen. 5. Follow-up chest x-ray ABGs. 6. May be an another day or so patient can be moved from ICU. He is in a good bit of danger from a pulmonary standpoint. 12/02/2016. 1. See my note for today above. #2 follow-up chest x-ray and lab and ABGs have been 12/05/2016. 1. See my note above 2. Resolving pneumonia 3. Altered mental status which is improving with Seroquel 12/08/2016. 1. KUB 2. Lab including electrolytes and magnesium. 3. See today's note above. Concerned about possible ileus 12/09/2016 1. See my note above 2. Enema 3. Seroquel twice daily 4. Possible or Thursday discharge. 12/10/2016. 1. See my note above 2. Possible discharge tomorrow or the next day. 3. Lactulose for constipation. says his work in the past 4. Follow-up chest x-ray. 12/11/2016. 1. See my note above. 2. Lasix 3. Chest x-ray and lab minimal Exam (Progress Note) - Constitutional Vitals: Period Temp Pulse Resp BP Sys/Carrion Pulse Ox Last 24 Hr 97.3 F-98.6 F 61-92 - 110-131/56-68 88-100 Results - Labs CBC & BMP: 12/01/16 04:43 12/08/16 10:49 Specialty Discharge - Follow Up or Referrals Follow up with: Gaetano Castro MD [Physician] - 11/30/17 12:45 pm (1 year ) Levon Bishop MD [Physician] - (Keep already scheduled appointment)
[2016-12-11] MEDS: THEOPHYLLINE ER (24 HR) 200 MG CAPSULE PO SCH (10:08)
[2016-12-11] MEDS: TAMSULOSIN 0.4 MG CAPSULE PO SCH (10:08)
[2016-12-11] MEDS: FAMOTIDINE 20 MG TABLET PO SCH ×2 (10:08→21:39)
[2016-12-11] MEDS: FLUCONAZOLE 100 MG TABLET PO SCH (10:09)
[2016-12-11] MEDS: DILTIAZEM 60 MG TABLET PO SCH (10:09)
[2016-12-11] MEDS: MONTELUKAST 10 MG TABLET PO SCH (10:10)
[2016-12-11] MEDS: acetaZOLAMIDE 250 MG TABLET PO SCH (10:10)
[2016-12-11] MEDS: MULTIVITAMIN (CENTRUM) TABLET PO SCH (10:10)
[2016-12-11] MEDS: CARVEDILOL 6.25 MG TABLET PO SCH ×2 (10:11→21:38)
[2016-12-11] MEDS: ASPIRIN EC 81 MG TABLET PO SCH (10:11)
[2016-12-11] MEDS: methylPREDNISolone SOD SUC 40 MG/1 ML VIAL IV SCH ×2 (10:11→21:31)
[2016-12-11] MEDS: BUDESONIDE/FORMOTEROL 160-4.5 INHALER 6 GM INH SCH ×2 (10:14→21:40)
[2016-12-11] MEDS: DESITIN 4OZ/NYSTATIN 15 GRAM MIXTURE PASTE TOP SCH ×2 (10:14→20:07)
[2016-12-11] MEDS: QUEtiapine 25 MG TABLET PO SCH ×2 (14:35→21:38)
[2016-12-11] MEDS: ATORVASTATIN 20 MG TABLET PO SCH (21:38)
[2016-12-11] MEDS ORDERED: SODIUM CHLORIDE 0.9% 250 ML IV ONE (22:47)
[2016-12-11] MEDS ORDERED: MORPHINE 2 MG/1 ML SYRINGE IV ONE (22:48)
[2016-12-11 23:03] LABS: ABG Base Excess 4.6 MMOL/L (-2.5-2.5); ABG HCO3 29.8 MMOL/L (20-26); ABG PCO2 46.3 MM HG (35-48); ABG PH 7.427 (7.35-7.45); ABG PO2 71.7 MM HG (80-95); ABG TCO2 31.3 MMOL/L (23-27)
[2016-12-11 23:15] LABS: Basophils # 0.1 10*3/uL (0.0-0.2); Basophils % 0.4 % (0.0-0.8); Immature Granulocytes % 7.5 %; Immature Granulocytes Absolute 1.03 #; Lymphocytes # 0.3 10*3/uL (1.4-4.0); Lymphocytes % 2.1 % (21.2-54.2); Mean Corpuscular HGB Conc 34.1 GM/DL (32-36); Mean Corpuscular Hemoglobin 32 PG (27-34); Monocytes # 0.8 10*3/uL (0.11-0.8); Monocytes % 5.5 % (1.7-12.7); NRBC # 0.09 10*3/uL; Neutrophils # 11.7 10*3/uL (1.4-7.4); Neutrophils % 84.5 % (38.7-73.9); Platelet Count 138 T/CUMM (130-400); Red Blood Count 4.73 MC/CUMM (3.8-5.5); Red Cell Distribution Width 15.5 % (9.3-17.3); White Blood Count 13.8 T/CUMM (4-12)
--- NOTE | 2016-12-11 23:28 | Hospitalist Progress Note ---
Assessment and Plan (1) Dyspnea Status: Chronic Assessment and plan: and hypoxemia Plan CXR D-dimer if high the CT with PTE protocol Cardiac enzymes Nebs, oxygen continue with steroids, antibiotics Morphine prn Current Visit: No Hospitalist: Subjective Interval history: I was called to see this elderly man who was admitted for AMS and pneumonia whose oxygen saturation was dropping, he was more dyspneic. Rapid response was activated. His oxygen was increased to 3L, he was given IV 20mg of Lasix, nebs treatment, morphine. ABG, Cardiac enzymes and CXR are pending. Patient's symptoms have improved and reaffirmed that patient was a full code. Exam - Constitutional Vitals: Period Temp Pulse Resp BP Sys/Carrion Pulse Ox Last 24 Hr 96.3 F-98.3 F 80-94 17-25 110-148/64-82 88-99 General appearance: severe distress - Head Head exam: Present: normal inspection - Respiratory Respiratory exam: Present: decreased breath sounds - GI/Abdominal GI/Abdominal exam: Present: distended - Extremities Exam Extremities exam: Present: normal inspection Results - Labs CBC & BMP: 12/01/16 04:43 12/08/16 10:49 Quality Measures - Stroke Symptom Onset Unknown: No Specialty Discharge - Follow Up or Referrals Follow up with: Gaetano Castro MD [Physician] - 11/30/17 12:45 pm (1 year ) Levon Bishop MD [Physician] - (Keep already scheduled appointment)
[2016-12-11 23:41] LABS: Albumin 2.3 G/DL (3.4-5.0); Bilirubin,Total 0.4 MG/DL (0.2-1.0); Calcium 8.3 MG/DL (8.5-10.1); Magnesium 2.6 MG/DL (1.8-2.4); Osmolality,Calculated 311.7 MOS/KG (273-304); Potassium 3.9 MMOL/L (3.5-5.1); Total Protein 4.8 G/DL (6.4-8.3)
[2016-12-12 00:04] LABS: Apearance,Urine CLEAR (Clear); Bacteria,Urine Occasional /HPF (Few); Bilirubin,Urine Negative (Negative); Blood, Urine Small mg/dL (Negative); Glucose,Urine (UA) 50 mg/dL (Negative); Hyaline Casts,Urine 2 /LPF (0-3); Ketones,Urine Negative (Negative); Mucus,Urine Occasional /LPF (Occasional); Nitrite,Urine Negative (Negative); Protein,Urine Negative; RBC,Urine 3 /HPF (0-4); Squamous Epithelial Cell,Urine Occasional /HPF (0-10); Urine Color Yellow (Yellow); Urine Specific Gravity 1.009 (1.001-1.035); Urine Urobilinogen < 2.0 EU/DL (0.2-1.0); WBC,Urine 1 /HPF (0-6)
[2016-12-12] MEDS: CLINDAMYCIN INJ 300 MG in PREMIX 1 EACH IV SCH ×3 (00:20→11:11)
[2016-12-12] MEDS: ALBUTEROL/IPRATROPIUM 3 ML NEB RESP TX SCH ×3 (00:22→14:11)
[2016-12-12 00:57] LABS: Troponin I Only 0.154 NG/ML (0.00-0.045)
[2016-12-12] MEDS: ACETAMINOPHEN 325 MG TABLET PO PRN (03:17)
[2016-12-12 03:50] LABS: Anisocytosis Slight; Band Neutrophils 6 % (0-10); Lymphocytes 4 % (20-55); Macrocytosis Slight; Nucleated Red Blood Cells 1 (0-5); Platelet Estimate Decreased; Polychromasia Few; Segmented Neutrophils 83 % (50-85); Total Cells Counted 100
[2016-12-12 05:35] LABS: Calcium 8.5 MG/DL (8.5-10.1); Magnesium 2.5 MG/DL (1.8-2.4); Osmolality,Calculated 314.6 MOS/KG (273-304); Potassium 3.7 MMOL/L (3.5-5.1)
--- NOTE | 2016-12-12 06:43 | XRay Report ---
Exam: XR chest 1V portable Date: 12/11/2016 10:56 PM Indication: Shortness of breath Comparison: 12/11/2016 6:09 AM Technical: AP Findings: Skin fold is present over the right chest. Degenerative change present thoracic spine. The heart is normal in size. Improved aeration in the bases with near complete clearing in the left base as compared to previous exam with some mild residual interstitial thickening or alveolar density in the right base. No obvious effusions. No pneumothorax Impression: 1. Improved aeration left base with residual atelectatic change interstitial and alveolar densities in the medial right base. PROCEDURE INTERPRETED AT [facility] DEPARTMENT OF RADIOLOGY Final Report Signed by: Dr. Levon Garcia
[2016-12-12] MEDS: MEROPENEM 500 MG in SODIUM CHLORIDE 0.9% 100 ML IV SCH ×2 (06:45→12:15)
--- NOTE | 2016-12-12 07:22 | XRay Report ---
Exam: XR chest 1V portable Date: 12/12/2016 4:00 AM Indication: COPD CHF Comparison: 12/11/2016 10:47 PM Technical: AP Findings: Mild interstitial thickening in the left base with low volume effusion on the right and some alveolar interstitial densities present. Right rib fractures are again noted on the right. Degenerative change present thoracic spine. ASVD is present. No pneumothorax Impression: 1. Persistent low volume effusions right greater than left with alveolar infiltrate or atelectasis present in the right base and some minimal interstitial thickening in the left base. 2. Old right rib fractures 3. Small ovoid nodular density measuring approximately 7 mm in the right base smoothly marginated possibly represents granuloma change not otherwise clarified. A similar finding is present just inferior to this area. In reviewing films back to 09/21/2015 this area is not clearly demonstrated CT of the chest may be beneficial PROCEDURE INTERPRETED AT [facility] [place] DEPARTMENT OF RADIOLOGY Final Report Signed by: Dr. Levon Garcia
[2016-12-12] MEDS: methylPREDNISolone SOD SUC 40 MG/1 ML VIAL IV SCH (08:54)
[2016-12-12] MEDS: ASPIRIN EC 81 MG TABLET PO SCH ×2 (08:55→09:22)
[2016-12-12] MEDS: MONTELUKAST 10 MG TABLET PO SCH ×2 (08:56→09:23)
[2016-12-12] MEDS: MULTIVITAMIN (CENTRUM) TABLET PO SCH ×2 (08:56→09:22)
[2016-12-12] MEDS: FLUCONAZOLE 100 MG TABLET PO SCH ×2 (08:56→09:23)
[2016-12-12] MEDS: FAMOTIDINE 20 MG TABLET PO SCH ×2 (08:56→09:23)
[2016-12-12] MEDS: TAMSULOSIN 0.4 MG CAPSULE PO SCH ×2 (08:56→09:23)
[2016-12-12] MEDS: acetaZOLAMIDE 250 MG TABLET PO SCH ×2 (08:57→09:23)
[2016-12-12] MEDS: THEOPHYLLINE ER (24 HR) 200 MG CAPSULE PO SCH ×2 (08:58→09:23)
[2016-12-12] MEDS: DESITIN 4OZ/NYSTATIN 15 GRAM MIXTURE PASTE TOP SCH (08:58)
[2016-12-12] MEDS: CARVEDILOL 6.25 MG TABLET PO SCH (09:22)
[2016-12-12] MEDS: DILTIAZEM 60 MG TABLET PO SCH (09:22)
[2016-12-12] MEDS: BUDESONIDE/FORMOTEROL 160-4.5 INHALER 6 GM INH SCH (09:23)
--- NOTE | 2016-12-12 09:46 | Pulmonology Progress Note ---
Pulmonary - PN: Subj Interval history: Vu Kauffman, AGNP-, acting as scribe for Dr. Levon Bishop This 86-year-old white male longtime patient of Dr. Bishop who he admitted on 11/24 with an altered mental status. The patient had had a recent hospitalization. He was under the care of Dr. Faustino Haines and we saw him during that hospital admission. He had done well in the hospital with the subtraction of Zoloft and addition of Zyprexa. We think he was sent home in good condition. His reported she gave him the medicine the proper way and we think he was also seen by home health. We had asked geriatric psych to see him on the day of admission and they did. They said they would be happy to admit him but felt like that he might be medically unstable at that time. Our admit impressions were: 1. Altered mental status with confusion and possible hallucinations and with agitation. 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 Note hospitalization earlier this month under the care of Dr. Faustino Haines with altered mental status, confusion and hallucinations which was thought to possibly be related to Zoloft. 2. September 2016 acute right hip fracture requiring a right hip hemiarthroplasty by Dr. Pereira 3. History of hematuria. Followed by Dr. Delgado. Previously started on Flomax and Avodart 4. COPD with bronchospastic disease 5. Arteriosclerotic heart disease. History of MT and history of stents. Followed by Dr. Karin Cordoba. 6. Colon polyps 7. Hyperlipidemia 8. Allergic sinusitis 9. History of significant tobacco abuse. 10. History of angiodysplasia of the cecum 11. History of alcohol abuse. Patient said that in the past on multiple occasions she stopped drinking alcohol in October 1984 12. History of recurrent left sacroiliac pain exacerbated by exercise 13. See past history 11/25/2016. This patient took a while to calm down last night. He is presently sound asleep and he is began to sleep either at 1:00 this morning or at 4:00 this morning depending upon version of various participants. I used Ativan as needed and I started him with Seroquel 50 mg. This afternoon I will decrease the Seroquel to 25 mg and hope to give it around 5:00. We can have the option of an extra 25 is needed. I have asked geriatric psych to follow-up with this patient. I told the that his son likely will be able to adjust his medicines exactly here and he may need more time such as a geriatric psych unit. CBC is normal. There is no evidence of infection. Electrolytes are within the normal range. Renal study showed a mild amount of dehydration which is being corrected. Glucoses were normal. Protein albumin and globulins were low secondary to poor oral intake. Thyroid function tests are normal and theophylline level was safely at 6.6 11/26/2016. The patient was seen today along with his . The patient was again sleeping this morning when we walked in the room. Patient's reports that she feels he slept well through the night. We have asked her to wake him up some throughout the day today to see if his improved mental status will hold. Yesterday his Seroquel was decreased and we will continue the current dose of 25 mg to be given at 1700 nightly. This dose can be repeated 2 hours after the 5 PM dose if needed. He has been evaluated by [facility] and [facility]. Nursing staff report to the patient's does not want [facility] at this time as they only have group therapy. She reportedly prefers individual therapy. 11/27/2016. The patient was seen today along with his and Bravo Meyer RN. Patient was given Seroquel 25 mg at 1700 last night. He slept through the night reportedly. His states that he has been more like his baseline today. He was sleeping when I entered the room, but when we woke him he was alert and oriented. He was pleased that he was able to eat last night and this morning. He states the first time he has been hungry throughout this hospitalization. construction services technician is working on placement for him at discharge. TB skin test was placed. We have asked physical therapy and occupational therapy to evaluate and treat this patient. Mrs. Contreras reports that he has a routine follow-up appointment with Dr. Gaetano Castro next week. She states it is very difficult for her to get him to outpatient appointments. She asked if we could consult Dr. Castro to see him while he was here. This is been done. 11/28/2016. The patient was seen today along with his , Bravo Meyer RN, and Klaudia Cheng RN. [facility] and [facility] have both declined the patient for acceptance to swing bed. Initially, the patient's stated that someone from [facility] came yesterday and told her that it would be no problem to accept the patient. We told her that we would call and check on this because that was not with the social worker psychiatric have been told. She initially agreed, but later found Ms. Meyer in the roger and asked for us not to call [facility] at all. She would not allow the patient to go to geriatric psych because she wanted him to have individual therapy and not group therapy. She will not allow the social worker psychiatric to inquire about any other swing meds because she wanted the patient have a private room. We went back in the room a second time and talked with her. She states the patient rehab stay home home health in the patient and she wished to take him home with continued home health. We have explained to the patient and his that it is imperative that he take his medications exactly as prescribed. They both verbalized understanding. From medical standpoint, the patient is doing reasonably well. Mrs. Contreras had the nursing staff call Dr. Bishop at approximately 4 AM this morning regarding wheezing. Note, she refused to allow respiratory therapy to give him his scheduled breathing treatment at 0037. He was given a breathing treatment and the wheezing subsided. Nonetheless, he is back to his baseline. He is breathing very well. He is eating well. He is awake, alert, and oriented. 11/28/2016. This patient was seen earlier today his chest x-ray came back showing acute left upper lung pneumonia. He experienced some increased difficulty breathing and he was subsequently moved to intensive care unit. His evaluation included fiberoptic bronchoscopy. I suspected aspiration but this was not found he has underlying COPD with collapsible large and small airways. He had a good bit of retained secretions these were removed and sent to the lab for bacterial and fungal studies. Patient tolerated procedure well he was better afterwards. 12/01/2016. This 86-year-old white male who was admitted with altered mental status. He improved with Seroquel. There were several problems during his hospitalization which all improved. Patient was seen by multiple [facility] swing beds but every one declined to take him. His is very difficult to deal with and is impossible to satisfy. Patient's son has apologized for this but said there is nothing that he can do about it. On 11/28/2016 we were preparing to discharge the patient. Had a little bit of a cough and a follow- up chest x-ray was done. He had a dense left upper lung infiltrate. His chronic hypoxemia worsened. We moved him to intensive care unit for safety. While he was there on 11/28/2016 he was evaluated with fiberoptic bronchoscopy. We were suspicious that he may have aspirated. This did not cuff turner machine operator to be the case. His bronchioloalveolar lavage is growing Serratia marcescens. Patient's on the correct antibiotic for this and I am going to leave him on Cleocin in case we are dealing with gram-positive cocci such as staph and strep. 12/02/2016. Today's chest x-ray shows patient continues to have a dense left upper lung infiltrate. This is alveolar near a few air bronchograms. He remains hypoxic. He has severe underlying COPD. There is a tendency toward CO2 retention. Bronchoscopy specimens from 08/29/2016 have grown Serratia Fauzia hands. Patient is being treated based on the sensitivities and based on the probability there is some other organisms present. ABGs today on an FiO2 of 44 % show a pH 7.37 PCO2 48.8 PO2 59.5 and a bicarb 26.1. Last night we held the patient's Seroquel dose as he was already sleepy and slept throughout the night seems a little sleepy this morning. If he wakes up does well today we will give him 25 mg of Seroquel at 5 PM. We have the option of given a second 1 if needed. Electrolytes normal. Creatinine is 0.80 with a BUN of 41. White count is 10,386 segs H&H is 12.8 or 39.6 and platelets are 141,000. Hopefully once this patient mental status improves and he is able to protect his airways and participate will be able to move into the floor. 12/03/2016. The patient was seen today along with his nurse, Mickie. The patient' s Seroquel "fell off" last night. He did not receive this. We are unsure how he slept. This morning, however, he is easily arousable. He is slightly confused, but knows this. He is able to answer questions appropriately. We will reorder Seroquel 25 mg be given nightly at 1700 with an order that this can be repeated 1 nightly after 2 hours if needed. We feel he is now stable enough to be transferred back to the floor. Chest x-ray shows that his previously noted infiltrate is gradually going away. 12/04/2016. Patient was seen today along with his . Yesterday, we will move the patient from intensive care to medical surgical floor. His reports that he did not sleep well through the night, however, on our rounds this morning he would not awaken even on our exam. He was given Seroquel 25 mg at 1700 and another 25 mg approximately 2 hours later. Obviously, this medication takes a while to work on him, so we will change the timing of the first dose to 1400 with a as needed repeat that can be given 2 hours later. assistant banquet manager yesterday spoke with Koko Berumen regarding reevaluation for geriatric psych. The case resolution specialist noted that patient's was agreeable to this. That evaluation is pending. 12/05/2016. This is a 86-year-old white male is a longtime patient of mine. He has severe COPD and he has dementia. He was admitted to the hospital with altered mental status and we were ready for discharge 1 week ago. He had developed some cough the night before so we checked an x-ray and he had a dense extensive left upper lung alveolar infiltrate. Later on he developed some increased shortness of breath is possible chest pain and this required movement to ICU. He is back in room last night. He is on Seroquel 25 mg once a day and we have the option for an extra 25 later on if needed. He slept well for the first time last night and he is eating a little bit. For the first time in memory his was happy today. His pneumonia was investigated with fiberoptic bronchoscopy because I thought he had aspirated. He had not aspirated but the bronchoscopy specimens grew Serratia Fauzia hands and he is being treated based on these cultures and sensitivities and infiltrate is resolving. We have made several tries with help and patient get into [facility] which he accepted him twice. declined it after we got this arranged. All nursing homes in the area have turned him down. He has been on a few of them for short term before 12/08/2016. Patient looks better but his abdomen is distended and I do not hear any bowel sounds. Will check a KUB. I am concerned that he may have an ileus. This was discussed with his . Also electrolytes including magnesium have been ordered. These are pending. Patient appears to be more alert today. There were no complaints about his sleeping. 12/09/2016. Yesterday's chest x-ray shows resolution of patient's infiltrate. KUB today shows a good bit of feces. There is no evidence of an ileus or gastroparesis. The patient had a huge bowel movement yesterday with a enema will repeat this today his abdomen feels much better and he was able to eat a breakfast this morning. Patient required Seroquel 252 yesterday he slept fairly well and did well overall from a psychiatric standpoint. He is awake and I think oriented this morning. We will going to change his Seroquel to 25 mg at 2 PM and 25 mg at 10 PM and that was probably what will work for him at home. Labs been reviewed and medicines have been reviewed. Her father told the patient's to anticipate a or Thursday discharge. 12/10/2016. Patient seen along with his and Vu Kauffman nurse practitioner. Patient had a pretty good night and the medicine seems to be working fine for him he wakes up fine in the morning he is been able to eat. Patient and are anxious to go home my plan is to let him go home tomorrow if all goes well. Labs been reviewed. Medicines have been reviewed. Overall I think the patient is improved and it does look safe to go home. 12/11/2016. Patient's chest x-ray today shows slight volume overload. Going to give him 20 of Lasix IV push now and tomorrow morning I will repeat his chest x- ray, BNP, BMP. Discharge is planned for tomorrow. Home health will follow the patient. says she needs a hospital bed and I agree. 12/12/2016. The patient was seen today along with his and Santiago Caldwell RN. Patient had an episode of decreased level of consciousness, hypertension, and desaturation last night. A rapid response was called. Please see those notes for more details. The patient was given a breathing treatment and morphine, and his symptoms improved. Today we had a long discussion with the patient's regarding his plan of care and expectations. We have informed her that we felt this patient is nearing terminal state. We suggested switching from home health to hospice. The patient's considered this, and ultimately agreed. She somewhat twisted our words, but after long discussion she understood that this was in the best interest for the patient. She is going to take him home with hospice. [facility] will continue to see him through their hospice division. He will be under the care of the medical records analyst of the hospice. Medications have been reviewed. Labs been reviewed. Creatinine 0.90, BUN 58, sodium 146, potassium 3.7, magnesium 2.5; BNP 230 Microbiology has been reviewed. Blood cultures were negative at day 5. MRSA screen of the nares was negative. As noted above, bronchoscopy lavages grew Serratia marcescens. There was no fungus seen on smear. Fungal cultures grew Yenni albicans. Voided urine grew Yenni albicans. Exam (Progress Note) - Constitutional Vitals: Period Temp Pulse Resp BP Sys/Carrion Pulse Ox Last 24 Hr 96.3 F-97.9 F 82-103 16-26 109-148/59-84 93-99 Exam: Chest with prolonged and incomplete expiration; no significant wheeze Heart no gallop Abdomen is nontender and nondistended; bowel sounds positive 4 Lower extremities with nothing to suggest acute deep venous thrombophlebitis Psychiatric and neurologic unable to be assessed secondary to the patient's somnolence Plan: Again, we discussed the patient's probable terminal state with his . She will take him home with hospice. Please see the discharge summary for more information. Results - Labs CBC & BMP: 12/11/16 23:00 12/12/16 04:27 Specialty Discharge - Follow Up or Referrals Follow up with: Gaetano Castro MD [Physician] - 11/30/17 12:45 pm (1 year ) Levon Bishop MD [Physician] - (Keep already scheduled appointment)
[2016-12-12] MEDS: ALBUTEROL/IPRATROPIUM 3 ML NEB RESP TX PRN (10:03)
[2016-12-12 11:48] VITALS: BP 147/81
[2016-12-12] MEDS: QUEtiapine 25 MG TABLET PO SCH (13:05)
== END 2016-12-12 14:30 | disposition hospice, home (50) | DRG 876 ==
LOC: N.ED 14:25 → EDSTATUS 14:25 → N.5E 16:30 → N.ED 16:31 → N.5E 16:31 → N.ICU 11-28 14:17 → N.3E 12-03 17:33
PROVIDERS: ADMIT Internal Medicine Pulmonary Disease; ATTEND Internal Medicine Pulmonary Disease